=== PATIENT | male | born 1995 | race Caucasian/White ===

== ENCOUNTER 2022-04-08 00:41 | Emergency (ER) | payer SELFPAY ==
--- OUTSIDE RECORDS SUMMARY | 2022-04-08 00:46 | XMS REPORT | Continuity of Care Document ---
:1995 Author Organization [facility] t Address [address] [place] [address] Care Team Providers Name Role Phone Pcp, Patient Does Not Have A Primary Care Physician [id number] MALI CROWE Attending Clinician Unavailable JACKIE GALVAN Attending Clinician Unavailable JOCELYN EATON Attending Clinician Unavailable SARAH WU Attending Clinician Unavailable AJ URBINA Attending Clinician Unavailable Pricilla Slade NP Attending Clinician PRICILLA SLADE Attending Clinician Unavailable Nawaf Her Attending Clinician Unavailable PRABHU MI Attending Clinician Unavailable BERNADETTE TOMLINSON Attending Clinician Unavailable Antonio Lara Attending Clinician Unavailable Physician, No Primary or Family Admitting Clinician Unavaila ble Payers Payer Name Policy Type Policy Number Effective Date Expiration Date S maria elena Problems Condition Condition Condition Status Onset Resolution Last Treating Co mments Source Name Details Category Date Date Treatment Clinician Date No known No known Disease Unive rs active active ity of problems problems [facility] Allergies, Adverse Reactions, Alerts Allergy Allergy Status Severity Reaction(s) Onset Inactive Treating Comm ents Source Name Type Date Date Clinician [place]ulfa [place] Active [place] [facility] (Sulfona 905 Clear mide 00:00: [place] [facility] Sulfa DA Active [place] HIVES, [facility] (Sulfona ANGIOEDEMA 12-24 Divya r mide 00:00: [place] [facility] Sulfa DA Active [place] [facility] (Sulfona 2-28 Clear mide 00:00: [place] [facility]) [facility] Sulfa DA Active [place] HIVES [facility] (Sulfona 2-28 Clear mide 00:00: [place] Antibiot 00 Regiona ics) [facility] Sulfa DA Active MO 2019-0 [facility] (Sulfona 5-18 Clear mide 00:00: [place] Antibiot 00 Regiona ics) [facility] Sulfa DA Active [place] HIVES 2019-0 [facility] (Sulfona 5-18 Clear mide 00:00: [place] Antibiot 00 Regiona ics) [facility] Sulfa DA Active MO 2020-0 [facility] (Sulfona 2-04 Clear mide 00:00: [place] Antibiot 00 Regiona ics) [facility] Sulfa DA Active [place] HIVES 2019-0 [facility] (Sulfona 2-04 Clear mide 00:00: [place] Antibiot 00 Regiona ics) [facility] No Known DA Active U 2013- [facility] Allergie 12-04 [place] s 00:00: d [facility] No Known DA Active U [facility] Allergie 12-04 [place] s 00:00: d [facility] No Known DA Active U 2005- [facility] Contrast 8- Clear Allergie 00:00: [place] s [facility] No Known DA Active U 2005- [facility] Drug - Clear Allergie 00:00: [place] [facility] No Known DA Active U 2005- [facility] Food 8- Clear Allergie 00:00: [facility] No Known DA Active U [facility] Other 8- Clear Allergie 00:00: [facility] NO KNOWN Drug Active Univers ALLERGIE Class ity of S [facility] Social History Social Habit Start Date Stop Date Quantity Comments Source Exposure to Not sure [facility] SARS-CoV-2 (event) [facility] Sex Assigned At [birth year] [facility] 00:00:00 00:00:00 [facility] Smoking Status Start Date Stop Date Source Unknown if ever smoked [facility] Medications Ordered Filled Start Stop Current Ordering Indication Dosage Frequency Signature Comments Components Source Medication Medication Date Date Medication? Clinician (SIG) Name Name ibuprofen 2020-04- No 800mg 800 mg, Uni vers (IBU) 0-17 10-17 Oral, ity of tablet 800 06:15: 05:23 ONCE, 1 [place] as mg 00 :00 dose, On Medical [facility] 02/04/21 at 0115, [facility] acetaminoph 2020-04 No 650mg 650 mg, U nivers en 0-17 10-17 Oral, ity of (TYLENOL) 06:15: 05:23 ONCE, 1 [place] tablet 650 00 :00 dose, On Medic al mg [facility] 02/04/21 at 0115, [facility] albuterol 2020-04 Yes [id number] 2{puff} Inhale 2 Univers 90 0-17 Puffs ity of mcg/actuati 00:00: every 4 [place] as on inhaler 00 (four) Medical hours as Branch needed for Wheezing or Shortness of Breath. levoFLOXaci 2020-04- No [id number] 750mg Take 1 Univers n 750 mg 0-17 10-25 tablet by ity o f tablet 00:00: 04:59 mouth [place] 00 :00 daily for Medical 7 days. Branch predniSONE 2020-04- No [id number] 20mg Take 1 Univers 20 mg 0-17 10-23 tablet by ity of tablet 00:00: 04:59 mouth 2 [place] 00 :00 (two) Medical times Branch daily for 5 days. TYLENOL FOR 2008-0 Yes None Univer s CHILDREN 1-16 Entered ity of ORAL 13:05: [place] 22 [facility] Immunizations Ordered Filled Immunization Date Status Comments Sourc e Immunization Name Name DTP 1995 Completed University of 00:00:00 [facility] HIB 4 Dose Schedule 1995 Completed [facility] 00[facility] Polio (IPV/OPV) 1995 Completed Universit y of 00:00:00 [facility] Vital Signs Vital Name Observation Time Observation Value Comments Source Systolic blood 2021-02-04 07:45:00 131 mm[Hg] Univer sity of pressure [facility] Diastolic blood 2021-02-04 07:45:00 74 mm[Hg] [facility] Heart rate 2021-02-04 07:45:00 114 /min [facility] Respiratory rate 2021-02-04 07:45:00 20 /min [facility] Oxygen saturation in 2021-02-04 07:45:00 98 /min [facility] Arterial blood by [facility] Pulse oximetry [place] Body temperature 2021-02-04 04:20:00 38.33 Lisa [facility] Body height 2021-02-04 04:20:00 170.2 cm [facility] Body weight 2021-02-04 04:20:00 91.944 kg [facility] BMI 2021-02-04 04:20:00 31.75 kg/m2 [facility] Procedures Procedure Date / Time Performing Clinician Source Performed URINALYSIS 2021-02-04 06:27:00 Pricilla Slade [facility] EBV-MONONUCLEOSIS SCREEN 2021-02-04 06:27:00 Pricilla Slade [facility] RAPID STREP SCREEN FOR 2021-02-04 06:27:00 Pricilla Slade [facility] GROUP A [facility] URINE DRUG (IMMUNOASSAY) 2021-02-04 06:27:00 [facility] n[facility] SCREEN W/O REFLEX ADC,CLC OR LCC ONLY - 2021-02-04 05:24:00 [facility] A & B DIRECT Medical [place] ANTIGEN XR CHEST 1 VW 2021-02-04 05:23:00 Pricilla Slade [facility] COVID-19 (ID NOW RAPID 2021-02-04 04:57:00 Pricilla Slade [facility] TESTING) Medical Branch NOTICE OF PRIVACY 2021-02-04 04:01:40 Doctor Unassigned, No [facility] PRACTICES Name Medical Branch CONSENT/REFUSAL FOR 2021-02-04 03:58:40 [facility], [facility] Name Medical Branch Encounters Start End Encounter Admission Attending Care Care Encounter Source Date/Time Date/Time Type Type Clinicians Facility Department ID 2020-08-15 Inpatient HCACL ROBIN [id number] [facility] 18:15:00 43 [facility] 2020-06-18 Inpatient HCACL ROBIN [id number] [facility] 18:18:00 [id number] [facility] 2019-09-06 Inpatient HCACL ROBIN [id number] [facility] 22:14:00 [id number] [facility] 2019-05-25 Inpatient HCAMN DARIO [id number] [facility] 21:43:00 78 [facility] 2021-11-14 2021-11-14 Emergency E MALI CROWE SE MED [id number] 09:15:00 11:12:[address] [facility] 2021-10-05 2021-10-06 Emergency E MANDY NIGEL MHBL [id number] MHBL 22:09:00 02:40:00 JACKIE 2021-10-04 2021-10-05 Emergency E ANGELITO SE MHSE [id number] 23:17:00 00:01:[address] [facility] 2021-09-25 2021-09-25 Emergency E JAZMIN SE MHSE [id number] 21:46:00 22:39:[address] [facility] 2021-08-18 2021-08-18 Emergency E CIARA SE [id number] 18:36:00 19:57:[address] [facility] 2021-02-03 2021-02-04 Emergency [place] [facility] [id number] Univers 23:27:00 03:04:00 Pricilla Reyes [id number] [facility] [id number] [facility] [id number] [address] 2021-02-03 2021-02-03 Emergency [facility] E[facility] [id number] Univers 23:27:00 23:27:00 PRICILLA guevara [facility] 2020-12-24 2020-12-25 Emergency EM Taina, HCACL ROBIN [id number] [facility]CA 21:50:00 02:16:00 Nawaf 22 [facility] 2020-12-19 2020-12-20 Emergency E HIWOTPRABHU BL MHBL [id number] BL 21:51:00 04:15:00 2020-08-16 2020-08-17 Emergency E BERNADETTE TOMLINSON BL BL [id number] BL 22:18:00 02:24:00 2020-06-18 2020-06-18 Emergency EM MarcoDAMION [id number] [facility] 18:18:00 21:35:00 Antonio 67 [facility] 2019-04-10 2019-04-10 Emergency E MHBL BL 7502 BL 21:45:00 21:45:00 Results Test Description Test Time Test Comments Results Result Comments Source EBV-MONONUCLEOSIS SCREEN 2021-02-04 07:04:49 Test Item Value Reference Range Interpretation Comme nts EBV Mononucleosis Screen (test code = 8736403080) Negative Nega tive Lab Interpretation (test code = 40338-8) Normal [place] [facility]ROAT[facility]2020-12-25 00:56:00 Test Item Value Reference Range Interpretation Comments AG STREP GROUP A Negative Negative Negative fo r Strep A (THROAT) (test code = nuclei c acid STREPA) INFLUENZA A [id number] 00:56:00 Test Item Value Reference Range Interpretation Comments INFLUENZA A (test code = FLUAPCR) Negative Negative INFLUENZA B (test code = FLUBPCR) Negative Negative Coronavirus 2019 nCoV [id number] 00:41:00 Test Item Value Reference Range Interpretation Comments Coronavirus 2019 NEGATIVE Negative Negative re sults should be nCoV Bedside (test treated a s presumptive and, code = ifinconsistent with [id number]) clinical signs and symptoms or necessaryfor patient management, meenu uld be tested with an alternativemole cular assay. Negative result s do not preclude [id number] tion and should not be u sed as the sole basis forp atient management deci sions. Negative result s should beconsidered in the context of a patient's recent exposures,histo ry, presence of clinical sig ns and symptoms consis tentwith COVID-19. AG STREP GROUP A (THROAT)2020-12-25 00:33:00 Test Item Value Reference Range Interpretation Comments AG STREP GROUP A Negative Negative Negative fo r Strep A (THROAT) (test code = nuclei c acid STREPA) INFLUENZA A [id number] 00:33:00 Test Item Value Reference Range Interpretation Comments INFLUENZA A (test code = FLUAPCR) Negative INFLUENZA B (test code = FLUBPCR) Negative - CT HEAD/BRAIN W/O [id number] 19:29:00 [facility] 1995 Sex: M Name: ANATOLY MCNEAL [facility] : 1995 Age/S: 25 / M [address] [place] [address] BlvdUnit #: [id number] Loc: [place] [address] Phys: Shmuel Rodriguez Acct: [id number] Dis Date: Status: REG ER PHONE #: [phone] Exam Date: 08/15/20201901 FAX #: [phone] Reason: fall, occipital head strike, LOC, vomiting EXAMS: CPT CODE: [id number] CT HEAD/BRAIN W/O CONT 65001 Clinical Indication: Fall, occipital head strike, loss of point isthmus, vomiting; Comparison: None TECHNIQUE: CT images were obtained from the foramen magnum to the vertex and cervical spine without the use of intravenous contrast on a multidetector CT. Coronal and sagittal reconstructions were obtained. CT imaging performed at this location utilizes radiation dose optimization techniques which include one or more of the following: -Automated exposure control - Adjustment of the mA and/or kV according to patient size -Use of iterative reconstruction technique CT Radiation Dose DLP 569.9 mGy-cm-CT head CT Radiation Dose DLP 1964 mGy-cm-CT cervical spine FINDINGS: BRAIN PARENCHYMA: There are normal urbina-white interfaces, sulci and gyri. There are no focal mass lesions on this noncontrast head CT. There is no mass effect, midline shift or edema. There are no intra-axial or extra-axial fluid collections, intraventricular or intraparenchymal hemorrhage. The pineal, sellar, brainstem, cerebellum and skull base regions appear unremarkable. VENTRICLES: The lateral ventricles, third and fourth ventricles appear unremarkable. The basilar cisterns are normal. ORBITS, MASTOIDS AND PARANASAL SINUSES: The visualized orbits and paranasal sinuses are unremarkable. The mastoid air cells are clear. SKULL: Midline parieto-occipital scalp swelling. No underlying calvarial fracture. If there is further concern for intracranialpathology or acute stroke, MRI of the brain may be performed for complete assessment. CT cervical spine: FINDINGS: ALIGNMENT AND GENERAL ASSESSMENT: Mild reversal of the cervical lordosis, likely positional due to muscle spasm. There is normal alignment of the cervical spine. There are no fractures or subluxations. The craniocervical junction is normal. The atlanto- dental alignment appears unremarkable. The posterior elements PAGE 1 Signed Report (CONTINUED) Name: ANATOLY MCNEAL [facility] Andrzej : 1995 Age/S: 25 / M [address] [place] [address] Unit #: [id number] Loc: [place] [address] Phys: Shmuel Rodriguez Acct: [id number] Dis Date: Status: REG ER PHONE #: [phone] Exam Date:08/15/20201901 FAX #: [phone] Reason: fall, occipital head strike, LOC, vomiting EXAMS: CPT CODE: [id number] CT HEAD/BRAIN W/O CONT 97668 <Continued> and spinous processes are unremarkable. The facet joint, spinolaminar and spinous process alignment are normal. DISK SPACES AND SOFT TISSUES:The prevertebral soft tissues are normal. C2-C3 to C7-T1 disc space levels show no definite disc protrusions on CT. There is no central or foraminal stenosis. MRI is the gold standard to assess for disk disease. VISUALIZED LUNG APICES: Unremarkable. CT myelogram or MRI of the cervical spine may be performed, if there is further concern. IMPRESSION: CT head: 1. No acute intracranial abnormality. 2. Midline parieto-occipital scalp swelling. No calvarial fracture. CT cervical spine: No fractures or subluxations of the cervical spine. SL: AKHIL at 1929 Reported and signed by: Wanda Rodriguez M.D. CC: Antonio Lara MD; Shmuel HOLLY Technologist:RT Noemi(R)(CT) CTDI: DLP: Trnscb Date/Time: 08/15/2020 (1928) [email or web address] Orig Print D/T: S: 08/15/2020 (1931) PAGE 2 Signed Report- CT C-SPINE W/O [id number] 19:29:00 [facility] 1995 Sex: M Name: ANATOLY MCNEAL [facility] : 1995 Age/S: 25 / M [address] [place] [address] BlvdUnit #: [id number] Loc: [place] [address] Phys: Truj[place] AltoDavidShmuel PA Acct: [id number] Dis Date: Status: REG ER PHONE #: [phone] Exam Date: 08/15/2020 190 FAX #: [phone] Reason: fall, occipital head strike, LOC, vomiting EXAMS: CPT CODE: [id number] CT C-SPINE W/O CONT 78727 Clinical Indication: Fall, occipital head strike, loss of point isthmus, vomiting; Comparison: None TECHNIQUE: CT images were obtained from the foramen magnum to the vertex and cervical spine without the use of intravenous contrast on a multidetector CT. Coronal and sagittal reconstructions were obtained. CT imaging performed at this location utilizes radiation dose optimization techniques which include one or more of the following: -Automated exposure control - Adjustment of the mA and/or kV according to patient size -Use of iterative reconstruction technique CT Radiation Dose DLP 569.9 mGy-cm-CT head CT Radiation Dose DLP 1964 mGy-cm-CT cervical spine FINDINGS: BRAIN PARENCHYMA: There are normal urbina-white interfaces, sulci and gyri. There are no focal mass lesions on this noncontrast head CT. There is no mass effect, midline shift or edema. There are no intra-axial or extra-axial fluid collections, intraventricular or intraparenchymal hemorrhage. The pineal, sellar, brainstem, cerebellum and skull base regions appear unremarkable. VENTRICLES: The lateral ventricles, third and fourth ventricles appear unremarkable. The basilar cisterns are normal. ORBITS, MASTOIDS AND PARANASAL SINUSES: The visualized orbitsand paranasal sinuses are unremarkable. The mastoid air cells are clear. SKULL: Midline parieto-occipital scalp swelling. No underlying calvarial fracture. If there is further concern for intracranial pathology or acute stroke, MRI of the brain may be performed for complete assessment. CT cervical spine: FINDINGS: ALIGNMENT AND GENERAL ASSESSMENT: Mild reversal of the cervical lordosis, likely positional due to muscle spasm. There is normal alignment of the cervical spine. There are no fractures or subluxations. The craniocervical junction is normal. The atlanto- dental alignment appears unremarkable. The posterior elements PAGE 1 Signed Report (CONTINUED) Name[facility] 1995 Age/S: 25 / M [address] [place] [address] Blvd Unit #: [id number] Loc: [place] [address] Phys: Shmuel Rodriguez Acct: [id number] Dis Date: Status: REG ER PHONE #: [phone] Exam Date: 08/15/2020 190 FAX #: [phone] Reason: fall, occipital head strike, LOC, vomiting EXAMS: CPT CODE: [id number] CT C-SPINE W/O CONT 27569 <Continued> and spinous processes are unremarkable. The facet joint, spinolaminar and spinous process alignment are normal. DISK SPACES AND SOFT TISSUES: Theprevertebral soft tissues are normal. C2-C3 to C7-T1 disc space levels show no definite disc protrusions on CT. There is no central or foraminal stenosis. MRI is the gold standard to assess for disk disease. VISUALIZED LUNG APICES: Unremarkable. CT myelogram or MRI of the cervical spine may be performed, if there is further concern. IMPRESSION: CT head: 1. No acute intracranial abnormality. 2. Midline parieto-occipital scalp swelling. No calvarial fracture. CT cervical spine: No fractures or subluxations of the cervical spine. SL: MADHUH at 192 Reported and signed by: Wanda Rodriguez M.D. CC: Antonio Lara MD; Shmuel HOLLY Technologist:RT Noemi(R)(CT) CTDI: DLP: Trnscb Date/Time: 08/15/2020 (1928) [id number] Print D/T: S: 08/15/2020 (1931) PAGE 2 Signed Report- XR CHEST 1 [id number] 19:10:00 [facility] [place] : 1995 Sex: M FAX: Antonio Lara MD [phone] Leroy: St: [facility] FAX: Shmuel Rodriguez [phone] ------ Name: ANATOLY MCNEAL [facility] : 1995 Age/S: 25/M [address] [place] [address] Unit #: [id number] Loc: [place] [address] Phys: Shmuel Rodriguez Acct: [id number] Dis Date: Status: REG ER PHONE #: [phone] Exam Date: 08/15/2020 1904 FAX #: [phone] Reason: trauma EXAMS: CPT CODE: [id number] XR CHEST 1 V 37089 Portable single view AP chest INDICATION: Fall. Injury. Comparison: 06/10/2020 chest x-ray FINDINGS: The cardiomediastinal silhouette is normal in size. Lungs are clear. Costophrenic anglesare sharp. No suspicious osseous abnormality is seen. IMPRESSION: No evidence for acute cardiopulmonary disease. SL: SG-H at 1910 Reported and signed by: Jose C Joshi M.D. CC: Antonio Lara MD; Shmuel HOLLY Technologist: Suma Lynch, RT(R); Judith Savage RT(R) Trninrd Date/Time/By: 08/15/2020 (1909) : By: [email or web address] Orig Print D/T: S: 08/15/2020 (1912) PAGE 1 Signed ReportBASIC METABOLIC [id number] 20:21:00 Test Item Value Reference Range Interpretation Comments SODIUM (test code = NA) 140 mEq/L 134-147 N POTASSIUM (test code = 4.0 mEq/L 3.4-5.0 N K) CHLORIDE (test code = 108 mEq/L 100-108 N CL) CARBON DIOXIDE (test 24 mEq/l 21-33 N code = CO2) ANION GAP (test code = 12 0-20 N GAP) GLUCOSE (test code = 108 mg/dL 70-110 N GLU) BLOOD UREA NITROGEN 16 mg/dL 7-18 N (test code = BUN) GLOMERULAR FILTRATION 102.8 110-120 L Units of measure = RATE (test code = GFR) ml/mi n/1.73 m2 CREATININE (test code = 0.9 mg/dL 0.6-1.3 N CREAT) CALCIUM (test code = 9.8 mg/dL 8.0-10.5 N CA) [id number] 20:21:00 Test Item Value Reference Range Interpretation Comments TROPONIN-I < 0.006 ng/mL 0.000-0.045 N Negative: <= 0 .045 Positive: (test code = >= 0.046 Correl ation with TROPI) serial results, other cardiac markers andclinical findings is nec essary to determine the clinicalsignifi cance of this result. Results using different metho dologies should not be c omparedto one another as quyen titative results may silvana y by method. BASIC METABOLIC [id number] 20:20:00 Test Item Value Reference Range Interpretation Comments SODIUM (test code = NA) mEq/L 134-147 POTASSIUM (test code = K) mEq/L 3.4-5.0 CHLORIDE (test code = CL) mEq/L 100-108 CARBON DIOXIDE (test code = CO2) mEq/l 21-33 ANION GAP (test code = GAP) 0-20 GLUCOSE (test code = GLU) mg/dL 70-110 BLOOD UREA NITROGEN (test code = BUN) mg/dL 7-18 GLOMERULAR FILTRATION RATE (test code 110-120 = GFR) CREATININE (test code = CREAT) mg/dL 0.6-1.3 CALCIUM (test code = CA) mg/dL 8.0-10.5 [id number] 20:20:00 Test Item Value Reference Range Interpretation Comments TROPONIN-I < 0.006 ng/mL 0.000-0.045 N Negative: <= 0 .045 Positive: (test code = >= 0.046 Correl ation with TROPI) serial results, other cardiac markers andclinical findings is nec essary to determine the clinicalsignifi cance of this result. Results using different metho dologies should not be c omparedto one another as quyen titative results may silvana y by method. [id number] 20:16:00 Test Item Value Reference Range Interpretation Comments D-DIMER (test 364 ng/mlFEU See_Comment N THROMBOSIS AND /OR PULMONARY code = EMBOLISM AND TH E CLINICAL DDIMER) CUT- OFF VALUE FOR EXCLUSION (500 ng/mL FEU) OF THESE CONDITIONSIS VA LIDATED BY THE MANUFACTURE R OF THE METHOD. A NEGAT RENU D-DIMER RESULT WHEN COM BINED WITH A CLINICALASSESSM ENT OF LOW PRETEST PROBABI LITY HAS BEEN SHOWN TO HAVEA HIGH NEGATIVE PREDICTIVE VALU E OF DVT OR PE. D-DIMER KOJO UES >500 ng/mL FEU ARE N OT DIAGNOSTIC FOR DVT, PEor D IC WITHOUT OTHER CONFIRMAT ORY TESTS AND APPROPRIATECLIN ICAL EUALUATIONS. [A utomated message] [employer] stem which generated this result transmitted ref erence range: <=500. The refe rence range was not used to interpret this result as normal/abnormal . CBC W/AUTO [id number] 20:06:00 Test Item Value Reference Range Interpretation Comments WHITE BLOOD CELL (test code = 9.3 x10 3/uL 4.5-11.0 N WBC) RED BLOOD CELL (test code = 5.45 x10 6/uL 4.00-5.60 N RBC) HEMOGLOBIN (test code = HGB) 15.0 g/dL 12.5-16.9 N HEMATOCRIT (test code = HCT) 44.6 % 37.5-50.7 N MEAN CELL VOLUME (test code = 81.8 fL 81.0-99.0 N MCV) MEAN CELL HGB (test code = MCH) 27.5 pg 27.0-33.0 N MEAN CELL HGB CONCETRATION 33.6 g/dL 33.0-37.0 N (test code = MCHC) RED CELL DISTRIBUTION WIDTH CV 13.0 % 11.5-14.5 N (test code = RDW) RED CELL DISTRIBUTION WIDTH SD 38.3 fL 37.0-54.0 N (test code = RDW-SD) PLATELET COUNT (test code = 288 x10 3/uL 150-400 N PLT) MEAN PLATELET VOLUME (test code 10.7 fL 7.0-9.0 H = MPV) NEUTROPHIL % (test code = NT%) 68.1 % 56.0-77.0 N IMMATURE GRANULOCYTE % (test 0.3 % 0.0-2.0 N code = IG%) LYMPHOCYTE % (test code = LY%) 19.6 % 14.0-32.0 N MONOCYTE % (test code = MO%) 8.3 % 4.8-9.0 N EOSINOPHIL % (test code = EO%) 2.8 % 0.3-3.7 N BASOPHIL % (test code = BA%) 0.9 % 0.0-2.0 N NUCLEATED RBC % (test code = 0.0 % 0-0 N NRBC%) NEUTROPHIL # (test code = NT#) 6.32 x10 3/uL 2.0-7.6 N IMMATURE GRANULOCYTE # (test 0.03 x10 3/uL 0.00-0.03 N code = IG#) LYMPHOCYTE # (test code = LY#) 1.82 x10 3/uL 1.0-3.8 N MONOCYTE # (test code = MO#) 0.77 x10 3/uL 0.1-0.8 N EOSINOPHIL # (test code = EO#) 0.26 x10 3/uL 0.0-0.2 H BASOPHIL # (test code = BA#) 0.08 x10 3/uL 0.0-0.2 N NUCLEATED RBC # (test code = 0.00 x10 3/uL 0.0-0.1 N NRBC#) MANUAL DIFF REQUIRED (test code NO = MDIFF) CBC W/AUTO [id number] 20:02:00 Test Item Value Reference Range Interpretation Comments WHITE BLOOD CELL (test code = x10 3/uL 4.5-11.0 WBC) RED BLOOD CELL (test code = RBC) x10 6/uL 4.00-5.60 HEMOGLOBIN (test code = HGB) 15.0 g/dL 12.5-16.9 N HEMATOCRIT (test code = HCT) 44.6 % 37.5-50.7 N MEAN CELL VOLUME (test code = fL 81.0-99.0 MCV) MEAN CELL HGB (test code = MCH) pg 27.0-33.0 MEAN CELL HGB CONCETRATION (test g/dL 33.0-37.0 code = MCHC) RED CELL DISTRIBUTION WIDTH CV % 11.5-14.5 (test code = RDW) PLATELET COUNT (test code = PLT) 288 x10 3/uL 150-400 N NEUTROPHIL % (test code = NT%) % 56.0-77.0 LYMPHOCYTE % (test code = LY%) % 14.0-32.0 NEUTROPHIL # (test code = NT#) x10 3/uL 2.0-7.6 LYMPHOCYTE # (test code = LY#) x10 3/uL 1.0-3.8 MANUAL DIFF REQUIRED (test code = MDIFF) - XR CHEST 1 [id number] 19:27:00 [facility] 1995 Sex: M FAX: Antonio Lara MD [phone] Leroy: REMA St: DEP Name: ANATOLY MCNEAL [facility] : 1995 Age/S: 25/M [address] [place] [address] Unit #: [id number] Loc: [place] [address] Phys: Bia Lara Acct: [id number] Dis Date: Status: DEP ER PHONE #: [phone] Exam Date: 06/18/2020 1856 FAX #: [phone] Reason: chest pain, SOB EXAMS: CPT CODE: [id number] XR CHEST 1 V 57333 SINGLE VIEW RADIOGRAPH CHEST INDICATION: Chest pain and dyspnea. TECHNIQUE: A single view frontal radiograph of the chest was obtained. COMPARISONS: Chest x-ray 09/06/2019 FINDINGS: There is no acute osseous fracture or dislocation. There is no subdiaphragmatic free gas. The cardiomediastinal size and contour are normal. There is no pneumothorax, pleural effusion or organized pneumonia. IMPRESSION: 1. No acute cardiopulmonary process. at 1926 Rep orted and signed by: Sergio Rose D.O. CC: Antonio Lara MD Technologist: Kae Dior, RT(R) Trnscrd Date/Time/By: 06/18/2020 (1926) : By: Ana Maria.[email or web address] Orig Print D/T: S: 06/18/2020 (1929) PAGE 1 Signed Report- XR CHEST 1 V 2020-06-18 19:27:00 [facility] : 1995 Sex: M FAX: Antonio Lara MD [phone] Leroy: St: REG Name: ANATOLY MCNEAL [facility] : 1995 Age/S: 25/M [address] [place] [address] Unit #: [id number] Loc: [place] [address] Phys: Bia Lara Acct: [id number] Dis Date: Status: REG ER PHONE #: [phone] Exam Date: 06/18/2020 185 FAX #: [phone] Reason: chest pain, SOB EXAMS: CPT CODE: [id number] XR CHEST 1 V 29580 SINGLE VIEW RADIOGRAPH CHEST INDICATION: Chest pain and dyspnea. TECHNIQUE: A single view frontal radiograph of the chest was obtained. COMPARISONS: Chest x-ray 09/06/2019 FINDINGS: There is no acute osseous fracture or dislocation. There is no subdiaphragmatic free gas. The cardiomediastinal size and contour are normal. There is no pneumothorax, pleural effusion or organized pneumonia. IMPRESSION: 1. No acute cardiopulmonary process. at 1927 Re ported and signed by: Sergio Rose D.O. CC: Antonio Lara MD Technologist: RT Carlene(R) Trnscrd Date/Time/By: 06/18/2020 (1926) : By: Ana Maria.[email or web address] Orig Print D/T: S: 06/18/2020 (1929) PAGE 1 Signed ReportNovel Coronavirus 20182019-09-07 14:02:00 Test Item Value Reference Range Interpretation Comments Novel Coronavirus Negative Negative Positive r esults are 2019 Inhouse (test indicativ e of the presence code = [id number]) ofSARS-CoV -2 RNA, clinical correlation wit h patient historyand othe r diagnostic info rmation is necessary to determinepatien t infection status. Positiv e results do not rule out bacterial infection or co -infection with other viru ses. Negative result s do not preclude SARS-C oV-2 infection andsh ould not be used as the elda e basis for patient managementdecis ions. Negative result s must be combined with otherclinical observations, p atient history, and epidemiological information . Detection of SARS-CoV-2 RNA may be affe cted bysample collec tion methods, storag e conditions, and /or stageof infection. Kristy l RNA mutations, vacc inations, antiviraltherap eutics, antibiotics, chemotherapeuti c orimmunosuppres brady drugs have not been e valuated for effectson d etection. Results are for the identification of SARS-CoV-2 RNA usingthe SWYF M2000 Sy stem under the FDA Emergen cy UseAuthorizatio n. The testing is perf ormed by personneltraflower d in the procedures for the [employer]000 molecular diagnostic SARS-CoV-2 assa y in vitro. Testing Criteria: Fever Cough OtherOther: GENERALIZED WEAKNESSCOMMENTS: ORDER PUT IN FOR DR JOSE MIGUEL Reddy [id number] 00:31:00 Test Item Value Reference Range Interpretation Comments INFLUENZA A (test code = FLUAPCR) Negative Negative INFLUENZA B (test code = FLUBPCR) Negative Negative COMMENTS: SwabBASIC METABOLIC [id number] 00:19:00 Test Item Value Reference Range Interpretation Comments SODIUM (test code = NA) 139 mEq/L 134-147 N POTASSIUM (test code = 3.6 mEq/L 3.4-5.0 N K) CHLORIDE (test code = 104 mEq/L 100-108 N CL) CARBON DIOXIDE (test 27 mEq/L 21-33 N code = CO2) ANION GAP (test code = 12 0-20 N GAP) GLUCOSE (test code = 88 mg/dL 70-110 N GLU) BLOOD UREA NITROGEN 10 mg/dL 7-18 N (test code = BUN) GLOMERULAR FILTRATION 82.2 110-120 L Units of measure = RATE (test code = GFR) ml/mi n/1.73 m2 CREATININE (test code = 1.1 mg/dL 0.6-1.3 N CREAT) CALCIUM (test code = 9.3 mg/dL 8.0-10.5 N CA) HEPATIC FUNCTION [id number] 00:19:00 Test Item Value Reference Range Interpretation Comments TOTAL PROTEIN (test code = PROT) 8.0 g/dL 6.4-8.2 N ALBUMIN (test code = ALB) 4.30 g/dL 3.4-5.0 N BILIRUBIN TOTAL (test code = BILT) 0.5 MG/DL <1.5 N BILIRUBIN DIRECT (test code = 0.20 MG/DL 0.0-0.30 N BILD) BILIRUBIN INDIRECT (test code = 0.30 MG/DL BILIND) SGOT/AST (test code = AST) 13 IUnit/L 15-37 L SGPT/ALT (test code = ALT) 22 IUnit/L 15-65 N ALKALINE PHOSPHATASE TOTAL (test 74 IUnit/L 20-125 N code = ALKP) BASIC METABOLIC [id number] 00:13:00 Test Item Value Reference Range Interpretation Comments SODIUM (test code = NA) 139 mEq/L 134-147 N POTASSIUM (test code = K) 3.6 mEq/L 3.4-5.0 N CHLORIDE (test code = CL) 104 mEq/L 100-108 N CARBON DIOXIDE (test code = CO2) 27 mEq/L 21-33 N ANION GAP (test code = GAP) 12 0-20 N GLUCOSE (test code = GLU) 88 mg/dL 70-110 N BLOOD UREA NITROGEN (test code = 10 mg/dL 7-18 N BUN) GLOMERULAR FILTRATION RATE (test 110-120 code = GFR) CREATININE (test code = CREAT) mg/dL 0.6-1.3 CALCIUM (test code = CA) 9.3 mg/dL 8.0-10.5 N HEPATIC FUNCTION [id number] 00:13:00 Test Item Value Reference Range Interpretation Comments TOTAL PROTEIN (test code = PROT) g/dL 6.4-8.2 ALBUMIN (test code = ALB) g/dL 3.4-5.0 BILIRUBIN TOTAL (test code = BILT) MG/DL <1.5 BILIRUBIN DIRECT (test code = BILD) MG/DL 0.0-0.30 SGOT/AST (test code = AST) IUnit/L 15-37 SGPT/ALT (test code = ALT) IUnit/L 15-65 ALKALINE PHOSPHATASE TOTAL (test IUnit/L 20-125 code = ALKP) CBC W/AUTO [id number] 00:05:00 Test Item Value Reference Range Interpretation Comments WHITE BLOOD CELL (test code = 8.84 x10 3/uL 4.5-11.0 N WBC) RED BLOOD CELL (test code = 5.91 x10 6/uL 4.00-5.60 H RBC) HEMOGLOBIN (test code = HGB) 16.0 g/dL 12.5-16.9 N HEMATOCRIT (test code = HCT) 48.5 % 37.5-50.7 N MEAN CELL VOLUME (test code = 82.1 fL 81.0-99.0 N MCV) MEAN CELL HGB (test code = MCH) 27.1 pg 27.0-33.0 N MEAN CELL HGB CONCETRATION 33.0 g/dL 33.0-37.0 N (test code = MCHC) RED CELL DISTRIBUTION WIDTH CV 12.9 % 11.5-14.5 N (test code = RDW) RED CELL DISTRIBUTION WIDTH SD 38.5 fL 37.0-54.0 N (test code = RDW-SD) PLATELET COUNT (test code = 272 x10 3/uL 150-400 N PLT) MEAN PLATELET VOLUME (test code 10.6 fL 7.0-9.0 H = MPV) NEUTROPHIL % (test code = NT%) 70.9 % 56.0-77.0 N IMMATURE GRANULOCYTE % (test 0.1 % 0.0-2.0 N code = IG%) LYMPHOCYTE % (test code = LY%) 20.6 % 14.0-32.0 N MONOCYTE % (test code = MO%) 6.3 % 4.8-9.0 N EOSINOPHIL % (test code = EO%) 1.2 % 0.3-3.7 N BASOPHIL % (test code = BA%) 0.9 % 0.0-2.0 N NUCLEATED RBC % (test code = 0.0 % 0-0 N NRBC%) NEUTROPHIL # (test code = NT#) 6.26 x10 3/uL 2.0-7.6 N IMMATURE GRANULOCYTE # (test 0.01 x10 3/uL 0.00-0.03 N code = IG#) LYMPHOCYTE # (test code = LY#) 1.82 x10 3/uL 1.0-3.8 N MONOCYTE # (test code = MO#) 0.56 x10 3/uL 0.1-0.8 N EOSINOPHIL # (test code = EO#) 0.11 x10 3/uL 0.0-0.2 N BASOPHIL # (test code = BA#) 0.08 x10 3/uL 0.0-0.2 N NUCLEATED RBC # (test code = 0.00 x10 3/uL 0.0-0.1 N NRBC#) MANUAL DIFF REQUIRED (test code NO = IFF) - XR CHEST 2 [id number] 23:38:00 [facility] : 1995 Sex: M FAX: Ernesto Swanson MD [phone] Leroy: REMA St: DEP Name: ANATOLY MCNEAL [facility] : 1995 Age/S: 24/M [address] [place] [address] Unit #: [id number] Loc: [place] [address] Phys: Ernesto Colunga MD Acct: [id number] Dis Date: Status: DEP ER PHONE #: [phone] Exam Date: 09/06/2019 [facility] FAX #: [phone] Reason: Chest Pain EXAMS: CPT CODE: [id number] XR CHEST 2 V 16536 Chest, 2 views dated 09/06/2019. HISTORY: Chest pain. Comparison is made to a prior study dated 05/20/2018. The heart is normal in size. The cardiac mediastinal shadow appears within normal limits. The lungs appear clear. The palmar vasculature is normal in caliber. No acute pleural space abnormalities are detected. IMPRESSION: 1. No radiographic evidence of acute cardiopulmonary disease. SL: 131 at 9963 Reported and signed by: Kanu Pinto M.D. CC: Ernesto Colunga MD Technologist: RT Jeremie(Timothy) Trncatalina Date/Time/By: 09/06/2019 (6638) : By: NavaDMM Orig Print D/T: S: 09/06/2019 (1570) PAGE 1 Signed Report- XR CHEST 2 [id number] 23:38:00 FAX: Ernseto Swanson MD [phone] Leroy: St: REG Name: ANATOLY MCNEAL [facility] : 1995 Age/S: 24/M [address] [place] [address] Blvd Unit #: [id number] Loc: [place] [address] Phys: Ernesto Colunga MD Acct: [id number] Dis Date: Status: REG ER PHONE #: [phone] Exam Date: 09/06/20192330 FAX #: [phone] Reason: Chest Pain EXAMS: CPT CODE: [id number] XR CHEST 2 V 30972 Chest, 2 views dated 09/06/2019. HISTORY: Chest pain. Comparison is made to a prior study dated 05/20/2018. The heart is normal in size. The cardiac mediastinal shadow appears within normal limits. The lungs appear clear. The palmar vasculature is normal in caliber. No acute pleural space abnormalities are detected. IMPRESSION: 1. No radiographic evidence of acute cardiopulmonary disease. SL: 131 at 2338 Reported and signed by: Kanu Pinto M.D. CC: Ernesto Colunga MD Technologist: KACIE Chao) Trnscrd Date/Time/By: 09/06/2019 (4602) : By: NavaDMM Orig Print D/T: S: 09/06/2019 (7770) PAGE 1 Signed Report- CT ABD PELVIS [id number] 00:20:00 FAX: Dariusz Junior DO [phone] Leroy: St: REG Name: ANATOLY MCNEAL [facility] : 1995 Age/S: 24/M [address] [facility] Unit: [id number] Loc: [address] Phys: [place] [id number] Acct: [id number] Dis Date: Status: REG ER PHONE #: [phone] Exam Date: 05/25/2019 0005 FAX #: [phone] Reason: abdominal pain EXAMS: CPT CODE: [id number] CT ABD PELVIS W/CONT 28958 EXAM: CT ABDOMEN AND PELVIS WITH IV CONTRAST DICTATION LOCATION: H48 HISTORY: Male, 24 years of age with periumbilical abdominal pain for one week TECHNIQUE: Contrast: Nonionic IV contrast was given. No GI contrast was given. Portal venous phase: Abdomen and pelvis Delayed phase: None Reconstructions: Coronal and sagittal One or more of the following dose reduction techniques were used: Automated exposure control; adjustment of the mA and/or kV according to the patient size; and/or use of iterative reconstruction technique. COMPARISON: Previous CT abdomen and pelvis with contrast performed 10/28/2014 FINDINGS: Statements: Exam quality is acceptable. Lower thorax: Unremarkable. Hepatobiliary: The liver is normal without focal lesion. The gallbladder is normal. No biliary dilation. Pancreas: Normal. Spleen: Normal. Adrenals: Normal. Genitourinary: No solid renal mass, significant cortical thinning, obvious renal stone or hydronephrosis. Ureters are unremarkable. Urinary bladder is unremarkable. The visualized reproductive organs are unremarkable. Gastrointestinal: No bowel wall thickening, bowel obstruction or perienteric inflammation. The appendix is normal. Vascular: No aortic aneurysm or dissection. IVC is unremarkable. Portal vein is patent. PAGE 1 Signed Report (CONTINUED) FAX: Dariusz Junior DO [phone] Leroy: St: REG -------- Name: ANATOLY MCNEAL [facility] : 1995 Age/S: 24/M [address] [facility] Unit: [id number] Loc: E.ERS2 [place], [place]: [place] [address] Acct: [id number] Date: Status: REG ER PHONE #: [phone] Exam Date: 05/25/2019 0005 FAX #: [phone] Reason: abdominal pain EXAMS: CPT CODE: [id number] CT ABD PELVIS W/CONT 46402 <Continued> Lymphatics:No enlarged lymph nodes by CT size criteria. Bones/Soft Tissues: No acute osseous findings. No ventral hernias. Peritoneum/Other: No free intraperitoneal air. No free intraperitoneal fluid. IMPRESSION:Unremarkable CT of the abdomen and pelvis. Electronically Signed by James Escamilla on05/26/2019 at 0020 Reported and signed by: Ale Escamilla M.D. CC: Dariusz Junior DO Technologist:CORA Montgomeryrd Dt/Tm: 05/26/2019 (0020) [place] Orig Print D/T: S: 05/26/2019 (0820 PAGE 2 Signed Report- CT ABD PELVIS [id number] 00:20:00 [facility] : 1995 Sex: M FAX: Dariusz Junior DO [phone] Leroy: St: DEP Name: ANATOLY MCNEAL CYDNEY [facility] : 1995 Age/S: 24/M [address] [facility] Unit: [id number] Loc: [place], [place] Phys: D[place] [id number]: [id number] Dis Date: Status: DEP ER PHONE #: [phone] Exam Date: 05/25/2019 0005 FAX #: [phone] Reason: abdominal pain EXAMS: CPT CODE: [id number] CT ABD PELVIS W/CONT 41593 EXAM: CT ABDOMEN AND PELVIS WITH IV CONTRAST DICTATION LOCATION: H48 HISTORY: Male, 24 years of age with periumbilical abdominal pain for one week TECHNIQUE: Contrast: Nonionic IV contrast was given. No GI contrast was given. Portal venous phase: Abdomen and pelvis Delayed phase: None Reconstructions: Coronal an d sagittal One or more of the following dose reduction techniques were used: Automated exposure control; adjustment of the mA and/or kV according to the patient size; and/or use of iterative reconstruction technique. COMPARISON: Previous CT abdomen and pelvis with contrast performed 10/28/2014 FINDINGS: Statements: Exam quality is acceptable. Lower thorax: Unremarkable. Hepatobiliary: The liver is normal without focal lesion. The gallbladder is normal. No biliary dilation. Pancreas: Normal. Spleen: Normal. Adrenals: Normal. Genitourinary: No solid renal mass, significant cortical thinning, obvious renal stone or hydronephrosis. Ureters are unremarkable. Urinary bladder is unremarkable. The visualized reproductive organs are unremarkable. Gastrointestinal: No bowel wall thickening, bowel obstruction or perienteric inflammation. The appendix is normal. Vascular: No aortic aneurysm or dissection. IVC is unremarkable. Portal vein is patent. PAGE 1 Signed Report (CONTINUED) FAX: Dariusz Junior DO [phone] Leroy: St: [facility] --- Name: ANATOLY MCNEAL [facility] : 1995 Age/S: 24/M [address] [facility] Unit: [id number] Loc: [place], [place]: [place] [id number] Acct: [id number] Dis Date: Status: [facility] ER PHONE #: [phone] Exam Date: 05/25/2019 0005 FAX #: [phone] Reason: abdominal pain EXAMS: CPT CODE: [id number] CT ABD PELVIS W/CONT 48327 <Continued> Lymphatics: No enlarged lymph nodes by CT size criteria. Bones/Soft Tissues: No acute osseous findings. No ventral hernias. Peritoneum/Other: No free intraperitoneal air. No free intraperitoneal fluid. IMPRESSION: Unremarkable CT of the abdomen and pelvis. at 0020 Reported and signed by: Ale Escamilla M.D. CC: Dariusz Junior DO Technologist: CORA WELLINGTON Trnscrd Dt/Tm: 05/26/2019 (0020) [place] Orig Print D/T: S: 05/26/2019 (0820 PAGE 2 Signed ReportBASIC METABOLIC PANEL 2019-05-25 23:28:00 Test Item Value Reference Range Interpretation Comments SODIUM (test code = NA) 138 mmol/l 134.0-147.0 N POTASSIUM (test code = K) 4.7 mmol/L 3.6-5.2 N CHLORIDE (test code = CL) 101 mmol/l 98.0-107.0 N CARBON DIOXIDE (test code = CO2) 31.6 mmol/l 21.0-33.0 N ANION GAP (test code = GAP) 10.1 0-20 N GLUCOSE (test code = GLU) 83 mg/dl 70.0-110.0 N BLOOD UREA NITROGEN (test code = 18 mg/dl 7.0-18.0 N BUN) CREATININE (test code = CREAT) 1.15 mg/dL 0.60-1.30 N GFR NON BLACK (test code = 83 mL/min 110-120 L GFRNONBLACK) GFR BLACK (test code = GFRBLACK) 100 mL/min 133-145 L CALCIUM (test code = CA) 9.3 mg/dl 8.0-10.5 N HEPATIC FUNCTION PANEL [id number] 23:28:00 Test Item Value Reference Range Interpretation Comments TOTAL PROTEIN (test 7.5 GM/DL 6.0-8.1 N code = PROT) ALBUMIN (test code = 3.9 gm/dL 3.2-4.7 N ALB) BILIRUBIN TOTAL (test 0.4 mg/dl 0.0-1.0 N code = BILT) BILIRUBIN DIRECT (test <0.1 mg/dl 0.0-0.3 N code = BILD) SGOT/AST (test code = 43 Units/L 15.0-37.0 H SAMPLE 1-2+ AST) HEMOLYSED, REDR AW IF DEEMED NECESSAR Y. SGPT/ALT (test code = 33 Units/L 12.0-78.0 N ALT) ALKALINE PHOSPHATASE 73 Units/L 50.0-136.0 N TOTAL (test code = ALKP) [id number] 23:28:00 Test Item Value Reference Range Interpretation Comments LIPASE (test code = LIP) 96 Units/L 65.0-230.0 N URINALYSIS [id number] 23:21:00 Test Item Value Reference Range Interpretation Comments UA COLOR (test code = COLU) YELLOW UA APPEARANCE (test code = CLEAR APPU) UA GLUCOSE DIPSTICK (test NORMAL mg/dl NORMAL code = DGLUU) UA BILIRUBIN DIPSTICK (test NEGATIVE mg/dL NEGATIVE code = BILU) UA KETONE DIPSTICK (test NEGATIVE mg/dl NEGATIVE code = KETU) UA SPECIFIC GRAVITY (test 1.010 1.000-1.030 code = SGU) UA BLOOD DIPSTICK (test NEGATIVE Hector/micL NEGATIVE code = ANAY) UA PH DIPSTICK (test code = 7.0 5.0-9.0 DAVID) UA PROTEIN DIPSTICK (test NEGATIVE mg/dl NEGATIVE code = PROU) UA UROBILINIOGEN DIPSTICK NORMAL mg/dl NORMAL (test code = URO) UA NITRITE DIPSTICK (test NEGATIVE NEGATIVE code = FLAVIA) UA LEUKOCYTE ESTERASE NEGATIVE Don/micL NEGATIVE DIPSTICK (test code = LEUU) UA WBC (test code = WBCU) 0-3 WBC/HPF NONE UA RBC (test code = RBCU) 0-2 RBC/HPF 0-3 UA EPITHELIAL CELLS (test 0-3 EPI/HPF 0-3 code = EPIU) UA BACTERIA (test code = FEW NONE BACU) UA MUCUS (test code = MUCU) 1+ Specimen comments: Clean CatchBASIC METABOLIC [id number] 23:20:00 Test Item Value Reference Range Interpretation Comments SODIUM (test code = NA) 138 mmol/l 134.0-147.0 N POTASSIUM (test code = K) 4.7 mmol/L 3.6-5.2 N CHLORIDE (test code = CL) 101 mmol/l 98.0-107.0 N CARBON DIOXIDE (test code = CO2) 31.6 mmol/l 21.0-33.0 N ANION GAP (test code = GAP) 10.1 0-20 N GLUCOSE (test code = GLU) mg/dl 70.0-110.0 BLOOD UREA NITROGEN (test code = mg/dl 7.0-18.0 BUN) CREATININE (test code = CREAT) mg/dL 0.60-1.30 GFR NON BLACK (test code = mL/min 110-120 GFRNONBLACK) GFR BLACK (test code = GFRBLACK) mL/min 133-145 CALCIUM (test code = CA) mg/dl 8.0-10.5 HEPATIC FUNCTION PANEL [id number] 23:20:00 Test Item Value Reference Range Interpretation Comments TOTAL PROTEIN (test code = PROT) gm/dL 6.4-8.2 ALBUMIN (test code = ALB) gm/dl 3.2-4.7 BILIRUBIN TOTAL (test code = BILT) mg/dl 0.0-1.0 BILIRUBIN DIRECT (test code = BILD) mg/dl 0.0-0.3 SGOT/AST (test code = AST) Units/L 15.0-37.0 SGPT/ALT (test code = ALT) Units/L 12.0-78.0 ALKALINE PHOSPHATASE TOTAL (test Units/L 50.0-136.0 code = ALKP) [id number] 23:20:00 Test Item Value Reference Range Interpretation Comments LIPASE (test code = LIP) Units/L 65.0-230.0 CBC W/AUTO [id number] 23:15:00 Test Item Value Reference Range Interpretation Comments WHITE BLOOD CELL (test code = 9.3 K/mm3 4.5-11.0 N WBC) RED BLOOD CELL (test code = 5.49 M/mm3 4.40-5.90 N RBC) HEMOGLOBIN (test code = HGB) 14.8 gm/dL 13.0-17.0 N HEMATOCRIT (test code = HCT) 43.7 % 36.0-48.0 N MEAN CELL VOLUME (test code = 79.6 UM3 80.0-94.0 L MCV) MEAN CELL HGB (test code = MCH) 27.0 UUG 25.5-32.5 N MEAN CELL HGB CONCETRATION 33.9 gm/dL 29.0-35.5 N (test code = MCHC) RED CELL DISTRIBUTION WIDTH 12.4 % 11.5-15.0 N (test code = RDW) RED CELL DISTRIBUTION WIDTH SD 35.3 fL 34.8-50.2 N (test code = RDW-SD) PLATELET COUNT (test code = 271 K/mm3 150-400 N PLT) MEAN PLATELET VOLUME (test code 11.4 fl 7.4-10.4 H = MPV) NEUTROPHIL % (test code = NT%) 59.6 % 49.0-76.0 N IMMATURE GRANULOCYTE % (test 0.1 % 0.0-0.4 N code = IG%) LYMPHOCYTE % (test code = LY%) 28.2 % 23.0-38.0 N MONOCYTE % (test code = MO%) 9.2 % 1.0-10.0 N EOSINOPHIL % (test code = EO%) 2.0 % 1.0-5.0 N BASOPHIL % (test code = BA%) 0.9 % 0.0-1.0 N NEUTROPHIL # (test code = NT#) 5.5 K/mm3 2.4-6.3 N IMMATURE GRANULOCYTE # (test 0.01 x10 3/uL 0.00-0.07 N code = IG#) LYMPHOCYTE # (test code = LY#) 2.6 K/mm3 1.2-4.0 N MONOCYTE # (test code = MO#) 0.9 K/mm3 0.0-0.6 H EOSINOPHIL # (test code = EO#) 0.2 K/MM3 0.0-0.7 N BASOPHIL # (test code = BA#) 0.1 K/mm3 0.0-0.2 N URINALYSIS [id number] 23:13:00 Test Item Value Reference Range Interpretation Comments UA COLOR (test code = COLU) YELLOW UA APPEARANCE (test code = CLEAR APPU) UA GLUCOSE DIPSTICK (test NORMAL mg/dl NORMAL code = DGLUU) UA BILIRUBIN DIPSTICK (test NEGATIVE mg/dL NEGATIVE code = BILU) UA KETONE DIPSTICK (test NEGATIVE mg/dl NEGATIVE code = KETU) UA SPECIFIC GRAVITY (test 1.010 1.000-1.030 code = SGU) UA BLOOD DIPSTICK (test NEGATIVE Hector/micL NEGATIVE code = ANAY) UA PH DIPSTICK (test code = 7.0 5.0-9.0 DAVID) UA PROTEIN DIPSTICK (test NEGATIVE mg/dl NEGATIVE code = PROU) UA UROBILINIOGEN DIPSTICK NORMAL mg/dl NORMAL (test code = URO) UA NITRITE DIPSTICK (test NEGATIVE NEGATIVE code = FLAVIA) UA LEUKOCYTE ESTERASE NEGATIVE Don/micL NEGATIVE DIPSTICK (test code = LEUU) UA WBC (test code = WBCU) WBC/HPF NONE UA RBC (test code = RBCU) RBC/HPF 0-3 UA EPITHELIAL CELLS (test EPI/HPF 0-3 code = EPIU) UA BACTERIA (test code = NONE BACU) Specimen comments: Clean CatchCOMPREHENSIVE METABOLIC [id number] 14:20:00 Test Item Value Reference Range Interpretation Comments SODIUM (test code = NA) 136 mEq/L 134-147 N POTASSIUM (test code = 3.9 mEq/L 3.4-5.0 N K) CHLORIDE (test code = 103 mEq/L 100-108 N CL) CARBON DIOXIDE (test 29 mEq/L 21-33 N code = CO2) ANION GAP (test code = 8 0-20 N GAP) GLUCOSE (test code = 108 mg/dL 70-110 N GLU) BLOOD UREA NITROGEN 16 mg/dL 7-18 N (test code = BUN) GLOMERULAR FILTRATION 92.6 110-120 L Units of measure = RATE (test code = GFR) ml/mi n/1.73 m2 CREATININE (test code = 1.0 mg/dL 0.6-1.3 N CREAT) TOTAL PROTEIN (test 8.2 g/dL 6.4-8.2 N code = PROT) ALBUMIN (test code = 4.30 g/dL 3.4-5.0 N ALB) CALCIUM (test code = 9.0 mg/dL 8.0-10.5 N CA) BILIRUBIN TOTAL (test 0.80 mg/dL 0.0-1.0 N code = BILT) SGOT/AST (test code = 82 IUnit/L 15-37 H AST) SGPT/ALT (test code = 42 IUnit/L 15-65 N ALT) ALKALINE PHOSPHATASE 89 IUnit/L 20-125 N TOTAL (test code = ALKP) [id number] 14:20:00 Test Item Value Reference Range Interpretation Comments LIPASE (test code = LIP) 89 IUnit/L 73-393 N COMPREHENSIVE METABOLIC [id number] 14:18:00 Test Item Value Reference Range Interpretation Comments SODIUM (test code = NA) 136 mEq/L 134-147 N POTASSIUM (test code = 3.9 mEq/L 3.4-5.0 N K) CHLORIDE (test code = 103 mEq/L 100-108 N CL) CARBON DIOXIDE (test 29 mEq/L 21-33 N code = CO2) ANION GAP (test code = 8 0-20 N GAP) GLUCOSE (test code = 108 mg/dL 70-110 N GLU) BLOOD UREA NITROGEN 16 mg/dL 7-18 N (test code = BUN) GLOMERULAR FILTRATION 92.6 110-120 L Units of measure = RATE (test code = GFR) ml/mi n/1.73 m2 CREATININE (test code = 1.0 mg/dL 0.6-1.3 N CREAT) TOTAL PROTEIN (test g/dL 6.4-8.2 code = PROT) ALBUMIN (test code = 4.30 g/dL 3.4-5.0 N ALB) CALCIUM (test code = 9.0 mg/dL 8.0-10.5 N CA) BILIRUBIN TOTAL (test mg/dL 0.0-1.0 code = BILT) SGOT/AST (test code = 82 IUnit/L 15-37 H AST) SGPT/ALT (test code = 42 IUnit/L 15-65 N ALT) ALKALINE PHOSPHATASE IUnit/L 20-125 TOTAL (test code = ALKP) [id number] 14:18:00 Test Item Value Reference Range Interpretation Comments LIPASE (test code = LIP) 89 IUnit/L 73-393 N CBC W/AUTO [id number] 14:06:00 Test Item Value Reference Range Interpretation Comments WHITE BLOOD CELL (test code = 12.09 x10 3/uL 4.5-11.0 H WBC) RED BLOOD CELL (test code = 6.29 x10 6/uL 4.00-5.60 H RBC) HEMOGLOBIN (test code = HGB) 16.9 g/dL 12.5-16.9 N HEMATOCRIT (test code = HCT) 52.2 % 37.5-50.7 H MEAN CELL VOLUME (test code = 83.0 fL 81.0-99.0 N MCV) MEAN CELL HGB (test code = 26.9 pg 27.0-33.0 L MCH) MEAN CELL HGB CONCETRATION 32.4 g/dL 33.0-37.0 L (test code = MCHC) RED CELL DISTRIBUTION WIDTH CV 12.8 % 11.5-14.5 N (test code = RDW) RED CELL DISTRIBUTION WIDTH SD 39.4 fL 37.0-54.0 N (test code = RDW-SD) PLATELET COUNT (test code = 257 x10 3/uL 150-400 N PLT) MEAN PLATELET VOLUME (test 10.7 fL 7.0-9.0 H code = MPV) NEUTROPHIL % (test code = NT%) 89.3 % 56.0-77.0 H IMMATURE GRANULOCYTE % (test 0.3 % 0.0-2.0 N code = IG%) LYMPHOCYTE % (test code = LY%) 4.2 % 14.0-32.0 L MONOCYTE % (test code = MO%) 5.3 % 4.8-9.0 N EOSINOPHIL % (test code = EO%) 0.7 % 0.3-3.7 N BASOPHIL % (test code = BA%) 0.2 % 0.0-2.0 N NUCLEATED RBC % (test code = 0.0 % 0-0 N NRBC%) NEUTROPHIL # (test code = NT#) 10.79 x10 3/uL 2.0-7.6 H IMMATURE GRANULOCYTE # (test 0.04 x10 3/uL 0.00-0.03 H code = IG#) LYMPHOCYTE # (test code = LY#) 0.51 x10 3/uL 1.0-3.8 L MONOCYTE # (test code = MO#) 0.64 x10 3/uL 0.1-0.8 N EOSINOPHIL # (test code = EO#) 0.09 x10 3/uL 0.0-0.2 N BASOPHIL # (test code = BA#) 0.02 x10 3/uL 0.0-0.2 N NUCLEATED RBC # (test code = 0.00 x10 3/uL 0.0-0.1 N NRBC#) MANUAL DIFF REQUIRED (test NO code = MDIFF) - XR ABD ACUTE W/[id number] 12:00:00 [facility] : 1995 Sex: M FAX: Shmuel Rodriguez [phone] [place]: St: UNK Name: FREDISANATOLY LAMAS [facility] : 1995 Age/S: 23/M [address] [place] [address] Unit #: [id number] Loc: [place] [address] Phys: Shmuel Rodriguez Acct: [id number] Dis Date: Status: UNK PHONE #: [phone] Exam Date: 05/20/2018 1152 FAX #: [phone] Reason: vomiting, cough chest discomfort EXAMS: CPT CODE: [id number] XR ABD ACUTE [id number] PROCEDURE: ABDOMINAL SERIES WITH SINGLE VIEW CHEST INDICATION: vomiting, cough chest discomfort COMPARISON: CXR April 2014, CT abdomen October 2014 FINDINGS: ABDOMEN: Air-fluid levels within normal caliber small and large bowel. No free intraperitoneal air. No soft tissue masses or pathologic ca lcifications. Radiographic evidence for splenomegaly. Skeleton is intact. Lower pelvis not included in the wgzma-qy-uzyu. CHEST: The lungs are clear. The pleura, cardiomediastinal silhouette and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
[2022-04-08] MEDS ORDERED: DIAZEPAM 2 MG TABLET ONE (01:07)
[2022-04-08] MEDS ORDERED: PROPRANOLOL HCL 10 MG TAB ONE (01:10)
--- NOTE | 2022-04-08 01:51 | ER ---
Nurse's Notes [facility] Name: Romulo Gusman Age: 27 yrs Sex: Male : 1995 Arrival Date: 04/08/2022 Time: 00:45 Bed 5 Private MD: Diagnosis: Anxiety disorder, unspecified;Tachycardia, unspecified Presentation: 04/08 01:01 Chief complaint: Patient states: "I am having some shortness of breath, dizziness, and vc1 chest pain. It gets worse when I move. I am supposed to take Propranolol but I haven't in about 6 months.". Coronavirus screen: Vaccine status: Patient reports being unvaccinated. Ebola Screen: No symptoms or risks identified at this time. Initial Sepsis Screen: Does the patient meet any 2 criteria? HR > 90 bpm. No. Patient's initial sepsis screen is negative. Does the patient have a suspected source of infection? No. Patient's initial sepsis screen is negative. Risk Assessment: Do you want to hurt yourself or someone else? Patient reports no desire to harm self or others. Onset of symptoms was April 07, 2022. 01:01 Method Of Arrival: Ambulatory vc1 01:01 Acuity: LAURI 3 vc1 Triage Assessment: 01:07 General: Appears in no apparent distress. uncomfortable, Behavior is anxious. Pain: vc1 Complains of pain in chest Pain does not radiate. Pain currently is 6 out of 10 on a pain scale. Quality of pain is described as sharp. EENT: No deficits noted. No signs and/or symptoms were reported regarding the EENT system. Neuro: Level of Consciousness is awake, alert, obeys commands, Oriented to person, place, time, situation, Appropriate for age. Cardiovascular: Reports chest pain, diaphoresis, shortness of breath, Patient's skin is warm and dry. Respiratory: Airway is patent Respiratory effort is even, unlabored, Respiratory pattern is regular, symmetrical. GI: No deficits noted. : No deficits noted. No signs and/or symptoms were reported regarding the genitourinary system. Derm: No deficits noted. No signs and/or symptoms reported regarding the dermatologic system. Musculoskeletal: No deficits noted. No signs and/or symptoms reported regarding the musculoskeletal system. Historical: - Allergies: 01:04 Sulfa (Sulfonamide Antibiotics); vc1 - Home Meds: 01:04 propranolol 10 mg Oral tab [Active]; vc1 - PMHx: 01:04 ADD/ADHD; Bipolar disorder; vc1 - PSHx: 01:04 None; vc1 - Immunization history:: Client reports having NOT received the Covid vaccine. - Social history:: Smoking status: Reported history of juuling and/or vaping. - Family history:: not pertinent. - Hospitalizations: : No recent hospitalization is reported. Screenin:06 [facility] ED Fall Risk Assessment (Adult) History of falling in the last 3 months, vc1 including since admission No falls in past 3 months (0 pts) Confusion or Disorientation No (0 pts) Intoxicated or Sedated No (0 pts) Impaired Gait No (0 pts) Mobility Assist Device Used No (0 pt) Altered Elimination No (0 pt) Score/Fall Risk Level 0 - 2 = Low Risk Maintained a safe environment. Abuse screen: Denies threats or abuse. Nutritional screening: No deficits noted. Tuberculosis screening: No symptoms or risk factors identified. Fall Risk No fall in past 12 months (0 pts). 02:05 Humpty Dumpty Scale Fall Assessment Tool (age< 18yrs) Age 13 years and above (1 pt). ll3 Assessment: 01:08 Pain: Pain began gradually, 1 day ago. vc1 Vital Signs: 01:01 BP 128 / 97; Pulse 106; Resp 20; Temp 98.1(O); Pulse Ox 100% ; Weight 83.91 kg; Height vc1 5 ft. 6 in. (167.64 cm); Pain 6/10; 02:06 BP 123 / 59; Pulse 94; Resp 20; Pulse Ox 99% on R/A; ll3 01:01 Body Mass Index 29.86 (83.91 kg, 167.64 cm) vc1 ED Course: 00:45 Patient arrived in ED. ja2 00:46 Josep Junior MD is Attending Physician. rn 00:50 Kasey Gillespie RN is Primary Nurse. aa9 01:04 Triage completed. vc1 01:07 Arm band placed on right wrist. vc1 01:08 Patient has correct armband on for positive identification. Placed in gown. Bed in low vc1 position. Call light in reach. Client placed on continuous cardiac and pulse oximetry monitoring. NIBP monitoring applied. 01:08 Patient maintains SpO2 saturation greater than 95% on room air. vc1 02:05 No provider procedures requiring assistance completed. Patient did not have IV access ll3 during this emergency room visit. Administered Medications: 01:08 Drug: Valium (diazepam) 2 mg Route: PO; aa9 02:06 Follow up: Response: No adverse reaction; Marked relief of symptoms ll3 01:40 Drug: Propranolol 10 mg Route: PO; aa9 02:06 Follow up: Response: No adverse reaction ll3 Medication: 01:09 VIS not applicable for this client. vc1 Outcome: 01:51 Discharge ordered by . rn 02:05 Discharged to home ambulatory, with significant other. ll3 02:05 Condition: stable 02:05 Discharge instructions given to patient, significant other, Instructed on discharge instructions, follow up and referral plans. medication usage, Demonstrated understanding of instructions, follow-up care, medications, Prescriptions given X 1. 02:06 Patient left the ED. ll3 Signatures: Josep Junior MD MD rn Alexander, Jessica ja2 Loubet, Lynsea, RN RN ll3 Radha Gao RN RN vc1 Kasey Gillespie, JONATHAN RN aa9
--- NOTE | 2022-04-08 01:51 | EDPHYS ---
Physician Documentation [facility] Name: Romulo Gusman Age: 27 yrs Sex: Male : 1995 Arrival Date: 04/08/2022 Time: 00:45 Bed 5 Private MD: ED Physician Josep Junior HPI: 04/08 01:13 This 27 yrs old Male presents to ER via Ambulatory with complaints of Chest Pressure, rn Dizziness, Shortness Of Breath, High Blood Pressure. 01:13 The patient presents with a history of heart racing. Context: The symptoms occur at rn rest, with anxiety. Onset: The symptoms/episode began/occurred at an unknown time. Duration: The patient or guardian reports multiple episodes. Modifying factors: The symptoms are aggravated by not taking propranolol. Associated signs and symptoms: Pertinent positives: anxiety, Pertinent negatives: fever, syncope. Severity of symptoms: At their worst the symptoms were moderate in the emergency department the symptoms have improved. The patient has experienced similar episodes in the past. The patient has not recently seen a physician. Pt reports known anxiety and fast heart rate, prescribed propranolol in past, has been off of it for 6 months because he moved, has been having increased episodes of palpitations since then, made worse with anxiety and also making his anxiety worse. No drug use. No syncope. . Historical: - Allergies: 01:04 Sulfa (Sulfonamide Antibiotics); vc1 - Home Meds: 01:04 propranolol 10 mg Oral tab [Active]; vc1 - PMHx: 01:04 ADD/ADHD; Bipolar disorder; vc1 - PSHx: 01:04 None; vc1 - Immunization history:: Client reports having NOT received the Covid vaccine. - Social history:: Smoking status: Reported history of juuling and/or vaping. - Family history:: not pertinent. - Hospitalizations: : No recent hospitalization is reported. ROS: 01:13 Constitutional: Negative for fever, chills, and weight loss, Eyes: Negative for injury, rn pain, redness, and discharge, Neck: Negative for injury, pain, and swelling, Cardiovascular: + palpitations Respiratory: Negative for cough, wheezing, and pleuritic chest pain, Abdomen/GI: Negative for abdominal pain, nausea, vomiting, diarrhea, and constipation, MS/Extremity: Negative for injury and deformity, Skin: Negative for injury, rash, and discoloration, Neuro: Negative for headache, weakness, numbness, tingling, and seizure. Exam: 01:13 Constitutional: This is a well developed, well nourished patient who is awake, alert, rn and in no acute distress. Ambulatory to room without difficulty or assistance. Head/Face: Normocephalic, atraumatic. Cardiovascular: Tachycardic, regular. No pulse deficits. Respiratory: Clear bilateral breath sounds. Speaking full sentences. Skin: Warm, dry MS/ Extremity: Pulses equal, no cyanosis. Neuro: Awake and alert, GCS 15 02:38 ECG was reviewed by the Attending Physician. rn Vital Signs: 01:01 BP 128 / 97; Pulse 106; Resp 20; Temp 98.1(O); Pulse Ox 100% ; Weight 83.91 kg; Height vc1 5 ft. 6 in. (167.64 cm); Pain 6/10; 02:06 BP 123 / 59; Pulse 94; Resp 20; Pulse Ox 99% on R/A; ll3 01:01 Body Mass Index 29.86 (83.91 kg, 167.64 cm) vc1 MDM: 00:46 Patient medically screened. rn 01:50 Differential diagnosis: arrythmia, dehydration, stress disorder. Data reviewed: vital rn signs, nurses notes, old medical records, EKG, and as a result, I will discharge patient. Counseling: I had a detailed discussion with the patient and/or guardian regarding: the historical points, exam findings, and any diagnostic results supporting the discharge/admit diagnosis, the need for outpatient follow up, to return to the emergency department if symptoms worsen or persist or if there are any questions or concerns that arise at home. Response to treatment: the patient's symptoms have markedly improved after treatment, and as a result, I will discharge patient. Special discussion: I discussed with the patient/guardian in detail that at this point there is no indication for admission to the hospital. It is understood, however, that if the symptoms persist or worsen the patient needs to return immediately for re-evaluation. Based on the history and exam findings, there is no indication for further emergent testing or inpatient evaluation. I discussed with the patient/guardian the need to see the psychiatrist for further evaluation of the symptoms. 04/08 00:59 Order name: EKG; Complete Time: 01:00 rn 04/08 00:59 Order name: EKG - Nurse/Tech; Complete Time: 01: rn 04/08 00:59 Order name: Cardiac monitoring; Complete Time: : rn 04/08 00:59 Order name: O2 Sat Monitoring; Complete Time: : rn EC:38 Rate is 84 beats/min. Rhythm is regular. QRS [place] is Normal. SC interval is normal. QRS rn interval is normal. QT interval is normal. No Q waves. T waves are Normal. No ST changes noted. Clinical impression: Normal ECG. Interpreted by me. Reviewed by me. Administered Medications: 01:08 Drug: Valium (diazepam) 2 mg Route: PO; aa9 02:06 Follow up: Response: No adverse reaction; Marked relief of symptoms ll3 01:40 Drug: Propranolol 10 mg Route: PO; aa9 02:06 Follow up: Response: No adverse reaction ll3 Disposition Summary: 04/08/22 01:51 Discharge Ordered Location: Home rn Problem: an ongoing problem rn Symptoms: have improved rn Condition: Stable rn Diagnosis - Anxiety disorder, unspecified rn - Tachycardia, unspecified rn Followup: rn - With: Private Physician - When: As needed - Reason: Recheck today's complaints, Re-evaluation by your physician Discharge Instructions: - Discharge Summary Sheet rn - Generalized Anxiety Disorder, Adult rn - Sinus Tachycardia rn Forms: - Medication Reconciliation Form rn - Thank You Letter rn - Antibiotic apple turner - Prescription Opioid Use rn Prescriptions: - Propranolol 10 mg Oral Tablet - take 1 tablet by ORAL route once daily; 60 tablet; Refills: 0, Product rn Selection Permitted Signatures: Josep Junior MD MD rn Calcote, Vanessa RN RN vc1 Kasey Gillespie RN RN aa9 Tamra Wheat RN ll3
[2022-04-08 02:10] VITALS: BP 128/97; TEMP 98.1; O2SAT 100
--- NOTE | 2022-04-09 15:17 | EKG ---
Test Date: 2022-04-08 Test Time: 01:00:35 Cloth Winder: ISAIAH MEASUREMENT RESULTS: Intervals: Rate: 84 GA: 132 QRSD: 90 QT: 354 QTc: 418 [place]: P: 61 GA: 132 QRS: 103 T: 21 INTERPRETIVE STATEMENTS: Normal sinus rhythm Rightward axis Borderline ECG Compared to ECG 11/18/2016 04:45:55 Right-axis deviation now present Electronically Signed On 04-09-22 15:15:59 COSMETOLOGIST APPRENTICE by Emir Clark
== END 2022-04-08 02:06 | disposition home or self-care (01) ==
LOC: ER 00:41
DX: F41.9 Anxiety disorder, unspecified (principal); R00.0 Tachycardia, unspecified; F90.9 Attention-deficit hyperactivity disorder, unspecified type; Z88.2 Allergy status to sulfonamides
CPT/HCPCS: 93005; 99284

== ENCOUNTER 2022-06-09 21:13 | Emergency (ER) | payer SELFPAY ==
--- OUTSIDE RECORDS SUMMARY | 2022-06-09 21:17 | XMS REPORT | Continuity of Care Document ---
:1995 Author Organization [facility] t Address [address] [place] [address] Care Team Providers Name Role Phone Pcp, [...] rs active active ity of problems problems [facility] Allergies, Adverse Reactions, Alerts Allergy Allergy Status Severity Reaction(s) Onset Inactive Treating Comm ents Source Name Type Date Date Clinician Sulfa DA Active [place] [facility] (Sulfona 05 Clear mide 00:00: [facility] Sulfa DA Active [place] HIVES, [facility] (Sulfona ANGIOEDEMA 12-24 Divya r mide 00:00: [facility] Sulfa DA Active [place] [facility] (Sulfona 2-28 Clear mide 00:00: [facility] Sulfa DA Active MO HIVES [facility] (Sulfona 2-28 Clear mide 00:00: [facility] Sulfa DA Active MO 2019-0 [facility] (Sulfona 5-18 Clear mide 00:00: [place] Antibiot 00 Regiona ics) [facility] Sulfa DA Active MO HIVES 2019-0 [facility] (Sulfona 5-18 Clear mide 00:00: [place] Antibiot 00 Regiona ics) [facility] Sulfa DA Active MO 2020-0 [facility] (Sulfona 2-04 Clear mide 00:00: [place] Antibiot 00 Regiona ics) [facility] Sulfa DA Active MO HIVES 2019-0 [facility] (Sulfona 2-04 Clear mide 00:00: [place] [facility]iot 00 Regiona ics) [facility] No Known DA Active U 2013- [facility] Allergie 12-04 [place] s 00:00: d [facility] No Known DA Active U [facility] Allergie 12-04 [place] s 00:00: d [facility] No Known DA Active U 2005- [facility] Contrast - Clear Allergie 00:00: [facility] No Known DA Active U 2005- [facility] Drug - Clear Allergie 00:00: [facility] No Known DA Active U 2005- [facility] Food 8-17 Clear Allergie 00:00: [facility] No Known DA Active U [facility] Other 8-17 Clear Allergie 00:00: [facility] NO KNOWN Drug Active Univers ALLERGIE Class ity of S [facility] Social History Social Habit Start Date Stop Date Quantity Comments Source Exposure to Not sure [facility] SARS-CoV-2 (event) [facility] Sex Assigned At [birth year] [facility] 00:00:00 00:00:00 [facility] Smoking Status Start Date Stop Date Source Unknown if ever smoked [facility] Medications Ordered Filled Start Stop Current Ordering Indication Dosage Frequency Signature Comments Components Source Medication Medication Date Date Medication? Clinician (SIG) Name Name ibuprofen 2020-04 No 800mg 800 mg, Uni vers (IBU) 0-17 10-17 Oral, ity of tablet 800 06:15: 05:23 ONCE, 1 [place] as mg 00 :00 dose, On Medical [facility] 02/04/21 at 0115, [facility] acetaminoph 2020-04 No 650mg 650 mg, U nivers en 0-17 10-17 Oral, ity of (TYLENOL) 06:15: 05:23 ONCE, 1 [place] tablet 650 00 :00 dose, On Medic al mg [facility] 02/04/21 at 0115, [facility] albuterol 2020-04 Yes [id number] 2{puff} Inhale 2 Univers 90 0-17 Puffs ity of mcg/actuati 00:00: every 4 [place] as on inhaler 00 (four) Medical hours as Branch needed for Wheezing or Shortness of Breath. levoFLOXaci 2020-04- No [id number] 750mg Take 1 Univers n 750 mg 0-17 10-25 tablet by ity o f tablet 00:00: 04:59 mouth [place] 00 :00 daily for Medical 7 days. Branch predniSONE 2020-04- No [id number] 20mg Take 1 Univers 20 mg 0-17 10-23 tablet by ity of tablet 00:00: 04:59 mouth 2 [place] 00 :00 (two) Medical times Branch daily for 5 days. TYLENOL FOR Yes None Univer s CHILDREN 1-16 Entered ity of ORAL 13:05: [place] 22 [facility] Immunizations Ordered Filled Immunization Date Status Comments Sour e Immunization Name Name DTP 1995 Completed University of 00:00:00 [facility] HIB 4 Dose Schedule 1995 Completed [facility] of 00:00:00 [facility] Polio (IPV/OPV) 1995 Completed Universit y of 00:00:00 [facility] Vital Signs Vital Name Observation Time Observation Value Comments Source Systolic blood 2021-02-04 07:45:00 131 mm[Hg] [facility] sity of pressure [facility] Diastolic blood 2021-02-04 07:45:00 74 mm[Hg] [facility] Heart rate 2021-02-04 07:45:00 114 /min [facility] Respiratory rate 2021-02-04 07:45:00 20 /min [facility] Oxygen saturation in 2021-02-04 07:45:00 98 /min [facility] Arterial blood by [facility] Pulse oximetry [facility] Body temperature 2021-02-04 04:20:00 38.33 Lisa [facility] Body height 2021-02-04 04:20:00 170.2 cm [facility] Body weight 2021-02-04 04:20:00 91.944 kg [facility] BMI 2021-02-04 04:20:00 31.75 kg/m2 [facility] Procedures Procedure Date / Time Performing Clinician Source Performed URINALYSIS 2021-02-04 06:27:00 Pricilla Slade [facility] EBV-MONONUCLEOSIS SCREEN 2021-02-04 06:27:00 [facility] RAPID STREP SCREEN FOR 2021-02-04 06:27:00 Pricilla Slade [facility] GROUP A [facility] URINE DRUG (IMMUNOASSAY) 2021-02-04 06:27:00 [facility] Medical [facility] SCREEN W/O REFLEX ADC,CLC OR LCC ONLY - 2021-02-04 05:24:00 Pricilla Slade [facility] INFLUENZA A & B DIRECT Medical [facility] ANTIGEN XR CHEST 1 VW 2021-02-04 05:23:00 Pricilla Slade [facility] Branch COVID-19 (ID NOW RAPID 2021-02-04 04:57:00 Pricilla Slade [facility] TESTING) Medical Branch NOTICE OF PRIVACY 2021-02-04 04:01:40 Doctor Unassigned, No [facility] PRACTICES Name Medical Branch CONSENT/REFUSAL FOR 2021-02-04 03:58:40 [facility], [facility] Name Medical Branch Encounters Start End Encounter Admission Attending Care Care Encounter Source Date/Time Date/Time Type Type Clinicians Facility Department ID 2020-08-15 Inpatient HCACL ROBIN [id number] [facility] 18:15:00 43 [facility] 2020-06-18 Inpatient HCACL ROBIN [id number] [facility] 18:18:00 [id number] [facility] 2019-09-06 Inpatient HCACL ROBIN [id number] [facility] 22:14:00 [id number] [facility] 2019-05-25 Inpatient HCAMN DARIO [id number] [facility] 21:43:00 78 [facility] 2021-11-14 2021-11-14 Emergency E MALI CROWE SE MED [id number] 09:15:00 11:12:[address] [facility] 2021-10-05 2021-10-06 Emergency E MATTHEW GALVAN MHBL [id number] MHBL 22:09:00 02:40:00 JACKIE 2021-10-04 2021-10-05 Emergency E ANGELITO SE MHSE 7507 23:17:00 00:01:[address] [facility] 2021-09-25 2021-09-25 Emergency E JAZMIN SE MHSE [id number] 21:46:00 22:39:[address] [facility] 2021-08-18 2021-08-18 Emergency E CIARA SE 7505 18:36:00 19:57:[address] [facility] 2021-02-03 2021-02-04 Emergency [place] [facility] [id number] Univers 23:27:00 03:04:00 [id number] [id number] [facility] [id number] [address] 2021-02-03 2021-02-03 Emergency X [place], [facility] ERT [id number] Univers 23:27:00 23:27:00 PRICILLA guevara [facility] 2020-12-24 2020-12-25 Emergency EM Taina, DAMION KELLY [id number] [facility] 21:50:00 02:16:00 Nawaf 22 [facility] 2020-12-19 2020-12-20 Emergency E PRABHU MI MHBL MHBL [id number] MHBL 21:51:00 04:15:00 2020-08-16 2020-08-17 Emergency E TOMLINSONBERNADETTE BL MHBL [id number] MHBL 22:18:00 02:24:00 2020-06-18 2020-06-18 Emergency EM DAMION Lara [id number] [facility] 18:18:00 21:35:00 Antonio 67 [facility] 2019-04-10 2019-04-10 Emergency E MHBL MHBL 7502 MHBL 21:45:00 21:45:00 Results Test Description Test Time Test Comments Results Result Comments Source EBV-MONONUCLEOSIS SCREEN 2021-02-04 07:04:49 Test Item Value Reference Range Interpretation Comme nts EBV Mononucleosis Screen (test code = 2013507065) Negative Nega tive Lab Interpretation (test code = 41692-4) Normal [facility] (THROAT)2020-12-25 00:56:00 Test Item Value Reference Range Interpretation Comments AG STREP GROUP A Negative Negative Negative fo r Strep A (THROAT) (test code = nuclei c acid STREPA) INFLUENZA A [id number] 00:56:00 Test Item Value Reference Range Interpretation Comments INFLUENZA A (test code = FLUAPCR) Negative Negative INFLUENZA B (test code = FLUBPCR) Negative Negative Coronavirus 2019 nCoV [id number] 00:41:00 Test Item Value Reference Range Interpretation Comments Coronavirus 2019 NEGATIVE Negative Negative re sults should be nCoV Bedside (test treated a s presumptive and, code = ifinconsistent with [id number]) clinical signs and symptoms or necessaryfor patient management, meenu uld be tested with an alternativemole cular assay. Negative result s do not preclude [id number] tion and should not be u sed [...] = nuclei c acid STREPA) INFLUENZA A [id number] 00:33:00 Test Item Value Reference Range Interpretation Comments INFLUENZA A (test code = FLUAPCR) Negative INFLUENZA B (test code = FLUBPCR) Negative - CT HEAD/BRAIN W/O [id number] 19:29:00 [facility] 1995 Sex: M Name: ANATOLY MCNEAL [facility] : 1995 Age/S: 25 / M [address] [place] [address] BlvdUnit #: [id number] Loc: [place] [address] Phys: Shmuel Rodriguez Acct: [id number] Dis Date: Status: REG ER PHONE #: [phone] Exam Date: 08/15/2020 190 FAX #: [phone] Reason: fall, occipital head strike, LOC, vomiting EXAMS: CPT CODE: [id number] CT HEAD/BRAIN W/O CONT 96525 Clinical Indica tion: Fall, occipital head strike, loss of point isthmus, vomiting; Comparison: None TECHNIQUE: CT images were obtained from the foramen magnum to the vertex and cervical spine without the use of intravenous contrast on a multidetector CT. Coronal and sagittal reconstructions were obtained. CT imagingperformed at this location utilizes radiation dose optimization techniques which include one or moreof the following: -Automated exposure control -Adjustment of the mA and/or kV according to patient size -Use of iterative reconstruction technique CT Radiation Dose DLP 569.9 mGy-cm-CT head CT Radiation Dose DLP 1964 mGy-cm-CT cervical spine FINDINGS: BRAIN PARENCHYMA: There are normal urbina-white int erfaces, sulci and gyri. There are no focal mass lesions on this noncontrast head CT. There is no mass effect, midline shift or edema. There are no intra- axial or extra-axial fluid collections, intraventricular or intraparenchymal [...] 1 Signed Report (CONTINUED) Name: ANATOLY MCNEAL [facility] : 1995 Age/S: 25 / M [address] [place] [address] Unit #: [id number] Loc: [place] [address] Phys: Shmuel Rodriguez Acct: [id number] Dis Date: Status: REG ER PHONE #: [phone] Exam Date: 08/15/20201901 FAX #: [phone] Reason: fall, occipital head strike, LOC, vomiting EXAMS: CPTCODE: [id number] CT HEAD/BRAIN W/O CONT 09806 <Continued> and spinous processes are unremarkable. The facet joint, spinolaminar and spinous process alignment are normal. DISK SPACES AND SOFT TISSUES: The prevertebral soft tissues are normal. C2-C3 to C7-T1 disc space levels show no definite disc protrusions on CT. There is no central or foraminal stenosis. MRI is the gold standard to assess for disk disease. VISUALIZED LUNG APICES: Unremarkable. CT myelogram or MRI of the cervical spine may be performed, if there is further concern. IMPRESSION: CT head: 1. No acute intracranial abnormality. 2.Midline parieto-occipital scalp swelling. No calvarial fracture. CT cervical spine: No fractures or subluxations of the cervical spine. SL: AKHIL at 192 Reported and signed by: Wanda Rodriguez M.D. CC: Antonio Lara MD; Shmuel HOLLY Technologist:RT Noemi(R)(CT) CTDI: DLP: Trnscb Date/Time: 08/15/2020 (1928) [email or web address] Orig Print D/T: S: 08/15/2020 (1931) PAGE 2 Signed Report- CT C-SPINE W/O [id number] 19:29:00 [facility] : 1995 Sex: M Name: ANATOLY MCNEAL [facility] : 1995 Age/S: 25 / M [address] [place] [address] BlvdUnit #: [id number] Loc: [place] [address] Phys: Shmuel Rodriguez ELAYNE Acct: [id number] Dis Date: Status: REG ER PHONE #: [phone] Exam Date: 08/15/2020 190 FAX #: [phone] Reason: fall, occipital head strike, LOC, vomiting EXAMS: CPT CODE: [id number] CT C-SPINE W/O CONT 95625 Clinical Indication: Fall, occipital head strike, loss [...] are no intra-axial or extra-axial fluid collections, intraventricu lar or intraparenchymal hemorrhage. The pineal, sellar, brainstem, cerebellum and skull base regionsappear unremarkable. VENTRICLES: The lateral ventricles, third and [...] subluxations. The craniocervical junction is normal. The atlanto-dental alignment appears unremarkable. The posterior elements PAGE 1 Signed Report (CONTINUED) Name: ANATOLY MCNEAL [facility] [place] : 1995 Age/S: 25 / M [address] [place] [address] Blvd Unit #: [id number] Loc: [place] [address] Phys: Shmuel Rodriguez Acct: [id number] Dis Date: Status: REG ER PHONE #: [phone] Exam Date: 08/15/20201901 FAX #: [phone] Reason: fall, occipital head strike, LOC, vomiting EXAMS: CPT CODE: [id number] CT C-SPINE W/O CONT 80606 <Continued> and spinous processes are unremarkable. Thefacet joint, spinolaminar and spinous process alignment are normal. DISK SPACES AND SOFT TISSUES: The prevertebral soft tissues are normal. C2-C3 to [...] Wanda Rodriguez M.D. CC: Antonio Lara MD; Adebayo HOLLY Technologist:RT Noemi(R)(CT) CTDI: DLP: Trnscb Date/Time: 08/15/2020 (1928) [email or web address] Orig Print D/T: S: 08/15/2020 (1931) PAGE 2 Signed Report- XR CHEST 1 [id number] 19:10:00 [facility] : 1995 Sex: M FAX: Antonio Lara MD [phone] [place]: St: [facility] FAX: Shmuel Rodriguez [phone] ------ Name: ANATOLY MCNEAL [facility] : 1995 Age/S: 25/M [address] [place] [address] Unit #: [id number] Loc: [place] [address] Phys: Shmuel Rodriguez Acct: [id number] Dis Date: Status: REG ER PHONE #: [phone] Exam Date: 08/15/2020 1904 FAX #: [phone] Reason: trauma EXAMS: CPT CODE: [id number] XR CHEST 1 V 10908 Portable single view AP chest INDICATION: Fall. Injury. Comparison: 06/10/2020 chest x-ray FINDINGS: The cardiomediastinal silhouette is normal in size. Lungs are clear. Costophrenic angles are sharp. No suspicious osseous abnormality is seen. IMPRESSION: No evidence for acute cardiopulmonary disease. SL: SG-H at 1910 Reported and signed by: Jose C Joshi M.D. CC: Antonio Lara MD; Shmuel HOLLY Technologist: Suma Lynch, RT(R); Judith Savage RT(R) Trnazrd Date/Time/By: 08/15/2020 (1909) : By: [email or web address] Orig Print D/T: S: 08/15/2020 (1912) PAGE 1 Signed ReportBASIC METABOLIC PANEL 2020-06-18 20:21:00 Test Item Value Reference Range Interpretation [...] code = 9.8 mg/dL 8.0-10.5 N CA) [id number] 20:21:00 Test Item Value Reference Range Interpretation [...] may silvana y by method. BASIC METABOLIC [id number] 20:20:00 Test Item Value Reference Range Interpretation [...] CALCIUM (test code = CA) mg/dL 8.0-10.5 [id number] 20:20:00 Test Item Value Reference Range Interpretation [...] titative results may silvana y by method. [id number] 20:16:00 Test Item Value Reference Range Interpretation [...] APPROPRIATECLIN ICAL EUALUATIONS. [A utomated message] The Ezeec[employer] stem which generated this result transmitted ref erence range: <=500. The refe rence range was not used to interpret this result as normal/abnormal . CBC W/AUTO [id number] 20:06:00 Test Item Value Reference Range Interpretation [...] (test code NO = MDIFF) CBC W/AUTO [id number] 20:02:00 Test Item Value Reference Range Interpretation [...] code = MDIFF) - XR CHEST 1 [id number] 19:27:00 [facility] : 1995 Sex: M FAX: Antonio Lara MD [phone] [place]: REMA St: DEP Name: ANATOLY MCNEAL [facility] Jani Pruitt : 1995 Age/S: 25/M [address] [place] [address] Unit #: [id number] Loc: [place] [address] Phys: Antonio Lara MD Acct: [id number] Dis Date: Status: [facility] ER PHONE #: [phone] Exam Date: 06/18/2020 1856 FAX #: [phone] Reason: chest pain, SOB EXAMS: CPT CODE: [id number] XR CHEST 1 V 82033 SINGLE VIEW RADIOGRAPH CHEST INDICATION: Chest pain and dyspnea. TECHNIQUE: A single view frontal radiograph of the chest was obtained. COMPARISONS: Chest x-ray 09/06/2019 FINDINGS: There is no acute osseous fracture or dislocation. There is no subdiaphragmatic free gas. The cardiomediastinal size and contour are normal. There is no pneumothorax, pleural effusion or organized pneumonia. IMPRESSION: 1. No acute cardiopulmonary process. at 1927 Repo rted and signed by: Sergio Rose D.O. CC: Antonio Lara MD Technologist: Kae Dior RT(R) Trnscrd Date/Time/By: 06/18/2020 (1926) : By: [email or web address] Orig Print D/T: S: 06/18/2020 (1929) PAGE 1 Signed Report- XR CHEST 1 V 2020-06-18 19:27:00 [facility] [place] : 1995 Sex: M FAX: Antonio Lara MD [phone] [place]: St: REG Name: ANATOLY MCNEAL [facility] : 1995 Age/S: 25/M [address] [place] [address] Blvd Unit #: [id number] Loc: [place] [address] Phys: Antonio Lara MD Acct: [id number] Dis Date: Status: REG ER PHONE #: [phone] Exam Date: 06/18/2020 185 FAX #: [phone] Reason: chest pain, SOB EXAMS: CPT CODE: [id number] XR CHEST 1 V 88436 SINGLE VIEW RADIOGRAPH CHEST INDICATION: Chest pain and dyspnea. TECHNIQUE: A single view frontal radiograph of the chest was obtained. COMPARISONS: Chest x-ray 09/06/2019 FINDINGS: There is no acute osseous fracture or dislocation. There is no subdiaphragmatic free gas. The cardiomediastinal size and contour are normal. There is no pneumothorax, pleural effusion or organized pneumonia. IMPRESSION: 1. No acute cardiopulmonary process. at 1927 R eported and signed by: Sergio Rose D.O. CC: Antonio Lara MD Technologist: RT Carlene(R) Trnscrd Date/Time/By: 06/18/2020 (1926) : By: [email or web address] Orig Print D/T: S: 06/18/2020 (1929) PAGE1 Signed ReportNovel Coronavirus 2019 2019-09-07 14:02:00 Test Item Value Reference Range Interpretation Comments Novel Coronavirus Negative Negative Positive r esults are 2019 Inhouse (test indicativ e of the presence code = [id number]) ofSARS-CoV -2 RNA, clinical correlation wit h [...] for the identification of SARS-CoV-2 RNA usingthe [employer] M2000 Sy stem under the FDA Emergen cy UseAuthorizatio n. The testing is perf ormed by melania d in the procedures for the Sviral000 molecular diagnostic SARS-CoV-2 assa y in vitro. Testing Criteria: Fever Cough OtherOther: GENERALIZED WEAKNESSCOMMENTS: ORDER PUT IN FOR DR JOSE MIGUEL Reddy [id number] 00:31:00 Test Item Value Reference Range Interpretation Comments INFLUENZA A (test code = FLUAPCR) Negative Negative INFLUENZA B (test code = FLUBPCR) Negative Negative COMMENTS: SwabBASIC METABOLIC [id number] 00:19:00 Test Item Value Reference Range Interpretation [...] 9.3 mg/dL 8.0-10.5 N CA) HEPATIC FUNCTION [id number] 00:19:00 Test Item Value Reference Range Interpretation [...] 20-125 N code = ALKP) BASIC METABOLIC [id number] 00:13:00 Test Item Value Reference Range Interpretation [...] CA) 9.3 mg/dL 8.0-10.5 N HEPATIC FUNCTION [id number] 00:13:00 Test Item Value Reference Range Interpretation [...] IUnit/L 20-125 code = ALKP) CBC W/AUTO [id number] 00:05:00 Test Item Value Reference Range Interpretation [...] DIFF REQUIRED (test code NO = MDIFF) - XR CHEST 2 [id number] 23:38:00 [facility] : 1995 Sex: M FAX: Ernesto Swanson MD [phone] [place]: REMA St: DEP Name: ANATOLY MCNEAL [facility] : 1995Age/S: 24/M [address] [place] [address] Unit #: [id number] Loc: [place] [address] Phys: Ernesto Colunga MD Acct: [id number] Dis Date: Status: DEP ER PHONE #: [phone] Exam Date: 09/06/[address] [facility] FAX #: [phone] Reason: Chest Pain EXAMS: CPT CODE: [id number] XR CHEST 2 V 35500 Chest, 2 views dated 09/06/2019. HISTORY: Chest pain. Comparison is made to a prior study dated 05/20/2018. The heart is normal in size. The cardiac mediastinal shadow appears within normal limits. The lungs appear clear. The palmar vasculature is normal in caliber. No acute pleural space abnormalities are detected. IMPRESSION: 1. No radiographic evidence of acute cardiopulmonary disease. SL: 131 at 5447 Reported and signed by: Kanu Pinto M.D. CC: Ernesto Colunga MD Technologist: RT Jeremie(Timothy) Trnscrd Date/Time/By: 09/06/2019 (3439) : By: SharonM Orig Print D/T: S: 09/06/2019 (1939) PAGE 1 Signed Report- XR CHEST 2 [id number] 23:38:00 FAX: Ernesto Swanson MD [phone] [place]: St: REG Name: ANATOLY MCNEAL [facility] : 1995 Age/S: 24/M [address] [place] [address] Blvd Unit #: [id number] Loc: [place] [address] Phys: Ernesto Colunga MD Acct: [id number] Dis Date: Status: REG ER PHONE #: [phone] Exam Date: 09/06/20192330 FAX #: [phone] Reason: Chest Pain EXAMS: CPT CODE: [id number] XR CHEST 2 V 94696 Chest, 2 views dated 09/06/2019. HISTORY: Chest [...] MD Technologist: KACIE Chao) Trnscrd Date/Time/By: 09/06/2019 (9702) : By: SharonM Orig Print D/T: S: 09/06/2019 (7279) PAGE 1 Signed Report- CT ABD PELVIS [id number] 00:20:00 FAX: Dariusz Junior DO [phone] [place]: St: REG Name: ANATOLY MCNEAL [facility] : 1995 Age/S: 24/M [address] [facility] Unit: [id number] Loc: [address] Phys: [place] [id number] Acct: [id number] Dis Date: Status: REG ER PHONE #: [phone] Exam Date: 05/25/2019 0005 FAX#: [phone] Reason: abdominal pain EXAMS: CPT CODE: [id number] CT ABD PELVIS W/CONT 46335 EXAM: CT ABDOMEN AND PELVIS WITH IV [...] is normal. Vascular: No aortic aneurysm or dissection.IVC is unremarkable. Portal vein is patent. PAGE 1 Signed Report (CONTINUED) FAX: Dariusz Junior DO [phone] [place]: St: REG ------ Name: ANATOLY MCNEAL [facility] : 1995 Age/S: 24/M [address] [facility] Unit: [id number] Loc: [address] Phys: [place] [address] Acct: [id number] Dis Date: Status: REG ER PHONE #: [phone] Exam Date: 05/25/2019 0005 FAX #: [phone] Reason: abdominal pain EXAMS: CPT CODE: [id number] CT ABD PELVIS W/CONT 45612 <Continued> Lymphatics: No enlarged lymph nodes by CT size criteria. Bones/Soft Tissues: No acute osseous findings. No ventral hernias. Peritoneum/Other: No free intraperitoneal air. No free intraperitoneal fluid. IMPRESSION: Unremarkable CT of the abdomen and pelvis. at 0020 Reported and signed by: Ale Escamilla M.D. CC: Dariusz Junior DO Technologist: CORA Downey Dt/Tm: 05/26/2019 (0020) Hunter Orig Print D/T: S: 05/26/2019 (0820 PAGE 2 SignedReport- CT ABD PELVIS W/CONT 2019-05-26 00:20:00 [facility] ANATOLY LAMAS : 1995 Sex: M FAX: Dariusz Junior DO [phone] [place]: St: DEP Name: ANATOLY MCNEAL [facility] : 1995 Age/S: 24/M [address] [facility] Unit: [id number] Loc: [place], [place]: [place] [address] Acct: [id number] Dis Date: Status: DEP ER PHONE #: [phone] Exam Date: 05/25/2019 0005 FAX #: [phone] Reason: abdominal pain EXAMS: CPT CODE: [id number] CT ABD PELVIS W/CONT 15361 EXAM: CTABDOMEN AND PELVIS WITH IV CONTRAST DICTATION LOCATION: [...] is normal. No biliary dilation. Pancreas: Normal. Spleen:Normal. Adrenals: Normal. Genitourinary: No solid renal mass, significant cortical thinning, obviousrenal stone or hydronephrosis. Ureters are unremarkable. Urinary bladder is unremarkable. The visualized reproductive organs are unremarkable. Gastrointestinal: No bowel wall thickening, bowel obstruction or perienteric inflammation. The appendix is normal. Vascular: No aortic aneurysm or dissection. IVC is unremarkable. Portal vein is patent. PAGE 1 Signed Report (CONTINUED) FAX: Dariusz Junior DO [phone] [place]: St: [facility] ----- Name: ANATOLY MCNEAL [facility] : 1995 Age/S: 24/M [address] [facility] Unit: [id number] Loc: [place], [place]: [place] [address] Acct: [id number] Dis Date: Status: [facility] ER PHONE #: [phone] Exam Date: 05/25/2019 0005 FAX #: [phone] Reason: abdominal pain EXAMS: CPT CODE: [id number] CT ABD PELVIS W/CONT 58317 <Continued> Lymphatics: No enlarged lymph nodes by CT size criteria. Bones/Soft Tissues: No acute osseous findings. No ventral hernias. Peritoneum/Other: No free intraperitoneal air. No free intraperitoneal fluid. IMPRESSION: Unremarkable CT of the abdomen and pelvis. at 0020 Reported and signed by: Ale Escamilla M.D. CC: Dariusz Junior DO Technologist: CORA WELLINGTON Trnscrd Dt/Tm: 05/26/2019 (0020) NavaCLW Orig Print D/T: S: 05/26/2019 (0820 PAGE [...] 9.3 mg/dl 8.0-10.5 N HEPATIC FUNCTION PANEL [id number] 23:28:00 Test Item Value Reference Range Interpretation [...] 50.0-136.0 N TOTAL (test code = ALKP) [id number] 23:28:00 Test Item Value Reference Range Interpretation Comments LIPASE (test code = LIP) 96 Units/L 65.0-230.0 N URINALYSIS [id number] 23:21:00 Test Item Value Reference Range Interpretation [...] MUCU) 1+ Specimen comments: Clean CatchBASIC METABOLIC [id number] 23:20:00 Test Item Value Reference Range Interpretation [...] = CA) mg/dl 8.0-10.5 HEPATIC FUNCTION PANEL [id number] 23:20:00 Test Item Value Reference Range Interpretation Comments TOTAL PROTEIN (test code = PROT) gm/dL 6.4-8.2 ALBUMIN (test code = ALB) gm/dl 3.2-4.7 BILIRUBIN TOTAL (test code = BILT) mg/dl 0.0-1.0 BILIRUBIN DIRECT (test code = BILD) mg/dl 0.0-0.3 SGOT/AST (test code = AST) Units/L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
[2022-06-09 22:50] LABS: SARS-COV-2 RT PCR POSITIVE (NEGATIVE)
--- NOTE | 2022-06-09 22:57 | EDPHYS ---
Physician Documentation [facility] Name: Romulo Gusman Age: 27 yrs Sex: Male : 1995 Arrival Date: 06/09/2022 Time: 21:15 Bed 12 Private MD: ED Physician Ryder Kauffman HPI: 06/09 22:56 This 27 yrs old Male presents to ER via Ambulatory with complaints of Cough, Sore kb Throat, Congestion, Chills and body aches. 22:56 The patient or guardian reports cough, that is intermittent, described as moderate, flu kb symptoms, low-grade fever, myalgias. Onset: The symptoms/episode began/occurred last night. Severity of symptoms: At their worst the symptoms were moderate, in the emergency department the symptoms are unchanged. Modifying factors: The symptoms are alleviated by nothing, the symptoms are aggravated by nothing. Associated signs and symptoms: Pertinent positives: fever, rhinorrhea, sore throat. The patient has not experienced similar symptoms in the past. The patient has not recently seen a physician. Historical: - Allergies: 21:23 Sulfa (Sulfonamide Antibiotics); ll3 - PMHx: 21:23 ADD/ADHD; Bipolar disorder; ll3 - PSHx: 21:23 None; ll3 - Immunization history:: Client reports having NOT received the Covid vaccine. - Social history:: Smoking status: Reported history of juuling and/or vaping. ROS: 22:53 Abdomen/GI: Negative for abdominal pain, nausea, vomiting, diarrhea, and constipation. kb 22:53 Constitutional: Positive for body aches, chills, fever. 22:53 ENT: Positive for sore throat. 22:53 Respiratory: Positive for cough. 22:53 All other systems are negative. Exam: 22:55 Constitutional: This is a well developed, well nourished patient who is awake, alert, kb and in no acute distress. Head/Face: Normocephalic, atraumatic. ENT: Moist Mucous membranes Cardiovascular: Regular rate and rhythm with a normal S1 and S2. No gallops, murmurs, or rubs. No pulse deficits. Respiratory: Respirations even and unlabored. No increased work of breathing. Talking in full sentences Abdomen/GI: Soft, non-tender. No distention Skin: Warm, dry with normal turgor. Normal color. MS/ Extremity: Pulses equal, no cyanosis. Neurovascular intact. Full, normal range of motion. Neuro: Awake and alert, GCS 15, oriented to person, place, time, and situation. Moves all extremities. Normal gait. Vital Signs: 21:20 BP 139 / 88; Pulse 117; Resp 17; Temp 100.3(O); Pulse Ox 96% on R/A; Weight 86.18 kg ll3 (R); Height 5 ft. 6 in. (167.64 cm) (R); Pain 7/10; 23:07 BP 134 / 86; Pulse 98; Resp 20 S; Temp 99.7(O); Pulse Ox 96% on R/A; bb 21:20 Body Mass Index 30.67 (86.18 kg, 167.64 cm) ll3 MDM: 21:17 Patient medically screened. kb 22:55 Differential Diagnosis: Bronchitis Influenza Upper Respiratory Infection Other strep, kb covid. Data reviewed: vital signs, nurses notes. Counseling: I had a detailed discussion with the patient and/or guardian regarding: the historical points, exam findings, and any diagnostic results supporting the discharge/admit diagnosis, lab results, the need for outpatient follow up, a family practitioner, to return to the emergency department if symptoms worsen or persist or if there are any questions or concerns that arise at home. ED course: Patient is a 27-year-old male who presents for sore throat, cough, congestion, fever, chills, body aches that started last night. Respirations even and unlabored, lungs clear throughout. Flu and strep test negative. Patient positive for COVID. Patient educated on diagnostic results and educated on symptomatic treatment. Verbal understanding received. . 06/09 21:18 Order name: COVID-19/FLU A+B kb 06/09 21:18 Order name: Strep kb 06/09 22:15 Order name: Group A Streptococcus Rapid Sc; Complete Time: 22:15 EDMS 06/09 22:50 Order name: COVID-19/FLU A+B; Complete Time: 22:53 EDMS Administered Medications: No medications were administered Disposition: 06/10 05:20 Co-signature as Attending Physician, Ryder Kauffman MD I reviewed the patient's care rt provided by the Advanced Practice Provider and agree with the diagnosis and treatment plan. Disposition Summary: 06/09/22 22:57 Discharge Ordered Location: Home kb Condition: Stable kb Diagnosis - SARS-associated coronavirus as the cause of diseases classified elsewhere kb Followup: kb - With: Emergency Department - When: As needed - Reason: Worsening of condition Followup: kb - With: Private Physician - When: 2 - 3 days - Reason: Recheck today's complaints, Continuance of care, Re-evaluation by your physician Discharge Instructions: - Discharge Summary Sheet kb - COVID-19 kb - Viral Illness, Adult kb Forms: - Medication Reconciliation Form kb - Thank You Letter kb - Work release form kb - Antibiotic Education kb - Prescription Opioid Use kb Signatures: Dispatcher [employer] EDMiri Borges, DEENA-C SHOW HOST/HOSTESS-Tamra Raphael RN RN ll3 Ryder Kauffman MD MD rt
--- NOTE | 2022-06-09 22:57 | ER ---
Nurse's Notes [facility] Name: Romulo Gusman Age: 27 yrs Sex: Male : 1995 Arrival Date: 06/09/2022 Time: 21:15 Bed 12 Private MD: Diagnosis: SARS-associated coronavirus as the cause of diseases classified elsewhere Presentation: 06/09 21:20 Chief complaint: Patient states: C/o sore throat, cough, chills, congestion, and body ll3 aches since last night. Coronavirus screen: Vaccine status: Patient reports being unvaccinated. chills, congestion, cough unrelated to allergies, nausea, sore throat. Ebola Screen: No symptoms or risks identified at this time. Initial Sepsis Screen: Does the patient meet any 2 criteria? No. Patient's initial sepsis screen is negative. Does the patient have a suspected source of infection? No. Patient's initial sepsis screen is negative. Risk Assessment: Do you want to hurt yourself or someone else? Patient reports no desire to harm self or others. Onset of symptoms was June 08, 2022. 21:20 Method Of Arrival: Ambulatory ll3 21:20 Acuity: LAURI 3 ll3 Triage Assessment: 21:23 General: Appears uncomfortable, Behavior is calm, cooperative. Pain: Complains of pain ll3 in H/A, body aches Pain currently is 7 out of 10 on a pain scale. EENT: Throat is reddened has enlarged tonsils. Neuro: Level of Consciousness is awake, alert, obeys commands, Oriented to person, place, time, situation. Respiratory: Reports cough that is Respiratory effort is even, unlabored, Respiratory pattern is regular, symmetrical. Derm: Reports C/o body aches. Historical: - Allergies: 21:23 Sulfa (Sulfonamide Antibiotics); ll3 - PMHx: 21:23 ADD/ADHD; Bipolar disorder; ll3 - PSHx: 21:23 None; ll3 - Immunization history:: Client reports having NOT received the Covid vaccine. - Social history:: Smoking status: Reported history of juuling and/or vaping. Assessment: 23:07 Reassessment: Patient is alert, oriented x 3, equal unlabored respirations, skin bb warm/dry/pink. pt seen by this RN at discharge pt verbalized understanding of and agrees to plan of care discharge instructions given pt ambulated with steady gait to exit accompanied by family. Vital Signs: 21:20 BP 139 / 88; Pulse 117; Resp 17; Temp 100.3(O); Pulse Ox 96% on R/A; Weight 86.18 kg ll3 (R); Height 5 ft. 6 in. (167.64 cm) (R); Pain 7/10; 23:07 BP 134 / 86; Pulse 98; Resp 20 S; Temp 99.7(O); Pulse Ox 96% on R/A; bb 21:20 Body Mass Index 30.67 (86.18 kg, 167.64 cm) ll3 ED Course: 21:15 Patient arrived in ED. [id number] 21:16 Miri Lagos FNP-C is [facility]. kb 21:16 Ryder Kauffman MD is Attending Physician. kb 21:23 Triage completed. ll3 21:23 Arm band placed on Patient placed in an exam room, on a stretcher, on pulse oximetry. ll3 23:09 No provider procedures requiring assistance completed. Patient did not have IV access bb during this emergency room visit. Administered Medications: No medications were administered Medication: 23:07 VIS not applicable for this client. bb Outcome: 22:57 Discharge ordered by MD. kb 23:09 Discharged to home ambulatory, with family. bb 23:09 Condition: stable 23:09 Discharge instructions given to patient, Instructed on discharge instructions, follow up and referral plans. Demonstrated understanding of instructions, follow-up care. 23:10 Patient left the ED. bb Signatures: Miri Lagos FNP-C FNP-Ckb Ballard, Brenda, RN RN bb Sandra Alexis [id number] Tamra Wheat RN RN ll3
[2022-06-09 23:16] VITALS: O2SAT 96
[2022-06-09 23:18] VITALS: BP 134/86; TEMP 99.7
== END 2022-06-09 23:10 | disposition home or self-care (01) ==
LOC: ER 21:13
DX: U07.1 COVID-19 (principal)
CPT/HCPCS: 0240U; 87070; 87081; 99283

== ENCOUNTER 2022-10-23 10:02 | Emergency (ER) | payer SELFPAY ==
--- OUTSIDE RECORDS SUMMARY | 2022-10-23 10:08 | XMS REPORT | Continuity of Care Document ---
:1995 Author Organization [facility] t Address [address] [facility] [address] [place] [address] Care Team Providers Name Role Phone Asked, No Pcp Primary Care Physician Unavailable MALI CROWE Attending Clinician Unavailable JACKIE GALVAN [...] rs active active ity of problems problems [facility] Allergies, Adverse Reactions, Alerts Allergy Allergy Status Severity Reaction(s) Onset Inactive Treating Comm ents Source Name Type Date Date Clinician Sulfa DA Active MO [facility] (Sulfona 05 Clear mide 00:00: [place] [facility]) [facility] Sulfa DA Active MO HIVES, [facility] (Sulfona ANGIOEDEMA 12-24 Divya r mide 00:00: [place] [facility]) [facility] Sulfa DA Active MO [facility] (Sulfona 2-28 Clear mide 00:00: [place] Antibiot 00 Regiona ics) [facility] Sulfa DA Active MO HIVES [facility] (Sulfona 2-28 Clear mide 00:00: [place] Antibiot 00 Regiona ics) [facility] Sulfa DA Active MO 2019-0 [facility] (Sulfona 5-18 Clear mide 00:00: [place] Antibiot 00 Regiona ics) [facility] Sulfa DA Active MO HIVES 2019-0 [facility] (Sulfona 5-18 Clear mide 00:00: [place] Antibiot 00 Regiona ics) [facility] Sulfa DA Active MO 2020-0 [facility] (Sulfona 2-04 Clear mide 00:00: [place] Antibiot 00 Regiona ics) [facility] Sulfa DA Active MO HIVES 2019-0 [facility] (Sulfona 2-04 Clear mide 00:00: [place] Antibiot 00 Regiona ics) [facility] Sulfa Propensi Active 2018- Methodi (Sulfona ty to 08-27 st mide adverse 00:00: Hospita Antibiot reaction 00 l ics) s to drug No Known DA Active U [facility] Allergie 12-04 [facility] s 00:00: d 00 [facility] No Known DA Active U [facility] Allergie 12-04 [facility] s 00:00: d 00 [facility] No Known DA Active U 2006-0 [facility] Contrast 8-17 Clear Allergie 00:00: [place] [facility] No Known DA Active U 2006-0 [facility] Drug 8-17 Clear Allergie 00:00: [place] [facility] No Known DA Active U 2006-0 [facility] Food 8-17 Clear Allergie 00:00: [place] [facility] No Known DA Active U 2006-0 [facility] Other 8-17 Clear Allergie 00:00: [place] [facility] NO KNOWN Drug Active Univers ALLERGIE Class ity of S [facility] Social History Social Habit Start Date Stop Date Quantity Comments Source Gender [facility] History of tobacco Smokes tobacco Me thodist use daily Hospital Exposure to Not sure University SARS-CoV-2 (event) [facility] History of Social 2018-12-10 2018-12-[address] function 00:00:00 00:00:00 Hospital Alcohol intake 2018-08-27 2018-08-27 Current drinker [facility] dist 00:00:00 00:00:00 of alcohol Hospital (finding) Tobacco use and 2018-08-27 2018-08-27 Never used [facility] exposure 00:00:00 00:00:00 Hospital Sex Assigned At [birth year] [facility] 00:00:00 00:00:00 Hospital Smoking Status Start Date Stop Date Source Unknown if ever smoked [facility] y [facility] Current every day smoker 2018-08-27 00:00:00 Met [facility] Medications Ordered Filled Start Stop Current Ordering Indication Dosage Frequency Signature Comments Components Source Medication Medication Date Date Medication? Clinician (SIG) Name Name ibuprofen 2020-04 No 800mg 800 mg, Uni vers (IBU) -17 Oral, ity of tablet 800 06:15: 05:23 ONCE, 1 [place] as mg 00 :00 dose, On Medical [facility] 02/04/21 at 0115, JAMES acetaminoph 2020-04 No 650mg 650 mg, U nivers en -04 02-17 Oral, ity of (TYLENOL) 06:15: 05:23 ONCE, 1 [place] tablet 650 00 :00 dose, On Medic al mg [facility] 02/04/21 at 0115, JAMES albuterol 2020-04 Yes [id number] 2{puff} Inhale 2 Univers 90 0-17 Puffs ity of mcg/actuati 00:00: every 4 [place] as on inhaler 00 (four) Medical hours as Branch needed for Wheezing or Shortness of Breath. levoFLOXaci 2020-04- No [id number] 750mg Take 1 Univers n 750 mg 0-17 10-25 tablet by ity o f tablet 00:00: 04:59 mouth [place] 00 :00 daily for Medical 7 days. Branch predniSONE 2020-04- No [id number] 20mg Take 1 Univers 20 mg 0-17 10-23 tablet by ity of tablet 00:00: 04:59 mouth 2 [place] 00 :00 (two) Medical times Branch daily for 5 days. TYLENOL FOR Yes None Univer s CHILDREN 1-16 Entered ity of ORAL 13:05: [place] 22 [facility] No known No Methodi medications [facility] Hospita l Immunizations Ordered Filled Immunization Date Status Comments [facility] Immunization Name Name [facility] 2018-08-27 Completed [facility] 00:00:00 [facility] 2018-08-27 Completed [facility] 00:00:00 [facility] DT 1995 Completed University of 00:00:00 [facility] HIB 4 Dose Schedule 1995 Completed Unive rsity of 00:00:00 [facility] Polio (IPV/OPV) 1995 Completed Universit y of 00:00:00 [facility] Vital Signs Vital Name Observation Time Observation Value Comments Source Systolic blood 2021-02-04 07:45:00 131 mm[Hg] Univer sity of pressure [facility] Diastolic blood 2021-02-04 07:45:00 74 mm[Hg] Unive rsity of pressure [facility] Heart rate 2021-02-04 07:45:00 114 /min General acute hospital Respiratory rate 2021-02-04 07:45:00 20 /min [facility] Oxygen saturation in 2021-02-04 07:45:00 98 /min [facility] Arterial blood by [facility] Pulse oximetry Branch Body temperature 2021-02-04 04:20:00 38.33 Lisa [facility] Body height 2021-02-04 04:20:00 170.2 cm General acute hospital Body weight 2021-02-04 04:20:00 91.944 kg General acute hospital BMI 2021-02-04 04:20:00 31.75 kg/m2 General acute hospital Procedures Procedure Date / Time Performing Clinician Source Performed URINALYSIS 2021-02-04 06:27:00 Pricilla Slade [facility] EBV-MONONUCLEOSIS SCREEN 2021-02-04 06:27:00 [facility] S[facility]EN FOR 2021-02-04 06:27:00 Pricilla Slade [facility] GROUP A [facility] URINE DRUG (IMMUNOASSAY) 2021-02-04 06:27:00 [facility] Medical Bra nch SCREEN W/O REFLEX ADC,CLC OR LCC ONLY - 2021-02-04 05:24:00 Pricilla Slade [facility] INFLUENZA A & B DIRECT Medical B ranch ANTIGEN XR CHEST 1 VW 2021-02-04 05:23:00 Pricilla Slade [facility] COVID-19 (ID NOW RAPID 2021-02-04 04:57:00 Pricilla Slade [facility] TESTING) [facility] NOTICE OF PRIVACY 2021-02-04 04:01:40 Doctor Unassigned, No [facility] PRACTICES Name [facility] CONSENT/REFUSAL FOR 2021-02-04 03:58:40 [facility]ass[facility], [facility]REATMENT Name [facility] Plan of Care Planned Activity Planned Date Details Comments Source Future Scheduled 2022-10-05 COVID-[address] [facility] Test 23:00:49 (#1) [code = COVID-19 VACCINE (#1)] Future Scheduled 2022-10-05 INFLUENZA VACCINE [facility] Test 23:00:49 [code = INFLUENZA VACCINE] Future Scheduled [facility]ZA [facility]ACCINE [facility] Test [code = INFLUENZA VACCINE] Future Scheduled COVID-19 VACCINE [facility] Test (1) [code = COVID-19 VACCINE (1)] Future Scheduled [facility] Test screening (procedure) [code = 440574806] Encounters Start End Encounter Admission Attending Care Care Encounter Source Date/Time Date/Time Type Type Clinicians Facility Department ID 2020-08-15 Inpatient HCACL ROBIN [id number] [facility] 18:15:00 43 [facility] 2020-06-18 Inpatient HCACL ROBIN [id number] [facility] 18:18:00 [id number] [facility] 2019-09-06 Inpatient HCACL ROBIN [id number] [facility] 22:14:00 [id number] [facility] 2019-05-25 Inpatient HCAMN DARIO [id number] [facility] 21:43:00 78 [facility] 2021-11-14 2021-11-14 Emergency E MALI CROWE MHSE MED [id number] MH 09:15:00 [facility] 2021-10-05 2021-10-06 Emergency E MANDY MHBL MHBL [id number] MHBL 22:09:00 02:40:00 JACKIE 2021-10-04 2021-10-05 Emergency E ANGELITO MHSE MHSE [id number] MH 23:17:00 00:01:00 JOCELYN [facility] 2021-09-25 2021-09-25 Emergency E JAZMIN, MHSE MHSE [id number] MH 21:46:00 22:39:00 SARAH [facility] 2021-08-18 2021-08-18 Emergency E CIARA MHSE MHSE [id number] MH 18:36:00 19:57:00 AJ Roberto Carlos chou [facility] 2021-02-03 2021-02-04 Emergency [facility] [id number] Univers 23:27:00 03:04:00 Pricilla Reyes [id number] paola [facility] [id number] [facility] [id number] [place] [address] Branch 2021-02-03 2021-02-03 [facility] [id number] Univers 23:27:00 23:27:00 PRICILLA guevara [facility] 2020-12-24 2020-12-25 Emergency EM Taina, HCACL ROBIN [id number] [facility] 21:50:00 02:16:00 Nawaf 22 [facility] 2020-12-19 2020-12-20 Emergency E PRABHU MI MHBL MHBL [id number] BL 21:51:00 04:15:00 2020-08-16 2020-08-17 Emergency E BERNADETTE TOMLINSON MHBL MHBL [id number] MHBL 22:18:00 02:24:00 2020-06-18 2020-06-18 Emergency EM DAMION Lara ROBIN [id number] [facility] 18:18:00 21:35:00 Antonio 67 [facility] 2019-04-10 2019-04-10 Emergency E MHBL MHBL [id number] BL 21:45:00 21:45:00 Results Test Description Test Time Test Comments Results Result Comments Source EBV-MONONUCLEOSIS SCREEN 2021-02-04 07:04:49 Test Item Value Reference Range Interpretation Comme nts EBV Mononucleosis Screen (test code = 7905927023) Negative Nega tive Lab Interpretation (test code = 69902-4) Normal [facility]2020-12-25 00:56:00 Test Item Value Reference Range Interpretation Comments AG STREP GROUP A Negative Negative Negative fo r Strep A (THROAT) (test code = nuclei c acid STREPA) INFLUENZA A [id number] 00:56:00 Test Item Value Reference Range Interpretation Comments INFLUENZA A (test code = FLUAPCR) Negative Negative INFLUENZA B (test code = FLUBPCR) Negative Negative Coronavirus 2018 nCoV [id number] 00:41:00 Test Item Value Reference Range Interpretation Comments Coronavirus 2019 NEGATIVE Negative Negative re sults should be nCoV Bedside (test treated a s presumptive and, code = ifinconsistent with [id number]) clinical signs and symptoms or necessaryfor patient management, meenu uld be tested with an alternativemole cular assay. Negative result s do not preclude [id number] tion and should not be u sed [...] = nuclei c acid STREPA) INFLUENZA A [id number] 00:33:00 Test Item Value Reference Range Interpretation Comments INFLUENZA A (test code = FLUAPCR) Negative INFLUENZA B (test code = FLUBPCR) Negative - CT HEAD/BRAIN W/O [id number] 19:29:00 [facility] 1995 Sex: M Name: ANATOLY MCNEAL [facility] : 1995 Age/S: 25 / M [address] [place] [address] BlvdUnit #: [id number] Loc: [place] [address] Phys: Shmuel Rodriguez Acct: [id number] Dis Date: Status: REG ER PHONE #: [phone] Exam Date: 08/15/20201901 FAX #: [phone] Reason: fall, occipital head strike, LOC, vomiting EXAMS: CPT CODE: [id number] CT HEAD/BRAIN W/O CONT 29938 Clinical Indication: Fall, occipital head strike, loss [...] more of the following: -Automated exposure control -Adjustment of [...] 1 Signed Report (CONTINUED) Name: ANATOLY MCNEAL [facility] : 1995 Age/S: 25 / M [address] [place] [address] Blvd Unit #: [id number] Loc: [place] [address] Phys: Shmuel Rodriguez Acct: [id number] Dis Date: Status: REG ER PHONE #: [phone] Exam Date: 08/15/20201901 FAX #: [phone] Reason: fall, occipital head strike, LOC, vomiting EXAMS: CPT CODE: [id number] CT HEAD/BRAIN W/O CONT 24250 <Continued> and spinous processes are unremarkable. The [...] or subluxations of the cervical spine. SL: APATIL-H at 1929 Reported and signed by: Wanda Rodriguez M.D. CC: Antonio Lara MD; Shmuel HOLLY Technologist:RT Noemi(R)(CT) CTDI: DLP: Trnscb Date/Time: 08/15/2020 (1928) t.SDR.VB9 Orig Print D/T: S: 08/15/2020 (1931) PAGE 2 Signed Report- CT C-SPINE W/O [id number] 19:29:00 [facility] : 1995 Sex: M Name: ANATOLY MCNEAL [facility] : 1995 Age/S: 25 / M [address] [place] [address] BlvdUnit #: [id number] Loc: [place] [address] Phys: Shmuel Rodriguez Acct: [id number] Dis Date: Status: REG ER PHONE #: [phone] Exam Date: 08/15/20201901 FAX #: [phone] Reason: fall, occipital head strike, LOC, vomiting EXAMS: CPT CODE: [id number] CT C-SPINE W/O CONT 20017 Clinical Indication: Fall, occipital head strike, loss of point isthmus, vomiting; Comparison: None TECHNIQUE: CT imageswere obtained from the foramen magnum to the vertex and cervical spine without the use of intravenous contrast on a multidetector CT. Coronal and sagittal reconstructions were obtained. CT imaging performed at this location utilizes radiation dose optimization techniques which include one or more of the following: -Automated exposure control -Adjustment of [...] sellar, brainstem, cerebellum and skull base regions ap pear unremarkable. VENTRICLES: The lateral ventricles, third and [...] be performed for complete assessment. CT cervical spine:FINDINGS: ALIGNMENT AND GENERAL ASSESSMENT: Mild reversal of the cervical lordosis, likely positional due to muscle spasm. There is normal alignment of the cervical spine. There are no fractures or subluxations. The craniocervical junction is normal. The atlanto- dental alignment appears unremarkable. The posterior elements PAGE 1 Signed Report (CONTINUED) Name: ANATOLY MCNEAL [facility] : 1995 Age/S: 25 / M [address] [place], [place] [address]vd Unit #: [id number] Loc: [place] [address] Phys:Shmuel Rodriguez Acct: [id number] Dis Date: Status: REG ER PHONE #: [phone] Exam Date: 08/15/20201901 FAX #: [phone] Reason: fall, occipital head strike, LOC, vomiting EXAMS: CPT CODE: [id number] CT C-SPINE W/O CONT 46434 <Continued> and spinous processes are unremarkable. The facet joint, spinolaminar and spinous process alignment are normal. DISK SPACES AND SOFT TISSUES: The prevertebral soft tissues are normal. C2-C3 to C7-T1 disc space levels show no definite disc protrusionson CT. There is no central or foraminal [...] M.D. CC: Antonio Lara MD; Shmuel HOLLY Technologist:Yasmin Matias RT(R)(CT) CTDI: DLP: Trnscb Date/Time: 08/15/2020 (1928) t.SDR.VB9 Orig Print D/T: S: 08/15/2020 (1931) PAGE 2 Signed Report- XR CHEST 1 [id number] 19:10:00 [facility] : 1995 Sex: M FAX: Antonio Lara MD [phone] [place]: St: REG FAX: Shmuel Rodriguez [phone] ------- Name: ANATOLY MCNEAL : 1995 Age/S: 25/M [address] [place] [address] Unit #: [id number] Loc: [place] [address] Phys: Shmuel Rodriguez Acct: [id number] Dis Date: Status: REG ER PHONE #: [phone] Exam Date: 08/15/2020 190 FAX #: [phone] Reason: trauma EXAMS: CPT CODE: [id number] XR CHEST 1 V 85326 Portable single view AP chest INDICATION: Fall. [...] Technologist: Suma Lynch, RT(R); Judith Savage RT(R) Trnscrd Date/Time/By: 08/15/2020 (1909) : By: Ana [email or web address] [...] code = 9.8 mg/dL 8.0-10.5 N CA) [id number] 20:21:00 Test Item Value Reference Range Interpretation [...] may silvana y by method. BASIC METABOLIC [id number] 20:20:00 Test Item Value Reference Range Interpretation [...] CALCIUM (test code = CA) mg/dL 8.0-10.5 [id number] 20:20:00 Test Item Value Reference Range Interpretation [...] titative results may silvana y by method. [id number] 20:16:00 Test Item Value Reference Range Interpretation [...] APPROPRIATECLIN ICAL EUALUATIONS. [A utomated message] The UCAN stem which generated this result transmitted ref erence range: <=500. The refe rence range was not used to interpret this result as normal/abnormal . CBC W/AUTO [id number] 20:06:00 Test Item Value Reference Range Interpretation [...] (test code NO = MDIFF) CBC W/AUTO [id number] 20:02:00 Test Item Value Reference Range Interpretation [...] code = MDIFF) - XR CHEST 1 [id number] 19:27:00 [facility] : 1995 Sex: M FAX: Antonio Lara MD [phone] [place]: St: DEP Name: ANATOLY MCNEAL [facility] : 1995 Age/S: 25/M [address] [place], [place] [address]vd Unit #: [id number] Loc: [place] [address] Phys: Antonio Lara MD Acct: [id number] Dis Date: Status: DEP ER PHONE #: [phone] Exam Date: 06/18/20201855 FAX #: [phone] Reason: chest pain, SOB EXAMS: CPT CODE: [id number] XR CHEST 1 V 73686 SINGLE VIEW RADIOGRAPH CHEST INDICATION: Chest pain and dyspnea. TECHNIQUE: A single view frontal radiograph of thechest was obtained. COMPARISONS: Chest x-ray 09/06/2019 FINDINGS: [...] RT(R) Trnscrd Date/Time/By: 06/18/2020 (1926) : By: [email or web address] [facility] Print D/T: S: 06/18/2020 (1929) PAGE 1 Signed Report- XR CHEST 1 V 2020-06-18 19:27:00 [facility] FREDIS, ANATOLY LAMAS : 1995 Sex: M FAX: Antonio Lara MD [phone] [place]: St: REG Name: ANATOLY MCNEAL [facility] : 1995 Age/S: 25/M [address] [place] [address] Unit #: [id number] Loc: [place] [address] Phys: Bia Lara Acct: [id number] Dis Date: Status: REG ER PHONE #: [phone] Exam Date: 06/18/2020 1856 FAX#: [phone] Reason: chest pain, SOB EXAMS: CPT CODE: [id number] XR CHEST 1 V 63751 SINGLE VIEW RADIOGRAPH CHEST INDICATION: Chest pain and dyspnea. TECHNIQUE: A single view frontal radiograph of the chest was obtained. COMPARISONS: Chest x-ray 09/06/2019 FINDINGS: There is no acute osseous fracture or dislocation. There is no subdiaphragmatic free gas. The cardiomediastinal size and contour are normal. There is no pneumothorax, pleural effusion or organized pneumonia. IMPRESSION: 1. No acute cardiopulmonary process. at 1926 Re ported and signed by: Sergio Rose D.O. CC: Antonio Lara MD Technologist: Kae Dior RT(R) Trnscrd Date/Time/By: 06/18/2020 (1926) : By: Ana [email or web address] Orig Print D/T: S: 06/18/2020 (1929) PAGE 1 Signed ReportNovel Coronavirus [id number] 14:02:00 Test Item Value Reference Range Interpretation Comments Novel Coronavirus Negative Negative Positive r esults are 2019 Inhouse (test indicativ e of the presence code = SCULU39LT) ofSARS-CoV -2 RNA, clinical correlation wit h [...] for the identification of SARS-CoV-2 RNA usingthe Chunk Moto M2000 Sy stem under the FDA Emergen cy UseAuthorizatio n. The testing is perf ormed by melania mcfarland in the procedures for the Motley M2000 molecular diagnostic SARS-CoV-2 assa y in vitro. Testing Criteria: Fever Cough OtherOther: GENERALIZED WEAKNESSCOMMENTS: ORDER PUT IN FOR DR JOSE MIGUEL Chou [id number] 00:31:00 Test Item Value Reference Range Interpretation Comments INFLUENZA A (test code = FLUAPCR) Negative Negative INFLUENZA B (test code = FLUBPCR) Negative Negative COMMENTS: SwabBASIC METABOLIC [id number] 00:19:00 Test Item Value Reference Range Interpretation [...] 9.3 mg/dL 8.0-10.5 N CA) HEPATIC FUNCTION [id number] 00:19:00 Test Item Value Reference Range Interpretation [...] 20-125 N code = ALKP) BASIC METABOLIC [id number] 00:13:00 Test Item Value Reference Range Interpretation [...] CA) 9.3 mg/dL 8.0-10.5 N HEPATIC FUNCTION [id number] 00:13:00 Test Item Value Reference Range Interpretation [...] IUnit/L 20-125 code = ALKP) CBC W/AUTO [id number] 00:05:00 Test Item Value Reference Range Interpretation [...] NO = MDIFF) - XR CHEST 2 [id number] 23:38:00 [facility] : 1995 Sex: M FAX: Ernesto Swanson MD [phone] [place]: St: DEP Name: ANATOLY MCNEAL [facility] : 1995 Age/S: 24/M [address] [place] [address] Unit #: [id number] Loc: [place] [address] Phys: Ernesto Colunga MD Acct: [id number] Dis Date: Status: DEP ER PHONE #: [phone] Exam Date: 09/06/2019 2331 FAX #: [phone] Reason: Chest Pain EXAMS: CPT CODE: [id number] XR CHEST 2 V 27745 Chest, 2 views dated 09/06/2019. HISTORY: Chest pain. Comparison is made to a prior study dated 05/20/2018. The heart is normal in size. The cardiac mediastinal shadow appears within normal limits. The lungs appear clear. The palmar vasculature is normal in caliber. No acute pleural space abnormalities are detected. IMPRESSION: 1. No radiographic evidence of acute cardiopulmonary disease. SL: 131 at 6428 Reported and signed by: Knau Pinto M.D. CC: Ernesto Colunga MD Technologist: RT Jeremie(R) Nasreen Date/Time/By: 09/06/2019 (3222) : By: Flor Orig Print D/T: S: 09/06/2019 (7802) PAGE 1 Signed Report- XR CHEST 2 [id number] 23:38:00 FAX: Ernesto Swanson MD [phone] [place]: St: REG Name: ANATOLY MCNEAL [facility] : 1995 Age/S: 24/M [address] [place] [address] Blvd Unit #: [id number] Loc: [place] [address] Phys: Ernesto Colunga MD Acct: [id number] Dis Date: Status: REG ER PHONE #: [phone] Exam Date: 09/06/20192330 FAX #: [phone] Reason: Chest Pain EXAMS: CPT CODE: [id number] XR CHEST 2 V 36251 Chest, 2 views dated 09/06/2019. HISTORY: Chest pain. Comparison is made to a prior study dated 05/20/2018. The heart is normal in size. The cardiac mediastinal shadow appears within normal limits. The lungs appear clear. The palmar vasculature is normal in caliber. No acute pleural space abnormalities are detected. IMPRESSION: 1. No radiographic evidence of acute cardiopulmonary disease. SL: 131 at 8196 Reported and signed by: Kanu Pinto M.D. CC: Ernesto Colunga MD Technologist: RT Jeremie(R) Nasreen Date/Time/By: 09/06/2019 (6973) : By: SharonM Orig Print D/T: S: 09/06/2019 (0162) PAGE 1 Signed Report- CT ABD PELVIS [id number] 00:20:00 [facility] 1995 Sex: M FAX: Dariusz Junior DO [phone] [place]: St: DEP Name: ANATOLY MCNEAL [facility] : 1995 Age/S: 24/M [address] [facility] Unit: [id number] Loc: [place], [place] Phys: Darius[place] [id number]: [id number] Dis Date: Status: DEP ER PHONE #: [phone] Exam Date: 05/25/2019 0005 FAX #: [phone] Reason: abdominal pain EXAMS: CPT CODE: [id number] CT ABD PELVIS W/CONT 59517 EXAM: CT ABDOMEN AND PELVIS WITH IV [...] Signed Report (CONTINUED) FAX: Dariusz Junior DO [phone] [place]: St: DEP ----- Name: ANATOLY MCNEAL [facility] : 1995 Age/S: 24/M [address] [facility] Unit: [id number] Loc: [place], [place]: [place] [id number] Acct: [id number] Dis Date: Status: [facility] ER PHONE #: [phone] Exam Date: 05/25/2019 0005 FAX #: [phone] Reason: abdominal pain EXAMS: CPT CODE: [id number] CT ABD PELVIS W/CONT 74687 <Continued> Lymphatics: No enlarged lymph nodes by CT size criteria. Bones/Soft Tissues: No acute osseous findings. No ventral hernias. Peritoneum/Other: No free intraperitoneal air. No free intraperitoneal fluid. IMPRESSION: Unremarkable CT of the abdomen and pelvis. at 0020 Reported and signed by: Ale Escamilla M.D. CC: Dariusz Junior DO Technologist: CORA Downey Dt/Tm: 05/26/2019 (0020) LuisaW Orig Print D/T: S: 05/26/2019 (4420 PAGE 2 SignedReport- CT ABD PELVIS [id number] 00:20:00 FAX: Dariusz Junior DO [phone] [place]: St: REG Name: ANATOLY MCNEAL [facility] : 1995 Age/S: 24/M [address] [facility] Unit: [id number] Loc: [address] Phys: [place] [address] Acct: [id number] Dis Date: Status: REG ER PHONE #: [phone] Exam Date: 05/25/2019 0005 FAX#: [phone] Reason: abdominal pain EXAMS: CPT CODE: [id number] CT ABD PELVIS W/CONT 73637 EXAM: CT ABDOMEN AND PELVIS WITH IV CONTRAST DICTATION LOCATION: [facility] HISTORY: Male, 24 years of age with [...] acceptable. Lower thorax: Unremarkable. Hepatobiliary: The liver isnormal without focal lesion. The gallbladder is normal. [...] Signed Report (CONTINUED) FAX: Dariusz Junior DO [phone] [place]: St: REG Name: ANATOLY MCNEAL [facility] : 1995 Age/S: 24/M [address] [facility] Unit: [id number] Loc: [address] Phys: [place] [address] Acct: [id number] Dis Date: Status: REG ER PHONE #: [phone] Exam Date: 05/25/2019 0005 FAX #: [phone] Reason: abdominal pain EXAMS: CPT CODE: [id number] CT ABD PELVIS W/CONT 10215 <Continued> Lymphatics: No enlarged lymph nodes by CT size criteria. Bones/Soft Tissues: No acute osseous findings. No ventral hernias. Peritoneum/Other: No free intraperitoneal air. No free intraperitoneal fluid. IMPRESSION: Unremarkable CT of the abdomen and pelvis. at 0020 Reported and signed by: Ale Escamilla M.D. CC: Darisuz Junior DO Technologist: CORA Downey Dt/Tm: 05/26/2019 (0020) Hunter Orig Print D/T: S: 05/26/2019 (0820 PAGE 2Signed ReportBASIC METABOLIC [id number] 23:28:00 Test Item Value Reference Range Interpretation [...] 9.3 mg/dl 8.0-10.5 N HEPATIC FUNCTION PANEL [id number] 23:28:00 Test Item Value Reference Range Interpretation [...] 50.0-136.0 N TOTAL (test code = ALKP) [id number] 23:28:00 Test Item Value Reference Range Interpretation Comments LIPASE (test code = LIP) 96 Units/L 65.0-230.0 N URINALYSIS [id number] 23:21:00 Test Item Value Reference Range Interpretation [...] MUCU) 1+ Specimen comments: Clean CatchBASIC METABOLIC [id number] 23:20:00 Test Item Value Reference Range Interpretation [...] = CA) mg/dl 8.0-10.5 HEPATIC FUNCTION PANEL [id number] 23:20:00 Test Item Value Reference Range Interpretation Comments TOTAL PROTEIN (test code = PROT) gm/dL 6.4-8.2 ALBUMIN (test code = ALB) gm/dl 3.2-4.7 BILIRUBIN TOTAL (test code = BILT) mg/dl 0.0-1.0 BILIRUBIN DIRECT (test code = BILD) mg/dl 0.0-0.3 SGOT/AST (test code = AST) Units/L 15.0-37.0 SGPT/ALT (test code =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 physician as indicated in the discharge instruct ions. ED Course Medication(s) Ordered Medication(s) Ordered: Central Nervous System Agents Sig/Temitope Start time Last Medication Dose Route Stop Time Status Admin Acetaminophen 650 MG X1ED STA 12/24 2239 DC PO 12/24 2240 2326 Gastrointestinal Drugs Sig/Temitope Start time Last Medication Dose Route Stop Time Status Admin Ondansetron HCl 4 MG X1ED STA 12/24 2240 DC PO 12/24 2241 2325 Patient Discharge Departure Vital Signs/Condition Vital Signs First Documented: Result Date Time Pulse Ox 97 12/24 2343 B/P 122/72 12/24 2343 B/P Mean 88 12/24 2343 O2 Delivery Room air 12/24 2343 Temp 37.2 12/24 2343 Pulse 93 12/24 2343 Resp 18 12/24 2343 Last Documented: Result Date Time Pulse Ox 97 12/24 2343 B/P 122/72 12/24 2343 B/P Mean 88 12/24 2343 O2 Delivery Room air 12/24 234 Temp 37.2 12/24 2343 Pulse 93 12/24 2343 Resp 18 12/24 2343 All vital signs available at the time of this en try have been reviewed. Condition Stable, Improved Clinical Impression Clinical Impression Primary Impression: URI (upper respiratory infec tion) Secondary Impressions: Pharyngitis Disposition Decision Discharge )( Discharged to Home Yes )( Time 0134 )( Date 12/25/20 Discharge/Care Plan Counseled Regarding Diagnosis, Lab resul ts, Need for follow-up, When to return to ED (Auto) Prescriptions Current Visit Scripts LIDOCAINE (LIDOCAINE 2% VISCOUS) 15 ML SWISH SWA L Q3H PRN PRN throat pain LIDOCAINE (LIDOCAINE 2% VISCOUS) 15 ML SWISH SW AL Q3H PRN PRN throat pain # 150 ML Prescriptions Reviewed Risks, Benefits, Alternat renu treatment Patient Instructions ED URI, Viral, No Abx (Adul t) Additional Instructions Please follow-up with your primary care physicia n in the next 1-2 days for repeat evaluation of any persistent symptoms Please continue alternate us ing acetaminophen/Tylenol and then ibuprofen/Motrin every 3 hours as needed for any ongoing fever. Return to the nearest ER or call 911 sooner for any: Changes in your behavior/increased weakness Shaking or seizure-like activity Nausea or vomiting keeping you rom eating or dri nking New shortness of breath or difficulty breathing of any kind Dark or bloody vomiting or stools Any other concerns that you have Referrals PRIMARY CARE: 1-2 Days Electronically Signed by Nawaf Her MD on at 1705 RPT #:[id number] END OF REPORT 2020-08-15 18:46:00-00:00 [facility] ([facility]) EMERGENCY PROVIDER REPORT REPORT#:[id number] REPORT STATUS: Signed DATE:08/15/20 TIME: 1845 PATIENT: ANATOLY MCNEAL UNIT #: [id number] ROOM/BED: AGE: 25 SEX: M PCP PHYS: No Primary or Family P hysician SERVICE AUTHOR: Shmuel Rodriguez * ALL edits or amendments must be made on the el [employer]/computer document * HPI-Head Prob/Injury Free Text HPI Notes Free Text HPI Notes 25 M with history of anxiety presents to the ED with head pain and nausea. 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 EMS rep orts neurointact, alert with normal vitals in route. THe patient denies any other complaints or medic al history, etoh or drug use. General Confirmed Patient Yes Initial Greet Date/Time 08/15/201838 Presentation Chief Complaint Blunt head trauma Hx Obtained From Patient )( Onset Occurred Sudden Risk-Head Prob/Injury Risk Stratification Central African Head CT Rule 2 or more episodes vomit )( Johanny Coma Score: Copyright Sir Rodo Sellers Copyright Sir America lucy Sellers Eye opening: (4) Spontaneous Verbal response: (5) Oriented Best motor response: (6) Obeys commands GCS Score: 15 )( Intracranial Bleed Risk factors reviewed Review of Systems ROS Statements All systems rev neg except as marked. Past Medical History - Adult Stated Complaint FALL FROM STANDING, +LOC Allergies Coded Allergies: Sulfa (Sulfonamide Antibiotics) (Intermediate, H JUAN JOSE 07/31/20) Uncoded Allergies: No Known Contrast Allergies (10/12/08) No Known Drug Allergies (10/12/08) No Known Food Allergies (10/12/08) No Known Other Allergies (10/12/08) Calculated Suicide Risk (nurs) No risk Additional Medical History anxiety Alcohol Use Alcohol use Drug Use Denies recreational drugs Smoking status: Smoking status for patients 13 years old or old er: Current every day smoker Additional Social History Right-handed Physical Exam Vital Signs Vital Signs First Documented: Result Date Time Pulse Ox 97 08/15 1826 B/P 114/68 08/15 1826 B/P Mean 83 08/15 1826 O2 Delivery Room air 08/15 1826 Temp 36.9 08/15 1826 Pulse 99 08/15 1826 Resp 18 08/15 1826 Last Documented: Result Date Time Pulse Ox 98 08/16 2023 B/P 119/70 08/16 2023 B/P Mean 86 08/16 2023 Pulse 87 08/16 2023 Resp 17 08/16 2023 O2 Delivery Room air 08/15 1826 Temp 36.9 08/15 1826 Review of Vital Signs Reviewed Free Text PE Notes Free Text PE Notes General: Awake, Alert and Oriented, Cooperative, non-toxic, no distress Head: Tenderness and mild sw elling to the posterior head, no step-offs, no signs of basilar skull fracture Eyes: Atraumatic,, No perior bital swelling or redness, EOMI and painless, PERRLA ENT: Atraumatic, MMM, uvula midline, airway jordan nt, pharynx normal Neck: Atraumatic, supple, non tender, tr achea midline, no swelling, no midline tenderness Resp: Atraumatic, Nml breath sounds B, no wheezi ng, rales or rhonchi, no respiratory distress, No Crepitus, no tenderness CV: Nml HR, Nml Rhythm, No murmurs, rubs or clic ks, Radial and pedal pulses present and 2+, Abd: Atraumatic, Soft, Non-tender, No guarding, No rebound, No distention Back: Atraumatic, No midline tenderness, no step offs MSK LE: Atraumatic, Nontender, No swelling, ROM testing is nml and painless MSK UE: Atraumatic, Nontender, No swelling, ROM testing is nml and painless Skin: Nml color, warm, Dry, No swelling, No iggy a Neuro: Oriented X3, Speech n ml, moves all extremeties equally, normal gait, nml sensory function to distal Extremeties Psych: Affect Nml, Mood Nml Interpretation Diagnostics Lab Results Interpretation Considerations Independ review imaging Results Recent Impressions: CAT SCAN - CT C-SPINE W/O CONT 08/15 1901 Report Impression - Status: SIGNED Entered: 08/15/20201931 IMPRESSION: CT head: 1. No acute intracranial abnormality. 2. Midline parieto-occipital scalp swelling. No calvarial fracture. CT cervical spine: No fractures or subluxations of the cervical spi ne. SL: APATIL-H Impression By: Mariam Greene CAT SCAN - CT HEAD/BRAIN W/O CONT 08/15 1901 Report Impression - Status: SIGNED Entered: 08/15/20201931 IMPRESSION: CT head: 1. No acute intracranial abnormality. 2. Midline parieto-occipital scalp swelling. No calvarial fracture. CT cervical spine: No fractures or subluxations of the cervical spi ne. SL: APATIL-H Impression By: Mariam Greene RADIOLOGY - XR CHEST 1 V 08/16 1903 Report Impression - Status: SIGNED Entered: 08/15/20201912 IMPRESSION: No evidence for acute cardiopulmonar y disease. SL: YONY Impression By: [email or web address] - Jose C Joshi M.D. Imaging Statement Radiographic studies reviewed and considered in the medical decision-making. Re-Evaluation MDM Re-Evaluation/Progress #1 Text/Dict Note pain improved. no acute distress. NV intact with out nausea or vomiting Time of Re-Eval 1936 Re-Eval Status Improved Re-Eval Neurologic Exam Aler t, Pt is back to baseline, Oriented X3, Gait normal ED Course Medication(s) Ordered Medication(s) Ordered: Central Nervous System Agents Sig/Temitope Start time Last Medication Dose Route Stop Time Status Admin Hydrocodone Bitart/ 1 TAB X1ED STA 08/15 1845 DC 08/15 Acetaminophen PO 08/15 Gastrointestinal Drugs Sig/Temitope Start time Last Medication Dose Route Stop Time Status Admin Ondansetron HCl 4 MG X1ED STA 08/15 1845 DC SL 08/15 Patient Discharge Departure Vital Signs/Condition Vital Signs First Documented: Result Date Time Pulse Ox 97 08/15 1826 B/P 114/68 08/15 1826 B/P Mean 83 08/15 1826 O2 Delivery Room air 08/15 1826 Temp 36.9 08/15 1826 Pulse 99 08/15 1826 Resp 18 08/15 1826 Last Documented: Result Date Time Pulse Ox 98 08/16 2023 B/P 119/70 08/16 2023 B/P Mean 86 08/16 2023 Pulse 87 08/16 2023 Resp 17 08/16 2023 O2 Delivery Room air 08/15 1826 Temp 36.9 08/15 1826 All vital signs available at the time of this en try have been reviewed. Condition Improved Clinical Impression Clinical Impression Primary Impression: Head contusion Secondary Impressions: Fall, Loss of consciousne ss, Vomiting Disposition Decision Discharge )( Discharged to Home Yes )( Time 1938 )( Date 08/15/20 Discharge/Care Plan Counseled Regarding Diagnosis, Lab results, Imag ing studies, Prescriptions (Auto) Prescriptions Current Visit Scripts NAPROXEN (NAPROSYN) 500 MG PO BID PRN PRN PAIN NAPROXEN (NAPROSYN) 500 MG PO BID PRN PRN PAIN #15 TABS ONDANSETRON (ZOFRAN) 4 MG PO Q6H PRN PRN NAUSEA/ VOMITING ONDANSETRON (ZOFRAN) 4 MG PO Q6H PRN PRN NAUSEA /VOMITING #15 TABS Patient Instructions ED Concussion, ED H ead Injury (Adult), ED Mechanical Fall Referrals FAM. CLINIC: 2-3 Days Electronically Signed by Shmuel Rodriguez on at 2134 RPT #:[id number] END OF REPORT 2020-08-15 18:46:00-00:00 [facility] ([facility]) EMERGENCY PROVIDER REPORT REPORT#:[id number] REPORT STATUS: Signed DATE:08/15/20 TIME: 1845 PATIENT: ANATOLY MCNEAL UNIT #: [id number] ROOM/BED: AGE: 25 SEX: M PCP PHYS: No Primary or Family Ph ysician SERVICE AUTHOR: Shmuel Rodriguez * ALL edits or amendments must be made on the [employer]/computer document * Shmuel Rodriguez 08/15/20 1846: HPI-Head Prob/Injury Free Text HPI Notes Free Text HPI Notes 25 M with history of anxiety presents to the ED with head pain and nausea. 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 EMS rep orts neurointact, alert with normal vitals in route. THe patient denies any other complaints or medic al history, etoh or drug use. General Confirmed Patient Yes Initial Greet Date/Time 08/15/20 1839 Presentation Chief Complaint Blunt head trauma Hx Obtained From Patient )( Onset Occurred Sudden Risk-Head Prob/Injury Risk Stratification Central African Head CT Rule 2 or more episodes vomit )( Johanny Coma Score: Copyright Sir Rodo Sellers Copyright Sir America Sellers Eye opening: (4) Spontaneous Verbal response: (5) Oriented Best motor response: (6) Obeys commands GCS Score: 15 )( Intracranial Bleed Risk factors reviewed Review of Systems ROS Statements All systems rev neg except as marked. Past Medical History - Adult Stated Complaint FALL FROM STANDING, +LOC Allergies Coded Allergies: Sulfa (Sulfonamide Antibiotics) (Intermediate, H JUAN JOSE 07/31/20) Uncoded Allergies: No Known Contrast Allergies (10/12/08) No Known Drug Allergies (10/12/08) No Known Food Allergies (10/12/08) No Known Other Allergies (10/12/08) Calculated Suicide Risk (nurs) No risk Additional Medical History anxiety Alcohol Use Alcohol use Drug Use Denies recreational drugs Smoking status: Smoking status for patients 13 years old or old er: Current every day smoker Additional Social History Right-handed Physical Exam Vital Signs Vital Signs First Documented: Result Date Time Pulse Ox 97 08/15 1826 B/P 114/68 08/15 1826 B/P Mean 83 08/15 1826 O2 Delivery Room air 08/15 1826 Temp 36.9 08/15 1826 Pulse 99 08/15 1826 Resp 18 08/15 1826 Last Documented: Result Date Time Pulse Ox 98 08/16 2023 B/P 119/70 08/16 2023 B/P Mean 86 08/16 2023 Pulse 87 08/16 2023 Resp 17 08/16 2023 O2 Delivery Room air 08/15 1826 Temp 36.9 08/15 1826 Review of Vital Signs Reviewed Free Text PE Notes Free Text PE Notes General: Awake, Alert and Oriented, Cooperative, non-toxic, no distress Head: Tenderness and mild sw elling to the posterior head, no step-offs, no signs of basilar skull fracture Eyes: Atraumatic,, No perior bital swelling or redness, EOMI and painless, PERRLA ENT: Atraumatic, MMM, uvula midline, airway jordan nt, pharynx normal Neck: Atraumatic, supple, non tender, tr achea midline, no swelling, no midline tenderness Resp: Atraumatic, Nml breath sounds B, no wheezi ng, rales or rhonchi, no respiratory distress, No Crepitus, no tenderness CV: Nml HR, Nml Rhythm, No murmurs, rubs or clic ks, Radial and pedal pulses present and 2+, Abd: Atraumatic, Soft, Non-tender, No guarding, No rebound, No distention Back: Atraumatic, No midline tenderness, no step offs MSK LE: Atraumatic, Nontender, No swelling, ROM testing is nml and painless MSK UE: Atraumatic, Nontender, No swelling, ROM testing is nml and painless Skin: Nml color, warm, Dry, No swelling, No iggy a Neuro: Oriented X3, Speech n ml, moves all extremeties equally, normal gait, nml sensory function to distal Extremeties Psych: Affect Nml, Mood Nml Interpretation Diagnostics Lab Results Interpretation Considerations Independ review imaging Results Recent Impressions: CAT SCAN - CT C-SPINE W/O CONT 08/15 1901 Report Impression - Status: SIGNED Entered: 08/15/20201931 IMPRESSION: CT head: 1. No acute intracranial abnormality. 2. Midline parieto-occipital scalp swelling. No calvarial fracture. CT cervical spine: No fractures or subluxations of the cervical spi ne. SL: APATIL-H Impression By: Mariam Greene CAT SCAN - CT HEAD/BRAIN W/O CONT 08/15 1901 Report Impression - Status: SIGNED Entered: 08/15/20201931 IMPRESSION: CT head: 1. No acute intracranial abnormality. 2. Midline parieto-occipital scalp swelling. No calvarial fracture. CT cervical spine: No fractures or subluxations of the cervical spi ne. SL: APATIL-H Impression By: Mariam Greene RADIOLOGY - XR CHEST 1 V 08/16 1903 Report Impression - Status: SIGNED Entered: 08/15/20201912 IMPRESSION: No evidence for acute cardiopulmonar y disease. SL: SG-H Impression By: NavaSGJosee Joshi M.D. Imaging Statement Radiographic studies reviewed and considered in the medical decision-making. Re-Evaluation MDM Re-Evaluation/Progress #1 Text/Dict Note pain improved. no acute distress. NV intact with out nausea or vomiting Time of Re-Eval 1936 Re-Eval Status Improved Re-Eval Neurologic Exam Aler t, Pt is back to baseline, Oriented X3, Gait normal ED Course Medication(s) Ordered Medication(s) Ordered: Central Nervous System Agents Sig/Temitope Start time Last Medication Dose Route Stop Time Status Admin Hydrocodone Bitart/ 1 TAB X1ED STA 08/15 1845 D C 08/15 Acetaminophen PO 08/15 Gastrointestinal Drugs Sig/Temitope Start time Last Medication Dose Route Stop Time Status Admin Ondansetron HCl 4 MG X1ED STA 08/15 1845 DC SL 08/15 1846 191 Patient Discharge Departure Vital Signs/Condition Vital Signs First Documented: Result Date Time Pulse Ox 97 08/15 1826 B/P 114/68 08/15 1826 B/P Mean 83 08/15 1826 O2 Delivery Room air 08/15 1826 Temp 36.9 08/15 1826 Pulse 99 08/15 1826 Resp 18 08/15 1826 Last Documented: Result Date Time Pulse Ox 98 08/16 2023 B/P 119/70 08/16 2023 B/P Mean 86 08/16 2023 Pulse 87 08/16 2023 Resp 17 08/16 2023 O2 Delivery Room air 08/15 1826 Temp 36.9 08/15 1826 All vital signs available at the time of this en try have been reviewed. Condition Improved Clinical Impression Clinical Impression Primary Impression: Head contusion Secondary Impressions: Fall, Loss of consciousne ss, Vomiting Disposition Decision Discharge )( Discharged to Home Yes )( Time 1938 )( Date 08/15/20 Discharge/Care Plan Counseled Regarding Diagnosis, Lab results, Imag ing studies, Prescriptions (Auto) Prescriptions Current Visit Scripts NAPROXEN (NAPROSYN) 500 MG PO BID PRN PRN PAIN NAPROXEN (NAPROSYN) 500 MG PO BID PRN PRN PAIN #15 TABS ONDANSETRON (ZOFRAN) 4 MG PO Q6H PRN PRN NAUSEA/ VOMITING ONDANSETRON (ZOFRAN) 4 MG PO Q6H PRN PRN NAUSEA /VOMITING #15 TABS Patient Instructions ED Concussion, ED H ead Injury (Adult), ED Mechanical Fall Referrals FAM. CLINIC: 2-3 Days Antonio Lara 08/19/20 0045: Patient Discharge Departure Supervising Physician Note MidLv Saw Pt Alone I have reviewed the PA/CAR LUBRICATOR's note and plan of car e. I was available for consultation as needed at al l times during the patient's visit in the emergency department. I agree with the clinical impression , plan and disposition. Electronically Signed by Shmuel Rodriguez on at 2134 Electronically Signed by Antonio Lara MD on at 0046 RPT #:[id number] END OF REPORT 2020-06-18 18:51:00-00:00 [facility] ([facility]) EMERGENCY PROVIDER REPORT REPORT#:[id number] REPORT STATUS: Signed DATE:06/18/20 TIME: 1850 PATIENT: ANATOLY MCNEAL UNIT #: [id number] ROOM/BED: AGE: 25 SEX: M PCP PHYS: No Primary or Family Ph ysician SERVICE AUTHOR: Antonio Lara MD * ALL edits or amendments must be made on the [employer]/computer document * HPI-Chest Pain Under 40 Free Text HPI Notes Free Text HPI Notes 25-year-old male with past medical history as be low presenting for evaluation due to chest pain and shortness of breath. Patie nt states he has had constant chest pain for 3 days. He describes as sharp pr essure, mild to moderate severity, located in the left chest, and associa yamileth with left arm pain and occasional shortness of breath. Patient denies any fevers, chills, body aches, headache, sore throat, coughing, abdominal pain, nausea, or vomiting. General Confirmed Patient Yes Initial Greet Date/Time 06/18/201824 Presentation Chief Complaint Chest pain, Shortness of breath Risk-Chest Pain Under 40 Risk Stratification )( Coronary Artery Disease Risk factors reviewed , Smoking )( HEART for MACE )( HEART for MACE Response Value History Low index of suspicion 0 ECG Interpretation Normal ECG 0 Age Age under 45 0 Risk Factors for CAD 1-2 CAD risk factors 1 Troponin < or = to NL troponin 0 Total 1 HEART Score for MACE 0-3 (low risk 0.9%-1.7%) Review of Systems Free Text ROS Notes Free Text ROS Notes Review of systems: -Constitutional: No fever, chills, fatigue -EENT: No runny nose, sore throat -Cardiovascular: Positive chest pain, no palpita tions, no syncope -Respiratory: Positive shortness of breath, no c ough, no wheezing -GI: No abdominal pain, nausea, vomiting, diarrh ea -: No pain or burning with urination, no blood in the urine -Musculoskeletal: No joint pain, muscle pain, ba ck pain -Skin: No rash, abrasion -Neurologic: No change in LOC, confusion, numbne ss or tingling -Psychiatric: No suicidal or homicidal ideations Past Medical History - Adult Stated Complaint CHEST PAIN SHORTNESS OF BREATH Allergies Coded Allergies: Sulfa (Sulfonamide Antibiotics) (Intermediate, H JUAN JOSE 06/18/20) Home Medications Reported Medications No Known Home Medications Calculated Suicide Risk (nurs) No risk Pt reports no significant: Past surgical history , Family history Additional Medical History anxiety Alcohol Use Alcohol use Drug Use Denies recreational drugs Smoking status: Smoking status for patients 13 years old or old er: Current every day smoker Additional Social History Right-handed Physical Exam Vital Signs Vital Signs First Documented: Result Date Time Pulse Ox 97 06/18 1829 B/P 137/66 06/18 1829 B/P Mean 89 06/18 1829 O2 Delivery Room air 06/18 1829 Temp 36.6 06/18 1829 Pulse 107 06/18 1829 Resp 06/18 Last Documented: Result Date Time Pulse Ox 98 06/18 2041 B/P 127/77 06/18 2041 B/P Mean 93 06/18 2041 O2 Delivery Room air 06/18 2041 Pulse 80 06/18 2041 Resp 06/18 Temp 36.6 06/18 1829 Review of Vital Signs Reviewed, Vital signs abno rmal Free Text PE Notes Free Text PE Notes Gen: Well appearing, well hydrated, cooperative Head: Normocephalic, atraumatic Eyes: EOMI, normal conjunctiva ENT: MMM, airway patent Neck: supple, no LAD Lungs: CTAB no R/R/W Heart: Slight tachycardia, regular rhythm, ru l pulses Abd: S/NT/ND, normal BS, no rebound or guarding Ext: FROM BUE/LE, no deformity Neuro: A O x 3, CN II-XII gr ossly intact. Strength and sensation grossly intact Psych: Normal mood and affect. Interpretation Diagnostics Lab Results Interpretation Results Laboratory Tests 06/18/201948: [Embedded Image Not Available] Laboratory Tests: 06/18 1948 Chemistry Sodium (134 - 147 mEq/L) 140 Potassium (3.4 - 5.0 mEq/L) 4.0 Chloride (100 - 108 mEq/L) 108 Carbon Dioxide (21 - 33 mEq/l) 24 Anion Gap (0 - 20) 12 BUN (7 - 18 mg/dL) 16 Creatinine (0.6 - 1.3 mg/dL) 0.9 Glomerular Filtr Rate (110 - 120) 102.8 L Glucose (70 - 110 mg/dL) 108 Calcium (8.0 - 10.5 mg/dL) 9.8 Troponin I (0.000 - 0.045 ng/mL) < 0.006 Coagulation D-Dimer (<=500 ng/mlFEU) 364 Hematology WBC (4.5 - 11.0 x10 3/uL) 9.3 RBC (4.00 - 5.60 x10 6/uL) 5.45 Hgb (12.5 - 16.9 g/dL) 15.0 Hct (37.5 - 50.7 %) 44.6 MCV (81.0 - 99.0 fL) 81.8 MCH (27.0 - 33.0 pg) 27.5 MCHC (33.0 - 37.0 g/dL) 33.6 RDW (11.5 - 14.5 %) 13.0 Plt Count (150 - 400 x10 3/uL) 288 MPV (7.0 - 9.0 fL) 10.7 H Neut % (Auto) (56.0 - 77.0 %) 68.1 Lymph % (Auto) (14.0 - 32.0 %) 19.6 Callaway % (Auto) (4.8 - 9.0 %) 8.3 Eos % (Auto) (0.3 - 3.7 %) 2.8 Baso % (Auto) (0.0 - 2.0 %) 0.9 Neut # (Auto) (2.0 - 7.6 x10 3/uL) 6.32 Lymph # (Auto) (1.0 - 3.8 x10 3/uL) 1.82 Callaway # (Auto) (0.1 - 0.8 x10 3/uL) 0.77 Eos # (Auto) (0.0 - 0.2 x10 3/uL) 0.26 H Baso # (Auto) (0.0 - 0.2 x10 3/uL) 0.08 Abs Immat Gran (auto) (0.00 - 0.03 x10 3/uL) 0. 03 Add Manual Diff NO Immature Gran % (0.0 - 2.0 %) 0.3 Nucleated RBC % (0 - 0 %) 0.0 Nucleated RBCs # (Man) (0.0 - 0.1 x10 3/uL) 0.0 0 Recent Impressions: RADIOLOGY - XR CHEST 1 V 06/18 1855 Report Impression - Status: SIGNED Entered: 06/18/20201929 IMPRESSION: 1. No acute cardiopulmonary process. Impression By: [email or web address] Bon Rose D.O. Lab Imaging Statement Laboratory radiographic studies reviewed and con sidered in the medical decision-making. ECG #1 Interpretation Text/Dict Note EKG done at 1830 on May 2020 Interpreted by me, ED physician Normal sinus rhythm 100 bpm, no acute ischemic c hanges, no STEMI, normal intervals, normal axis Re-Evaluation MDM Free Text MDM Notes Free Text MDM Notes NAD, slight tachycardia, afebrile., Imaging, and EKG are nonactionable. Results, history, physical are not consistent wi th cardiac cause of pain. Patient will be discharged h ome with instruction to take OTC meds and follow-up with PCP. ED Course Medication(s) Ordered Medication(s) Ordered: Electrolytic, Caloric, And Sherice Sig/Temitope Start time Last Medication Dose Route Stop Time Status Admin Sodium Chloride 0 ASDIR PRN 06/18 184 AC IV 06/19 1744 Patient Discharge Departure Vital Signs/Condition Vital Signs First Documented: Result Date Time Pulse Ox 97 06/18 1830 B/P 137/66 06/18 183 B/P Mean 89 06/18 1830 O2 Delivery Room air 06/18 183 Temp 36.6 06/18 183 Pulse 107 06/18 1830 Resp 16 06/18 1830 Last Documented: Result Date Time Pulse Ox 98 06/18 2041 B/P 127/77 06/18 2041 B/P Mean 93 06/18 204 O2 Delivery Room air 06/18 204 Pulse 80 06/18 204 Resp 16 06/18 204 Temp 36.6 06/18 1830 All vital signs available at the time of this en try have been reviewed. Condition Stable Clinical Impression Clinical Impression Primary Impression: Non-cardiac chest pain Disposition Decision Discharge )( Discharged to Home Yes )( Time 2045 )( Date 06/18/20 Discharge/Care Plan Counseled Regarding Diagnosi s, Lab results, Imaging studies, Need for follow-up, When to return to ED (Auto) Prescriptions Current Visit Scripts No Known Home Medications Patient Instructions ED Chest Pain, Noncardiac Referrals PRIMARY CARE: 1 Week Electronically Signed by Antonio Lara MD on at 2047 RPT #:[id number] END OF REPORT 2019-09-06 23:19:00-00:00 [facility] ([facility]) EMERGENCY PROVIDER REPORT REPORT#:[id number] REPORT STATUS: Signed DATE:09/06/19 TIME: 2318 PATIENT: ANATOLY MCNEAL UNIT #: [id number] ROOM/BED: AGE: 24 SEX: M PCP PHYS: No Primary or Family Ph ysician SERVICE AUTHOR: Ernesto Colunga MD * ALL edits or amendments must be made on the Had[employer]form document * HPI-General Illness Free Text HPI Notes Free Text HPI Notes 24-year-old male smoker, history of bipolar diso rder Presents with 4 days of sore throat, dys pnea, generalized malaise and fatigue. 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 He denies any cough. Denies any travel in the last 2 months. Denies any known [place] VID 19 contact. General Confirmed Patient Yes Patient Type Existing patient Initial Greet Date/Time 09/06/19 9212 COVID-19 Risk [facility] COVID Risk Denies Age 65 or older, Denies Signif co -morbidity, Denies Exp to person + for COVID, Denies Exp to PUI, Denies Travel from affected area, Reports Lower resp symptoms, Denies Fever Presentation Chief Complaint Breathing problem, Sore throat Hx Obtained From Patient Review of Systems ROS Statements All systems rev neg except as marked. Free Text ROS Notes Free Text ROS Notes Constitutional: - No fever, no chills - No weakness - malaise , fatigue Eyes: - No redness, no discharge - No vision changes ENT: - Positive sore throat, - no earache - No nasal congestion, no nasal drainage Respiratory: - No cough, - positive feeling of dyspnea - No wheezing, - no pain on respirations Cardiology: - No chest pain, no palpitations - no syncope GI: - No abdominal pain - No nausea, no vomiting, - No diarrhea Urologic: - No dysuria - No hematuria - No flank pain Musculoskeletal: - No back pain, no neck pain Skin: - No rashes, no lesions - No ulcers, no redness, no itching Endocrine: - No hyperglycemia - No persistent thirst - No persistent hunger - No frequent urination - No excess heat or cold Neurologic: - No localized weakness - No numbness, no tingling - No dizziness, no vertigo Psychiatric - No anxiety or depression - No suicidal or homicidal ideation Past Medical History - Adult Stated Complaint FATIGUE, SHAKES, DECREASED APPE TITE Allergies Coded Allergies: Sulfa (Sulfonamide Antibiotics) (Intermediate, H JUAN JOSE 09/06/19) Home Medications Reported Medications No Known Home Medications Alcohol Use Alcohol use Drug Use Denies recreational drugs Smoking status for patients 13 years old or olde r: Current every day smoker Additional Social History Right-handed Physical Exam Vital Signs Vital Signs First Documented: Result Date Time Pulse Ox 97 09/05 2240 B/P 139/89 09/05 2240 B/P Mean 105 09/050 O2 Delivery Room air 09/06 2239 Temp 36.9 09/05 2240 Pulse 104 09/05 2240 Resp 18 09/05 2240 Last Documented: Result Date Time Pulse Ox 98 09/06 0118 B/P 128/76 09/06 0118 B/P Mean 93 09/06 0118 O2 Delivery Room air 09/06 0118 Pulse 98 09/06 0118 Resp 16 09/06 0118 Temp 36.9 09/05 2240 Review of Vital Signs Reviewed, Vital signs norm al Free Text PE Notes Free Text PE Notes GENERAL - Awake, alert - Well developed - Cooperative HEAD - Atraumatic, normocephalic NECK - Supple, FROM - No masses - Normal carotid pulses - Normal thyroid - No lymphadenopathy - No midlne spinal tenderness EYES - EOMI, conjunctiva normal - PERRL ENT: - Airway patent - Moist mucous membranes - bilateral pharyngeal and tonsillar erythema - Normal bilateral TM - normal ear canals - no hoarseness RESP - Breath sounds normal - Breath sounds equal bilaterally - No respiratory distress - No wheezing, no rales, no rhonchi CARDS - Regular rate - Regular rhythm - Normal heart sounds - No murmurs, gallops or rubs ABDOMEN - Soft, non-tender, no guarding, - No rebound, no distention LOWER EXTREMITIES - Non-tender - No swelling - No edema - Normal and equal peripheral pulses SKIN - Warm, dry, intact NEUROLOGIC - Oriented x3 - Normal speech - Normal gait - No localized neurologic deficits PSYCHIATRIC - Normal mood, normal affect - No suicidal ideation - No homicidal ideation Interpretation Diagnostics Lab Results Interpretation Considerations Independ review imaging, Reviewed prior records Results Laboratory Tests 09/06/192352: [Embedded Image Not Available] Laboratory Tests: 09/05 2316 Chemistry Sodium (134 - 147 mEq/L) 139 Potassium (3.4 - 5.0 mEq/L) 3.6 Chloride (100 - 108 mEq/L) 104 Carbon Dioxide (21 - 33 mEq/L) 27 Anion Gap (0 - 20) 12 BUN (7 - 18 mg/dL) 10 Creatinine (0.6 - 1.3 mg/dL) 1.1 Glomerular Filtr Rate (110 - 120) 82.2 L Glucose (70 - 110 mg/dL) 88 Calcium (8.0 - 10.5 mg/dL) 9.3 Total Bilirubin (<1.5 MG/DL) 0.5 Direct Bilirubin (0.0 - 0.30 MG/DL) 0.20 Indirect Bilirubin (MG/DL) 0.30 AST (15 - 37 IUnit/L) 13 L ALT (15 - 65 IUnit/L) 22 Total Alk Phosphatase (20 - 125 IUnit/L) 74 Total Protein (6.4 - 8.2 g/dL) 8.0 Albumin (3.4 - 5.0 g/dL) 4.30 Hematology WBC (4.5 - 11.0 x10 3/uL) 8.84 RBC (4.00 - 5.60 x10 6/uL) 5.91 H Hgb (12.5 - 16.9 g/dL) 16.0 Hct (37.5 - 50.7 %) 48.5 MCV (81.0 - 99.0 fL) 82.1 MCH (27.0 - 33.0 pg) 27.1 MCHC (33.0 - 37.0 g/dL) 33.0 RDW (11.5 - 14.5 %) 12.9 Plt Count (150 - 400 x10 3/uL) 272 MPV (7.0 - 9.0 fL) 10.6 H Neut % (Auto) (56.0 - 77.0 %) 70.9 Lymph % (Auto) (14.0 - 32.0 %) 20.6 Callaway % (Auto) (4.8 - 9.0 %) 6.3 Eos % (Auto) (0.3 - 3.7 %) 1.2 Baso % (Auto) (0.0 - 2.0 %) 0.9 Neut # (Auto) (2.0 - 7.6 x10 3/uL) 6.26 Lymph # (Auto) (1.0 - 3.8 x10 3/uL) 1.82 [place]away # (Auto) (0.1 - 0.8 x10 3/uL) 0.56 Eos # (Auto) (0.0 - 0.2 x10 3/uL) 0.11 Baso # (Auto) (0.0 - 0.2 x10 3/uL) 0.08 Abs Immat Gran (auto) (0.00 - 0.03 x10 3/uL) 0. 01 Add Manual Diff NO Immature Gran % (0.0 - 2.0 %) 0.1 Nucleated RBC % (0 - 0 %) 0.0 Nucleated RBCs # (Man) (0.0 - 0.1 x10 3/uL) 0.0 0 Serology COVID-19 PCR (Negative) Negative Influenza Type A (PCR) (Negative) Negative Influenza Type B (PCR) (Negative) Negative Microbiology: Date/Time Procedure - Status Source Growth 09/05 2352 Group A Streptococcus Screen (DIANE) - COMP THROAT 09/05 2352 Streptococcus Culture - COMP THROAT Recent Impressions: RADIOLOGY - XR CHEST 2 V 09/051 Report Impression - Status: SIGNED Entered: 09/06/2019 2341 IMPRESSION: 1. No radiographic evidence of acute cardiopulmo nary disease. SL: 131 Impression By: Flor - Kanu Pinto M.D. Lab Imaging Statement Laboratory radiographic studies reviewed and con sidered in the medical decision-making. Re-Evaluation MDM Re-Evaluation/Progress #1 Re-Eval Status Improved ED Course Medication(s) Ordered Medication(s) Ordered: Central Nervous System Agents Sig/Temitope Start time Last Medication Dose Route Stop Time Status Admin Acetaminophen/ 2 TAB X1ED STA 09/055 DC Codeine Phosphate PO 09/06 2315 0016 Ibuprofen 600 MG X1ED STA 09/05 2312 DC 09/06 PO 09/05 2313 0017 Electrolytic, Caloric, And Sherice Sig/Temitope Start time Last Medication Dose Route Stop Time Status Admin Sodium Chloride 0 ASDIR PRN 09/05 2314 AC IV 09/06 2209 Patient Discharge Departure Vital Signs/Condition Vital Signs First Documented: Result Date Time Pulse Ox 97 09/06 2239 B/P 139/89 09/06 2239 B/P Mean 105 09/050 O2 Delivery Room air 09/06 2239 Temp 36.9 09/05 224 Pulse 104 09/05 224 Resp 18 09/06 2239 Last Documented: Result Date Time Pulse Ox 98 09/06 0118 B/P 128/76 09/06 0118 B/P Mean 93 09/06 0118 O2 Delivery Room air 09/06 011 Pulse 98 09/06 0118 Resp 16 09/06 011 Temp 36.9 09/05 224 All vital signs available at the time of this en try have been reviewed. Condition Improved, Stable Clinical Impression Clinical Impression Primary Impression: Viral respiratory illness Secondary Impressions: Acute viral pharyngitis Time of Impression 0046 Disposition Decision Discharge )( Discharged to Home Yes )( Time 0046 )( Date 09/07/19 COVID-19 Discharge Plan CDC Criteria Met for Testing Yes Test Performed Yes, result pending CDC Recom for Isol Retest https://www.cdc.gov/coronavirus/2019-ncov/infec tion-control/control- recommendations.html Criteria Not Met for Testing The patient did not meet criteria for acute COVI D19 testing today in the emergency department. The patient has received COVID19 precau tions and home quarantine information. Advised to follow CDC recommendations. Discharge/Care Plan Counseled Regarding Diagnosi s, Lab results, Imaging studies, Prescriptions, Need for follow-up, When to return to ED Rx Drug Database Reviewed Yes Prescriptions Tylenol No. 4 every 6 hours p.o. as needed body aches or fever Ibuprofen 800 mg every 8 hours p.o. as needed fe sarita Zofran 4 mg sublingual as needed every 4 hours a s needed for nausea (Auto) Prescriptions Current Visit Scripts No Known Home Medications Prescriptions Reviewed Risks, Benefits, Alternat renu treatment Referrals No Primary or Family Physician (PCP/Family) Discharge Note I have spoken with the patie nt and/or caregivers. I have explained the patient's condition, diagnoses and renetta atment plan based on the information available to me at this time. I have answered the patient's and/ or caregiver's questions and addressed any concerns. The patient and/or careg dionne have as good an understanding of the patient 's diagnosis, condition and treatment plan as can be expected at this point. The vital signs have bee n stable. The patient's condition is stable and appr opriate for discharge from the emergency department. The patient will pursue further outpatient evalu ation with the primary care physician or other designated or consulting phys ician as outlined in the discharge instructions. The patient and/or caregivers are agreeable to this plan of care and follow-up instructions have been exp lained in detail. The patient and/or caregivers have received these instructio ns in written format and have expressed an understanding of the discharge inst ructions. The patient and/or caregivers are aware that any significant change in condition or worsening of symptoms should prompt an immediate return to [facility] or the closest emergency department or a call to 911. Free Text Depart Notes Free Text Depart Notes on follow up of results patient tested negative for COVID 19 via PCR at 0844 RPT #:[id number] END OF REPORT 2019-05-25 22:20:00-00:00 [facility] ([facility]) EMERGENCY PROVIDER REPORT REPORT#:[id number] REPORT STATUS: Signed DATE:05/25/19 TIME: 2219 PATIENT: ANATOLY MCNEAL UNIT #: [id number] ROOM/BED: AGE: 24 SEX: M PCP PHYS: No Primary or Family Ph ysician SERVICE AUTHOR: Dariusz Junior DO * ALL edits or amendments must be made on the el [employer]/computer document * HPI-Abd Pain M Under 40 General Confirmed Patient Yes Initial Greet Date/Time 05/25/19 0201 PCP NO PCP Presentation Chief Complaint Abdominal pain Hx Obtained From Patient Sudden in Onset? No Onset Occurred Chronic (6 months) Symptom Duration Since onset Progression since Onset Gradually worsening (ove r the past 4 days) Context of Onset EtOH use Location Diffuse Severity: Onset Moderate Severity: Current Severe Associated with Reports: Fever, Nausea, Vomiting. Associated Other Pt denies other symptoms Exacerbated by Nothing Relieved by Nothing Context Related History Reports: Alcohol abuse (2 years ago). Free Text HPI Notes Free Text HPI Notes 24 y/o male with no PMHx presents to the ED c/o severe LUQ sided abd pain x 4 days. Denies aggravating or relieving factors. A ssociated sx of dizziness, lightheadedness, generalized weakness, N/V and intermittent subjective fever. He notes he has approx. 4-5 episodes of emesis a da y for the past 4 days. Last normal BM last night. He states he has had abd denisse n for 6 months, but reports it gradually worsened at time of onset s/p EtOH use. No previous evaluati on for chronic abd pain in 6 months. He also reports a Hx of alcohol abuse for 2 years, but quit daily EtOH approx. 6-7 months ago. Repo rts occasional EtoH now. Denies URI sx, hematochezia , or melena. Denies illicit drug use. Portions of this section were scribed by Olivia Matias on 05/26/19 at 0408 Risk-Abd Pain M Under 40 )( Torsion Risk factors reviewed Portions of this section were scribed by Olivia Matias on 05/25/19 at 2221 Review of Systems ROS Statements All systems rev neg except as marked. Focused Review of Systems Constitutional Reports: Fever (subjective). Denies: Chills, Let hargy. Respiratory Denies: Cough, non-productive, Cough, productive , Shortness of breath. Cardiovascular Denies: Chest pain, Syncope. GI Reports: Abdominal pain, Nausea, Vomiting. Denie s: Constipation, Diarrhea, Hematochezia, Melena. Male Denies: Flank pain, Testicular pain. Musculoskeletal Denies: Back pain, Extremity pain. Additional Review of Systems Ears/Nose/Throat Denies: Nasal congestion, Sore throat. Hematologic Denies: Bleeding, Bruising. Skin Denies: Rash, Swelling. Neurologic Reports: Dizziness, Generalized weakness , Lightheaded. Denies: Focal weakness. Portions of this section were scribed by Olivia Matias on 05/25/19 at 2311 Past Medical History - Adult Stated Complaint UMBILICAL ABD PAIN N/V X 1 WEEK Allergies Coded Allergies: Sulfa (Sulfonamide Antibiotics) (Intermediate, H JUAN JOSE 05/25/19) Home Medications Reported Medications No Known Home Medications Review of Nursing Notes Rev avail, and agree Pt reports no significant: Past medical history, Past surgical history Alcohol Use Alcohol use Drug Use Denies recreational drugs Smoking status for patients 13 years old or olde r: Current every day smoker Additional Social History Right-handed Portions of this section were scribed by Olivia Matias on 05/25/19 at 2311 Physical Exam Vital Signs Vital Signs First Documented: Result Date Time Pulse Ox 97 05/25 2143 B/P 118/75 05/25 2143 B/P Mean 89 05/25 2143 O2 Delivery Room air 05/25 2143 Temp 36.8 05/25 2143 Pulse 104 05/25 2143 Resp 18 05/25 2143 Last Documented: Result Date Time Pulse Ox 97 05/25 2143 B/P 118/75 05/25 2143 B/P Mean 89 05/25 2143 O2 Delivery Room air 05/25 2143 Temp 36.8 05/25 2143 Pulse 104 05/25 2143 Resp 18 05/25 2143 Review of Vital Signs Reviewed Focused PE General/Const General/Const Awake, Alert, Cooperative MS Head Head Atraumatic, Normocephalic Eyes Eyes EOMI, Conjunctiva NL Ears/Nose/Throat Ears/Nose/Throat Airway patent, Mucous membrane s moist Resp/Chest Respiratory/Chest Breath sounds NL, Breath soun ds = bilat, No respiratory distress, No rales, No rhonchi, No wheezing Cardiovascular Cardiovascular Heart rate NL, Regular rhythm, H eart sounds NL Abdomen/GI Abdomen/GI Soft, No distention Tenderness/Guarding/Rebound Tender LUQ, Tender LLQ. MS Back Back Full range of motion, Painless range of mo tion, Non-tender, No CVA tenderness Skin Skin Color NL, No rash, Warm, Dry Neurologic Neurologic Oriented X3, Speech NL Portions of this section were scribed by Olivia Matias on 05/26/19 at 0348 Interpretation Diagnostics Lab Results Interpretation Results Laboratory Tests 05/25/192247: [Embedded Image Not Available] Laboratory Tests: 05/25 2247 Chemistry Sodium (134.0 - 147.0 mmol/l) 138 Potassium (3.6 - 5.2 mmol/L) 4.7 Chloride (98.0 - 107.0 mmol/l) 101 Carbon Dioxide (21.0 - 33.0 mmol/l) 31.6 Anion Gap (0 - 20) 10.1 BUN (7.0 - 18.0 mg/dl) 18 Creatinine (0.60 - 1.30 mg/dL) 1.15 Est GFR ( Amer) (133 - 145 mL/min) 100 L Est GFR (Non-Af Amer) (110 - 120 mL/min) 83 L Glucose (70.0 - 110.0 mg/dl) 83 Calcium (8.0 - 10.5 mg/dl) 9.3 Total Bilirubin (0.0 - 1.0 mg/dl) 0.4 Direct Bilirubin (0.0 - 0.3 mg/dl) <0.1 AST (15.0 - 37.0 Units/L) 43 H ALT (12.0 - 78.0 Units/L) 33 Total Alk Phosphatase (50.0 - 136.0 Units/L) 73 Total Protein (6.0 - 8.1 GM/DL) 7.5 Albumin (3.2 - 4.7 gm/dL) 3.9 Lipase (65.0 - 230.0 Units/L) 96 Hematology WBC (4.5 - 11.0 K/mm3) 9.3 RBC (4.40 - 5.90 M/mm3) 5.49 Hgb (13.0 - 17.0 gm/dL) 14.8 Hct (36.0 - 48.0 %) 43.7 MCV (80.0 - 94.0 UM3) 79.6 L MCH (25.5 - 32.5 UUG) 27.0 MCHC (29.0 - 35.5 gm/dL) 33.9 RDW (11.5 - 15.0 %) 12.4 Plt Count (150 - 400 K/mm3) 271 MPV (7.4 - 10.4 fl) 11.4 H Neut % (Auto) (49.0 - 76.0 %) 59.6 Lymph % (Auto) (23.0 - 38.0 %) 28.2 Callaway % (Auto) (1.0 - 10.0 %) 9.2 Eos % (Auto) (1.0 - 5.0 %) 2.0 Baso % (Auto) (0.0 - 1.0 %) 0.9 Neut # (Auto) (2.4 - 6.3 K/mm3) 5.5 Lymph # (Auto) (1.2 - 4.0 K/mm3) 2.6 [place]away # (Auto) (0.0 - 0.6 K/mm3) 0.9 H Eos # (Auto) (0.0 - 0.7 K/MM3) 0.2 Baso # (Auto) (0.0 - 0.2 K/mm3) 0.1 Immature Gran % (0.0 - 0.4 %) 0.1 Immature Gran # (0.00 - 0.07 x10 3/uL) 0.01 Urines Urine Color YELLOW Urine Appearance CLEAR Urine pH (5.0 - 9.0) 7.0 Ur Specific [place] (1.000 - 1.030) 1.010 Urine Protein (NEGATIVE mg/dl) NEGATIVE Urine Glucose (UA) (NORMAL mg/dl) NORMAL Urine Ketones (NEGATIVE mg/dl) NEGATIVE Urine Blood (NEGATIVE Hector/micL) NEGATIVE Urine Nitrite (NEGATIVE) NEGATIVE Urine Bilirubin (NEGATIVE mg/dL) NEGATIVE Urine Urobilinogen (NORMAL mg/dl) NORMAL Ur Leukocyte Esterase (NEGATIVE Don/micL) NEGAT RENU Urine RBC (0 - 3 RBC/HPF) 0-2 Urine WBC (NONE WBC/HPF) 0-3 Ur Epithelial Cells (0 - 3 EPI/HPF) 0-3 Urine Bacteria (NONE) FEW Urine Mucus 1+ Lab Imaging Statement Laboratory radiographic studies reviewed and con sidered in the medical decision-making. Point of Care Testing Urinalysis Interpretation UA reviewed Pulse Oximetry Pulse Ox % 97 On: Room air Interpretation Interpreted by me Pulse oximetr y normal Time 2144 Lab Studies CBC Interpretation CBC NL BMP/CMP Interpretation BMP/CMP NL Radiography CT Abdomen/Pelvis Study type IV contrast Text/Dict Note normal CT scan. Report given by maintenance parts technician at 0348. Interpretation/Wet Read by Interpret - Radiolog ist Reviewed by ED physician Portions of this section were scribed by Olivia Matias on 05/26/19 at 0408 Re-Evaluation MDM )( Re-Evaluation/Progress #1 Text/Dict Note Patient was reassessed and is feeling be tter. Discussed lab and CT results and diagnosis with pt and family . There is no indication for admission. Plan to D/C home and f/u w/ PCP and or GI. Advised pt to ret urn to the ED for new, persistent or worsening sxs. Pt agrees w ith plan. All questions were answered. Pt discharge to the care of his girlfriend. Time of Re-Eval 399 )( Re-Eval Status Improved Eval Following Treatment Pt. feels better Pain Re-Evaluation Pain improved ED Course Medication(s) Ordered Medication(s) Ordered: Cardiovascular Drugs Sig/Temitope Start time Last Medication Dose Route Stop Time Status Admin Lidocaine HCl 10 ML X1ED STA 05/25 2153 DC 4 PO 05/25 2154 224 Diagnostic Agents Sig/Temitope Start time Last Medication Dose Route Stop Time Status Admin Iopamidol 0 .STK-MED ONE 05/25 233 DC 05/26 .ROUTE 0000 Electrolytic, Caloric, And Sherice Sig/Temitope Start time Last Medication Dose Route Stop Time Status Admin Sodium Chloride 1,000 ML X1ED 05/25 2199 AC / IV 06/23 215 2250 Gastrointestinal Drugs Sig/Temitope Start time Last Medication Dose Route Stop Time Status Admin Famotidine 20 MG X1ED ONE 05/25 2199 DC 05/25 IV 05/25 2200 2249 Al Hydrox/Mg Hydrox/ 30 ML X1ED STA 05/25 2153 DC 05/25 Simethicone PO 05/25 215 224 Differential Diagnosis Differential Diagnosis Acute abdominal pain, Kenan endicitis, Bowel obstruction, Constipation, Esophagitis, Gastritis, Inflam bow el disease, Pancreatitis Portions of this section were scribed by Olivia Matias on 05/26/19 at 0403 Patient Discharge Departure Vital Signs/Condition Vital Signs First Documented: Result Date Time Pulse Ox 97 05/25 2143 B/P 118/75 05/25 2143 B/P Mean 89 05/25 2143 O2 Delivery Room air 05/25 2143 Temp 36.8 05/25 2143 Pulse 104 05/25 2143 Resp 18 05/25 2143 Last Documented: Result Date Time Pulse Ox 97 05/25 2143 B/P 118/75 05/25 2143 B/P Mean 89 05/25 2143 O2 Delivery Room air 05/25 2143 Temp 36.8 05/25 2143 Pulse 104 05/25 2143 Resp 18 05/25 2143 All vital signs available at the time of this en try have been reviewed. Condition Stable Clinical Impression Clinical Impression Primary Impression: Abdominal pain Disposition Decision Discharge )( Discharged to Home Yes )( Time 040 )( Date 05/26/19 Discharge/Care Plan Counseled Regarding Diagnosi s, Lab results, Imaging studies, Prescriptions, Need for follow-up, When to return to ED Prescriptions Pepcid, Bentyl and Zofran Prescriptions Reviewed Risks, Benefits Discharge Note I have spoken with the patie nt and/or caregivers. I have explained the patient's condition, diagnoses and renetta atment plan based on the information available to me at this time. I have answered the patient's and/ or caregiver's questions and addressed any concerns. The patient and/or careg dionne have as good an understanding of the patient 's diagnosis, condition and treatment plan as can be expected at this point. The vital signs have bee n stable. The patient's condition is stable and appr opriate for discharge from the emergency department. The patient will pursue further outpatient evalu ation with the primary care physician or other designated or consulting phys ician as outlined in the discharge instructions. The patient and/or caregivers are agreeable to this plan of care and follow-up instructions have been exp lained in detail. The patient and/or caregivers have received these instructio ns in written format and have expressed an understanding of the discharge inst ructions. The patient and/or caregivers are aware that any significant change in condition or worsening of symptoms should prompt an immediate return to [facility] or the closest emergency department or a call to 911. Supervising Physician Note Scribe Statement Olivia Matias, [birth year]22[birth year], scribing for and in the presence of Dr. Junior. Signed By: Olivia Matias, [birth year]2220 Provider Scribed Statement I personally performed the s ervices described in this documentation and reviewed the documentation that was dictated to the scrib e(s) in my presence, and it accurately records my words and actions. Breanna Junior, 05/26[birth year]19 Portions of this section were scribed by Olivia Matias on 05/26/19 at 0408 Electronically Signed by Dariusz Junior DO on 09/07 at 0416 RPT #:[id number] END OF REPORT 2018-05-20 11:28:00-00:00 [facility] ([facility]) OR A [facility] OF [facility] EMERGENCY PROVIDER REPORT REPORT#:[id number] REPORT STATUS: Signed DATE:05/20/18 TIME: 1127 PATIENT: ANATOLY MCNEAL UNIT #: [id number] ROOM/BED: AGE: 23 SEX: M PCP PHYS: No Primary or Family Ph ysician SERVICE AUTHOR: Shmuel Rodriguez * ALL edits or amendments must be made on the Hadapt/computer document * HPI-Nausea/Vomit/Diarrhea General Confirmed Patient Yes Date/Time Seen by Provider 05/20/18 1055 Presentation Chief Complaint Vomiting, Diarrhea Hx Obtained From Patient Onset Occurred Yesterday Symptom Duration Since onset Progression since Onset Constant Free Text HPI Notes Free Text HPI Notes 23 y/o M presents to the ED w/ c/o vomit ing and diarrhea that began yesterday. Pt reports watery diarrhea a nd he is unable to eat any solid food. He admits to malaise, cough, chest pain, abd pain, and nausea . He denies fever and sore throat. No flu vacc. Portions of this section were scribed by Sue Puckett on 05/20/18 at 1424 Review of Systems ROS Statements All systems rev neg except as marked. Focused Review of Systems Constitutional Reports: Malaise. Denies: Fever. Ears/Nose/Throat Denies: Sore throat. GI Reports: Abdominal pain, Diarrhea, Nausea, Vomit ing. Additional Review of Systems Respiratory Reports: Cough, non-productive. Cardiovascular Reports: Chest pain. Portions of this section were scribed by Sue Puckett on 05/20/18 at 1128 Past Medical History - Adult Stated Complaint N/V/D Allergies Coded Allergies: No Known Allergies (12/04/13) Home Medications Reported Medications No Known Home Medications Discontinued Reported Medications ACETAMINOPHEN/CODEINE (TYLENOL WITH CODE INE #3 300/30 MG) 1 TAB PO Q6H PRN PRN SEVERE PAIN ESOMEPRAZOLE MAG DR (NexIUM) 20 MG PO DAILY Pt reports no significant: Past medical history, Past surgical history Smoking status for patients 13 years old or olde r: Current every day smoker Additional Social History Right-handed Portions of this section were scribed by Sue Puckett on 05/20/18 at 1424 Physical Exam Vital Signs Vital Signs First Documented: Result Date Time Pulse Ox 97 05/20 1108 B/P 132/82 05/20 1108 B/P Mean 98 05/20 1108 O2 Delivery Room air 05/20 1108 Temp 36.9 05/20 1108 Pulse 111 05/20 1108 Resp 16 05/20 110 Last Documented: Result Date Time Pulse Ox 97 05/20 1108 B/P 132/82 05/20 1108 B/P Mean 98 05/20 1108 O2 Delivery Room air 05/20 1108 Temp 36.9 05/20 1108 Pulse 111 05/20 1108 Resp 16 05/20 110 Review of Vital Signs Reviewed Focused PE General/Const General/Const Awake, Alert, Cooperative Eyes Eyes EOMI, Conjunctiva NL Ears/Nose/Throat Ears/Nose/Throat Airway patent Text/Dict Notes Dry mucous membranes, tonsils swollen and erythe matous Resp/Chest Respiratory/Chest Breath sounds NL, No respirat ory distress, No rhonchi, No wheezing, No retractions Cardiovascular Cardiovascular Heart rate NL, Regular rhythm, H eart sounds NL Abdomen/GI Abdomen/GI Soft, No guarding, No rebound, No di stention Text/Dict Notes Mild diffuse abd tenderness MS Back Back Inspection NL, No CVA tenderness Skin Skin Warm, Dry, Intact Neurologic Neurologic Oriented X3, Speech NL Additional PE MS Head Head Atraumatic, Normocephalic MS Neck Neck Supple, No meningismus, Full range of chapis on, Non-tender MS Lower Extrem Lower Ext/Pelvis/MS No swelling, Non-tender Psychiatric Psychiatric Affect NL, Mood NL Portions of this section were scribed by Sue Puckett on 05/20/18 at 1424 Interpretation Diagnostics Lab Results Interpretation Results Laboratory Tests 05/20/18 1326: [Embedded Image Not Available] Laboratory Tests: 05/206 Chemistry Sodium (134 - 147 mEq/L) 136 Potassium (3.4 - 5.0 mEq/L) 3.9 Chloride (100 - 108 mEq/L) 103 Carbon Dioxide (21 - 33 mEq/L) 29 Anion Gap (0 - 20) 8 BUN (7 - 18 mg/dL) 16 Creatinine (0.6 - 1.3 mg/dL) 1.0 Glomerular Filtr Rate (110 - 120) 92.6 L Glucose (70 - 110 mg/dL) 108 Calcium (8.0 - 10.5 mg/dL) 9.0 Total Bilirubin (0.0 - 1.0 mg/dL) 0.80 AST (15 - 37 IUnit/L) 82 H ALT (15 - 65 IUnit/L) 42 Total Alk Phosphatase (20 - 125 IUnit/L) 89 Total Protein (6.4 - 8.2 g/dL) 8.2 Albumin (3.4 - 5.0 g/dL) 4.30 Lipase (73 - 393 IUnit/L) 89 Hematology WBC (4.5 - 11.0 x10 3/uL) 12.09 H RBC (4.00 - 5.60 x10 6/uL) 6.29 H Hgb (12.5 - 16.9 g/dL) 16.9 Hct (37.5 - 50.7 %) 52.2 H MCV (81.0 - 99.0 fL) 83.0 MCH (27.0 - 33.0 pg) 26.9 L MCHC (33.0 - 37.0 g/dL) 32.4 L RDW (11.5 - 14.5 %) 12.8 Plt Count (150 - 400 x10 3/uL) 257 MPV (7.0 - 9.0 fL) 10.7 H Neut % (Auto) (56.0 - 77.0 %) 89.3 H Lymph % (Auto) (14.0 - 32.0 %) 4.2 L Callaway % (Auto) (4.8 - 9.0 %) 5.3 Eos % (Auto) (0.3 - 3.7 %) 0.7 Baso % (Auto) (0.0 - 2.0 %) 0.2 Neut # (Auto) (2.0 - 7.6 x10 3/uL) 10.79 H Lymph # (Auto) (1.0 - 3.8 x10 3/uL) 0.51 L Callaway # (Auto) (0.1 - 0.8 x10 3/uL) 0.64 Eos # (Auto) (0.0 - 0.2 x10 3/uL) 0.09 Baso # (Auto) (0.0 - 0.2 x10 3/uL) 0.02 Abs Immat Gran (auto) (0.00 - 0.03 x10 3/uL) 0. 04 H Add Manual Diff NO Immature Gran % (0.0 - 2.0 %) 0.3 Nucleated RBC % (0 - 0 %) 0.0 Nucleated RBCs # (Man) (0.0 - 0.1 x10 3/uL) 0.0 0 Microbiology: Date/Time Procedure - Status Source Growth 05/20 1326 Influenza Virus Type B Antigen - COM P NASOPHARG 05/20 1326 Influenza Virus Type A Antigen - COM P NASOPHARG 05/20 1059 Group A Streptococcus Screen (DIANE) - RES THROAT 05/20 1059 Streptococcus Culture - RES THROAT Recent Impressions: RADIOLOGY - XR ABD ACUTE W/CHEST 05/20 1152 Report Impression - Status: SIGNED Entered: 05/20/2018 1203 IMPRESSION: 1. Air-fluid levels within normal caliber small and large bowel suggesting an enteritis. No definite obstruction . 2. Possible splenomegaly. 3. Negative chest. SL: [id number] Impression By: Nkechi Venegas M.D. Lab Imaging Statement Laboratory radiographic studies reviewed and con sidered in the medical decision-making. Point of Care Testing Pulse Oximetry Pulse Ox % 97 On: Room air Interpretation Interpreted by me Time 1108 Free Text I D Notes Free Text I D Notes RADIOLOGY - XR ABD ACUTE W/CHEST 05/20 1152 Report Impression - Status: SIGNED Entered: 05/20/2018 1203 IMPRESSION: 1. Air-fluid levels within normal caliber small and large bowel suggesting an enteritis. No definite obstruction . 2. Possible splenomegaly. 3. Negative chest. Interpreted by Radiology Reviewed by ED PA Portions of this section were scribed by Sue Puckett on 05/20/18 at 1424 Re-Evaluation MDM Re-Evaluation/Progress #1 Text/Dict Note Discussed the results/diagnosis with pt and plan for d/c home. Discussed the need for f/u w/ PCP and the proper precautions f or returning to the ED. Pt agrees with plan. viral enteritis patti his HR has improved pt has tolerated po went outside er with steady gait Time of Re-Eval 1423 Portions of this section were scribed by Sue Puckett on 05/20/18 at 1424 Patient Discharge Departure Vital Signs/Condition Vital Signs First Documented: Result Date Time Pulse Ox 97 05/20 1108 B/P 132/82 / 1108 B/P Mean 98 05/20 1108 O2 Delivery Room air 05/20 1108 Temp 36.9 05/20 1108 Pulse 111 05/20 1108 Resp 16 05/20 1108 Last Documented: Result Date Time Pulse Ox 97 05/20 1108 B/P 132/82 05/20 1108 B/P Mean 98 05/20 1108 O2 Delivery Room air 05/20 1108 Temp 36.9 05/20 1108 Pulse 111 05/20 1108 Resp 16 05/20 1108 All vital signs available at the time of this en try have been reviewed. Condition Stable Clinical Impression Clinical Impression Primary Impression: Viral syndrome Disposition Decision Discharge )( Discharged to Home Yes )( Time 1424 )( Date 05/20/18 Discharge/Care Plan Counseled Regarding Diagnosi s, Lab results, Imaging studies, Prescriptions, Need for follow-up, When to return to ED Prescriptions Herman Supervising Physician Note Scribe Statement Sue Puckett, 05/20/18 1128, scribing for a nd in the presence of [ELAYNE Rosales]. Signed By: Sue Puckett, 05/20/18 1128 Provider Scribed Statement I personally performed the s ervices described in this documentation and reviewed the documentation that was dictated to the scrib e(s) in my presence, and it accurately records my words and actions. Shmuel Rodriguez, 05/20/18 Portions of this section were scribed by Sue Puckett on 05/20/18 at 1424 Electronically Signed by Shmuel Rodriguez on at 1851 RPT #:[id number] END OF REPORT 2018-05-20 11:28:00-00:00 [facility] ([facility]) EMERGENCY PROVIDER REPORT REPORT#:[id number] REPORT STATUS: Signed DATE:05/20/18 TIME: 112 PATIENT: ANATOLY MCNEAL UNIT #: [id number] ROOM/BED: AGE: 23 SEX: M PCP PHYS: No Primary or Family Ph ysician SERVICE AUTHOR: Shmuel Rodriguez * ALL edits or amendments must be made on the Had[employer]/computer document * Shmuel Rodriguez 05/20/18 1128: HPI-Nausea/Vomit/Diarrhea General Confirmed Patient Yes Presentation Chief Complaint Vomiting, Diarrhea Hx Obtained From Patient Onset Occurred Yesterday Symptom Duration Since onset Progression since Onset Constant Free Text HPI Notes Free Text HPI Notes 23 y/o M presents to the ED w/ c/o vomit ing and diarrhea that began yesterday. Pt reports watery diarrhea a nd he is unable to eat any solid food. He admits to malaise, cough, chest pain, abd pain, and nausea . He denies fever and sore throat. No flu vacc. Portions of this section were scribed by Sue Puckett on 05/20/18 at 1424 Review of Systems ROS Statements All systems rev neg except as marked. Focused Review of Systems Constitutional Reports: Malaise. Denies: Fever. Ears/Nose/Throat Denies: Sore throat. GI Reports: Abdominal pain, Diarrhea, Nausea, Vomit ing. Additional Review of Systems Respiratory Reports: Cough, non-productive. Cardiovascular Reports: Chest pain. Portions of this section were scribed by Sue Puckett on 05/20/18 at 1128 Past Medical History - Adult Stated Complaint N/V/D Allergies Coded Allergies: No Known Allergies (12/04/13) Home Medications Reported Medications No Known Home Medications Discontinued Reported Medications ACETAMINOPHEN/CODEINE (TYLENOL WITH CODE INE #3 300/30 MG) 1 TAB PO Q6H PRN PRN SEVERE PAIN ESOMEPRAZOLE MAG DR (NexIUM) 20 MG PO DAILY Pt reports no significant: Past medical history, Past surgical history Smoking status for patients 13 years old or olde r: Current every day smoker Additional Social History Right-handed Portions of this section were scribed by Sue Puckett on 05/20/18 at 1424 Physical Exam Vital Signs Vital Signs First Documented: Result Date Time Pulse Ox 97 05/20 1108 B/P 132/82 05/20 1108 B/P Mean 98 05/20 1108 O2 Delivery Room air 05/20 1107 Temp 36.9 05/20 1108 Pulse 111 05/20 1108 Resp 16 05/20 1107 Last Documented: Result Date Time Pulse Ox 97 05/20 1108 B/P 132/82 05/20 1108 B/P Mean 98 05/20 1108 O2 Delivery Room air 05/20 1107 Temp 36.9 05/208 Pulse 111 05/20 110 Resp 16 05/20 110 Review of Vital Signs Reviewed Focused PE General/Const General/Const Awake, Alert, Cooperative Eyes Eyes EOMI, Conjunctiva NL Ears/Nose/Throat Ears/Nose/Throat Airway patent Text/Dict Notes Dry mucous membranes, tonsils swollen and erythe matous Resp/Chest Respiratory/Chest Breath sounds NL, No respirat ory distress, No rhonchi, No wheezing, No retractions Cardiovascular Cardiovascular Heart rate NL, Regular rhythm, H eart sounds NL Abdomen/GI Abdomen/GI Soft, No guarding, No rebound, No di stention Text/Dict Notes Mild diffuse abd tenderness MS Back Back Inspection NL, No CVA tenderness Skin Skin Warm, Dry, Intact Neurologic Neurologic Oriented X3, Speech NL Additional PE MS Head Head Atraumatic, Normocephalic MS Neck Neck Supple, No meningismus, Full range of chapis on, Non-tender MS Lower Extrem Lower Ext/Pelvis/MS No swelling, Non-tender Psychiatric Psychiatric Affect NL, Mood NL Portions of this section were scribed by Sue Puckett on 05/20/18 at 1424 Interpretation Diagnostics Lab Results Interpretation Results Laboratory Tests 05/20/18 1326: [Embedded Image Not Available] Laboratory Tests: 05/20 1326 Chemistry Sodium (134 - 147 mEq/L) 136 Potassium (3.4 - 5.0 mEq/L) 3.9 Chloride (100 - 108 mEq/L) 103 Carbon Dioxide (21 - 33 mEq/L) 29 Anion Gap (0 - 20) 8 BUN (7 - 18 mg/dL) 16 Creatinine (0.6 - 1.3 mg/dL) 1.0 Glomerular Filtr Rate (110 - 120) 92.6 L Glucose (70 - 110 mg/dL) 108 Calcium (8.0 - 10.5 mg/dL) 9.0 Total Bilirubin (0.0 - 1.0 mg/dL) 0.80 AST (15 - 37 IUnit/L) 82 H ALT (15 - 65 IUnit/L) 42 Total Alk Phosphatase (20 - 125 IUnit/L) 89 Total Protein (6.4 - 8.2 g/dL) 8.2 Albumin (3.4 - 5.0 g/dL) 4.30 Lipase (73 - 393 IUnit/L) 89 Hematology WBC (4.5 - 11.0 x10 3/uL) 12.09 H RBC (4.00 - 5.60 x10 6/uL) 6.29 H Hgb (12.5 - 16.9 g/dL) 16.9 Hct (37.5 - 50.7 %) 52.2 H MCV (81.0 - 99.0 fL) 83.0 MCH (27.0 - 33.0 pg) 26.9 L MCHC (33.0 - 37.0 g/dL) 32.4 L RDW (11.5 - 14.5 %) 12.8 Plt Count (150 - 400 x10 3/uL) 257 MPV (7.0 - 9.0 fL) 10.7 H Neut % (Auto) (56.0 - 77.0 %) 89.3 H Lymph % (Auto) (14.0 - 32.0 %) 4.2 L Callaway % (Auto) (4.8 - 9.0 %) 5.3 Eos % (Auto) (0.3 - 3.7 %) 0.7 Baso % (Auto) (0.0 - 2.0 %) 0.2 Neut # (Auto) (2.0 - 7.6 x10 3/uL) 10.79 H Lymph # (Auto) (1.0 - 3.8 x10 3/uL) 0.51 L Callaway # (Auto) (0.1 - 0.8 x10 3/uL) 0.64 Eos # (Auto) (0.0 - 0.2 x10 3/uL) 0.09 Baso # (Auto) (0.0 - 0.2 x10 3/uL) 0.02 Abs Immat Gran (auto) (0.00 - 0.03 x10 3/uL) 0. 04 H Add Manual Diff NO Immature Gran % (0.0 - 2.0 %) 0.3 Nucleated RBC % (0 - 0 %) 0.0 Nucleated RBCs # (Man) (0.0 - 0.1 x10 3/uL) 0.0 0 Microbiology: Date/Time Procedure - Status Source Growth 05/20 1326 Influenza Virus Type B Antigen - COM P NASOPHARG 05/20 1326 Influenza Virus Type A Antigen - COM P NASOPHARG 05/20 1059 Group A Streptococcus Screen (DIANE) - RES THROAT 05/20 1059 Streptococcus Culture - RES THROAT Recent Impressions: RADIOLOGY - XR ABD ACUTE W/CHEST 05/20 1152 Report Impression - Status: SIGNED Entered: 05/20/2018 1203 IMPRESSION: 1. Air-fluid levels within normal caliber small and large bowel suggesting an enteritis. No definite obstruction . 2. Possible splenomegaly. 3. Negative chest. SL: [id number] Impression By: Nkechi Venegas M.D. Lab Imaging Statement Laboratory radiographic studies reviewed and con sidered in the medical decision-making. Point of Care Testing Pulse Oximetry Pulse Ox % 97 On: Room air Interpretation Interpreted by ny Time 1108 Free Text I D Notes Free Text I D Notes RADIOLOGY - XR ABD ACUTE W/CHEST 05/20 1152 Report Impression - Status: SIGNED Entered: 05/20/2018 1203 IMPRESSION: 1. Air-fluid levels within normal caliber small and large bowel suggesting an enteritis. No definite obstruction . 2. Possible splenomegaly. 3. Negative chest. Interpreted by Radiology Reviewed by ED PA Portions of this section were scribed by Sue Puckett on 05/20/18 at 1424 Re-Evaluation MDM Re-Evaluation/Progress #1 Text/Dict Note Discussed the results/diagnosis with pt and plan for d/c home. Discussed the need for f/u w/ PCP and the proper precautions f or returning to the ED. Pt agrees with plan. viral enteritis patti his HR has improved pt has tolerated po went outside er with steady gait Time of Re-Eval 1423 Portions of this section were scribed by Sue Puckett on 05/20/18 at 1424 Patient Discharge Departure Vital Signs/Condition Vital Signs First Documented: Result Date Time Pulse Ox 97 05/20 1108 B/P 132/82 05/20 1108 B/P Mean 98 05/20 1108 O2 Delivery Room air 05/20 1108 Temp 36.9 05/20 1108 Pulse 111 05/20 1108 Resp 16 05/20 1108 Last Documented: Result Date Time Pulse Ox 97 05/20 1108 B/P 132/82 05/20 1108 B/P Mean 98 05/20 1108 O2 Delivery Room air 05/20 1108 Temp 36.9 05/20 1108 Pulse 111 05/20 1108 Resp 16 05/20 1108 All vital signs available at the time of this en try have been reviewed. Condition Stable Clinical Impression Clinical Impression Primary Impression: Viral syndrome Disposition Decision Discharge )( Discharged to Home Yes )( Time 1424 )( Date 05/20/18 Discharge/Care Plan Counseled Regarding Diagnosi s, Lab results, Imaging studies, Prescriptions, Need for follow-up, When to return to ED Prescriptions Herman Supervising Physician Note Scribe Statement Sue Puckett, 05/20/18 1128, scribing for a nd in the presence of [ELAYNE Rosales]. Signed By: Sue Puckett, 05/20/18 1128 Provider Scribed Statement I personally performed the s ervices described in this documentation and reviewed the documentation that was dictated to the scrib e(s) in my presence, and it accurately records my words and actions. Shmuel Rodriguez, 05/20/18 Portions of this section were scribed by Sue Puckett on 05/20/18 at 1424 Chai Cates 05/21/18 2247: HPI-Nausea/Vomit/Diarrhea General Date/Time Seen by Provider 05/20/18 1055 Physical Exam Vital Signs Vital Signs Interpretation Diagnostics Lab Results Interpretation Results Patient Discharge Departure Vital Signs/Condition Vital Signs Supervising Physician Note MidLv Saw Pt Alone I have reviewed the PA/CAR LUBRICATOR's note and plan of car e. I was available for consultation as needed at al l times during the patient's visit in the emergency department. I agree with the clinical impression , plan and disposition. Electronically Signed by Shmuel Rodriguez on at 1851 Electronically Signed by Chai Cates MD on at 2247 RPT #:[id number] END OF REPORT
[2022-10-23] MEDS ORDERED: KETOROLAC 30 MG/ML INJ ONE (10:38)
[2022-10-23] MEDS ORDERED: NA CHLORIDE 0.9% 1,000 ML ONE (10:38)
[2022-10-23] MEDS ORDERED: FAMOTIDINE 20 MG/2 ML VIAL IV ONE (10:38)
[2022-10-23] MEDS ORDERED: ONDANSETRON 4 MG/2 ML VIAL ONE (10:38)
[2022-10-23 10:50] LABS: Absolute Lymphocytes (CBC) 1.2 K/uL (0.7-4.9); Hematocrit 45.2 % (39.6-49.0); Lymphocytes % 15.7 % (15.3-44.8); MCV 80.7 fL (80-100); MPV 8.4 fL (7.6-11.3); RBC Red Blood Cell Count 5.61 M/uL (4.33-5.43)
[2022-10-23 10:54] LABS: Specific Gravity 1.024 (1.005-1.030); Urine Bacteria None Seen /HPF (<20); Urine Bilirubin NEGATIVE (Negative); Urine Blood Negative (Negative); Urine Clarity Clear (Clear); Urine Color Yellow (Yellow); Urine Glucose NEGATIVE (Negative); Urine Mucus Slight /HPF (None Seen); Urine Protein TRACE (Negative); Urine RBC <5 /HPF (None Seen); Urine Urobilinogen Normal (Normal); Urine pH 6.5 (5.0-7.0)
[2022-10-23 11:09] LABS: Albumin 4.2 g/dL (3.4-5.0); Bilirubin Total 0.7 mg/dL (0.2-1.0); Potassium 3.4 mEq/L (3.5-5.1); Protein, Total 7.6 g/dL (6.4-8.2)
--- NOTE | 2022-10-23 12:06 | EDPHYS ---
Physician Documentation [facility] Name: Romulo Gusman Age: 27 yrs Sex: Male : 1995 Arrival Date: 10/23/2022 Time: 10:02 Bed 15 Private MD: ED Physician Kris Thomas HPI: 10/23 14:09 This 27 yrs old Male presents to ER via EMS with complaints of Heat Exposure. kb 14:09 The patient presents with abdominal pain in the upper abdomen. Onset: The kb symptoms/episode began/occurred just prior to arrival. The symptoms do not radiate. Associated signs and symptoms: Pertinent positives: tingling in extremities, nausea, dizziness. The symptoms are described as crampy. Modifying factors: The symptoms are alleviated by nothing, the symptoms are aggravated by nothing. Severity of pain: At its worst the pain was mild moderate in the emergency department the pain is unchanged. The patient has not experienced similar symptoms in the past. The patient has not recently seen a physician. Historical: - Allergies: 10:08 Sulfa (Sulfonamide Antibiotics); db - Home Meds: 10:08 Propranolol Oral [Active]; db - PMHx: 10:08 ADD/ADHD; Bipolar disorder; Hypertensive disorder; db - Immunization history:: Adult Immunizations unknown, Client reports having NOT received the Covid vaccine. - Social history:: Smoking status: Reported history of juuling and/or vaping. ROS: 14:00 Constitutional: Negative for fever, chills, and weight loss. kb 14:00 Abdomen/GI: Positive for abdominal pain, nausea, Negative for vomiting, diarrhea. 14:00 Neuro: Positive for dizziness, tingling. 14:00 All other systems are negative. Exam: 14:07 Constitutional: This is a well developed, well nourished patient who is awake, alert, kb and in no acute distress. Head/Face: Normocephalic, atraumatic. ENT: Moist Mucous membranes Cardiovascular: Regular rate and rhythm with a normal S1 and S2. No gallops, murmurs, or rubs. No pulse deficits. Respiratory: Respirations even and unlabored. No increased work of breathing. Talking in full sentences Abdomen/GI: Soft, non-tender. No distention Skin: Warm, dry with normal turgor. Normal color. MS/ Extremity: Pulses equal, no cyanosis. Neurovascular intact. Full, normal range of motion. Neuro: Awake and alert, GCS 15, oriented to person, place, time, and situation. Moves all extremities. Normal gait. Vital Signs: 10:00 BP 124 / 87; Pulse 75; Resp 18; Temp 98.4(O); Pulse Ox 97% ; Weight 81.65 kg; Height 5 db ft. 7 in. ; Pain 4/10; 10:57 BP 139 / 97; Pulse 70; Resp 18; Pulse Ox 99% on R/A; ko1 12:02 BP 119 / 84; Pulse 67; Resp 18; Pulse Ox 99% ; ko1 10:00 Body Mass Index 28.19 (81.65 kg, 170.18 cm) db 10:00 Pain Scale: Adult db MDM: 10:07 Patient medically screened. kb 14:07 Differential diagnosis: cholelithiasis, cholecystitis, GERD, heat exhaustion, kb electrolyte imbalance, dehydration. Data reviewed: vital signs, nurses notes. Historians other than the Patient: EMS: [facility]. Counseling: I had a detailed discussion with the patient and/or guardian regarding: the historical points, exam findings, and any diagnostic results supporting the discharge/admit diagnosis, lab results, the need for outpatient follow up, a family practitioner, to return to the emergency department if symptoms worsen or persist or if there are any questions or concerns that arise at home. 10/23 10:08 Order name: CBC with Diff; Complete Time: 11:24 kb 10/23 10:08 Order name: CMP; Complete Time: 11:24 kb 10/23 10:08 Order name: Lipase; Complete Time: 11:24 kb 10/23 10:08 Order name: Urinalysis w/ reflexes; Complete Time: 11:24 kb 10/23 10:08 Order name: IV Saline Lock; Complete Time: 10:44 kb 10/23 10:08 Order name: Labs collected and sent; Complete Time: 10:45 kb Administered Medications: 10:44 Drug: NS 0.9% IV 1000 ml Route: IV; Rate: 1 bolus; Site: right antecubital; ko1 12:06 Follow up: IV Status: Completed infusion; IV Intake: 1000ml ko1 10:45 Drug: Famotidine IVP 20 mg Route: IVP; Site: right antecubital; ko1 12:05 Follow up: Response: No adverse reaction ko1 10:45 Drug: TORadol - Ketorolac IVP 15 mg Route: IVP; Site: right antecubital; ko1 12:06 Follow up: Response: No adverse reaction ko1 10:45 Drug: Ondansetron IVP 4 mg Route: IVP; Site: right antecubital; ko1 12:06 Follow up: Response: No adverse reaction ko1 Disposition: 14:15 Co-signature as Attending Physician, Kris Thomas DO I was immediately available on-site ms3 in the Emergency Department for consultation in the care of the patient. Disposition Summary: 10/23/22 12:05 Discharge Ordered Location: Home kb Condition: Stable kb Diagnosis - Upper abdominal pain, unspecified kb Followup: kb - With: Emergency Department - When: As needed - Reason: Worsening of condition Followup: kb - With: Private Physician - When: 2 - 3 days - Reason: Recheck today's complaints, Continuance of care, Re-evaluation by your physician Discharge Instructions: - Discharge Summary Sheet kb - Abdominal Pain, Adult, [id number] kb Forms: - Medication Reconciliation Form kb - Thank You Letter kb - Antibiotic Education kb - Prescription Opioid Use kb - [email or web address] kb Signatures: Dispatcher [employer] Miri Costa FNP-C FNP-Kris Lazo DO DO ms3 Carmen Cavanaugh RN RN ko1 Jyoti Aceves RN RN db Corrections: (The following items were deleted from the chart) 14:07 14:00 Neuro: Positive for dizziness, kb kb
--- NOTE | 2022-10-23 12:06 | ER ---
Nurse's Notes [facility] Name: Romulo Gusman Age: 27 yrs Sex: Male : 1995 Arrival Date: 10/23/2022 Time: 10:02 Bed 15 Private MD: Diagnosis: Upper abdominal pain, unspecified Presentation: 10/23 10:00 Chief complaint: EMS states: picked patient up from work. patient reported working db outside today, normally works inside. Wearing long sleeve shirt. Started feeling dizzy, headache, tingling in hands and legs. Glucose 98. Coronavirus screen: Vaccine status: Patient reports being unvaccinated. Client denies travel out of the [place] in the last 14 days. At this time, the client does not indicate any symptoms associated with coronavirus-19. Ebola Screen: Patient negative for fever greater than or equal to 101.5 degrees Fahrenheit, and additional compatible Ebola Virus Disease symptoms Patient denies exposure to infectious person. Patient denies travel to an Ebola-affected area in the 21 days before illness onset. No symptoms or risks identified at this time. Initial Sepsis Screen: Does the patient meet any 2 criteria? No. Patient's initial sepsis screen is negative. Does the patient have a suspected source of infection? No. Patient's initial sepsis screen is negative. Risk Assessment: Do you want to hurt yourself or someone else? Patient reports no desire to harm self or others. Onset of symptoms was October 23, 2022. 10:00 Method Of Arrival: EMS: [facility] db 10:00 Acuity: LAURI 2 db Triage Assessment: 10:08 General: Appears in no apparent distress. comfortable, Behavior is calm, cooperative. db Pain: Complains of pain in right hand, left hand, right foot and left foot. Pain: Complains of pain in abdomen. Neuro: Level of Consciousness is awake, alert, obeys commands, Oriented to person, place, time, situation. Respiratory: Airway is patent Respiratory effort is even, unlabored, Respiratory pattern is regular, symmetrical. GI: Abdomen is flat, non-distended. Derm: No deficits noted. No signs and/or symptoms reported regarding the dermatologic system. Historical: - Allergies: 10:08 Sulfa (Sulfonamide Antibiotics); db - Home Meds: 10:08 Propranolol Oral [Active]; db - PMHx: 10:08 ADD/ADHD; Bipolar disorder; Hypertensive disorder; db - Immunization history:: Adult Immunizations unknown, Client reports having NOT received the Covid vaccine. - Social history:: Smoking status: Reported history of juuling and/or vaping. Screenin:10 [facility] ED Fall Risk Assessment (Adult) History of falling in the last 3 months, db including since admission No falls in past 3 months (0 pts) Confusion or Disorientation No (0 pts) Intoxicated or Sedated No (0 pts) Impaired Gait No (0 pts) Mobility Assist Device Used No (0 pt) Altered Elimination No (0 pt) Score/Fall Risk Level 0 - 2 = Low Risk Oriented to surroundings, Maintained a safe environment. Abuse screen: Denies threats or abuse. Denies injuries from another. Nutritional screening: No deficits noted. Tuberculosis screening: No symptoms or risk factors identified. Assessment: 10:10 Reassessment: Patient appears in no apparent distress at this time. See triage for db initial assessment. Vital Signs: 10:00 BP 124 / 87; Pulse 75; Resp 18; Temp 98.4(O); Pulse Ox 97% ; Weight 81.65 kg; Height 5 db ft. 7 in. ; Pain 4/10; 10:57 BP 139 / 97; Pulse 70; Resp 18; Pulse Ox 99% on R/A; ko1 12:02 BP 119 / 84; Pulse 67; Resp 18; Pulse Ox 99% ; ko1 10:00 Body Mass Index 28.19 (81.65 kg, 170.18 cm) db 10:00 Pain Scale: Adult ED Course: 10:05 Patient arrived in ED. db 10:07 Miri Lagos FNP-C is PHCP. kb 10:07 Kris Thomas DO is Attending Physician. kb 10:07 Triage completed. db 10:09 Arm band placed on Patient placed in an exam room. db 10:12 Carmen Cavanaugh, JONATHAN is Primary Nurse. ko1 10:43 Inserted saline lock: 20 gauge in right antecubital area, using aseptic technique. ko1 Blood collected. 10:45 CBC with Diff Sent. ko1 10:45 CMP Sent. ko1 10:45 Lipase Sent. ko1 10:45 Urinalysis w/ reflexes Sent. ko1 10:57 Patient has correct armband on for positive identification. Placed in gown. Bed in low ko1 position. Call light in reach. Side rails up X 1. Pulse ox on. NIBP on. Door closed. Noise minimized. Lights dimmed. Warm blanket given. 12:02 No provider procedures requiring assistance completed. ko1 12:16 IV discontinued, intact, bleeding controlled, No redness/swelling at site. Pressure ko1 dressing applied. Administered Medications: 10:44 Drug: NS 0.9% IV 1000 ml Route: IV; Rate: 1 bolus; Site: right antecubital; ko1 12:06 Follow up: IV Status: Completed infusion; IV Intake: 1000ml ko1 10:45 Drug: Famotidine IVP 20 mg Route: IVP; Site: right antecubital; ko1 12:05 Follow up: Response: No adverse reaction ko1 10:45 Drug: TORadol - Ketorolac IVP 15 mg Route: IVP; Site: right antecubital; ko1 12:06 Follow up: Response: No adverse reaction ko1 10:45 Drug: Ondansetron IVP 4 mg Route: IVP; Site: right antecubital; ko1 12:06 Follow up: Response: No adverse reaction ko1 Medication: 12:02 VIS not applicable for this client. ko1 Intake: 12:06 IV: 1000ml; Total: 1000ml. ko1 Outcome: 12:05 Discharge ordered by MD. diaz 12:16 Discharged to home ambulatory, with family. ko1 12:16 Condition: improved 12:16 Discharge instructions given to patient, family, Instructed on discharge instructions, follow up and referral plans. Demonstrated understanding of instructions, follow-up care. 12:17 Patient left the ED. ko1 Signatures: Miri Lagos, TRAN SHAFFER-Carmen Mallory, RN RN ko1 Jyoti Aceves, RN RN db
[2022-10-23 12:34] VITALS: BP 139/97; O2SAT 99
== END 2022-10-23 12:17 | disposition home or self-care (01) ==
LOC: ER 10:02
DX: R10.10 Upper abdominal pain, unspecified (principal)
CPT/HCPCS: 36415; 80053; 81001; 83690; 85025; 96361; 96374; 96375; 99284; J2405; J7030

== ENCOUNTER 2022-11-25 17:23 | Emergency (ER) | payer SELFPAY ==
--- OUTSIDE RECORDS SUMMARY | 2022-11-25 17:27 | XMS REPORT | Continuity of Care Document ---
:1995 Author Organization [facility] t Address [address] [facility] [place] [address] Care Team Providers Name Role Phone Pcp, [...] rs active active ity of problems problems [facility] [place] Allergies, Adverse Reactions, Alerts Allergy Allergy Status Severity Reaction(s) Onset Inactive Treating Comm ents Source Name Type Date Date Clinician Sulfa DA Active MO [facility] (Sulfona 9-05 Clear mide 00:00: [facility] Sulfa DA Active [place] HIVES, [facility] (Sulfona ANGIOEDEMA 12-24 Divya r mide 00:00: [facility] Sulfa DA Active MO [facility] (Sulfona 2-28 Clear mide 00:00: [facility] Sulfa DA Active MO HIVES [facility] (Sulfona 2-28 Clear mide 00:00: [facility] 00 Regiona ics) [facility] Sulfa DA Active MO 2019-0 [facility] (Sulfona 5-18 Clear mide 00:00: [facility] 00 Regiona [facility]) [facility] Sulfa DA Active MO HIVES 2019-0 [facility] (Sulfona 5-18 Clear mide 00:00: [facility] 00 Regiona ics) [facility] Sulfa DA Active MO 2020-0 [facility] (Sulfona 2-04 Clear mide 00:00: [facility] 00 Region[facility]) [facility] Sulfa DA Active MO HIVES 2020-0 [facility] (Sulfona 2-04 Clear mide 00:00: [facility] 00 Regiona ics) [facility] No Known DA Active U 2013- [facility] Allergie 12-04 [facility] No Known DA Active U [facility] Allergie 12-04 [facility] 00:[facility]: [facility] No Known DA Active U 2005- [facility] Contrast - Clear Allergie 00:00: [facility] No Known DA Active U 2005- [facility] Drug 12-05 Clear Allergie 00:00: [facility] [facility] No Known DA Active U 2005- [facility] Food 8-17 Clear Allergie 00:00: [facility] No Known DA Active U [facility] Other - Clear Allergie 00:00: [facility] NO KNOWN Drug Active Univers ALLERGIE Class ity of S [facility] [place] Social History Social Habit Start Date Stop Date Quantity Comments Source Exposure to Not sure [facility] SARS-CoV-2 (event) [facility] Sex Assigned At [birth year] [facility] 00:00:00 00:00:00 [facility] Smoking Status Start Date Stop Date Source Unknown if ever smoked [facility] Medications Ordered Filled Start Stop Current Ordering Indication Dosage Frequency Signature Comments Components Source Medication Medication Date Date Medication? Clinician (SIG) Name Name ibuprofen 2020-04- No 800mg 800 mg, Uni vers (IBU) 0-17 10-17 Oral, ity of tablet 800 06:15: 05:23 ONCE, 1 [place] as mg 00 :00 dose, On Medical [facility] 02/04/21 at 0115, [facility] acetaminoph 2020-04 No 650mg 650 mg, U nivers en 0-17 10-17 Oral, ity of (TYLENOL) 06:15: 05:23 ONCE, 1 [place] tablet 650 00 :00 dose, On Medic al mg [facility] 02/04/21 at 0115, [facility] albuterol 2020-04 Yes [id number] 2{puff} Inhale 2 Univers 90 0-17 Puffs ity of mcg/actuati 00:00: every 4 [place] as on inhaler 00 (four) Medical hours as Branch needed for Wheezing or Shortness of Breath. levoFLOXaci 2020-04- No [id number] 750mg Take 1 Univers n 750 mg 0-17 10-25 tablet by ity o f tablet 00:00: 04:59 mouth [place] 00 :00 daily for Medical 7 days. Branch predniSONE 2020-04- No [id number] 20mg Take 1 Univers 20 mg 0-17 10-23 tablet by ity of tablet 00:00: 04:59 mouth 2 [place] 00 :00 (two) Medical times Branch daily for 5 days. TYLENOL FOR 2008-0 Yes None Univ s CHILDREN 1-16 Entered ity of ORAL 13:05: [place] 22 [facility] Immunizations Ordered Filled Immunization Date Status Comments Sourc e Immunization Name Name DTP 1995 Completed University of 00:00:00 [facility] [place] HIB 4 Dose Schedule 1995 Completed [facility] [place] [facility] 00:[facility]:00 [facility] [place] Polio (IPV/OPV) 1995 Completed Universit y of 00:00:00 [facility] [place] Vital Signs Vital Name Observation Time Observation Value Comments Source Systolic blood 2021-02-04 07:45:00 131 mm[facility]Hg[facility] [place] Diastolic blood 2021-02-04 07:45:00 74 mm[Hg] [facility] Heart rate 2021-02-04 07:45:00 114 /min [facility] Respiratory rate 2021-02-04 07:45:00 20 /min [facility] Oxygen saturation in 2021-02-04 07:45:00 98 /min [facility] Arterial blood by [facility] Pulse oximetry [place] Body temperature 2021-02-04 04:20:00 38.33 Lisa [facility] Body height 2021-02-04 04:20:00 170.2 cm [facility] Body weight 2021-02-04 04:20:00 91.944 kg [facility] BMI 2021-02-04 04:20:00 31.75 kg/m2 [facility] Procedures Procedure Date / Time Performing Clinician Source Performed URINALYSIS 2021-02-04 06:27:00 Pricilla Slade [facility] EBV-MONONUCLEOSIS SCREEN 2021-02-04 06:27:00 [facility] FOR 2021-02-04 06:27:00 Pricilla Slade [facility] URINE DRUG (IMMUNOASSAY) 2021-02-04 06:27:00 [facility] SCREEN W/O REFLEX ADC,CLC OR LCC ONLY - 2021-02-04 05:24:00 [facility] & B DIRECT Medical B ranch ANTIGEN XR CHEST 1 VW 2021-02-04 05:23:00 Pricilla Slade [facility] COVID-19 (ID NOW RAPID 2021-02-04 04:57:00 Pricilla Slade [facility] TESTING) Medical Branch NOTICE OF PRIVACY 2021-02-04 04:01:40 Doctor Unassigned, No [facility] PRACTICES Name Medical Branch CONSENT/REFUSAL FOR 2021-02-04 03:58:40 Doctor Unassigned, No [facility] Name Medical Branch Encounters Start End Encounter Admission Attending Care Care Encounter Source Date/Time Date/Time Type Type Clinicians Facility Department ID 2020-08-15 Inpatient HCACL ROBIN [id number] [facility] 18:15:00 43 [facility] 2020-06-18 Inpatient HCACL ROBIN [id number] [facility] 18:18:00 [id number] [facility] 2019-09-06 Inpatient HCACL ROBIN [id number] [facility] 22:14:00 [id number] [facility] 2019-05-25 Inpatient HCAMN DARIO [id number] [facility] 21:43:00 78 [facility] 2021-11-14 2021-11-14 Emergency E MALI CROWE SE MED [id number] 09:15:00 [facility] 2021-10-05 2021-10-06 Emergency E MATTHEW GALVAN MHBL [id number] MHBL 22:09:00 02:40:00 JACKIE 2021-10-04 2021-10-05 Emergency E ANGELITO SE MHSE 7507 23:17:00 00:01:[address] [facility] 2021-09-25 2021-09-25 Emergency E JAZMIN MHSE [id number] 21:46:00 22:39:[address] [facility] 2021-08-18 2021-08-18 Emergency E ALISA URBINA SE 7505 18:36:00 19:57:[address] [facility] 2021-02-03 2021-02-04 Emergency [facility] [id number] Univers 23:27:00 03:04:00 Pricilla Reyes [id number] jacinto [facility] [id number] [facility] [id number] [address] 2021-02-03 2021-02-03 Emergency [facility] [id number] Univers 23:27:00 23:27:00 PRICILLA guevara [facility] 2020-12-24 2020-12-25 Emergency EM Taina, JOSUÉCL ROBIN [id number] [facility] 21:50:00 02:16:00 [place] 22 [facility] 2020-12-19 2020-12-20 Emergency E PRABHU MI BL MHBL [id number] MHBL 21:51:00 04:15:00 2020-08-16 2020-08-17 Emergency E BERNADETTE TOMLINSON BL BL [id number] BL 22:18:00 02:24:00 2020-06-18 2020-06-18 Emergency EM MarcoDAMION [id number] [facility] 18:18:00 21:35:00 Antonio 67 [facility] 2019-04-10 2019-04-10 Emergency E MHBL BL 7502 BL 21:45:00 21:45:00 Results Test Description Test Time Test Comments Results Result Comments Source EBV-MONONUCLEOSIS SCREEN 2021-02-04 07:04:49 Test Item Value Reference Range Interpretation Comme nts EBV Mononucleosis Screen (test code = 4298476015) Negative Nega tive Lab Interpretation (test code = 84340-9) [facility]2020-12-25 00:56:00 Test Item Value Reference Range Interpretation Comments AG STREP GROUP A Negative Negative Negative fo r Strep A (THROAT) (test code = nuclei c acid STREPA) INFLUENZA A [id number] 00:56:00 Test Item Value Reference Range Interpretation Comments INFLUENZA A (test code = FLUAPCR) Negative Negative INFLUENZA B (test code = FLUBPCR) Negative Negative Coronavirus 2019 nCoV [id number] 00:41:00 Test Item Value Reference Range Interpretation Comments Coronavirus 2019 NEGATIVE Negative Negative re sults should be nCoV Bedside (test treated a s presumptive and, code = ifinconsistent with [id number]) clinical signs and symptoms or necessaryfor patient management, meenu uld be tested with an alternativemole cular assay. Negative result s do not preclude DWLD-AvH-0oohfp tion and should not be u sed [...] = nuclei c acid STREPA) INFLUENZA A [id number] 00:33:00 Test Item Value Reference Range Interpretation Comments INFLUENZA A (test code = FLUAPCR) Negative INFLUENZA B (test code = FLUBPCR) Negative - CT HEAD/BRAIN W/O [id number] 19:29:00 [facility] 1995 Sex: M Name: ANATOLY MCNEAL [facility] : 1995 Age/S: 25 / M [address] [place] [address] Unit #: [id number] Loc: [place] [address] Phys: Shmuel Rodriguez Acct: [id number] Dis Date: Status: REG ER PHONE #: [phone] Exam Date: 08/15/20201901 FAX #: [phone] Reason: fall, occipital head strike, LOC, vomiting EXAMS: CPT CODE: [id number] CT HEAD/BRAIN W/O CONT 56121 Clinical Indica tion: Fall, occipital head strike, [...] FINDINGS: BRAIN PARENCHYMA: There are normal urbina-white inte rfaces, sulci and gyri. There are no focal [...] 1 Signed Report (CONTINUED) Name: ANATOLY MCNEAL [facility] : 1995 Age/S: 25 / M [address] [place] [address] Unit #: [id number] Loc: [place] [address] Phys: Shmuel Rodriguez Acct: [id number] Dis Date: Status: REG ER PHONE #: [phone] Exam Date: 08/15/2020 190 FAX #: [phone] Reason: fall, occipital head strike, LOC, vomiting EXAMS: CPT CODE: [id number] CT HEAD/BRAIN W/O CONT 65389 <Continued> and spinous processes are unremarkable. The [...] calvarial fracture. CT cervical spine: No fractures orsubluxations of the cervical spine. SL: AKHIL at 1929 Reported and signed by: Wanda Rodriguez M.D. CC: Antonio Lara MD; Shmuel HOLLY Technologist:RT Noemi(R)(CT) CTDI: DLP: Trnscb Date/Time: 08/15/2020 (1928) [email or web address] Orig Print D/T: S: 08/15/2020 (1931) PAGE 2 Signed Report- CT C-SPINE W/O [id number] 19:29:00 [facility] : 1995 Sex: M Name: [facility] 1995 Age/S: 25 / M [address] [place] [address] BlvdUnit #: [id number] Loc: [place] [address] Phys: Shmuel Rodriguez ELAYNE Acct: [id number] Dis Date: Status: REG ER PHONE #: [phone] Exam Date: 08/15/20201901 FAX #: [phone] Reason: fall, occipital head strike, LOC, vomiting EXAMS: CPT CODE: [id number] CT C-SPINE W/O CONT 47296 Clinical Indication: Fall, occipital head strike, loss of point isthmus, vomiting; Comparison: None TECHNIQUE: CT images were obtained from the foramen magnum to the vertex and cervical spine without the use of intravenous contrast on a multidetector CT. Coronal and sagittal reconstructions were obtained. CT imaging performed at this location utilizes radiation dose optimization techniques which include one or more ofthe following: -Automated exposure control - Adjustment of the mA and/or kV according to patient size-Use of iterative reconstruction technique CT Radiation Dose [...] 1 Signed Report (CONTINUED) Name: ANATOLY MCNEAL [facility] : 1995 Age/S: 25 / M [address] [place] [address] Blvd Unit #: [id number] Loc: [place] [address] Phys: Shmuel Rodriguez Acct: [id number] Dis Date: Status: REG ER PHONE #: [phone] Exam Date: 08/15/20201901 FAX #: [phone] Reason: fall, occipital head strike, LOC, vomiting EXAMS: CPT CODE:[id number] CT C-SPINE W/O CONT 15891 <Continued> and spinous processes are unremarkable. The [...] subluxations of the cervical spine. SL: AKHIL Electronically Signed by James Rodriguez on08/15/2020 at 192 Reported and signed by: Wanda Rodriguez M.D. CC: Antonio Lara MD; Shmuel HOLLY Technologist:RT Noemi(R)(CT) CTDI: DLP: Trnscb Date/Time: 08/15/2020 (1928) [email or web address] Orig Print D/T: S: 08/15/2020 (1931) PAGE 2 Signed Report- XR CHEST 1 [id number] 19:10:00 [facility] : 1995 Sex: M FAX: Antonio Lara MD [phone] [place]: St: [facility] FAX: Shmuel Rodriguez [phone] ------- Name: ANATOLY MCNEAL [facility] : 1995 Age/S: 25/M [address] [place] [address] Unit #: [id number] Loc: [place] [address] Phys: Shmuel Rodriguez Acct: [id number] Dis Date: Status: REG ER PHONE #: [phone] Exam Date: 08/15/2020 1904 FAX #: [phone] Reason: trauma EXAMS: CPT CODE: [id number] XR CHEST 1 V 03284 Portable single view AP chest INDICATION: Fall. Injury. Comparison: 06/10/2020 chest x-ray FINDINGS: The cardiomediastinal silhouette is normal in size. Lungs are clear. Costophrenic anglesare sharp. No suspicious osseous abnormality is seen. IMPRESSION: No evidence for acute cardiopulmonary disease. SL: SG-H at 1910 Reported and signed by: Jose C Joshi M.D. CC: Antonio Lara MD; Shmuel HOLLY Technologist: Suma [place], RT(R); Judith Savage, RT(R) Trncord Date/Time/By: 08/15/2020 (1909) : By: Ana Maria.[email or web address] [...] code = 9.8 mg/dL 8.0-10.5 N CA) [id number] 20:21:00 Test Item Value Reference Range Interpretation [...] may silvana y by method. BASIC METABOLIC [id number] 20:20:00 Test Item Value Reference Range Interpretation [...] CALCIUM (test code = CA) mg/dL 8.0-10.5 [id number] 20:20:00 Test Item Value Reference Range Interpretation [...] titative results may silvana y by method. [id number] 20:16:00 Test Item Value Reference Range Interpretation [...] APPROPRIATECLIN ICAL EUALUATIONS. [A utomated message] The [employer] stem which generated this result transmitted ref erence range: <=500. The refe rence range was not used to interpret this result as normal/abnormal . CBC W/AUTO [id number] 20:06:00 Test Item Value Reference Range Interpretation [...] (test code NO = MDIFF) CBC W/AUTO [id number] 20:02:00 Test Item Value Reference Range Interpretation [...] code = MDIFF) - XR CHEST 1 [id number] 19:27:00 [facility] : 1995 Sex: M FAX: Antonio Lara MD [phone] [place]: REMA St: DEP Name: ANATOLY MCNEAL [facility] : 1995 Age/S: 25/M [address] [place] [address] Unit #: [id number] Loc: [place] [address] Phys: Bia Lara Acct: [id number] Dis Date: Status: DEP ER PHONE #: [phone] Exam Date: 06/18/2020 1856 FAX #: [phone] Reason: chest pain, SOB EXAMS: CPT CODE: [id number] XR CHEST 1 V 58662 SINGLE VIEW RADIOGRAPH CHEST INDICATION: Chest pain [...] [facility] : 1995 Sex: M FAX: Antonio Lara MD [phone] [place]: St: REG Name: ANATOLY MCNEAL [facility] : 1995 Age/S: 25/M [address] [place], [place] [address]vd Unit #: [id number] Loc: [place] [address] Phys: Bia Lara Acct: [id number] Dis Date: Status: REG ER PHONE #: [phone] Exam Date: 06/18/2020 1856 FAX #: [phone] Reason: chest pain, SOB EXAMS: CPT CODE: [id number] XR CHEST 1 V 06374 SINGLE VIEW RADIOGRAPH CHEST INDICATION: Chest pain and dyspnea. TECHNIQUE: A single view frontal radiograph of the chest was obtained. COMPARISONS: Chest x-ray 09/06/2019 FINDINGS: There is no acute osseous fracture or dislocation. There is no subdiaphragmatic free gas. The cardiomediastinal size and contour are normal. There is no pneumothorax, pleural effusion or organized pneumonia. IMPRESSION: 1. No acute cardiopulmonary process. at 1927 Reported and signed by: Sergio Rose D.O. CC: Antonio Lara MD Technologist: RT Carlene(R) Trnscrd Date/Time/By: 06/18/2020 (1926) : By: Ana [email or web address] Orig Print D/T: S: 06/18/2020 (1929) PAGE1 Signed ReportNovel Coronavirus 20182019-09-07 14:02:00 Test Item Value Reference Range Interpretation Comments Novel Coronavirus Negative Negative Positive r esults are 2019 Inhouse (test indicativ e of the presence code = [id number]) ofSARS-CoV -2 RNA, clinical correlation wit h [...] for the identification of SARS-CoV-2 RNA usingthe [employer] M2000 Sy stem under the FDA Emergen cy UseAuthorizatio n. The testing is perf ormed by melania d in the procedures for the Promoboxx000 molecular diagnostic SARS-CoV-2 assa y in vitro. Testing Criteria: Fever Cough OtherOther: GENERALIZED WEAKNESSCOMMENTS: ORDER PUT IN FOR DR JOSE MIGUEL Reddy [id number] 00:31:00 Test Item Value Reference Range Interpretation Comments INFLUENZA A (test code = FLUAPCR) Negative Negative INFLUENZA B (test code = FLUBPCR) Negative Negative COMMENTS: SwabBASIC METABOLIC [id number] 00:19:00 Test Item Value Reference Range Interpretation [...] 9.3 mg/dL 8.0-10.5 N CA) HEPATIC FUNCTION [id number] 00:19:00 Test Item Value Reference Range Interpretation [...] 20-125 N code = ALKP) BASIC METABOLIC [id number] 00:13:00 Test Item Value Reference Range Interpretation [...] CA) 9.3 mg/dL 8.0-10.5 N HEPATIC FUNCTION [id number] 00:13:00 Test Item Value Reference Range Interpretation [...] IUnit/L 20-125 code = ALKP) CBC W/AUTO [id number] 00:05:00 Test Item Value Reference Range Interpretation [...] NO = IFF) - XR CHEST 2 [id number] 23:38:00 [facility] FREDIS ANATOLY LAMAS : 1995 Sex: M FAX: Ernesto Swanson MD [phone] [place]: St: DEP Name: ANATOLY MCNEAL [facility] : 1995 Age/S: 24/M [address] [place] [address] Unit #: [id number] Loc: [place] [address] Phys: Ernesto Colunga MD Acct: [id number] Dis Date: Status: DEP ER PHONE #: [phone] Exam Date: 09/06/2019 [facility] FAX #: [phone] Reason: Chest Pain EXAMS: CPT CODE: [id number] XR CHEST 2 V 44778 Chest, 2 views dated 09/06/2019. HISTORY: Chest pain. Comparison is made to a prior study dated 05/20/2018. The heart is normal in size. The cardiac mediastinal shadow appears within normal limits. The lungs appear clear. The palmar vasculature is normal in caliber. No acute pleural space abnormalities are detected. IMPRESSION: 1. No radiographic evidence of acute cardiopulmonary disease. SL: 131 at 3215 Reported and signed by: Kanu Pinto M.D. CC: Ernesto Colunga MD Technologist: RT Jeremie(Timothy) Trncatalina Date/Time/By: 09/06/2019 (3428) : By: NavaDMM Orig Print D/T: S: 09/06/2019 (5429) PAGE 1 Signed Report- XR CHEST 2 [id number] 23:38:00 FAX: Ernesto Swanson MD [phone] [place]: St: REG Name: ANATOLY MCNEAL [facility] : 1995 Age/S: 24/M [address] [place] [address] Blvd Unit #: [id number] Loc: [place] [address] Phys: Ernesto Colunga MD Acct: [id number] Dis Date: Status: REG ER PHONE #: [phone] Exam Date: 09/06/20192330 FAX #: [phone] Reason: Chest Pain EXAMS: CPT CODE: [id number] XR CHEST 2 V 79177 Chest, 2 views dated 09/06/2019. HISTORY: Chest [...] MD Technologist: KACIE Chao) Trnscrd Date/Time/By: 09/06/2019 (9911) : By: [email or web address] Orig Print D/T: S: 09/06/2019 (5728) PAGE 1 Signed Report- CT ABD PELVIS [id number] 00:20:00 FAX: Dariusz Junior DO [phone] [place]: St: REG Name: ANATOLY MCNEAL [facility] : 1995 Age/S: 24/M [address] [facility] Unit: [id number] Loc: [address] [place]: [place] [address] Acct: [id number] Dis Date: Status: REG ER PHONE #: [phone] Exam Date: 05/25/2019 0005 FAX#: [phone] Reason: abdominal pain EXAMS: CPT CODE: [id number] CT ABD PELVIS W/CONT 84468 EXAM: CT ABDOMEN AND PELVIS WITH IV [...] Signed Report (CONTINUED) FAX: Dariusz Junior DO [phone] [place]: St: REG -------- Name: ANATOLY MCNEAL [facility] : 1995 Age/S: 24/M [address] [facility] Unit: [id number] Loc: [facility] [place], [place]: [place] [address] Acct: [id number] Date: Status: REG ER PHONE #: [phone] Exam Date: 05/25/2019 0005 FAX #: [phone] Reason: abdominal pain EXAMS: CPT CODE: [id number] CT ABD PELVIS W/CONT 76729 <Continued> Lymphatics: No enlarged lymph nodes by CT size criteria. Bones/Soft Tissues: No acute osseous findings. No ventral hernias. Peritoneum/Other: No free intraperitoneal air. No free intraperitoneal fluid. IMPRESSION: Unremarkable CT of the abdomen and pelvis. at 0020 Reported and signed by: Ale Escamilla M.D. CC: Dariusz Junior DO Technologist: CORA Hollinsscrd Dt/Tm: 05/26/2019 (0020) [email or web address] Orig Print D/T: S: 05/26/2019 (0820 PAGE 2 Signed Report- CT ABD PELVIS W/CONT 2019-05-26 00:20:00 [facility] : 1995 Sex: M FAX: Dariusz Junior DO [phone] [place]: St: DEP Name: ANATOLY MCNEAL CYDNEY [facility] : 1995 Age/S: 24/M [address] [facility] Unit: [id number] Loc: [place], [place]: [place] [address] Acct: [id number] Dis Date: Status: DEP ER PHONE #: [phone] Exam Date: 05/25/2019 0005 FAX #: [phone] Reason: abdominal pain EXAMS: CPT CODE: [id number] CT ABD PELVIS W/CONT 08416 EXAM: CT ABDOMEN AND PELVIS WITH IV [...] Signed Report (CONTINUED) FAX: Dariusz Junior DO [phone] [place]: St: [facility] ----- Name: ANATOLY MCNEAL [facility] : 1995 Age/S: 24/M [address] [facility] Unit: [id number] Loc: [place], [place]: [place] [address] Acct: [id number] Dis Date: Status: [facility] ER PHONE #: [phone] Exam Date: 05/25/2019 0005 FAX #: [phone] Reason: abdominal pain EXAMS: CPT CODE: [id number] CT ABD PELVIS W/CONT 76006 <Continued> Lymphatics: No enlarged lymph nodes by CT size criteria. Bones/Soft Tissues: No acute osseous findings. No ventral hernias. Peritoneum/Other: No free intraperitoneal air. No free intraperitoneal fluid. IMPRESSION: Unremarkable CT of the abdomen and pelvis. at 0020 Reported and signed by: Ale Escamilla M.D. CC: Dariusz Junior DO Technologist: SENTHIL Downey Dt/Tm: 05/26/2019 (0020) LuisaW Orig Print D/T: S: 05/26/2019 (0820 PAGE [...] 9.3 mg/dl 8.0-10.5 N HEPATIC FUNCTION PANEL [id number] 23:28:00 Test Item Value Reference Range Interpretation [...] 50.0-136.0 N TOTAL (test code = ALKP) [id number] 23:28:00 Test Item Value Reference Range Interpretation Comments LIPASE (test code = LIP) 96 Units/L 65.0-230.0 N URINALYSIS [id number] 23:21:00 Test Item Value Reference Range Interpretation [...] MUCU) 1+ Specimen comments: Clean CatchBASIC METABOLIC [id number] 23:20:00 Test Item Value Reference Range Interpretation [...] = CA) mg/dl 8.0-10.5 HEPATIC FUNCTION PANEL [id number] 23:20:00 Test Item Value Reference Range Interpretation Comments TOTAL PROTEIN (test code = PROT) gm/dL 6.4-8.2 ALBUMIN (test code = ALB) gm/dl 3.2-4.7 BILIRUBIN TOTAL (test code = BILT) mg/dl 0.0-1.0 BILIRUBIN DIRECT (test code = BILD) mg/dl 0.0-0.3 SGOT/AST (test code = AST) Units/L 15.0-37.0 SGPT/ALT (test code = ALT) Units/L 12.0-78.0 ALKALINE PHOSPHATASE TOTAL (test Units/L 50.0-136.0 code = ALKP) [id number] 23:20:00 Test Item Value Reference Range Interpretation Comments LIPASE (test code = LIP) Units/L 65.0-230.0 CBC W/AUTO [id number] 23:15:00 Test Item Value Reference Range Interpretation [...] = BA#) 0.1 K/mm3 0.0-0.2 N URINALYSIS [id number] 23:13:00 Test Item Value Reference Range Interpretation [...] NONE BACU) Specimen comments: Clean CatchCOMPREHENSIVE METABOLIC [id number] 14:20:00 Test Item Value Reference Range Interpretation [...] 20-125 N TOTAL (test code = ALKP) [id number] 14:20:00 Test Item Value Reference Range Interpretation Comments LIPASE (test code = LIP) 89 IUnit/L 73-393 N COMPREHENSIVE METABOLIC [id number] 14:18:00 Test Item Value Reference Range Interpretation [...] IUnit/L 20-125 TOTAL (test code = ALKP) [id number] 14:18:00 Test Item Value Reference Range Interpretation Comments LIPASE (test code = LIP) 89 IUnit/L 73-393 N CBC W/AUTO [id number] 14:06:00 Test Item Value Reference Range Interpretation [...] code = MDIFF) - XR ABD ACUTE [id number] 12:00:00 [facility] JANI HERMLEIGHName: ANATOLY MCNEAL : 1995 Sex: M FAX: Shmeul Rodriguez [phone] [place]: St: UNK Name: FREDISANATOLY LAMAS [facility] Burton : 1995 Age/S: 23/M [address] [place] [address] Unit #: [id number] Loc: [place] [address] Phys: Shmuel Rodriguez Acct: [id number] Dis Date: Status: UNK PHONE #: [phone] Exam Date: 05/20/2018 1152 FAX #: [phone] Reason: vomiting, cough chest discomfort EXAMS: CPT CODE: [id number] XR ABD ACUTE W/CHEST 10914 PROCEDURE: ABDOMINAL SERIES WITH SINGLE VIEW CHEST INDICATION: vomiting, cough chest discomfortCOMPARISON: CXR April 2014, CT abdomen October 2014 FINDINGS: ABDOMEN: Air-fluid levels within normalcaliber small and large bowel. No free intraperitoneal air. No soft tissue masses or pathologic calci fications. Radiographic evidence for splenomegaly. Skeleton is intact. Lower pelvis not included in the ijbho-hx-qbua. CHEST: The lungs are clear. The pleura, cardiomediastinal silhouette and bony thorax are normal. IMPRESSION: 1. Air-fluid levels within normal caliber small and large bowel suggestingan enteritis. No definite obstruction. 2. Possible splenomegaly. 3. Negative chest. SL: [id number] at 1200 Reported and signed by: Senthil Venegas M.D. CC: Shmuel HOLLY Technologist: KACIE Hernandez) Trnscrd Date/Time/By: 05/20/2018 (1200) : By: NavaKWL Orig Print D/T: S: 05/20/2018 (8092) PAGE 1 Signed Report- XR ABD ACUTE [id number] 12:00:00 FAX: Shmuel Rodriguez [phone] [place]: St: REG Name: ANATOLY MCNEAL [facility] : 1995Age/S: /[address] Unit #: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 Impression: Viral respiratory illness Secondary Impressions: Acute viral pharyngitis Time of Impression 004 Disposition Decision Discharge )( Discharged to Home Yes )( Time 004 )( Date 09/07/19 COVID-19 Discharge Plan CDC [...] physician or other designated or consulting phys [facility] as outlined in the discharge instructions. The [...] symptoms should prompt an immediate return to [facility] or the closest emergency department or a call to 911. Free Text Depart Notes Free Text Depart Notes on follow up of results patient tested negative for COVID 19 via PCR at 0844 RPT #:[id number] END OF REPORT 2019-05-25 22:20:00-00:00 [facility] ([facility]) EMERGENCY PROVIDER REPORT REPORT#:[id number] REPORT STATUS: Signed DATE:05/25/19 TIME: 2219 PATIENT: ANATOLY MCNEAL UNIT #: [id number] ROOM/BED: AGE: 24 SEX: M PCP PHYS: No Primary or Family Ph ysician SERVICE AUTHOR: Dariusz Junior DO * ALL edits or amendments must be made on the [employer]/computer document * HPI-Abd Pain M Under 40 General Confirmed Patient Yes Initial Greet Date/Time 05/25/19 2180 PCP NO PCP Presentation Chief Complaint Abdominal [...] Total Alk Phosphatase (50.0 - 136.0 Units/L) 7 3 Total Protein (6.0 - 8.1 GM/DL) 7.5 [...] % (Auto) (23.0 - 38.0 %) 28.2 [place] % (Auto) (1.0 - 10.0 %) 9.2 Eos % (Auto) (1.0 - 5.0 %) 2.0 Baso % (Auto) (0.0 - 1.0 %) 0.9 Neut # (Auto) (2.4 - 6.3 K/mm3) 5.5 Lymph # (Auto) (1.2 - 4.0 K/mm3) 2.6 [place] # (Auto) (0.0 - 0.6 K/mm3) 0.9 H Eos # (Auto) (0.0 - 0.7 K/MM3) 0.2 Baso # (Auto) (0.0 - 0.2 K/mm3) 0.1 Immature Gran % (0.0 - 0.4 %) 0.1 Immature Gran # (0.00 - 0.07 x10 3/uL) 0.01 Urines Urine Color YELLOW Urine Appearance CLEAR Urine pH (5.0 - 9.0) 7.0 Ur Specific [place] (1.000 - 1.030) 1.010 Urine Protein (NEGATIVE [...] by me, Pulse oximetr y normal Time 2144 Lab Studies CBC Interpretation CBC NL BMP/CMP Interpretation BMP/CMP NL Radiography CT Abdomen/Pelvis Study type IV contrast Text/Dict Note normal CT scan. Report given by safe technician at 0348. Interpretation/Wet Read by Interpret [...] care of his girlfriend. Time of Re-Eval 0400 )( Re-Eval Status Improved Eval Following Treatment Pt. feels better Pain Re-Evaluation Pain improved ED Course Medication(s) Ordered Medication(s) Ordered: Cardiovascular Drugs Sig/Temitope Start time Last Medication Dose Route Stop Time Status Admin Lidocaine HCl 10 ML X1ED STA 05/25 2153 DC PO 05/25 Diagnostic Agents Sig/Temitope Start time Last Medication Dose Route Stop Time Status Admin Iopamidol 0 .STK-MED ONE 05/25 2331 DC 05/26 .ROUTE 0000 Electrolytic, Caloric, And Sherice Sig/Temitope Start time Last Medication Dose Route Stop Time Status Admin Sodium Chloride 1,000 ML X1ED 05/25 2199 AC / IV 06/23 2158 225 Gastrointestinal Drugs Sig/Temitope Start time Last Medication Dose Route Stop Time Status Admin Famotidine 20 MG X1ED ONE 05/25 2199 DC / IV 05/25 2200 224 Al Hydrox/Mg Hydrox/ 30 ML X1ED STA 05/25 2153 DC 05/25 Simethicone PO 05/25 Differential Diagnosis Differential Diagnosis Acute abdominal pain, [...] symptoms should prompt an immediate return to [facility] or the closest emergency department or a [...] Junior DO on 09/07 at 0416 RPT #:[id number] END OF REPORT 2018-05-20 11:28:00-00:00 [facility] ([facility]) OR [facility] EMERGENCY PROVIDER REPORT REPORT#:[id number] REPORT STATUS: Signed DATE:05/20/18 TIME: 1128 PATIENT: ANATOLY MCNEAL UNIT #: [id number] ROOM/BED: AGE: 23 SEX: M PCP PHYS: No Primary or Family Ph ysician SERVICE AUTHOR: Shmuel Rodriguez * ALL edits or amendments must be made on the [employer]/computer document * HPI-Nausea/Vomit/Diarrhea General Confirmed Patient Yes [...] 111 05/20 1108 Resp 16 05/20 1108 Review of Vital Signs Reviewed Focused PE [...] (Auto) (14.0 - 32.0 %) 4.2 L [place] % (Auto) (4.8 - 9.0 %) 5.3 Eos % (Auto) (0.3 - 3.7 %) 0.7 Baso % (Auto) (0.0 - 2.0 %) 0.2 Neut # (Auto) (2.0 - 7.6 x10 3/uL) 10.79 H Lymph # (Auto) (1.0 - 3.8 x10 3/uL) 0.51 L [place] # (Auto) (0.1 - 0.8 x10 3/uL) [...] 2. Possible splenomegaly. 3. Negative chest. SL: [id number] Impression By: Nkechi Venegas M.D. Lab Imaging Statement Laboratory radiographic studies reviewed and con sidered in the medical decision-making. Point of Care Testing Pulse Oximetry Pulse Ox % 97 On: Room air Interpretation Interpreted by mt Time 1108 Free Text I D Notes [...] by Shmuel Rodriguez on at 1851 RPT #:[id number] END OF REPORT 2018-05-20 11:28:00-00:00 [facility] ([facility]) EMERGENCY PROVIDER REPORT REPORT#:[id number] REPORT STATUS: Signed DATE:05/20/18 TIME: 1127 PATIENT: ANATOLY MCNEAL UNIT #: [id number] ROOM/BED: AGE: 23 SEX: M PCP PHYS: No Primary or Family P hysician SERVICE AUTHOR: Shmuel Rodriguez * ALL edits or amendments must be made on the [employer]/computer document * Shmuel Rodriguez 05/20/18 1128: HPI-Nausea/Vomit/Diarrhea [...] 111 05/20 1108 Resp 16 05/20 1108 Review of Vital Signs Reviewed Focused PE [...] (Auto) (14.0 - 32.0 %) 4.2 L [place] % (Auto) (4.8 - 9.0 %) 5.3 Eos % (Auto) (0.3 - 3.7 %) 0.7 Baso % (Auto) (0.0 - 2.0 %) 0.2 Neut # (Auto) (2.0 - 7.6 x10 3/uL) 10.79 H Lymph # (Auto) (1.0 - 3.8 x10 3/uL) 0.51 L [place] # (Auto) (0.1 - 0.8 x10 3/uL) [...] . 2. Possible splenomegaly. 3. Negative chest. : [id number] Impression By: Nkechi Venegas M.D. Lab Imaging Statement Laboratory radiographic studies reviewed and con sidered in the medical decision-making. Point of Care Testing Pulse Oximetry Pulse Ox % 97 On: Room air Interpretation Interpreted by mt Time 1108 Free Text I D Notes Free Text I D Notes RADIOLOGY - XR ABD ACUTE W/CHEST 05/20 1152 Report Impression - Status: SIGNED Entered: 05/20/2018 1203 IMPRESSION: 1. Air-fluid levels within normal caliber small and large bowel suggesting an enteritis. No definite obstruction . 2. Possible splenomegaly. 3. Negative chest. Interpreted by Radiology Reviewed by ED ELAYNE Sanchez of this section were scribed by Sue Puckett on 05/20/18 at 1424 Re-Evaluation MDM Re-Evaluation/Progress #1 Text/Dict Note Discussed the results/diagnosis with pt and plan for d/c home. Discussed the need for f/u w/ PCP and the proper precautions f or returning to the ED. Pt agrees with plan. viral enteritis ernestoley his HR has improved pt has tolerated [...] of [ELAYNE Rosales]. Signed By: Sue Puckett, 05/20/181127 Provider Scribed Statement I personally performed the [...] Saw Pt Alone I have reviewed the PA/COLLAR CLOSER LOCKSTITCH's note and plan of car e. I was available for consultation as needed at al l times during the patient's visit in the emergency department. I agree with the clinical impression , plan and disposition. Electronically Signed by Shmuel Rodriguez on at 1851 Electronically Signed by Chai Cates MD on at 8986 RPT #:[id number] END OF REPORT
[2022-11-25 19:26] LABS: Blood Gas Oxyhemoglobin 95.3 % (94-97); Blood O2 Saturation 96.3 % (92-98.5)
[2022-11-25 19:28] LABS: Absolute Lymphocytes (CBC) 1.9 K/uL (0.7-4.9); Lymphocytes % 20.2 % (15.3-44.8); MCV 80.4 fL (80-100); MPV 8.8 fL (7.6-11.3); Platelets 300 thou/uL (152-406); RBC Red Blood Cell Count 5.35 M/uL (4.33-5.43)
[2022-11-25 19:31] LABS: Protime INR 1.13
[2022-11-25 19:37] LABS: Barbiturates NEGATIVE (NEGATIVE); Benzodiazepines NEGATIVE (NEGATIVE); Cocaine NEGATIVE (NEGATIVE); METHAMPHETAM NEGATIVE (NEGATIVE); Methadone NEGATIVE (NEGATIVE); Opiates NEGATIVE (NEGATIVE); Phencyclidine NEGATIVE (NEGATIVE); THC Cannibis NEGATIVE (NEGATIVE)
[2022-11-25 19:38] LABS: Specific Gravity 1.015 (1.005-1.030); Urine Bilirubin NEGATIVE (Negative); Urine Blood Negative (Negative); Urine Clarity Clear (Clear); Urine Color Light-Yellow (Yellow); Urine Glucose NEGATIVE (Negative); Urine Protein NEGATIVE (Negative); Urine Urobilinogen Normal (Normal)
[2022-11-25 19:39] LABS: Bilirubin Direct 0.1 mg/dL (0-0.2); Bilirubin Indirect, Calculated 0.2 mg/dL (0.2-0.8); Bilirubin Total 0.3 mg/dL (0.2-1.0); Potassium 3.2 mEq/L (3.5-5.1); Protein, Total 7.6 g/dL (6.4-8.2)
[2022-11-25] MEDS ORDERED: NA CHLORIDE 0.9% 1,000 ML ONE (19:53)
[2022-11-25] MEDS ORDERED: POTASSIUM 25 MEQ EFFERV TAB ONE (20:38)
[2022-11-25] MEDS ORDERED: TETRACAINE HCL 0.5% 4ML OPTH ONE (21:43)
[2022-11-25] MEDS ORDERED: FLUORESCEIN SODIUM 1 MG/WRAP ONE (21:43)
[2022-11-25] MEDS ORDERED: KETOROLAC 30 MG/ML INJ ONE (21:55)
--- NOTE | 2022-11-25 22:28 | EDPHYS ---
Physician Documentation [facility] Name: Romulo Gusman Age: 27 yrs Sex: Male : 1995 Arrival Date: 11/25/2022 Time: 17:23 Bed 12 Private MD: ED Physician Kris Thomas HPI: 11/25 18:05 This 27 yrs old Male presents to ER via Ambulatory with complaints of Anti freeze cp exposure. 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 Patient reports nausea and vomiting several times after the incident. He finished working his shift up until about 5:00 and then he proceeded to the emergency room for evaluation. Patient reports immediately flushing his eye and left side of his face to include his ear after the incident. He does complain of left eye irritation but denies pain and or change in vision. Historical: - Allergies: 17:42 Sulfa (Sulfonamide Antibiotics); cm10 - PMHx: 17:42 ADD/ADHD; Bipolar disorder; Hypertensive disorder; cm10 - Immunization history:: Adult Immunizations unknown. - Social history:: Smoking status: Reported history of juuling and/or vaping. ROS: 18:10 Constitutional: Negative for body aches, chills, fever, poor PO intake. cp 18:10 Cardiovascular: Negative for chest pain, edema, palpitations. cp 18:10 Respiratory: Negative for cough, shortness of breath, wheezing. 18:10 Abdomen/GI: Negative for abdominal pain, nausea, vomiting, and diarrhea. 18:10 Eyes: Positive for redness, Negative for discharge, photophobia, vision loss. cp 18:10 ENT: Negative for drainage from ear(s), ear pain, sore throat, difficulty swallowing, difficulty handling secretions. 18:10 Skin: Negative for rash. 18:10 Neuro: Negative for altered mental status, dizziness, headache, numbness, weakness. 18:10 All other systems are negative. Exam: 18:15 Constitutional: The patient appears in no acute distress, alert, awake, cp non-diaphoretic, non-toxic, well developed, well nourished. 18:15 Head/Face: Normocephalic, atraumatic. cp 18:15 Eyes: Periorbital structures: appear normal, Pupils: equal, round, and reactive to light and accomodation, Extraocular movements: intact throughout, Conjunctiva: mild erythema left eye. Corneas: abrasion, is not appreciated, foreign body, is not appreciated, a fluorescein strip employed to appreciate the findings, Lids and lashes: appear normal, bilaterally. 18:15 ENT: External ear(s): are unremarkable, Ear canal(s): are normal, clear, TM's: dullness, bilaterally, Nose: is normal, Mouth: Lips: moist, Oral mucosa: pink and intact, moist, Posterior pharynx: is normal, airway is patent, no erythema, no exudate. 18:15 Neck: ROM/movement: is normal, is supple, without pain, no range of motions limitations, no nuchal rigidity. 18:15 Chest/axilla: Inspection: normal, Palpation: is normal, no crepitus, no tenderness. 18:15 Cardiovascular: Rate: normal, Rhythm: regular. 18:15 Respiratory: the patient does not display signs of respiratory distress, Respirations: normal, no use of accessory muscles, no retractions, labored breathing, is not present, Breath sounds: are clear throughout, no decreased breath sounds, no stridor, no wheezing. 18:15 Abdomen/GI: Inspection: abdomen appears normal, Palpation: abdomen is soft and non-tender, in all quadrants. 18:15 Back: pain, is absent, ROM is normal. 18:15 Musculoskeletal/extremity: Exam is negative for decreased range of motion, deformity. 18:15 Skin: cellulitis, is not appreciated, no rash present. 18:15 Neuro: Orientation: to person, place \T\ time. Mentation: is normal, Motor: moves all fours, strength is normal, Sensation: no obvious gross deficits. 19:52 ECG was reviewed by the Attending Physician. cp Vital Signs: 17:40 BP 126 / 79; Pulse 94; Resp 18; Temp 98.9; Pulse Ox 99% ; Weight 86.18 kg; Height 5 ft. cm10 7 in. ; Pain 3/10; 19:14 BP 120 / 87; Pulse 87; Resp 14; Pulse Ox 96% ; tf2 19:30 BP 126 / 76; Pulse 83; Resp 16; Pulse Ox 99% on R/A; eh3 20:00 BP 118 / 83; Pulse 81; Resp 18; Pulse Ox 100% on R/A; eh3 20:30 BP 124 / 86; Pulse 82; Resp 17; Pulse Ox 100% on R/A; eh3 21:00 BP 128 / 67; Pulse 84; Resp 17; Pulse Ox 99% on R/A; eh3 21:30 BP 124 / 83; Pulse 85; Resp 17; Pulse Ox 99% on R/A; eh3 22:49 BP 115 / 66; Pulse 78; Resp 18; Pulse Ox 97% ; Pain 4/10; cm10 17:40 Body Mass Index 29.76 (86.18 kg, 170.18 cm) cm10 17:40 Pain Scale: Adult cm10 22:49 Pain Scale: Adult cm10 Johanny Coma Score: 19:14 Eye Response: spontaneous(4). Motor Response: obeys commands(6). Verbal Response: tf2 oriented(5). Total: 15. MDM: 17:44 Patient medically screened. cp 19:20 Differential diagnosis: toxic ingestion, metabolic disorder, electrolyte abnormality, cp cardiac arrythmia. 21:57 Data reviewed: vital signs, nurses notes, lab test result(s), EKG. ED course: Patient cp reporting pain to radial side of left wrist with paresthesias after having arterial blood gas drawn. 22:24 ED course: Patient reports pain of left wrist improved with Toradol and sensation to cp left hand and fingers returned to normal. 22:27 I considered the following discharge prescriptions or medication management in the cp emergency department Medications were administered in the Emergency Department. See MAR. 22:27 Care significantly affected by the following chronic conditions: Hypertension. cp Counseling: I had a detailed discussion with the patient and/or guardian regarding: the historical points, exam findings, and any diagnostic results supporting the discharge/admit diagnosis, lab results, the need for outpatient follow up, a family practitioner, to return to the emergency department if symptoms worsen or persist or if there are any questions or concerns that arise at home. Response to treatment: improved, and as a result, I will discharge patient. 11/25 18:57 Order name: Ethanol; Complete Time: 20:20 cp 08 20:21 Interpretation: Reviewed. cp 08 18:57 Order name: Osmolality, Serum; Complete Time: 20:20 cp 08/ 20:21 Interpretation: Within normal limits. cp 11/25 18:57 Order name: Lactate w/ 2H reflex if indic.; Complete Time: 20:20 cp 11/25 20:21 Interpretation: Within normal limits. cp 11/25 18:57 Order name: Basic Metabolic Panel; Complete Time: 20:20 cp 11/25 20:20 Interpretation: Normal except: K 3.2; GLUC 110. cp 11/25 18:57 Order name: CBC with Diff; Complete Time: 20:20 cp 11/25 20:21 Interpretation: Reviewed. cp 11/25 18:57 Order name: Hepatic Function; Complete Time: 20:20 cp 11/25 20:20 Interpretation: Normal except: GLOB 3.6. cp 11/25 18:57 Order name: PT-INR; Complete Time: 20:20 cp 11/25 18:57 Order name: Ptt, Activated; Complete Time: 20:20 cp 11/25 20:20 Interpretation: Reviewed. cp 08 18:57 Order name: Urinalysis w/ reflexes; Complete Time: 20:20 cp 11/25 18:57 Order name: Urine Drug Screen; Complete Time: 20:20 cp 11/25 18:57 Order name: ABG; Complete Time: 20:20 cp 11/25 20:21 Interpretation: Normal except: ABGPO2 104.0. cp 11/25 18:57 Order name: EKG; Complete Time: 18:58 cp 11/25 18:01 Order name: Misc. Order: poison control consult for approximate 1 cup ingestion cp antifreeze with skin exposure; Complete Time: 19:27 11/25 18:57 Order name: EKG - Nurse/Tech; Complete Time: 19:51 cp 11/25 18:57 Order name: IV Saline Lock; Complete Time: 19:27 cp 11/25 18:57 Order name: Labs collected and sent; Complete Time: 19:27 cp 11/25 18:57 Order name: Suicide Screening ([place]); Complete Time: 19:27 cp 11/25 21:32 Order name: Eye Tray; Complete Time: 21:41 cp 11/25 21:32 Order name: Fluoresene Opth strip; Complete Time: 21:41 cp 11/25 21:32 Order name: Visual Acuity; Complete Time: 21:41 cp 11/25 22:25 Order name: Wrist Splint; Complete Time: 22:48 cp EC:52 Rate is 80 beats/min. Rhythm is regular. [place] interval is normal. QRS interval is normal. cp QT interval is normal. Interpreted by me. Reviewed by me. Administered Medications: 19:51 Drug: NS 0.9% IV 1000 ml Route: IV; Rate: 1 bolus; Site: right antecubital; eh3 20:45 Follow up: IV Status: Completed infusion; IV Intake: 1000ml eh3 20:35 Drug: Potassium PO Effervescent Tablet 50 mEq Route: PO; eh3 21:27 Follow up: Response: No adverse reaction eh3 21:49 Drug: Ketorolac IVP 15 mg Route: IVP; Site: right antecubital; eh3 22:48 Follow up: Response: No adverse reaction cm10 22:25 CANCELLED (Physician Discretion): fentaNYL (PF) IVP 25 mcg IVP once cp 22:48 Drug: Tetracaine Ophthalmic Drops 0.5 % 1 drops Route: Ophthalmic; Site: left eye; cm10 Disposition Summary: 11/25/22 22:28 Discharge Ordered Location: Home cp Problem: new cp Symptoms: have improved cp Condition: Stable cp Diagnosis - Toxic effect of ethanol, accidental (unintentional), initial encounter cp - Nausea cp - Unspecified acute conjunctivitis, left eye cp - Pain in left wrist cp Followup: cp - With: Private Physician - When: 1 - 2 days - Reason: Recheck today's complaints Discharge Instructions: - Discharge Summary Sheet cp - Chemical Conjunctivitis, Adult cp - How to Use Eye Drops and Eye Ointments cp - Nausea, Adult cp - Wrist Pain, Adult cp - Ethanol Test cp Forms: - Medication Reconciliation Form cp - Thank You Letter cp - Antibiotic Education cp - Prescription Opioid Use cp - Patient Portal Instructions cp - Work release form rv1 Prescriptions: - Artificial Tears (cmc) 1 % Ophthalmic drops - instill 2 drop by OPHTHALMIC route every 2 to 3 hours As needed as needed for cp dry eye(s); 1 unit; Refills: 0, Product Selection Permitted - Ibuprofen 800 mg Oral Tablet - take 1 tablet by ORAL route every 8 hours As needed take with food; 30 tablet; cp Refills: 0, Product Selection Permitted - Zofran 4 mg Oral Tablet - take 1 tablet by ORAL route every 12 hours As needed; 20 tablet; Refills: 0, cp Product Selection Permitted Signatures: Dispatcher [employer] EDMS Radhames Schwarz PA PA cp Deysi Bernstein RN RN eh3 Isabel Lynch RN RN cm10 Corrections: (The following items were deleted from the chart) 22:09 18:05 Patient is a 27-year-old male with past medical history significant for cp hypertension, bipolar disorder, ADD who presents to the emergency department after reported toxic exposure to antifreeze at work 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 Patient reports vomiting several times after work. He finished working his shift up until about 5:00 and then the came to the emergency room for evaluation. cp 22:25 22:10 fentaNYL (PF) IVP 25 mcg IVP once ordered. cp cp
--- NOTE | 2022-11-25 22:28 | ER ---
Nurse's Notes [facility] Name: Romulo Gusman Age: 27 yrs Sex: Male : 1995 Arrival Date: 11/25/2022 Time: 17:23 Bed 12 Private MD: Diagnosis: Toxic effect of ethanol, accidental (unintentional), initial encounter;Nausea;Unspecified acute conjunctivitis, left eye;Pain in left wrist Presentation: 11/25 17:40 Chief complaint: Patient states: "I was at work and a pipe busted and I got antifreeze cm10 in my left ear and my left eye. I also swallowed some." Pt states that this happened at 1600. No blurred vision, no hear changes. Pt states vomiting after this happened. Coronavirus screen: Vaccine status: Patient reports being unvaccinated. Ebola Screen: Patient denies travel to an Ebola-affected area in the 21 days before illness onset. No symptoms or risks identified at this time. Initial Sepsis Screen: Does the patient meet any 2 criteria? No. Patient's initial sepsis screen is negative. Does the patient have a suspected source of infection? No. Patient's initial sepsis screen is negative. Risk Assessment: Do you want to hurt yourself or someone else? Patient reports no desire to harm self or others. Onset of symptoms was November 25, 2022. 17:40 Method Of Arrival: Ambulatory cm10 17:40 Acuity: LAURI 2 ss Triage Assessment: 17:43 General: Appears in no apparent distress. comfortable, Behavior is calm, cooperative. cm10 Historical: - Allergies: 17:42 Sulfa (Sulfonamide Antibiotics); cm10 - PMHx: 17:42 ADD/ADHD; Bipolar disorder; Hypertensive disorder; cm10 - Immunization history:: Adult Immunizations unknown. - Social history:: Smoking status: Reported history of juuling and/or vaping. Screenin:[address] [facility] ED Fall Risk Assessment (Adult) History of falling in the last 3 months, cm10 including since admission No falls in past 3 months (0 pts) Confusion or Disorientation No (0 pts) Intoxicated or Sedated No (0 pts) Impaired Gait No (0 pts) Mobility Assist Device Used No (0 pt) Altered Elimination No (0 pt) Score/Fall Risk Level 0 - 2 = Low Risk Oriented to surroundings, Maintained a safe environment, Hourly rounding (assess needs \\T\\ fall precautionary measures) done. Abuse screen: Denies threats or abuse. Denies injuries from another. Nutritional screening: No deficits noted. Tuberculosis screening: No symptoms or risk factors identified. Assessment: 17:44 General: Appears in no apparent distress. comfortable, Behavior is calm, cooperative, cm10 appropriate for age. Neuro: No deficits noted. Level of Consciousness is awake, alert, Oriented to person, place, time, situation. Respiratory: No deficits noted. Airway is patent Respiratory effort is even, unlabored, Respiratory pattern is regular, symmetrical. 19:00 Reassessment: Patient appears in no apparent distress at this time. Patient and/or eh3 family updated on plan of care and expected duration. Pain level reassessed. Patient is alert, oriented x 3, equal unlabored respirations, skin warm/dry/pink. 19:00 Pain: Denies pain. eh3 20:00 Reassessment: Patient appears in no apparent distress at this time. Patient and/or eh3 family updated on plan of care and expected duration. Pain level reassessed. Patient is alert, oriented x 3, equal unlabored respirations, skin warm/dry/pink. 21:00 Reassessment: Patient appears in no apparent distress at this time. Patient and/or eh3 family updated on plan of care and expected duration. Pain level reassessed. Patient is alert, oriented x 3, equal unlabored respirations, skin warm/dry/pink. Pt complains of pain at ABG blood collection site on left wrist. Removed pressure dressing, no bleeding noted, slight swelling and pink skin surrounding insertion site. Ice pack applied and wrist elevated on pillow. 21:26 Reassessment: Poison Control advised that pt can be discharged when he is deemed to be eh3 at baseline. Vital Signs: 17:40 BP 126 / 79; Pulse 94; Resp 18; Temp 98.9; Pulse Ox 99% ; Weight 86.18 kg; Height 5 ft. cm10 7 in. ; Pain 3/10; 19:14 BP 120 / 87; Pulse 87; Resp 14; Pulse Ox 96% ; tf2 19:30 BP 126 / 76; Pulse 83; Resp 16; Pulse Ox 99% on R/A; eh3 20:00 BP 118 / 83; Pulse 81; Resp 18; Pulse Ox 100% on R/A; eh3 20:30 BP 124 / 86; Pulse 82; Resp 17; Pulse Ox 100% on R/A; eh3 21:00 BP 128 / 67; Pulse 84; Resp 17; Pulse Ox 99% on R/A; eh3 21:30 BP 124 / 83; Pulse 85; Resp 17; Pulse Ox 99% on R/A; eh3 22:49 BP 115 / 66; Pulse 78; Resp 18; Pulse Ox 97% ; Pain 4/10; cm10 17:40 Body Mass Index 29.76 (86.18 kg, 170.18 cm) cm10 17:40 Pain Scale: Adult cm10 22:49 Pain Scale: Adult cm10 [place] Coma Score: 19:14 Eye Response: spontaneous(4). Motor Response: obeys commands(6). Verbal Response: tf2 oriented(5). Total: 15. ED Course: 17:26 Patient arrived in ED. mr 17:39 Radhames Schwarz PA is PHCP. cp 17:39 Kris Thomas DO is Attending Physician. cp 17:42 Triage completed. cm10 17:43 Isabel Lynch, RN is Primary Nurse. cm10 17:43 Arm band placed on Patient placed in waiting room. cm10 17:45 Patient has correct armband on for positive identification. Bed in low position. Call cm10 light in reach. 18:39 Corrie Chris, JONATHAN is Primary Nurse. tf2 19:14 Awaiting lab results. tf2 19:14 Provided Education on: LABWORK PLAN. tf2 19:14 Inserted saline lock: 18 gauge in right antecubital area, using aseptic technique. tf2 19:14 No provider procedures requiring assistance completed. tf2 19:26 Lab(s) recollected, by me, sent to lab. mb4 19:28 Notified Nurse Practitioner and/or Physician Warehouse Supervisor [address] Shift of RELAYED INFO FROM POISON tf2 CONTROL; ; PER CHASE, JONATHAN, PT NEEDS TO HAVE LABS INCLUDING ABG DRAWN; RECOMMEND ANTIDOTE OF FOMEPIZOLE IF OS GAP GREATER THAN 10, IF PH LESS THAN 7.3 AND IF BICARB IS LESS THAN 20. WE ARE TO CALL POISON CONTROL BACK WHEN GET LAB RESULTS. 22:49 IV discontinued, intact, bleeding controlled, No redness/swelling at site. Pressure cm10 dressing applied. 22:49 Velcro wrist splint applied to left wrist. cm10 Administered Medications: 19:51 Drug: NS 0.9% IV 1000 ml Route: IV; Rate: 1 bolus; Site: right antecubital; eh3 20:45 Follow up: IV Status: Completed infusion; IV Intake: 1000ml eh3 20:35 Drug: Potassium PO Effervescent Tablet 50 mEq Route: PO; eh3 21:27 Follow up: Response: No adverse reaction eh3 21:49 Drug: Ketorolac IVP 15 mg Route: IVP; Site: right antecubital; eh3 22:48 Follow up: Response: No adverse reaction cm10 22:25 CANCELLED (Physician Discretion): fentaNYL (PF) IVP 25 mcg IVP once cp 22:48 Drug: Tetracaine Ophthalmic Drops 0.5 % 1 drops Route: Ophthalmic; Site: left eye; cm10 Medication: 17:45 VIS not applicable for this client. cm10 Intake: 20:45 IV: 1000ml; Total: 1000ml. eh3 Outcome: 22:28 Discharge ordered by MD. cp 22:49 Discharged to home ambulatory, with family. cm10 22:49 Condition: good 22:49 Discharge instructions given to patient, Instructed on discharge instructions, follow up and referral plans. medication usage, Demonstrated understanding of instructions, follow-up care, medications, Prescriptions given X 3. 22:50 Patient left the ED. cm10 Signatures: Rosa Saleh mr EliseWendy RN RN ss Radhames Schwarz PA PA cp Shruti Degroot mb4 Deysi Bernstein RN RN 3 Isabel Lynch RN RN 10 Corrie Chris RN RN tf2 Corrections: (The following items were deleted from the chart) 19:06 17:40 Acuity: LAURI 4 cm10 ss 21:27 19:00 Reassessment: Patient appears in no apparent distress at this time. Patient eh3 and/or family updated on plan of care and expected duration. Pain level reassessed. Patient is alert, oriented x 3, equal unlabored respirations, skin warm/dry/pink. eh3 21:43 21:00 Reassessment: Patient appears in no apparent distress at this time. Patient eh3 and/or family updated on plan of care and expected duration. Pain level reassessed. Patient is alert, oriented x 3, equal unlabored respirations, skin warm/dry/pink. eh3
[2022-11-25 23:36] VITALS: TEMP 98.9
[2022-11-25 23:49] VITALS: BP 115/66; O2SAT 97
--- NOTE | 2022-11-27 18:14 | EKG ---
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
== END 2022-11-25 22:50 | disposition home or self-care (01) ==
LOC: ER 17:23
DX: T51.0X1A Toxic effect of ethanol, accidental (unintentional), initial encounter (principal); R11.0 Nausea; H10.32 Unspecified acute conjunctivitis, left eye; M25.532 Pain in left wrist
CPT/HCPCS: 36415; 80048; 80076; 80307; 81003; 82077; 82805; 83605; 83930; 85025; 85610; 85730; 93005; 96361; 96374; 99284; J7030

== ENCOUNTER 2023-01-21 23:49 | Emergency (ER) | payer SELFPAY ==
--- OUTSIDE RECORDS SUMMARY | 2023-01-21 23:53 | XMS REPORT | Continuity of Care Document ---
:1995 Author Organization [facility] t Address [address] [place] [address] Care Team Providers Name Role Phone Pcp, [...] rs active active ity of problems problems [facility] Allergies, Adverse Reactions, Alerts Allergy Allergy Status Severity Reaction(s) Onset Inactive Treating Comm ents Source Name Type Date Date Clinician Sulfa DA Active MO [facility] (Sulfona 12-24 Clear mide 00:00: [facility] Sulfa DA Active MO HIVES, [facility] (Sulfona ANGIOEDEMA 12-24 Divya r mide 00:00: [facility] Sulfa DA Active MO [facility] (Sulfona 2-28 Clear mide 00:00: [facility] Sulfa DA Active MO HIVES [facility] (Sulfona 2-28 Clear mide 00:00: [place]iot 00 Regiona ics) [facility] Sulfa DA Active MO 2019-0 [facility] (Sulfona 5-18 Clear mide 00:00: [facility] 00 Regiona [facility]) [facility] Sulfa DA Active MO HIVES 2019-0 [facility] (Sulfona 5-18 Clear mide 00:00: [facility] 00 Regiona ics) [facility] Sulfa DA Active MO 2020-0 [facility] (Sulfona 2-04 Clear mide 00:00: [facility] 00 Regiona ics) [facility] Sulfa DA Active MO HIVES 2019-0 [facility] (Sulfona 2-04 Clear mide 00:00: [facility] 00 Regiona ics) [facility] No Known DA Active U [facility] Allergie 12-04 Mainlan s 00:00: d [facility] No Known DA Active U [facility] Allergie 12-04 [place] s 00:00: d 00 [facility] No Known DA Active U [facility] Contrast 8- Clear Allergie 00:00: [place] s 00 [facility] No Known DA Active U [facility] Drug 12-05 Clear Allergie 00:00: [place] s 00 [facility] No Known DA Active U 2005- [facility] Food 12-05 Clear Allergie 00:00: [facility] No Known DA Active U [facility] Other 8 Clear Allergie 00:00: [facility] NO KNOWN Drug Active Univers ALLERGIE Class ity of S [facility] Social History Social Habit Start Date Stop Date Quantity Comments Source Exposure to Not sure [facility] SARS-CoV-2 (event) [facility] Sex Assigned At [birth year] [facility] 00:00:00 00:00:00 [facility] Smoking Status Start Date Stop Date Source Unknown if ever smoked [facility] Medications Ordered Filled Start Stop Current Ordering Indication Dosage Frequency Signature Comments Components Source Medication Medication Date Date Medication? Clinician (SIG) Name Name ibuprofen 2020-04- No 800mg 800 mg, Uni vers (IBU) 0-17 10-17 Oral, ity of tablet 800 06:15: 05:23 ONCE, 1 [place] as mg 00 :00 dose, On Medical [facility] 02/04/21 at 0115, JAMES acetaminoph 2020-04- No 650mg 650 mg, U nivers en 0-17 10-17 Oral, ity of (TYLENOL) 06:15: 05:23 ONCE, 1 [place] tablet 650 00 :00 dose, On Medic al mg [facility] 02/04/21 at 0115, [facility] albuterol 2020-04 Yes [id number] 2{puff} Inhale 2 Univers 90 0-17 Puffs ity of mcg/actuati 00:00: every 4 [place] as on inhaler 00 (four) Medical hours as Branch needed for Wheezing or Shortness of Breath. levoFLOXaci 2020-04- No [id number] 750mg Take 1 Univers n 750 mg 0-17 10-25 tablet by ity o f tablet 00:00: 04:59 mouth [place] 00 :00 daily for Medical 7 days. Branch predniSONE 2020-04- No [id number] 20mg Take 1 Univers 20 mg 0-17 10-23 tablet by ity of tablet 00:00: 04:59 mouth 2 [place] 00 :00 (two) Medical times Branch daily for 5 days. TYLENOL FOR Yes None [facility] [place] [facility] s CHILDREN 1-16 Entered ity of ORAL 13:05: [address] Vital Signs Vital Name Observation Time Observation Value Comments Source Systolic blood 2021-02-04 07:45:00 131 mm[Hg] Pepito sity of pressure [facility] Diastolic blood 2021-02-04 07:45:00 74 mm[Hg] [facility] Heart rate 2021-02-04 07:45:00 114 /min [facility] Respiratory rate 2021-02-04 07:45:00 20 /min [facility] Oxygen saturation in 2021-02-04 07:45:00 98 /min [facility] blood by [facility] Pulse oximetry Clifford Body temperature 2021-02-04 04:20:00 38.33 Lisa [facility] Body height 2021-02-04 04:20:00 170.2 cm [facility] Body weight 2021-02-04 04:20:00 91.944 kg [facility] BMI 2021-02-04 04:20:00 31.75 kg/m2 [facility] Procedures Procedure Date / Time Performing Clinician Source Performed URINALYSIS 2021-02-04 06:27:00 Pricilla Slade [facility] [place] EBV-MONONUCLEOSIS SCREEN 2021-02-04 06:27:00 [facility] FOR 2021-02-04 06:27:00 Pricilla Slade [facility] GROUP A [facility] URINE DRUG (IMMUNOASSAY) 2021-02-04 06:27:00 [facility] S[facility]EN W/O REFLEX ADC,CLC OR LCC ONLY - 2021-02-04 05:24:00 [facility] INFLUENZA A & B DIRECT Medical B ranch ANTIGEN XR CHEST 1 VW 2021-02-04 05:23:00 Pricilla Slade [facility] [place] COVID-19 (ID NOW RAPID 2021-02-04 04:57:00 Pricilla Slade [facility] TESTING) Medical Branch NOTICE OF PRIVACY 2021-02-04 04:01:40 Doctor Unassigned, No [facility] Name Medical Branch CONSENT/REFUSAL FOR 2021-02-04 03:58:40 Doctor Unassigned, No Un [facility] DIAGNOSIS AND TREATMENT Name Medical Branch Encounters Start End Encounter Admission Attending Care Care Encounter Source Date/Time Date/Time Type Type Clinicians Facility Department ID 2020-08-15 Inpatient HCACL ROBIN [id number] [facility] 18:15:00 43 [facility] 2020-06-18 Inpatient HCACL ROBIN [id number] [facility] 18:18:00 [id number] [facility] 2019-09-06 Inpatient HCACL ROBIN [id number] [facility] 22:14:00 [id number] [facility] 2019-05-25 Inpatient HCAMN DARIO [id number] [facility] 21:43:00 78 [facility] 2021-11-14 2021-11-14 Emergency E MALI CROWE MHSE MED [id number] MH 09:15[facility] 2021-10-05 2021-10-06 Emergency E MANDY MHBL MHBL [id number] MHBL 22:09:00 02:40:00 JACKIE 2021-10-04 2021-10-05 Emergency E ANGELITO, MHSE MHSE 7507 MH 23:17:00 00:01:[address] [facility] 2021-09-25 2021-09-25 Emergency E JAZMIN MHSE MHSE [id number] MH 21:46:00 22:39:[address] [facility] 2021-08-18 2021-08-18 Emergency E CIARA MHSE MHSE [id number] MH 18:36:00 19:57:[address] [facility] 2021-02-03 2021-02-04 Emergency Dresarita, [facility] [id number] Univers 23:27:00 03:04:00 Pricilla Reyes [id number] [facility] [place] [id number] [facility] [id number] [facility] 084 Branch 2021-02-03 2021-02-03 Emergency X DREVER, [facility] ERT [id number] Univers 23:27:00 23:27:00 PRICILLA jacinto [facility] 2020-12-24 2020-12-25 Emergency EM DAMION Her ROBIN [id number] [facility] 21:50:00 02:16:00 Theodore 22 [facility] 2020-12-19 2020-12-20 Emergency E PRABHU MI BL MHBL [id number] BL 21:51:00 04:15:00 2020-08-16 2020-08-17 Emergency E BERNADETTE TOMLINSON MHBL MHBL [id number] MHBL 22:18:00 02:24:00 2020-06-18 2020-06-18 Emergency EM DAMION Lara ROBIN [id number] [facility] 18:18:00 21:35:00 Antonio 67 [facility] 2019-04-10 2019-04-10 Emergency E MHBL MHBL [id number] BL 21:45:00 21:45:00 Results Test Description Test Time Test Comments Results Result Comments Source EBV-MONONUCLEOSIS SCREEN 2021-02-04 07:04:49 Test Item Value Reference Range Interpretation Comme nts EBV Mononucleosis Screen (test code = 5655474972) Negative Nega tive Lab Interpretation (test code = 81905-0) Normal [facility] ([facility]ROAT)2020-12-25 00:56:00 Test Item Value Reference Range Interpretation Comments AG STREP GROUP A Negative Negative Negative fo r Strep A (THROAT) (test code = nuclei c acid STREPA) INFLUENZA A [id number] 00:56:00 Test Item Value Reference Range Interpretation Comments INFLUENZA A (test code = FLUAPCR) Negative Negative INFLUENZA B (test code = FLUBPCR) Negative Negative Coronavirus 2019 nCoV [id number] 00:41:00 Test Item Value Reference Range Interpretation Comments Coronavirus 2019 NEGATIVE Negative Negative re sults should be nCoV Bedside (test treated a s presumptive and, code = ifinconsistent with [id number]) clinical signs and symptoms or necessaryfor patient management, meenu uld be tested with an alternativemole cular assay. Negative result s do not preclude [id number] tion and should not be u sed [...] = nuclei c acid STREPA) INFLUENZA A [id number] 00:33:00 Test Item Value Reference Range Interpretation Comments INFLUENZA A (test code = FLUAPCR) Negative INFLUENZA B (test code = FLUBPCR) Negative - CT HEAD/BRAIN W/O [id number] 19:29:00 [facility] 1995 Sex: M Name: ANATOLY MCNEAL [facility] : 1995 Age/S: 25 / M [address] [place] [address] Unit #: [id number] Loc: [place] [address] Phys: Shmuel Rodriguez Acct: [id number] Dis Date: Status: REG ER PHONE #: [phone] Exam Date: 08/15/2020 190 FAX #: [phone] Reason: fall, occipital head strike, LOC, vomiting EXAMS: CPT CODE: [id number] CT HEAD/BRAIN W/O CONT 35876 Clinical Indication: Fall, occipital head strike, loss [...] this noncontrast head CT. There is no masseffect, midline shift or edema. There are no [...] 1 Signed Report (CONTINUED) Name: ANATOLY MCNEAL [facility] : 1995 Age/S: 25 / M [address] [place] [address] Unit #: [id number] Loc: [facility] [place] [address] Phys: Shmuel Rodriguez Acct: [id number] Dis Date: Status: REG ER PHONE #: [phone] Exam Date: 08/15/2020 190 FAX #: [phone] Reason: fall, occipital head strike, LOC, vomiting EXAMS: CPT CODE: [id number] CT HEAD/BRAIN W/O CONT 72548 <Continued> and spinous processes are unremarkable. The facet joint, spinolaminar and spinous process alignment are normal. DISK SPACES AND SOFT TISSUES: The prevertebral soft tissues are normal. C2-C3 to C7-T1 disc space levels show no definite disc protrusions on CT. There is no central or foraminal stenosis. MRI is the gold standard to assess for diskdisease. VISUALIZED LUNG APICES: Unremarkable. CT myelogram or MRI of the cervical spine may be performed, if there is further concern. IMPRESSION: CT head: 1. No acute intracranial abnormality. 2. Midline parieto-occipital scalp swelling. No calvarial fracture. CT cervical spine: No fractures or subluxations of the cervical spine. SL: LEVY-H Electronically Signed by James Rodriguez on 08/15/2020 at 1929 Reported and signed by: Wanda Rodriguez M.D. CC: Antonio Lara MD; Shmuel HOLLY Technologist:RT Noemi(R)(CT) CTDI: DLP: Trnscb Date/Time: 08/15/2020 (1928) [email or web address] Orig Print D/T: S: 08/15/2020 (1931) PAGE 2 Signed Report- CT C-SPINE W/O [id number] 19:29:00 [facility] : 1995 Sex: M Name: ANATOLY MCNEAL [facility] : 1995 Age/S: 25 / M [address] [place] [address] BlvdUnit #: [id number] Loc: [place] [address] Phys: Shmuel Rodriguez Acct: [id number] Dis Date: Status: REG ER PHONE #: [phone] Exam Date: 08/15/20201901 FAX #: [phone] Reason: fall, occipital head strike, LOC, vomiting EXAMS: CPT CODE: [id number] CT C-SPINE W/O CONT 64370 Clinical Indicati on: Fall, occipital head strike, loss of point [...] FINDINGS: BRAIN PARENCHYMA: There are normal urbina-white interfa nikolas, sulci and gyri. There are no focal [...] 1 Signed Report (CONTINUED) Name: ANATOLY MCNEAL [facility] : 1995 Age/S: 25 / M [address] [place] [address] Unit #: [id number] Loc: [place] [address] Phys: Shmuel Rodriguez Acct: [id number] Dis Date: Status: REG ER PHONE #: [phone] Exam Date: 08/15/2020 1902 FAX #: [phone] Reason: fall, occipital head strike, LOC, vomiting EXAMS: CPT CODE:[id number] CT C-SPINE W/O CONT 32275 <Continued> and spinous processes are unremarkable. The [...] head: 1. No acute intracranial abnormality. 2. Midlineparieto-occipital scalp swelling. No calvarial fracture. CT cervical spine: No fractures or subluxations of the cervical spine. SL: AKHIL at 1929 Reported and signed by: Wanda Rodriguez M.D. CC: Antonio Lara MD; Shmuel HOLLY Technologist:RT Noemi(R)(CT) CTDI: DLP: Trnscb Date/Time: 08/15/2020 (1928) [email or web address] Orig Print D/T: S: 08/15/2020 (1931) PAGE 2 Signed Report- XR CHEST 1 [id number] 19:10:00 [facility] : 1995 Sex: M FAX: Antonio Lara MD [phone] [place]: St: REG FAX: Shmuel Rodriguez [phone] ------- Name: ANATOLY MCNEAL [place] : 1995 Age/S: 25/M [address] [place] [address] Unit #: [id number] Loc: [place] [address] Phys: Shmuel Rodriguez Acct: [id number] Dis Date: Status: REG ER PHONE #: [phone] Exam Date: 08/15/2020 190 FAX #: [phone] Reason: trauma EXAMS: CPT CODE: [id number] XR CHEST 1 V 35872 Portable single view AP chest INDICATION: Fall. [...] 08/15/2020 (1912) PAGE 1 Signed ReportBASIC METABOLIC [id number] 20:21:00 Test Item Value Reference Range Interpretation [...] code = 9.8 mg/dL 8.0-10.5 N CA) [id number] 20:21:00 Test Item Value Reference Range Interpretation [...] may silvana y by method. BASIC METABOLIC [id number] 20:20:00 Test Item Value Reference Range Interpretation [...] CALCIUM (test code = CA) mg/dL 8.0-10.5 [id number] 20:20:00 Test Item Value Reference Range Interpretation [...] titative results may silvana y by method. [id number] 20:16:00 Test Item Value Reference Range Interpretation [...] APPROPRIATECLIN ICAL EUALUATIONS. [A utomated message] The [employer] stem which generated this result transmitted ref erence range: <=500. The refe rence range was not used to interpret this result as normal/abnormal . CBC W/AUTO [id number] 20:06:00 Test Item Value Reference Range Interpretation [...] (test code NO = MDIFF) CBC W/AUTO [id number] 20:02:00 Test Item Value Reference Range Interpretation [...] code = MDIFF) - XR CHEST 1 [id number] 19:27:00 [facility]IS ANATOLY LAMAS : 1995 Sex: M FAX: Antonio Lara MD [phone] [place]: St: DEP Name: ANATOLY MCNEAL [facility] : 1995 Age/S: 25/M [address] [place] [address] Unit #: [id number] Loc: [place] [address] Phys: Antonio Lara MD Acct: [id number] Dis Date: Status: DEP ER PHONE #: [phone] Exam Date: 06/18/2020 1856 FAX #: [phone] Reason: chest pain, SOB EXAMS: CPT CODE: [id number] XR CHEST 1 V 03412 SINGLE VIEW RADIOGRAPH CHEST INDICATION: Chest pain and dyspnea. TECHNIQUE: A single view frontal radiograph of the chest was obtained. COMPARISONS: Chest x-ray 09/06/2019 FINDINGS: There is no acute osseous fracture ordislocation. There is no subdiaphragmatic free gas. The cardiomediastinal size and contour are normal. There is no pneumothorax, pleural effusion or organized pneumonia. IMPRESSION: 1. No acute cardiopulmonary process. at 192 Reported and signed by: Sergio Rose D.O. CC: Antonio Lara MD Technologist: RT Carlene(Timothy) Trnscrd Date/Time/By: 06/18/2020 (1926) : By: [email or web address] Orig Print D/T: S: 06/18/2020 (1929) PAGE 1 Signed Report- XR CHEST 1 [id number] 19:27:00 [facility] : 1995 Sex: M FAX: Antonio Lara MD [phone] [place]: REMA St: REG Name: ANATOLY MCNEAL [facility] : 1995 Age/S: 25/M [address] [place] [address] Unit #: [id number] Loc: [place] [address] Phys: Antonio Lara MD Acct: [id number] Dis Date: Status: REG ER PHONE #: [phone] Exam Date: 06/18/2020 1856 FAX #: [phone] Reason: chest pain, SOB EXAMS: CPT CODE: [id number] XR CHEST 1 V 09947 SINGLE VIEW RADIOGRAPH CHEST INDICATION: Chest pain and dyspnea. TECHNIQUE: A single view frontal radiograph of the chest was obtained. COMPARISONS: Chest x-ray 09/06/2019 FINDINGS: There is no acute osseous fracture or dislocation. There is no subdiaphragmatic free gas. The cardiomediastinal size and contour are normal. There is no pneumothorax, pleural effusion or organized pneumonia. IMPRESSION: 1. No acute cardiopulmonary process. at 1927 Rep orted and signed by: Sergio Rose D.O. CC: Antonio Lara MD Technologist: RT Carlene(R) Trnscrd Date/Time/By: 06/18/2020 (1926) : By: [email or web address] Orig Print D/T: S: 06/18/2020 (1929) PAGE 1 Signed ReportNovel Coronavirus [id number] 14:02:00 Test Item Value Reference Range Interpretation Comments Novel Coronavirus Negative Negative Positive r esults are 2019 Inhouse (test indicativ e of the presence code = VGYVA50PL) ofSARS-CoV -2 RNA, clinical correlation wit h [...] for the identification of SARS-CoV-2 RNA usingthe [employer] M2000 Sy stem under the FDA Emergen cy UseAuthorizatio n. The testing is perf ormed by personneltraine d in the procedures for the [employer] M2000 molecular diagnostic SARS-CoV-2 assa y in vitro. Testing Criteria: Fever Cough OtherOther: GENERALIZED WEAKNESSCOMMENTS: ORDER PUT IN FOR DR JOSE MIGUEL Reddy [id number] 00:31:00 Test Item Value Reference Range Interpretation Comments INFLUENZA A (test code = FLUAPCR) Negative Negative INFLUENZA B (test code = FLUBPCR) Negative Negative COMMENTS: SwabBASIC METABOLIC [id number] 00:19:00 Test Item Value Reference Range Interpretation [...] 9.3 mg/dL 8.0-10.5 N CA) HEPATIC FUNCTION [id number] 00:19:00 Test Item Value Reference Range Interpretation [...] 20-125 N code = ALKP) BASIC METABOLIC [id number] 00:13:00 Test Item Value Reference Range Interpretation [...] CA) 9.3 mg/dL 8.0-10.5 N HEPATIC FUNCTION [id number] 00:13:00 Test Item Value Reference Range Interpretation [...] IUnit/L 20-125 code = ALKP) CBC W/AUTO [id number] 00:05:00 Test Item Value Reference Range Interpretation [...] MANUAL DIFF REQUIRED (test code NO = DAVID) - XR CHEST 2 [id number] 23:38:00 [facility] : 1995 Sex: M FAX: Ernesto Swanson MD [phone] [place]: St: DEP Name: FREDISANATOLY LAMAS [facility] : 1995 Age/S: 24/M [address] [place] [address] Unit #: [id number] Loc: [place] [address] Phys: Ernesto Colunga MD Acct: [id number] Dis Date: Status: DEP ER PHONE #: [phone] Exam Date: 09/06/2019 2331FAX #: [phone] Reason: Chest Pain EXAMS: CPT CODE: [id number] XR CHEST 2 V 07193 Chest, 2 views dated 09/06/2019. HISTORY: Chest pain. Comparison is made to a prior study dated 05/20/2018. The heart is normal in size. The cardiac mediastinal shadow appears within normal limits. The lungs appear clear. The palmar vasculature is normal in caliber. No acute pleural space abnormalities are detected. IMPRESSION: 1. No radiographic evidence of acute cardiopulmonary disease. SL: 131 at 1213 Reported and signed by: Kanu Pinto M.D. CC: Ernesto Colunga MD Technologist: RT Jeremie(R) Trninvanessa Date/Time/By: 09/06/2019 (0322) : By: [email or web address] Orig Print D/T: S: 09/06/2019 (0484) PAGE 1 Signed Report- XR CHEST 2 [id number] 23:38:00 FAX: Ernesto Swanson MD [phone] [place]: St: REG Name: ANATOLY MCNEAL [facility] : 1995 Age/S: 24/M [address] [place] [address] Bl Unit #: [id number] Loc: [place] [address] Phys: Ernesto Colunga MD Acct: [id number] Dis Date: Status: REG ER PHONE #: [phone] Exam Date: 09/06/2019 2331FAX #: [phone] Reason: Chest Pain EXAMS: CPT CODE: [id number] XR CHEST 2 V 67842 Chest, 2 views dated 09/06/2019. HISTORY: Chest [...] M.D. CC: Ernesto Colunga MD Technologist: RT Chao (R) Trnscrd Date/Time/By: 09/06/2019 (3652) : By: Flor Orig Print D/T: S: 09/06/2019 (2407) PAGE 1 Signed Report- CT ABD PELVIS [id number] 00:20:00 FAX: Dariusz Junior DO [phone] [place]: St: REG Name: FREDISANATOLY [facility] : 1995 Age/S: 24/M [address] [facility] Unit: [id number] Loc: [address] Phys: Junior,Dariusz [address] Acct: [id number] Dis Date: Status: REG ER PHONE #: [phone] Exam Date: 05/25/2019 0005 FAX#: [phone] Reason: abdominal pain EXAMS: CPT CODE: [id number] CT ABD PELVIS W/CONT 55037 EXAM: CT ABDOMEN AND PELVIS WITH IV CONTRAST DICTATION LOCATION: [facility] HISTORY: Male, 24 years of age [...] the patient size; and/or use of iterative recon struction technique. COMPARISON: Previous CT abdomen and pelvis [...] unremarkable. Gastrointestinal: No bowel wall thickening, bowel obst ruction or perienteric inflammation. The appendix is normal. Vascular: No aortic aneurysm or dissection. IVC is unremarkable. Portal vein is patent. PAGE 1 Signed Report (CONTINUED) FAX: Dariusz Junior DO [phone] [place]: St: REG Name: ANATOLY MCNEAL [facility] : 1995 Age/S: 24/M [address] [facility] Unit: [id number] Loc: [address] [place] [address] [place]: [place] [id number] Acct: [id number] Dis Date: Status: REG ER PHONE #: [phone] Exam Date: 05/25/2019 0005 FAX #: [phone] Reason: abdominal pain EXAMS: CPT CODE: [id number] CT ABD PELVIS W/CONT 54086 <Continued> Lymphatics: No enlarged lymph nodes by CT size criteria. Bones/Soft Tissues: No acute osseous findings. No ventral hernias. Peritoneum/Other: No free intraperitoneal air. No free intraperitoneal fluid. IMPRESSION: Unremarkable CT of the abdomen and pelvis. at 0020 Reported and signed by: Ale Escamilla M.D. CC: Dariusz Junior DO Technologist: CORA Downey Dt/Tm: 05/26/2019 (0020) [email or web address] Orig Print D/T: S: 05/26/2019 (9754 PAGE 2 Signed Report- CT ABD PELVIS W/[id number] 00:20:00 [facility] : 1995 Sex: M FAX: Dariusz Junior DO [phone] [place]: St: DEP Name: ANATOLY MCNEAL [facility] : 1995 Age/S: 24/M [address] [facility] Unit: [id number] Loc: [place], [place] Phys: Dariusz [place] [id number]: [id number] Dis Date: Status: DEP ER PHONE #: [phone] Exam Date: 05/25/2019 0005 FAX #: [phone] Reason: abdominal pain EXAMS: CPT CODE: [id number] CT ABD PELVIS W/CONT 00399 EXAM: CT ABDOMEN AND PELVIS WITH IV CONTRAST DICTATION LOCATION: H48 HISTORY: Male, 24 years of age with periumbilical abdominal pain for one week TECHNIQUE: Contrast: Nonionic IV contrast was given. No GI contrast was given. Portal venous phase: Abdomen and pelvis Delayed phase: None Reconstructions: Coronal a nd sagittal One or more of the following [...] Signed Report (CONTINUED) FAX: Dariusz Junior DO [phone] [place]: St: [facility] -------- Name: ANATOLY MCNEAL [facility] : 1995 Age/S: 24/M [address] [facility] Unit: [id number] Loc: [place], [place]: [place] [id number] Acct: [id number] Dis Date: Status: [facility] ER PHONE #: [phone] Exam Date: 05/25/2019 0005 FAX #: [phone] Reason:abdominal pain EXAMS: CPT CODE: [id number] CT ABD PELVIS W/CONT 57282 <Continued> Lymphatics: No enlarged lymph nodes by CT size criteria. Bones/Soft Tissues: No acute osseous findings. No ventralhernias. Peritoneum/Other: No free intraperitoneal air. No free intraperitoneal fluid. IMPRESSION: Unremarkable CT of the abdomen and pelvis. at 0020 Reported and signed by: Ale Escamilla M.D. CC: Dariusz Junior DO Technologist: CORA Downey Dt/Tm: 05/26/2019 (0020) [email or web address] Orig Print D/T: S: 05/26/2019 (0820 PAGE 2 Signed ReportBASIC METABOLIC [id number] 23:28:00 Test Item Value Reference Range Interpretation [...] 9.3 mg/dl 8.0-10.5 N HEPATIC FUNCTION PANEL [id number] 23:28:00 Test Item Value Reference Range Interpretation [...] 50.0-136.0 N TOTAL (test code = ALKP) [id number] 23:28:00 Test Item Value Reference Range Interpretation Comments LIPASE (test code = LIP) 96 Units/L 65.0-230.0 N URINALYSIS [id number] 23:21:00 Test Item Value Reference Range Interpretation [...] MUCU) 1+ Specimen comments: Clean CatchBASIC METABOLIC [id number] 23:20:00 Test Item Value Reference Range Interpretation [...] = CA) mg/dl 8.0-10.5 HEPATIC FUNCTION PANEL [id number] 23:20:00 Test Item Value Reference Range Interpretation Comments TOTAL PROTEIN (test code = PROT) gm/dL 6.4-8.2 ALBUMIN (test code = ALB) gm/dl 3.2-4.7 BILIRUBIN TOTAL (test code = BILT) mg/dl 0.0-1.0 BILIRUBIN DIRECT (test code = BILD) mg/dl 0.0-0.3 SGOT/AST (test code = AST) Units/L 15.0-37.0 SGPT/ALT (test code = ALT) Units/L 12.0-78.0 ALKALINE PHOSPHATASE TOTAL (test Units/L 50.0-136.0 code = ALKP) [id number] 23:20:00 Test Item Value Reference Range Interpretation Comments LIPASE (test code = LIP) Units/L 65.0-230.0 CBC W/AUTO [id number] 23:15:00 Test Item Value Reference Range Interpretation [...] = BA#) 0.1 K/mm3 0.0-0.2 N URINALYSIS [id number] 23:13:00 Test Item Value Reference Range Interpretation [...] NONE BACU) Specimen comments: Clean CatchCOMPREHENSIVE METABOLIC [id number] 14:20:00 Test Item Value Reference Range Interpretation [...] 20-125 N TOTAL (test code = ALKP) [id number] 14:20:00 Test Item Value Reference Range Interpretation Comments LIPASE (test code = LIP) 89 IUnit/L 73-393 N COMPREHENSIVE METABOLIC [id number] 14:18:00 Test Item Value Reference Range Interpretation [...] IUnit/L 20-125 TOTAL (test code = ALKP) [id number] 14:18:00 Test Item Value Reference Range Interpretation Comments LIPASE (test code = LIP) 89 IUnit/L 73-393 N CBC W/AUTO [id number] 14:06:00 Test Item Value Reference Range Interpretation [...] code = MDIFF) - XR ABD ACUTE [id number] 12:00:00 [facility] : 1995 Sex: M FAX: Shmuel Rodriguez [phone] [place]: St: UNK Name: ANATOLY MCNEAL [facility] : 1995 Age/S: 23/M [address] [place] [address] Unit #: [id number] Loc: [place] [address] Phys: Shmuel Rodriguez PAAcct: [id number] Dis Date: Status: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
--- NOTE | 2023-01-22 00:35 | ER ---
Nurse's Notes [facility] Name: Romulo Gusman Age: 27 yrs Sex: Male : 1995 Arrival Date: 01/21/2023 Time: 23:49 Bed 11 Private MD: Diagnosis: Dental pain, dental abscess, dental decay Presentation: 01/22 00:03 Chief complaint: Patient states: C/O dental pain of 8 to right upper mouth,onset 2 pf1 weeks ago with right side facial swelling,onset yesterday. Patient stated broke his tooth x 2 weeks ago. Patient stated took Tylenol 1300mg at 2000 and Motrin 800mg at 1800 tonight. Coronavirus screen: Vaccine status: Patient reports being unvaccinated. Client denies travel out of the [place] in the last 14 days. At this time, the client does not indicate any symptoms associated with coronavirus-19. Ebola Screen: Patient negative for fever greater than or equal to 101.5 degrees Fahrenheit, and additional compatible Ebola Virus Disease symptoms. Initial Sepsis Screen: Does the patient meet any 2 criteria? HR > 90 bpm. No. Patient's initial sepsis screen is negative. Does the patient have a suspected source of infection? No. Patient's initial sepsis screen is negative. Risk Assessment: Do you want to hurt yourself or someone else? Patient reports no desire to harm self or others. 00:03 Method Of Arrival: Ambulatory pf1 00:03 Acuity: LAURI 4 pf1 Triage Assessment: 00:19 General: Appears in no apparent distress. comfortable, Behavior is calm, cooperative. cm10 Pain: Complains of pain in upper right third molar Pain currently is 8 out of 10 on a pain scale. EENT: Reports pain in upper right third molar. Neuro: No deficits noted. Level of Consciousness is awake, alert, obeys commands, Oriented to person, place, time, situation. Cardiovascular: No deficits noted. Respiratory: No deficits noted. Airway is patent Respiratory effort is even, unlabored, Respiratory pattern is regular, symmetrical. GI: No deficits noted. No signs and/or symptoms were reported involving the gastrointestinal system. : No deficits noted. No signs and/or symptoms were reported regarding the genitourinary system. Derm: No deficits noted. No signs and/or symptoms reported regarding the dermatologic system. Musculoskeletal: No deficits noted. No signs and/or symptoms reported regarding the musculoskeletal system. Historical: - Allergies: 00:07 Sulfa (Sulfonamide Antibiotics); pf1 - PMHx: 00:07 ADD/ADHD; Bipolar disorder; Hypertensive disorder; pf1 - PSHx: 00:07 None; pf1 - Immunization history:: Adult Immunizations up to date, Client reports having NOT received the Covid vaccine. Last tetanus immunization: < 5 years ago Flu vaccine is not up to date. - Social history:: Smoking status: Reported history of juuling and/or vaping. Patient/guardian denies using alcohol, street drugs. Screenin:20 [facility] ED Fall Risk Assessment (Adult) History of falling in the last 3 months, cm10 including since admission No falls in past 3 months (0 pts) Confusion or Disorientation No (0 pts) Intoxicated or Sedated No (0 pts) Impaired Gait No (0 pts) Mobility Assist Device Used No (0 pt) Altered Elimination No (0 pt) Score/Fall Risk Level 0 - 2 = Low Risk Oriented to surroundings, Maintained a safe environment, Hourly rounding (assess needs \T\ fall precautionary measures) done. Abuse screen: Denies threats or abuse. Denies injuries from another. Nutritional screening: No deficits noted. Tuberculosis screening: No symptoms or risk factors identified. Assessment: 00:20 Reassessment: See triage assessment. cm10 Vital Signs: 00:03 BP 136 / 91; Pulse 99; Resp 16; Temp 98.6; Pulse Ox 97% on R/A; Weight 81.65 kg; Height pf1 5 ft. 6 in. ; Pain 8/10; 00:03 Body Mass Index 29.05 (81.65 kg, 167.64 cm) pf1 00:03 Pain Scale: Adult pf1 ED Course: 01/21 23:51 Patient arrived in ED. jj6 23:53 Eddie May MD is Attending Physician. sp3 01/22 00:07 Triage completed. pf1 00:19 Arm band placed on Patient placed in an exam room, on a stretcher. cm10 00:20 Patient has correct armband on for positive identification. Bed in low position. Call cm10 light in reach. Provided Education on: ER process and procedures. . 00:39 No provider procedures requiring assistance completed. Patient did not have IV access pf1 during this emergency room visit. Administered Medications: No medications were administered Medication: 00:20 VIS not applicable for this client. cm10 Outcome: 00:35 Discharge ordered by . sp3 00:40 Discharged to home ambulatory, pf1 00:40 Condition: stable 00:40 Discharge instructions given to patient, Instructed on discharge instructions, follow up and referral plans. Demonstrated understanding of instructions, follow-up care, medications, Prescriptions given X 2, 00:40 Patient left the ED. pf1 Signatures: Eddie May MD MD sp3 Sandra Alexis6 Pricilla Kendall, RN RN pf1 Isabel Lynch, RN RN cm10
--- NOTE | 2023-01-22 00:36 | EDPHYS ---
Physician Documentation [facility] Name: Romulo Gusman Age: 27 yrs Sex: Male : 1995 Arrival Date: 01/21/2023 Time: 23:49 Bed 11 Private MD: ED Physician Eddie May HPI: 01/22 00:32 This 27 yrs old Male presents to ER via Ambulatory with complaints of Toothache, Jaw sp3 Pain. 00:32 27-year-old male with history of bipolar disease, hypertension now presents to the ED sp3 with multiple broken teeth and concerns of pain and now swelling. He states he is "looking for a dentist". He denies any fever, difficulty swallowing, lateralized swelling, or any other signs or symptoms on ROS at this time.. Historical: - Allergies: 00:07 Sulfa (Sulfonamide Antibiotics); pf1 - PMHx: 00:07 ADD/ADHD; Bipolar disorder; Hypertensive disorder; pf1 - PSHx: 00:07 None; pf1 - Immunization history:: Adult Immunizations up to date, Client reports having NOT received the Covid vaccine. Last tetanus immunization: < 5 years ago Flu vaccine is not up to date. - Social history:: Smoking status: Reported history of juuling and/or vaping. Patient/guardian denies using alcohol, street drugs. ROS: 00:32 Constitutional: Negative for fever, chills, and weight loss, Eyes: Negative for injury, sp3 pain, redness, and discharge, Neck: Negative for injury, pain, and swelling, Cardiovascular: Negative for chest pain, palpitations, and edema, Respiratory: Negative for shortness of breath, cough, wheezing, and pleuritic chest pain, Abdomen/GI: Negative for abdominal pain, nausea, vomiting, diarrhea, and constipation, Back: Negative for injury and pain, MS/Extremity: Negative for injury and deformity, Skin: Negative for injury, rash, and discoloration, Neuro: Negative for headache, weakness, numbness, tingling, and seizure, 00:32 All other systems are negative, Exam: 00:32 Constitutional: This is a well developed, well nourished patient who is awake, alert, sp3 and in no acute distress. Head/Face: Normocephalic, atraumatic. Eyes: Pupils equal round and reactive to light, extra-ocular motions intact. Lids and lashes normal. Conjunctiva and sclera are non-icteric and not injected. Cornea within normal limits. Periorbital areas with no swelling, redness, or edema. Neck: Trachea midline, no thyromegaly or masses palpated, and no cervical lymphadenopathy. Supple, full range of motion without nuchal rigidity, or vertebral point tenderness. No Meningismus. Chest/axilla: Normal chest wall appearance and motion. Nontender with no deformity. No lesions are appreciated. Cardiovascular: Regular rate and rhythm with a normal S1 and S2. No gallops, murmurs, or rubs. Normal PMI, no JVD. No pulse deficits. 00:32 ENT: General tooth decay noted with multiple broken teeth.. Vital Signs: 00:03 BP 136 / 91; Pulse 99; Resp 16; Temp 98.6; Pulse Ox 97% on R/A; Weight 81.65 kg; Height pf1 5 ft. 6 in. ; Pain 8/10; 00:03 Body Mass Index 29.05 (81.65 kg, 167.64 cm) pf1 00:03 Pain Scale: Adult pf1 MDM: 00:28 Patient medically screened. sp3 00:34 Data reviewed: vital signs, nurses notes. ED course: Will place on Augmentin and NSAIDs sp3 and follow-up with dentistry. No critical findings noted and no critical illness present.. Administered Medications: No medications were administered Disposition Summary: 01/22/23 00:35 Discharge Ordered Notes: Location: Home sp3 Condition: Stable sp3 Diagnosis - Dental pain, dental abscess, dental decay sp3 Followup: sp3 - With: Private Physician - When: Upon discharge from the Emergency Department - Reason: Continuance of care Discharge Instructions: - Discharge Summary Sheet sp3 - Dental Abscess sp3 - Dental Caries, Adult sp3 Forms: - Medication Reconciliation Form sp3 - Thank You Letter sp3 - Antibiotic Education sp3 - Prescription Opioid Use sp3 - Patient Portal Instructions sp3 - Leadership Thank You Letter sp3 Prescriptions: - Augmentin 875-125 mg Oral Tablet - take 1 tablet ORAL route every 12 hours for 10 days; 20 tablet; Refills: 0, sp3 Product Selection Permitted - Ibuprofen 800 mg Oral Tablet - take 1 tablet ORAL route every 8 hours As needed take with food; 30 tablet; sp3 Refills: 0, Product Selection Permitted Signatures: Eddie May MD MD sp3 Pricilla Kendall, RN RN pf1
[2023-01-22 01:00] VITALS: BP 136/91; TEMP 98.6; O2SAT 97
== END 2023-01-22 00:40 | disposition home or self-care (01) ==
LOC: ER 23:49
DX: K04.7 Periapical abscess without sinus (principal); K02.9 Dental caries, unspecified
CPT/HCPCS: 99283

== ENCOUNTER 2023-09-24 08:39 | Emergency (ER) | payer SELFPAY ==
--- OUTSIDE RECORDS SUMMARY | 2023-09-24 08:43 | XMS REPORT | Continuity of Care Document ---
Author Name Unknown Address [address] [facility] [address] [place] [address] [facility] thconnect Address [address] [facility] [address] [place] [address] Care Team Providers Care Bone Drier Name Role Phone PCP, NO Primary Care Physician Unavailab AJ Briggs Attending Clinician Unavailable MALI CROWE Attending Clinician Unavailab JACKIE Hernandez Attending Clinician Unavailab JOCELYN Fu Attending Clinician Unavail able SARAH WU Attending Clinician UnavailAJ Sprague Attending Clinician David Slade FI[employer] ASSOCIATE, Pricilla Morris Attending Clinician PRICILLA SLADE Attending Clinician Unavailable Nawaf Her Attending Clinician Unavailable PRABHU MI Attending Clinician Unavailable BERNADETTE TOMLINSON Attending Clinician Unavailable Antonio Lara Attending Clinician Unavailable Physician, No Primary or Family Admitting Clinic yanet Unavailable Payers Payer Name Policy Type Policy Number Effective Date Expirati on Date Source Problems Condition Name Condition Details Condition Category Status Onset Date Resolution Date Last Treatment Date Treating Clinician Comments Source No known active problems No known active problems Disease Univers [facility] Allergies, Adverse Reactions, Alerts Allergy Name Allergy Type Status Severity Reaction(s) Onset Date Inactive Date Treating Clinician Comments Source Sulfonam behzad Allergy to substanc e Active Unknown 06-09 00:00: 00 ENRIQUE Hallman [facility] Sulfa (Sulfona mide Antibiot ics) DA Active [place] 12-24 00:00: 00 [facility] Sulfa (Sulfona mide Antibiot ics) DA Active [place] HIVES, ANGIOEDEMA 12-24 00:00: 00 [facility] Sulfa (Sulfona mide Antibiot ics) DA Active [place] 06-18 00:00: 00 [facility] Sulfa (Sulfona mide Antibiot ics) DA Active [place] HIVES 06-18 00:00: 00 [facility] Sulfa (Sulfona mide Antibiot ics) DA Active [place] 09-05 00:00: 00 [facility] Sulfa (Sulfona mide Antibiot ics) DA Active [place] HIVES 09-05 00:00: 00 [facility] Sulfa (Sulfona mide Antibiot ics) DA Active [place] 04 00:00: 00 [facility] Sulfa (Sulfona mide Antibiot ics) DA Active [place] HIVES 2 00:00: 00 [facility] No Known Allergie s DA Active U 8- 00:00: 00 [facility] No Known Allergie s DA Active U 12-04 00:00: 00 [facility] No Known Contrast Allergie s DA Active U 12-05 00:00: 00 [facility] No Known Drug Allergie s DA Active U 8 00:00: 00 [facility] No Known Food Allergie s DA Active U 12-05 00:00: 00 [facility] No Known Other Allergie s DA Active U 12-05 00:00: 00 [facility] NO KNOWN ALLERGIE S Drug Class Active [facility] Social History Social Habit Start Date Stop Date Quantity Comments Source Exposure to SARS-CoV-2 (event) Not sure [facility] Sex Assigned At 1995 00:00:00 1995 00:00:00 Male [facility] Smoking Status Start Date Stop Date Source Unknown if ever smoked [facility] Medications Ordered Medication Name Filled Medication Name Start Date Stop Date Current Medication? Ordering Clinician Indication Dosage Frequency Signature (SIG) Comments Components Source Amoxicillin /Clavulanat e Potassium (Augmentin 875 Mg) 1 Each TABLET 06-09 14:58: 00 No 875mg Twice A Day [facility] Naproxen (Naprosyn) 500 Mg TAB 06-09 14:58: 00 No 500mg Twice A Day as needed for Pain [facility] Ondansetron Hcl (Zofran) 4 Mg TAB 06-09 14:58: 00 No 4mg Every 8 Hours as needed for Nausea [facility] Amoxicillin /Clavulanat e Potassium (Augmentin 875 Mg) 1 Each TABLET 06-09 14:56: 00 06-09 14:58 :00 No 875mg Twice A Day [facility] Naproxen (Naprosyn) 500 Mg TAB 06-09 14:56: 00 06-09 14:58 :00 No 500mg Twice A Day as needed for Pain [facility] Ondansetron Hcl (Zofran) 4 Mg TAB 06-09 14:56: 00 06-09 14:58 :00 No 4mg Every 8 Hours as needed for Nausea / Vomiting [facility] ibuprofen (IBU) tablet 800 mg 2020-04 06:15: 00 02-04 05:23 :00 No 800mg 800 mg, Oral, ONCE, 1 dose, On 02/04/21 at 0115, [facility] acetaminoph en (TYLENOL) tablet 650 mg 2020-04 06:15: 00 02-04 05:23 :00 No 650mg 650 mg, Oral, ONCE, 1 dose, On 02/04/21 at 0115, [facility] albuterol 90 mcg/actuati on inhaler 2020-04 00:00: 00 Yes [id number] 2{puff} Inhale 2 Puffs every 4 (four) hours as needed for Wheezing or Shortness of Breath. [facility] levoFLOXaci n 750 mg tablet 2020-04 00:00: 00 02-12 04:59 :00 No [id number] 750mg Take 1 tablet by mouth daily for 7 days. [facility] predniSONE 20 mg tablet 2020-04 00:00: 00 02-10 04:59 :00 No [id number] 20mg Take 1 tablet by mouth 2 (two) times daily for 5 days. [facility] TYLENOL FOR CHILDREN ORAL 05-06 13:05: 22 Yes None Entered [facility] Vital Signs Vital Name Observation Time Observation Value Comments S ource Body Temperature 2023-06-09 15:31:00 98.3 [degF] [facility] Heart Rate 2023-06-09 15:31:00 67 /min [facility] Respiratory rate 2023-06-09 15:31:00 18 /min [facility] BP Systolic 2023-06-09 15:31:00 113 mm[Hg] [facility] BP Diastolic 2023-06-09 15:31:00 77 mm[Hg] [facility] Height 2023-06-09 13:55:00 167.812007 cm [facility] Weight 2023-06-09 13:55:00 86.724397 kg [facility] BMI (Body Mass Index) 2023-06-09 13:55:00 30.7 kg/m2 [facility] Systolic blood pressure 2021-02-04 07:45:00 131 mm[Hg] [facility] Diastolic blood pressure 2021-02-04 07:45:00 74 mm[Hg] [facility] Heart rate 2021-02-04 07:45:00 114 /min [facility] Respiratory rate 2021-02-04 07:45:00 20 /min [facility] Oxygen saturation in Arterial blood by Pulse oximetry 2021-02-04 07:45:00 98 /min [facility] Body temperature 2021-02-04 04:20:00 38.33 Lisa [facility] Body height 2021-02-04 04:20:00 170.2 cm [facility] Body weight 2021-02-04 04:20:00 91.944 kg [facility] BMI 2021-02-04 04:20:00 31.75 kg/m2 [facility] Procedures Procedure Date / Time Performed Performing Clinician Source URINALYSIS 2021-02-04 06:27:00 Pricilla Slade [facility] EBV-MONONUCLEOSIS SCREEN 2021-02-04 06:27:00 Radha Slade [facility] RAPID STREP SCREEN FOR GROUP A 2021-02-04 06:27:00 Pricilla Slade [facility] URINE DRUG (IMMUNOASSAY) - COMPREHENSIVE DRUG SCREEN W/O REFLEX 2021-02-04 06:27:00 Pricilla Slade [facility] ADC,CLC OR LCC ONLY - INFLUENZA A & B DIRECT ANTIGEN 2021-02-04 05:24:00 Pricilla Slade [facility] XR CHEST 1 VW 2021-02-04 05:23:00 [facility] (ID NOW RAPID TESTING) 2021-02-04 04:57:00 Pricilla Slade [facility] NOTICE OF PRIVACY PRACTICES 2021-02-04 04:01:40 Doctor Unassigned, [place] [facility] CONSENT/REFUSAL FOR DIAGNOSIS AND TREATMENT 2021-02-04 03:58:40 Doctor Unassigned, [facility] Encounters Start Date/Time End Date/Time Encounter Type Admission Type Attending [facility] Facility Care Department Encounter ID Source 2020-08-15 18:15:00 Inpatient HCACL ROBIN [id number] [facility] 2020-06-18 18:18:00 Inpatient HCACL ROBIN [id number] [facility] 2019-09-06 22:14:00 Inpatient HCACL ROBIN [id number] [facility] 2019-05-25 21:43:00 Inpatient HCAMN DARIO [id number] [facility] 2023-06-25 11:58:05 2023-06-25 11:58:05 Outpatient SFA SFA [id number] Tim Patel 2023-06-09 13:54:00 2023-06-09 15:31:00 Emergency ER AJ PARR [facility] [id number] [facility] 2023-06-09 13:54:00 2023-06-09 15:31:00 Departed Emergency Room [facility] [id number] ENRIQUE Long [facility] 2023-06-03 16:13:54 2023-06-03 16:13:[address] [facility] [id number] Tim Patel 2021-11-14 09:15:00 2021-11-14 11:12:00 Emergency E MALI CROWE [facility] MED [id number] [facility] 2021-10-05 22:09:00 2021-10-06 02:40:00 Emergency E JACKIE GALVAN MHBL MHBL [id number] [facility] 2021-10-04 23:17:00 2021-10-05 00:01:00 Emergency E JOCELYN EATON MHSE MHSE [id number] [facility] 2021-09-25 21:46:00 2021-09-25 22:39:00 Emergency E SARAH WU MHSE MHSE [id number] [facility] 2021-08-18 18:36:00 2021-08-18 19:57:00 Emergency E AJ URBINA MHSE MHSE [id number] [facility] 2021-02-03 23:27:00 2021-02-04 03:04:00 Emergency Pricilla Slade [facility] [id number] [facility] 2021-02-03 23:27:00 2021-02-03 23:27:00 Emergency X PRICILLA SLADE [facility] ERT [id number] [facility] 2020-12-24 21:50:00 2020-12-25 02:16:00 Emergency EM Nawaf Her [facility] [id number] [facility] 2020-12-19 21:51:00 2020-12-20 04:15:00 Emergency E PRABHU MI BL BL [id number] [facility] 2020-08-16 22:18:00 2020-08-17 02:24:00 Emergency E BERNADETTE TOMLINSON [id number] 2020-06-18 18:18:00 2020-06-18 21:35:00 Emergency EM Antonio Lara [facility] [id number] [facility] 2019-04-10 21:45:00 2019-04-10 21:45:00 Emergency E [facility] 750[facility] Results Test Description Test Time Test Comments Results Result Co mments Source [facility]2020-12-25 00:56:00* Test Item Value Reference Range Interpretation Comme nts AG STREP GROUP A (THROAT) (test code = STREPA) Negative Negative Negative for Str ep A nucleic acid INFLUENZA A [id number] 00:56:00* Test Item Value Reference Range Interpretation Comme nts INFLUENZA A (test code = FLUAPCR) Negative Negative INFLUENZA B (test code = FLUBPCR) Negative Negative Coronavirus 2019 nCoV [id number] 00:41:00* Test Item Value Reference Range Interpretation Comme nts Coronavirus 2019 nCoV Bedside (test code = [id number]) NEGATIVE Negative Negative results should be treated as presumptive and, ifinconsistent with clinical signs and symptoms or necessaryfor patient management, should be tested with an alternativemolecular assay. Negative results do not preclude [id number]-[id number] and should not be used as the sole basis forpatient management decisions. Negative results should beconsidered in the context of a patient's recent exposures,history, presence of clinical signs and symptoms consistentwith COVID-19. AG STREP GROUP A (THROAT)2020-12-25 00:33:00* Test Item Value Reference Range Interpretation Comme nts AG STREP GROUP A (THROAT) (test code = STREPA) Negative Negative Negative for Str ep A nucleic acid INFLUENZA A [id number] 00:33:00* Test Item Value Reference Range Interpretation Comme nts INFLUENZA A (test code = FLUAPCR) Negative INFLUENZA B (test code = FLUBPCR) Negative - CT HEAD/BRAIN W/O [id number] 19:29:00 [facility] [place] : 1995 Sex: M Name: ANATOLY MCNEAL [facility] [place] : 1995 Age/S: 25 / M [address] Unit #: [id number] Loc: [place] [address] Phys: Shmuel Rodriguez Acct: [id number] Dis Date: Status: REG ER PHONE #: [phone] Exam Date: 08/15/20201901 FAX #: [phone] Reason: fall, occipital head strike, LOC, vomiting EXAMS: CPT CODE: [id number] CT HEAD/BRAIN W/O CONT 10490 Clinical In dication: Fall, occipital head strike, loss of point isthmus, vomiting; Comparison: None TECHNIQUE:CT images were obtained from the foramen magnum to the vertex and cervical spine without the use ofintravenous contrast on a multidetector CT. Coronal and sagittal reconstructions were obtained. CT imaging performed at this location utilizes radiation dose optimization techniques which include oneor more of the following: -Automated exposure control [...] are normal. ORBITS, MASTOIDS AND PARANASAL SINUSES: Thevisualized orbits and paranasal sinuses are unremarkable. The [...] 1 Signed Report (CONTINUED) Name: ANATOLY MCNEAL [facility] : 1995 Age/S: 25 / M [address] [place], [place] [address]vd Unit #: [id number]: [place] [address] Phys: Shmuel Rodriguez Acct: [id number] Dis Date: Status: REG ER PHONE #: [phone] Exam Date: 08/15/20201901 FAX #: [phone] Reason: fall, occipital head strike, LOC, vomiting EXAMS: CPT CODE: [id number] CT HEAD/BRAIN W/O CONT 80593 <Continued> and spinous processes are unremarkable. The [...] CC: Antonio Lara MD; Shmuel HOLLY Technologist:Yasmin Matias, RT(R)(CT) CTDI: DLP: Trnscb Date/Time: 08/15/2020 (1928) [email or web address] Orig Print D/T: S: 08/15/2020 (1931) PAGE 2 Signed Report- CT C-SPINE W/O [id number] 19:29:00 [facility] : 1995 Sex: M Name: ANATOLY MCNEAL [facility] : 1995 Age/S: 25 / M [address] [place] [address] Blvd Unit #: [id number] Loc: [place] [address] Phys: Shmuel Rodriguez Acct: [id number] Dis Date: Status: REG ER PHONE #: [phone] Exam Date: 08/15/20201901 FAX #: [phone] Reason: fall, occipital head strike, LOC, vomiting EXAMS: CPT CODE: [id number] CT C-SPINE W/O CONT 10123 Clinical Ind ication: Fall, occipital head strike, loss of point isthmus, vomiting; Comparison: None TECHNIQUE: CT images were obtained from the foramen magnum to the vertex and cervical spine without the use ofintravenous contrast on a multidetector CT. Coronal and sagittal reconstructions were obtained. CT imaging performed at this location utilizes radiation dose optimization techniques which include oneor more of the following: -Automated exposure control [...] AND GENERAL ASSESSMENT: Mild reversal of the cervicallordosis, likely positional due to muscle spasm. There is normal alignment of the cervical spine. There are no fractures or subluxations. The craniocervical junction is normal. The atlanto- dental alignment appears unremarkable. The posterior elements PAGE 1 Signed Report (CONTINUED) Name: ANATOLY MCNEAL [facility] : 1995 Age/S: 25 / M [address] [place] [address] Blvd Unit #: [id number] Loc: [place] [address] Phys: Shmuel Rodriguez Acct: [id number] Dis Date: Status: REG ER PHONE #: [phone] Exam Date: 08/15/20201901 FAX #: [phone] Reason: fall, occipital head strike, LOC, vomiting EXAMS: CPT CODE: [id number] CT C-SPINE W/O CONT 56260 <Continued> and spinous processes are unremarkable. The [...] concern. IMPRESSION: CT head: 1. No acute i ntracranial abnormality. 2. Midline parieto-occipital scalp swelling. No calvarial fracture. CT cervical spine: No fractures or subluxations of the cervical spine. SL: APATIL-H at 1929 Reported and signed by: Wanda Rodriguez M.D. CC: Antonio Lara MD; Shmuel HOLLY Technologist:Yasmin Matias, RT(R)(CT) CTDI: DLP: Trnscb Date/Time: 08/15/2020 (1928) [email or web address] Orig Print D/T: S: 08/15/2020 (1931) PAGE 2 Signed Report- XR CHEST 1 [id number] 19:10:00 [facility] [place] : 1995 Sex: M FAX: Antonio Lara MD [phone] [place]: St: REG FAX: Shmuel Rodriguez [phone] ---- Name: FREDISANATOLY LAMAS [facility] : 1995 Age/S: 25/M [address] [place] [address] Unit #: [id number] Loc: [place] [address] Phys: Shmuel Rodriguez Acct: [id number] Dis Date: Status: REG ER PHONE #: [phone] Exam Date: 08/15/2020 1904 FAX #: [phone] Reason: trauma EXAMS: CPT CODE: [id number] XR CHEST 1 V 83349 Portable single view AP chest INDICATION: Fall. Injury. Comparison: 06/10/2020 chest x-ray FINDINGS: The cardiomediastinal silhouette is normal in size. Lungs are clear. Costophrenic angles are sharp. No suspicious osseous abnormality is seen. IMPRESSION: No evidence for acute cardiopulmonary disease. SL: SG-H t 1909 Reported and signed by: Jose C Joshi M.D. CC: Antonio Lara MD; Shmuel HOLLY Technologist: Suma Lynch, RT(R); Judith Savage RT(R) Trnscrd Date/Time/By: 08/15/2020 (1909) :By: [email or web address] Orig Print D/T: S: 08/15/2020 (1912) PAGE 1 Signed Report BASIC METABOLIC [id number] 20:21:00* Test Item Value Reference Range Interpretation Comme nts SODIUM (test code = NA) 140 mEq/L 134-147 N POTASSIUM (test code = K) 4.0 mEq/L 3.4-5.0 N CHLORIDE (test code = CL) 108 mEq/L 100-108 N CARBON DIOXIDE (test code = CO2) 24 mEq/l 21-33 N ANION GAP (test code = GAP) 12 0-20 N GLUCOSE (test code = GLU) 108 mg/dL 70-110 N BLOOD UREA NITROGEN (test code = BUN) 16 mg/dL 7-18 N GLOMERULAR FILTRATION RATE (test code = GFR) 102.8 110-120 L Units of measure = ml/min/1.73 m2 CREATININE (test code = CREAT) 0.9 mg/dL 0.6-1.3 N CALCIUM (test code = CA) 9.8 mg/dL 8.0-10.5 N [id number] 20:21:00* Test Item Value Reference Range Interpretation Comme nts TROPONIN-I (test code = TROPI) < 0.006 ng/mL 0.000-0.045 N Negative: <= 0.0 45 Positive: >= 0.046 Correlation with serial results, other cardiac markers andclinical findings is necessary to determine the clinicalsignificance of this result. Results using different methodologies should not be comparedto one another as quantitative results may vary by method. BASIC METABOLIC [id number] 20:20:00* Test Item Value Reference Range Interpretation Comme nts SODIUM (test code = NA) mEq/L 134-147 POTASSIUM (test code = K) mEq/L 3.4-5.0 CHLORIDE (test code = CL) mEq/L 100-108 CARBON DIOXIDE (test code = CO2) mEq/l 21-33 ANION GAP (test code = GAP) 0-20 GLUCOSE (test code = GLU) mg/dL 70-110 BLOOD UREA NITROGEN (test code = BUN) mg/dL 7-18 GLOMERULAR FILTRATION RATE ( test code = GFR) 110-120 CREATININE (test code = CREAT) mg/dL 0.6-1.3 CALCIUM (test code = CA) mg/dL 8.0-10.5 [id number] 20:20:00* Test Item Value Reference Range Interpretation Comme [facility] TROPONIN-I (test code = TROPI) < 0.006 ng/mL 0.000-0.045 N Negative: <= 0.0 45 Positive: >= 0.046 Correlation with serial results, other cardiac markers andclinical findings is necessary to determine the clinicalsignificance of this result. Results using different methodologies should not be comparedto one another as quantitative results may vary by method. [id number] 20:16:00* Test Item Value Reference Range Interpretation Comme [facility] D-DIMER (test code = DDIMER) 364 ng/mlFEU See_Comment N THROMBOSIS AND/O R PULMONARY EMBOLISM AND THE CLINICAL CUT- OFF VALUE FOR EXCLUSION (500 ng/mL FEU) OF THESE CONDITIONSIS VALIDATED BY THE WAREHOUSE RECEIVER OF THE METHOD. A NEGATIVE D-DIMER RESULT WHEN COMBINED WITH A CLINICALASSESSMENT OF LOW PRETEST PROBABILITY HAS BEEN SHOWN TO HAVEA HIGH NEGATIVE PREDICTIVE VALUE OF DVT OR PE. D-DIMER VALUES >500 ng/mL FEU ARE NOT DIAGNOSTIC FOR DVT, PEor DIC WITHOUT OTHER CONFIRMATORY TESTS AND APPROPRIATECLINICAL EUALUATIONS. [Automated message] The system which generated this result transmitted reference range: <=500. The reference range was not used to interpret this result as normal/abnormal. CBC W/AUTO [id number] 20:06:00* Test Item Value Reference Range Interpretation Comme nts WHITE BLOOD CELL (test code = WBC) 9.3 x10 3/uL 4.5-11.0 N RED BLOOD CELL (test code = RBC) 5.45 x10 6/uL 4.00-5.60 N HEMOGLOBIN (test code = HGB) 15.0 g/dL 12.5-16.9 N HEMATOCRIT (test code = HCT) 44.6 % 37.5-50.7 N MEAN CELL VOLUME (test code = MCV) 81.8 fL 81.0-99.0 N MEAN CELL HGB (test code = MCH) 27.5 pg 27.0-33.0 N MEAN CELL HGB CONCETRATION (test code = MCHC) 33.6 g/dL 33.0-37.0 N RED CELL DISTRIBUTION WIDTH CV (test code = RDW) 13.0 % 11.5-14.5 N RED CELL DISTRIBUTION WIDTH SD (test code = RDW-SD) 38.3 fL 37.0-54.0 N PLATELET COUNT (test code = PLT) 288 x10 3/uL 150-400 N MEAN PLATELET VOLUME (test c ode = MPV) 10.7 fL 7.0-9.0 H NEUTROPHIL % (test code = NT%) 68.1 % 56.0-77.0 N IMMATURE GRANULOCYTE % (test code = IG%) 0.3 % 0.0-2.0 N LYMPHOCYTE % (test code = LY%) 19.6 % 14.0-32.0 N MONOCYTE % (test code = MO%) 8.3 % 4.8-9.0 N EOSINOPHIL % (test code = EO%) 2.8 % 0.3-3.7 N BASOPHIL % (test code = BA%) 0.9 % 0.0-2.0 N NUCLEATED RBC % (test code = NRBC%) 0.0 % 0-0 N NEUTROPHIL # (test code = NT#) 6.32 x10 3/uL 2.0-7.6 N IMMATURE GRANULOCYTE # (test code = IG#) 0.03 x10 3/uL 0.00-0.03 N LYMPHOCYTE # (test code = LY#) 1.82 x10 3/uL 1.0-3.8 N MONOCYTE # (test code = MO#) 0.77 x10 3/uL 0.1-0.8 N EOSINOPHIL # (test code = EO#) 0.26 x10 3/uL 0.0-0.2 H BASOPHIL # (test code = BA#) 0.08 x10 3/uL 0.0-0.2 N NUCLEATED RBC # (test code = NRBC#) 0.00 x10 3/uL 0.0-0.1 N MANUAL DIFF REQUIRED (test c ode = MDIFF) NO CBC W/AUTO [id number] 20:02:00* Test Item Value Reference Range Interpretation Comme nts WHITE BLOOD CELL (test code = WBC) x10 3/uL 4.5-11.0 RED BLOOD CELL (test code = RBC) x10 6/uL 4.00-5.60 HEMOGLOBIN (test code = HGB) 15.0 g/dL 12.5-16.9 N HEMATOCRIT (test code = HCT) 44.6 % 37.5-50.7 N MEAN CELL VOLUME (test code = MCV) fL 81.0-99.0 MEAN CELL HGB (test code = MCH) pg 27.0-33.0 MEAN CELL HGB CONCETRATION ( test code = MCHC) g/dL 33.0-37.0 RED CELL DISTRIBUTION WIDTH CV (test code = RDW) % 11.5-14.5 PLATELET COUNT (test code = PLT) 288 x10 3/uL 150-400 N NEUTROPHIL % (test code = NT%) % 56.0-77.0 LYMPHOCYTE % (test code = LY%) % 14.0-32.0 NEUTROPHIL # (test code = NT#) x10 3/uL 2.0-7.6 LYMPHOCYTE # (test code = LY#) x10 3/uL 1.0-3.8 MANUAL DIFF REQUIRED (test c ode = MDIFF) - XR CHEST 1 [id number] 19:27:00 [facility] : 1995 Sex: M FAX: Antonio Lara MD [phone] [place]: St: DEP Name: ANATOLY MCNEAL [facility] [place] : 1995 Age/S: 25/M [address] [place] [address] Unit #: [id number] Loc: [place] [address] Phys: Antonio Lara MD Acct: [id number] Dis Date: Status: DEP ER PHONE #: [phone] Exam Date: 06/18/20201855 FAX #: [phone] Reason: chest pain, SOB EXAMS: CPT CODE: [id number] XR CHEST 1 V 91116 SINGLE VIEW RADIOGRAPH CHEST INDICATION: Chest pain and dyspnea. TECHNIQUE: A single view frontal radiograph of the chest was obtained. COMPARISONS: Chest x-ray 09/06/2019 FINDINGS: There is no acute osseousfracture or dislocation. There is no subdiaphragmatic free gas. The cardiomediastinal size and contour are normal. There is no pneumothorax, pleural effusion or organized pneumonia. IMPRESSION: 1. Noacute cardiopulmonary process. at 1927 Reported and signed by: Sergio Rose D.O. CC: Antonio Lara MD Technologist: Kae Dior RT(R) Trnscrd Date/Time/By: 06/18/2020 (1926) : By: [email or web address] Orig Print D/T: S: 06/18/2020 (1929) PAGE 1 Signed Report- XR CHEST 1 V 2020-06-18 19:27:00 [facility] : 1995 Sex: M FAX: Antonio Lara MD [phone] [place]: St: REG Name: ANATOLY MCNEAL [facility] [place] : 1995 Age/S: 25/M [address] [place] [address] Unit #: [id number] Loc: [place] [address] Phys: Antonio Lara MD Acct: [id number] Dis Date: Status: REG ER PHONE #: [phone] Exam Date: 06/18/2020 1856 FAX #: [phone] Reason: chest pain, SOB EXAMS: CPT CODE: [id number] XR CHEST 1 V 06744 SINGLE VIEW RADIOGRAPH CHEST INDICATION: Chest pain and dyspnea. TECHNIQUE: A single view frontal radiograph of the chest was obtained. COMPARISONS: Chest x-ray 09/06/2019 FINDINGS: There is no acute osseousfracture or dislocation. There is no subdiaphragmatic free gas. The cardiomediastinal size and contour are normal. There is no pneumothorax, pleural effusion or organized pneumonia. IMPRESSION: 1. No acute cardiopulmonary process. t 1926 Reported and signed by: Sergio Rose D.O. CC: Antonio Lara MD Technologist: RT Carlnee(R) Trnscrd Date/Time/By: 06/18/2020 (1926) : By: [email or web address] Orig Print D/T: S: 06/18/2020 (1929) PAGE 1 Signed ReportNovel Coronavirus 2019 2019-09-07 14:02:00* Test Item Value Reference Range Interpretation Comme nts Novel Coronavirus 2019 Inhouse (test code = [id number]) Negative Negative Positive resul ts are indicative of the presence [id number] RNA, clinical correlation with patient historyand other diagnostic information is necessary to determinepatient infection status. Positive results do not rule outbacterial infection or co-infection with other viruses. Negative results do not preclude SARS-CoV-2 infection andshould not be used as the sole basis for patient managementdecisions. Negative results must be combined with otherclinical observations, patient history, and epidemiologicalinformation . Detection of SARS-CoV-2 RNA may be affected bysample collection methods, storage conditions, and/or stageof infection. Viral RNA mutations, vaccinations, antiviraltherapeutics, antibiotics, chemotherapeutic orimmunosuppressant drugs have not been evaluated for effectson detection. Results are for the identification of SARS-CoV-2 RNA usingthe Printed Piece M2000 System under the FDA Emergency UseAuthorization. The testing is performed by personneltrained in the procedures for the [employer] M2000 moleculardiagnostic SARS-CoV-2 assay in vitro. Testing Criteria: Fever Cough OtherOther: GENERALIZED WEAKNESSCOMMENTS: ORDER PUT IN FOR DR JOSE MIGUEL Reddy [id number] 00:31:00* Test Item Value Reference Range Interpretation Comme nts INFLUENZA A (test code = FLUAPCR) Negative Negative INFLUENZA B (test code = FLUBPCR) Negative Negative COMMENTS: SwabBASIC METABOLIC [id number] 00:19:00* Test Item Value Reference Range Interpretation Comme nts SODIUM (test code = NA) 139 mEq/L 134-147 N POTASSIUM (test code = K) 3.6 mEq/L 3.4-5.0 N CHLORIDE (test code = CL) 104 mEq/L 100-108 N CARBON DIOXIDE (test code = CO2) 27 mEq/L 21-33 N ANION GAP (test code = GAP) 12 0-20 N GLUCOSE (test code = GLU) 88 mg/dL 70-110 N BLOOD UREA NITROGEN (test code = BUN) 10 mg/dL 7-18 N GLOMERULAR FILTRATION RATE (test code = GFR) 82.2 110-120 L Units of measure = ml/min/1.73 m2 CREATININE (test code = CREAT) 1.1 mg/dL 0.6-1.3 N CALCIUM (test code = CA) 9.3 mg/dL 8.0-10.5 N HEPATIC FUNCTION [id number] 00:19:00* Test Item Value Reference Range Interpretation Comme nts TOTAL PROTEIN (test code = PROT) 8.0 g/dL 6.4-8.2 N ALBUMIN (test code = ALB) 4.30 g/dL 3.4-5.0 N BILIRUBIN TOTAL (test code = BILT) 0.5 MG/DL <1.5 N BILIRUBIN DIRECT (test code = BILD) 0.20 MG/DL 0.0-0.30 N BILIRUBIN INDIRECT (test cod e = BILIND) 0.30 MG/DL SGOT/AST (test code = AST) 13 IUnit/L 15-37 L SGPT/ALT (test code = ALT) 22 IUnit/L 15-65 N ALKALINE PHOSPHATASE TOTAL ( test code = ALKP) 74 IUnit/L 20-125 N BASIC METABOLIC [id number] 00:13:00* Test Item Value Reference Range Interpretation Comme nts SODIUM (test code = NA) 139 mEq/L 134-147 N POTASSIUM (test code = K) 3.6 mEq/L 3.4-5.0 N CHLORIDE (test code = CL) 104 mEq/L 100-108 N CARBON DIOXIDE (test code = CO2) 27 mEq/L 21-33 N ANION GAP (test code = GAP) 12 0-20 N GLUCOSE (test code = GLU) 88 mg/dL 70-110 N BLOOD UREA NITROGEN (test co de = BUN) 10 mg/dL 7-18 N GLOMERULAR FILTRATION RATE ( test code = GFR) 110-120 CREATININE (test code = CREAT) mg/dL 0.6-1.3 CALCIUM (test code = CA) 9.3 mg/dL 8.0-10.5 N HEPATIC FUNCTION [id number] 00:13:00* Test Item Value Reference Range Interpretation Comme nts TOTAL PROTEIN (test code = PROT) g/dL 6.4-8.2 ALBUMIN (test code = ALB) g/dL 3.4-5.0 BILIRUBIN TOTAL (test code = BILT) MG/DL <1.5 BILIRUBIN DIRECT (test code = BILD) MG/DL 0.0-0.30 SGOT/AST (test code = AST) IUnit/L 15-37 SGPT/ALT (test code = ALT) IUnit/L 15-65 ALKALINE PHOSPHATASE TOTAL ( test code = ALKP) IUnit/L 20-125 CBC W/AUTO [id number] 00:05:00* Test Item Value Reference Range Interpretation Comme nts WHITE BLOOD CELL (test code = WBC) 8.84 x10 3/uL 4.5-11.0 N RED BLOOD CELL (test code = RBC) 5.91 x10 6/uL 4.00-5.60 H HEMOGLOBIN (test code = HGB) 16.0 g/dL 12.5-16.9 N HEMATOCRIT (test code = HCT) 48.5 % 37.5-50.7 N MEAN CELL VOLUME (test code = MCV) 82.1 fL 81.0-99.0 N MEAN CELL HGB (test code = MCH) 27.1 pg 27.0-33.0 N MEAN CELL HGB CONCETRATION (test code = MCHC) 33.0 g/dL 33.0-37.0 N RED CELL DISTRIBUTION WIDTH CV (test code = RDW) 12.9 % 11.5-14.5 N RED CELL DISTRIBUTION WIDTH SD (test code = RDW-SD) 38.5 fL 37.0-54.0 N PLATELET COUNT (test code = PLT) 272 x10 3/uL 150-400 N MEAN PLATELET VOLUME (test c ode = MPV) 10.6 fL 7.0-9.0 H NEUTROPHIL % (test code = NT%) 70.9 % 56.0-77.0 N IMMATURE GRANULOCYTE % (test code = IG%) 0.1 % 0.0-2.0 N LYMPHOCYTE % (test code = LY%) 20.6 % 14.0-32.0 N MONOCYTE % (test code = MO%) 6.3 % 4.8-9.0 N EOSINOPHIL % (test code = EO%) 1.2 % 0.3-3.7 N BASOPHIL % (test code = BA%) 0.9 % 0.0-2.0 N NUCLEATED RBC % (test code = NRBC%) 0.0 % 0-0 N NEUTROPHIL # (test code = NT#) 6.26 x10 3/uL 2.0-7.6 N IMMATURE GRANULOCYTE # (test code = IG#) 0.01 x10 3/uL 0.00-0.03 N LYMPHOCYTE # (test code = LY#) 1.82 x10 3/uL 1.0-3.8 N MONOCYTE # (test code = MO#) 0.56 x10 3/uL 0.1-0.8 N EOSINOPHIL # (test code = EO#) 0.11 x10 3/uL 0.0-0.2 N BASOPHIL # (test code = BA#) 0.08 x10 3/uL 0.0-0.2 N NUCLEATED RBC # (test code = NRBC#) 0.00 x10 3/uL 0.0-0.1 N MANUAL DIFF REQUIRED (test c ode = MDIFF) NO - XR CHEST 2 [id number] 23:38:00 [facility] : 1995 Sex: M FAX: Ernesto Swanson MD [phone] [place]: St: DEP Name: ANATOLY MCNEAL [facility] [place] : 1995 Age/S: 24/M [address] [place] [address] Unit #: [id number] Loc: [place] [address] Phys: Ernesto Colunga MD Acct: [id number] Dis Date: Status: DEP ER PHONE #: [phone] Exam Date: 09/06/20192330 FAX #: [phone] Reason: Chest Pain EXAMS: CPT CODE: [id number] XR CHEST 2 V 42858 Chest, 2 views dated 09/06/2019. HISTORY: Chest [...] MD Technologist: RT Jeremie(Timothy) Trncatalina Date/Time/By: 09/06/2019 (8362) : By: SharonM Orig Print D/T: S: 09/06/2019 (0907) PAGE 1 Signed Report- XR CHEST 2 [id number] 23:38:00FAX: Ernesto Swanson MD [phone] [place]: St: REG Name: ANATOLY MCNEAL [facility] [place] : 1995 Age/S: 24/M [address] [place] [address] Unit #: [id number] Loc: [place] [address] Phys: Ernesto Colunga MD Acct: [id number] Dis Date: Status: REG ER PHONE #: [phone] Exam Date: 09/06/20192330 FAX #: [phone] Reason: Chest Pain EXAMS: CPT CODE: [id number] XR CHEST 2 V 14086 Chest, 2 views dated 09/06/2019. HISTORY: Chest pain. Comparison is made to a prior study dated 05/20/2018. Theheart is normal in size. The cardiac mediastinal shadow appears within normal limits. The lungs appear clear. The palmar vasculature is normal in caliber. No acute pleural space abnormalities are dete cted. IMPRESSION: 1. No radiographic evidence of acute cardiopulmonary disease. SL: 131 at 2338 Reported and signed by: Kanu Pinto M.D. CC: Ernesto Colunga MD Technologist: Felicia Comer RT(R) Trnscrd Date/Time/By: 09/06/2019 (9165) : By: Flor Orig Print D/T: S: 09/06/2019 (0374) PAGE 1 Signed Report- CT ABD PELVIS W/[id number] 00:20:00 [facility] [place] : 1995 Sex: M FAX: Dariusz Junior DO [phone] [place]: St: [facility] Name: ANATOLY MCNEAL [facility] : 1995 Age/S:24/M [address] [facility] [address] Unit: [id number] Loc: [place], [place] Phys: Dariusz Junior [id number] Acct: [id number] Dis Date: Status: [facility] ER PHONE #: [phone] Exam Date: 05/25/2019 0005 FAX #: [phone] Reason: abdominal pain EXAMS: CPT CODE: [id number] CT ABD PELVIS W/CONT 67918 EXAM: CT ABDOMEN AND PELVIS WITH IV CONTRAST DICTATION LOCATION: H48 HISTORY: Male, 24 years of age with periumbilical abdominal pain for one week TECHNIQUE: Contrast: Nonionic IV contrast was given. NoGI contrast was given. Portal venous phase: Abdomen and pelvis Delayed phase: None Reconstructions:Coronal and sagittal One or more of the [...] is patent. PAGE 1 Signed Report (CONTINUED) FAX:Dariusz Junior DO [phone] [place]: St: DEP Name: ANATOLY MCNEAL [facility] : 1995 Age/S: 24/M [address] [facility] [facility] Unit: [id number] Loc: [place], [place]: [place] [id number] Acct: [id number] Dis Date: Status: DEP ER PHONE #: [phone] Exam Date: 05/25/2019 0005 FAX #: [phone] Reason: abdominal pain EXAMS: CPT CODE: [id number] CT ABD PELVIS W/CONT 63823 <Continued> Lymphatics: No enlarged lymph nodes by CT size criteria. Bones/Soft Tissues: No acute osseousfindings. No ventral hernias. Peritoneum/Other: No free intraperitoneal air. No free intraperitoneal fluid. IMPRESSION: Unremarkable CT of the abdomen and pelvis. at 0020 Reported and signed by: Ale Escamilla M.D. CC: Dariusz Junior DO Technologist: CORA Downey Dt/Tm: 05/26/2019 (0020) [email or web address] Orig Print D/T: S: 05/26/2019 (2020 PAGE 2 Signed Report- CT ABD PELVIS [id number] 00:20:00FAX: Dariusz Junior DO [phone] [place]: St: REG Name: ANATOLY MCNEAL [facility] : 1995 Age/S: 24/M [address] Unit: [id number] Loc: [place] [place], [place]: [place] [id number] Acct: [id number] Dis Date: Status: REG ER PHONE #: [phone] Exam Date: 05/25/2019 0005 FAX #: [phone] Reason: abdominal pain EXAMS: CPT CODE: [id number] CT ABD PELVIS W/CONT 27891 EXAM: CT ABDOMEN AND PELVIS WITH IV CONTRAST DICTATION LOCATION: H48 HISTORY: Male, 24 years of age with periumbilical abdominal pain for one week TECHNIQUE: Contrast: Nonionic IV contrast was given. NoGI contrast was given. Portal venous phase: Abdomen and pelvis Delayed phase: None Reconstructions:Coronal and sagittal One or more of the [...] Genitourinary: No solid renal mass, significant cortical thi nning, obvious renal stone or hydronephrosis. Ureters are unremarkable. Urinary bladder is unremarkable. The visualized reproductive organs are unremarkable. Gastrointestinal: No bowel wall thickening, bowel obstruction or perienteric inflammation. The appendix is normal. Vascular: No aortic aneurysm or dissection. IVC is unremarkable. Portal vein is patent. PAGE 1 Signed Report (CONTINUED) FAX:Dariusz Junior DO [phone] [place]: St: REG Name: ANATOLY MCNEAL [facility] : 1995 Age/S: 24/M [address] [facility] Unit: [id number] Loc: E.ERS[address] [place], [place] Phys: Dariusz Junior [id number]: [id number] Dis Date: Status: REG ER PHONE #: [phone] Exam Date: 05/25/2019 0005 FAX #: [phone] Reason: abdominal pain EXAMS: CPT CODE: [id number] CT ABD PELVIS W/CONT 88739 <Continued> Lymphatics: No enlarged lymph nodes by CT size criteria. Bones/Soft Tissues: No acute osseous findings. No ventral hernias. Peritoneum/Other: No free intraperitoneal air. No free intraperitoneal fluid. IMPRESSION: Unremarkable CT of the abdomen and pelvis. at 0020 Reported and signed by: Ale Escamilla M.D. CC: Dariusz Junior DO Technologist: CORA Downey Dt/Tm: 05/26/2019 (0020) [email or web address] Orig Print D/T: S: 05/26/2019 (0820 PAGE 2 Signed ReportBASIC METABOLIC [id number] 23:28:00* Test Item Value Reference Range Interpretation Comme nts SODIUM (test code = NA) 138 mmol/l 134.0-147.0 N POTASSIUM (test code = K) 4.7 mmol/L 3.6-5.2 N CHLORIDE (test code = CL) 101 mmol/l 98.0-107.0 N CARBON DIOXIDE (test code = CO2) 31.6 mmol/l 21.0-33.0 N ANION GAP (test code = GAP) 10.1 0-20 N GLUCOSE (test code = GLU) 83 mg/dl 70.0-110.0 N BLOOD UREA NITROGEN (test co de = BUN) 18 mg/dl 7.0-18.0 N CREATININE (test code = CREAT) 1.15 mg/dL 0.60-1.30 N GFR NON BLACK (test code = GFRNONBLACK) 83 mL/min 110-120 L GFR BLACK (test code = GFRBLACK) 100 mL/min 133-145 L CALCIUM (test code = CA) 9.3 mg/dl 8.0-10.5 N HEPATIC FUNCTION PANEL [id number] 23:28:00* Test Item Value Reference Range Interpretation Comme nts TOTAL PROTEIN (test code = PROT) 7.5 GM/DL 6.0-8.1 N ALBUMIN (test code = ALB) 3.9 gm/dL 3.2-4.7 N BILIRUBIN TOTAL (test code = BILT) 0.4 mg/dl 0.0-1.0 N BILIRUBIN DIRECT (test code = BILD) <0.1 mg/dl 0.0-0.3 N SGOT/AST (test code = AST) 43 Units/L 15.0-37.0 H SAMPLE 1-2+ HEMOLYSED, REDRAW IF DEEMED NECESSARY. SGPT/ALT (test code = ALT) 33 Units/L 12.0-78.0 N ALKALINE PHOSPHATASE TOTAL (test code = ALKP) 73 Units/L 50.0-136.0 N [id number] 23:28:00* Test Item Value Reference Range Interpretation Comme nts LIPASE (test code = LIP) 96 Units/L 65.0-230.0 N URINALYSIS [id number] 23:21:00* Test Item Value Reference Range Interpretation Comme nts UA COLOR (test code = COLU) YELLOW UA APPEARANCE (test code = APPU) CLEAR UA GLUCOSE DIPSTICK (test code = DGLUU) NORMAL mg/dl NORMAL UA BILIRUBIN DIPSTICK (test code = BILU) NEGATIVE mg/dL NEGATIVE UA KETONE DIPSTICK (test code = KETU) NEGATIVE mg/dl NEGATIVE UA SPECIFIC GRAVITY (test code = SGU) 1.010 1.000-1.030 UA BLOOD DIPSTICK (test code = ANAY) NEGATIVE Hector/micL NEGATIVE UA PH DIPSTICK (test code = DAVID) 7.0 5.0-9.0 UA PROTEIN DIPSTICK (test code = PROU) NEGATIVE mg/dl NEGATIVE UA UROBILINIOGEN DIPSTICK (test code = URO) NORMAL mg/dl NORMAL UA NITRITE DIPSTICK (test code = FLAVIA) NEGATIVE NEGATIVE UA LEUKOCYTE ESTERASE DIPSTICK (test code = LEUU) NEGATIVE Don/micL NEGATIVE UA WBC (test code = WBCU) 0-3 WBC/HPF NONE UA RBC (test code = RBCU) 0-2 RBC/HPF 0-3 UA EPITHELIAL CELLS (test code = EPIU) 0-3 EPI/HPF 0-3 UA BACTERIA (test code = BACU) FEW NONE UA MUCUS (test code = MUCU) 1+ Specimen comments: Clean CatchBASIC METABOLIC [id number] 23:20:00* Test Item Value Reference Range Interpretation Comme nts SODIUM (test code = NA) 138 mmol/l 134.0-147.0 N POTASSIUM (test code = K) 4.7 mmol/L 3.6-5.2 N CHLORIDE (test code = CL) 101 mmol/l 98.0-107.0 N CARBON DIOXIDE (test code = CO2) 31.6 mmol/l 21.0-33.0 N ANION GAP (test code = GAP) 10.1 0-20 N GLUCOSE (test code = GLU) mg/dl 70.0-110.0 BLOOD UREA NITROGEN (test co de = BUN) mg/dl 7.0-18.0 CREATININE (test code = CREAT) mg/dL 0.60-1.30 GFR NON BLACK (test code = GFRNONBLACK) mL/min 110-120 GFR BLACK (test code = GFRBLACK) mL/min 133-145 CALCIUM (test code = CA) mg/dl 8.0-10.5 HEPATIC FUNCTION PANEL [id number] 23:20:00* Test Item Value Reference Range Interpretation Comme nts TOTAL PROTEIN (test code = PROT) gm/dL 6.4-8.2 ALBUMIN (test code = ALB) gm/dl 3.2-4.7 BILIRUBIN TOTAL (test code = BILT) mg/dl 0.0-1.0 BILIRUBIN DIRECT (test code = BILD) mg/dl 0.0-0.3 SGOT/AST (test code = AST) Units/L 15.0-37.0 SGPT/ALT (test code = ALT) Units/L 12.0-78.0 ALKALINE PHOSPHATASE TOTAL ( test code = ALKP) Units/L 50.0-136.0 [id number] 23:20:00* Test Item Value Reference Range Interpretation Comme nts LIPASE (test code = LIP) Units/L 65.0-230.0 CBC W/AUTO [id number] 23:15:00* Test Item Value Reference Range Interpretation Comme nts WHITE BLOOD CELL (test code = WBC) 9.3 K/mm3 4.5-11.0 N RED BLOOD CELL (test code = RBC) 5.49 M/mm3 4.40-5.90 N HEMOGLOBIN (test code = HGB) 14.8 gm/dL 13.0-17.0 N HEMATOCRIT (test code = HCT) 43.7 % 36.0-48.0 N MEAN CELL VOLUME (test code = MCV) 79.6 UM3 80.0-94.0 L MEAN CELL HGB (test code = MCH) 27.0 UUG 25.5-32.5 N MEAN CELL HGB CONCETRATION (test code = MCHC) 33.9 gm/dL 29.0-35.5 N RED CELL DISTRIBUTION WIDTH (test code = RDW) 12.4 % 11.5-15.0 N RED CELL DISTRIBUTION WIDTH SD (test code = RDW-SD) 35.3 fL 34.8-50.2 N PLATELET COUNT (test code = PLT) 271 K/mm3 150-400 N MEAN PLATELET VOLUME (test c ode = MPV) 11.4 fl 7.4-10.4 H NEUTROPHIL % (test code = NT%) 59.6 % 49.0-76.0 N IMMATURE GRANULOCYTE % (test code = IG%) 0.1 % 0.0-0.4 N LYMPHOCYTE % (test code = LY%) 28.2 % 23.0-38.0 N MONOCYTE % (test code = MO%) 9.2 % 1.0-10.0 N EOSINOPHIL % (test code = EO%) 2.0 % 1.0-5.0 N BASOPHIL % (test code = BA%) 0.9 % 0.0-1.0 N NEUTROPHIL # (test code = NT#) 5.5 K/mm3 2.4-6.3 N IMMATURE GRANULOCYTE # (test code = IG#) 0.01 x10 3/uL 0.00-0.07 N LYMPHOCYTE # (test code = LY#) 2.6 K/mm3 1.2-4.0 N MONOCYTE # (test code = MO#) 0.9 K/mm3 0.0-0.6 H EOSINOPHIL # (test code = EO#) 0.2 K/MM3 0.0-0.7 N BASOPHIL # (test code = BA#) 0.1 K/mm3 0.0-0.2 N URINALYSIS [id number] 23:13:00* Test Item Value Reference Range Interpretation Comme nts UA COLOR (test code = COLU) YELLOW UA APPEARANCE (test code = APPU) CLEAR UA GLUCOSE DIPSTICK (test code = DGLUU) NORMAL mg/dl NORMAL UA BILIRUBIN DIPSTICK (test code = BILU) NEGATIVE mg/dL NEGATIVE UA KETONE DIPSTICK (test code = KETU) NEGATIVE mg/dl NEGATIVE UA SPECIFIC GRAVITY (test code = SGU) 1.010 1.000-1.030 UA BLOOD DIPSTICK (test code = ANAY) NEGATIVE Hector/micL NEGATIVE UA PH DIPSTICK (test code = DAVID) 7.0 5.0-9.0 UA PROTEIN DIPSTICK (test code = PROU) NEGATIVE mg/dl NEGATIVE UA UROBILINIOGEN DIPSTICK (test code = URO) NORMAL mg/dl NORMAL UA NITRITE DIPSTICK (test code = FLAVIA) NEGATIVE NEGATIVE UA LEUKOCYTE ESTERASE DIPSTICK (test code = LEUU) NEGATIVE Don/micL NEGATIVE UA WBC (test code = WBCU) WBC/HPF NONE UA RBC (test code = RBCU) RBC/HPF 0-3 UA EPITHELIAL CELLS (test code = EPIU) EPI/HPF 0-3 UA BACTERIA (test code = BACU) NONE Specimen comments: Clean CatchCOMPREHENSIVE METABOLIC [id number] 14:20:00* Test Item Value Reference Range Interpretation Comme nts SODIUM (test code = NA) 136 mEq/L 134-147 N POTASSIUM (test code = K) 3.9 mEq/L 3.4-5.0 N CHLORIDE (test code = CL) 103 mEq/L 100-108 N CARBON DIOXIDE (test code = CO2) 29 mEq/L 21-33 N ANION GAP (test code = GAP) 8 0-20 N GLUCOSE (test code = GLU) 108 mg/dL 70-110 N BLOOD UREA NITROGEN (test code = BUN) 16 mg/dL 7-18 N GLOMERULAR FILTRATION RATE (test code = GFR) 92.6 110-120 L Units of measure = ml/min/1.73 m2 CREATININE (test code = CREAT) 1.0 mg/dL 0.6-1.3 N TOTAL PROTEIN (test code = PROT) 8.2 g/dL 6.4-8.2 N ALBUMIN (test code = ALB) 4.30 g/dL 3.4-5.0 N CALCIUM (test code = CA) 9.0 mg/dL 8.0-10.5 N BILIRUBIN TOTAL (test code = BILT) 0.80 mg/dL 0.0-1.0 N SGOT/AST (test code = AST) 82 IUnit/L 15-37 H SGPT/ALT (test code = ALT) 42 IUnit/L 15-65 N ALKALINE PHOSPHATASE TOTAL (test code = ALKP) 89 IUnit/L 20-125 N [id number] 14:20:00* Test Item Value Reference Range Interpretation Comme nts LIPASE (test code = LIP) 89 IUnit/L 73-393 N COMPREHENSIVE METABOLIC [id number] 14:18:00* Test Item Value Reference Range Interpretation Comme nts SODIUM (test code = NA) 136 mEq/L 134-147 N POTASSIUM (test code = K) 3.9 mEq/L 3.4-5.0 N CHLORIDE (test code = CL) 103 mEq/L 100-108 N CARBON DIOXIDE (test code = CO2) 29 mEq/L 21-33 N ANION GAP (test code = GAP) 8 0-20 N GLUCOSE (test code = GLU) 108 mg/dL 70-110 N BLOOD UREA NITROGEN (test code = BUN) 16 mg/dL 7-18 N GLOMERULAR FILTRATION RATE (test code = GFR) 92.6 110-120 L Units of measure = ml/min/1.73 m2 CREATININE (test code = CREAT) 1.0 mg/dL 0.6-1.3 N TOTAL PROTEIN (test code = PROT) g/dL 6.4-8.2 ALBUMIN (test code = ALB) 4.30 g/dL 3.4-5.0 N CALCIUM (test code = CA) 9.0 mg/dL 8.0-10.5 N BILIRUBIN TOTAL (test code = BILT) mg/dL 0.0-1.0 SGOT/AST (test code = AST) 82 IUnit/L 15-37 H SGPT/ALT (test code = ALT) 42 IUnit/L 15-65 N ALKALINE PHOSPHATASE TOTAL (test code = ALKP) IUnit/L 20-125 [id number] 14:18:00* Test Item Value Reference Range Interpretation Comme nts LIPASE (test code = LIP) 89 IUnit/L 73-393 N CBC W/AUTO [id number] 14:06:00* Test Item Value Reference Range Interpretation Comme nts WHITE BLOOD CELL (test code = WBC) 12.09 x10 3/uL 4.5-11.0 H RED BLOOD CELL (test code = RBC) 6.29 x10 6/uL 4.00-5.60 H HEMOGLOBIN (test code = HGB) 16.9 g/dL 12.5-16.9 N HEMATOCRIT (test code = HCT) 52.2 % 37.5-50.7 H MEAN CELL VOLUME (test code = MCV) 83.0 fL 81.0-99.0 N MEAN CELL HGB (test code = MCH) 26.9 pg 27.0-33.0 L MEAN CELL HGB CONCETRATION (test code = MCHC) 32.4 g/dL 33.0-37.0 L RED CELL DISTRIBUTION WIDTH CV (test code = RDW) 12.8 % 11.5-14.5 N RED CELL DISTRIBUTION WIDTH SD (test code = RDW-SD) 39.4 fL 37.0-54.0 N PLATELET COUNT (test code = PLT) 257 x10 3/uL 150-400 N MEAN PLATELET VOLUME (test code = MPV) 10.7 fL 7.0-9.0 H NEUTROPHIL % (test code = NT%) 89.3 % 56.0-77.0 H IMMATURE GRANULOCYTE % (test code = IG%) 0.3 % 0.0-2.0 N LYMPHOCYTE % (test code = LY%) 4.2 % 14.0-32.0 L MONOCYTE % (test code = MO%) 5.3 % 4.8-9.0 N EOSINOPHIL % (test code = EO%) 0.7 % 0.3-3.7 N BASOPHIL % (test code = BA%) 0.2 % 0.0-2.0 N NUCLEATED RBC % (test code = NRBC%) 0.0 % 0-0 N NEUTROPHIL # (test code = NT#) 10.79 x10 3/uL 2.0-7.6 H IMMATURE GRANULOCYTE # (test code = IG#) 0.04 x10 3/uL 0.00-0.03 H LYMPHOCYTE # (test code = LY#) 0.51 x10 3/uL 1.0-3.8 L MONOCYTE # (test code = MO#) 0.64 x10 3/uL 0.1-0.8 N EOSINOPHIL # (test code = EO#) 0.09 x10 3/uL 0.0-0.2 N BASOPHIL # (test code = BA#) 0.02 x10 3/uL 0.0-0.2 N NUCLEATED RBC # (test code = NRBC#) 0.00 x10 3/uL 0.0-0.1 N MANUAL DIFF REQUIRED (test code = MDIFF) NO - XR ABD ACUTE [id number] 12:00:00 [facility] : 1995 Sex: M FAX: Shmuel Rodriguez [phone] Graham: REMA St: [place] Name: ANATOLY MCNEAL [facility] : 1995 Age/S: 23/M [address] [place] [address] Blvd Unit #: [id number] Loc: [place] [address] Phys: Shmuel Rodriguez Acct: [id number] Dis Date: Status: UNK PHONE #: [phone] Exam Date: 05/20/2018 1152 FAX#: [phone] Reason: vomiting, cough chest discomfort EXAMS: CPT CODE: [id number] XR ABD ACUTE W/CHEST 88034 PROCEDURE: ABDOMINAL SERIES WITH SINGLE VIEW CHEST INDICATION: vomiting, cough chest discomfort COMPARISON: CXR April 2014, CT abdomen October 2014 FINDINGS: ABDOMEN: Air-fluid levels within normal caliber small and large bowel. No free intraperitoneal air. No soft tissue masses or pathologic calcifications. Radiographic evidence for splenomegaly. Skeleton is intact. Lower pelvis not included in the [id number]. CHEST: The lungs are clear. The pleura, cardiomediastinal silhouette and bony thorax are normal. IMPRESSION: 1. Air-fluid levels within normal caliber small and large bowel suggesting an enteritis. No definite obstruction. 2. Possible splenomegaly. 3. Negative chest. SL: [id number] at 1200 Reported and signed by: Senthil Venegas M.D. CC: Shmuel HOLLY Technologist: RT David(Timothy) Trnscrd Date/Time/By: 05/20/2018 (1200) : By: Nkechi Orig Print D/T: S: 05/20/2018 (4384) PAGE 1 Signed Report- XR ABD ACUTE [id number] 12:00:00FAX: Shmuel Rodriguez [phone] Graham: St: REG Name: ANATOLY MCNEAL [facility] : 1995 Age/S: 23/M [address] [place] [address] Unit #: [id number] Loc: [place] [address] Phys: Shmuel Rodriguez Acct: [id number] Dis Date: Status: REG ER PHONE #: [phone] Exam Date: 05/20/2018 1152 FAX #: [phone] Reason: vomiting, cough chest discomfort EXAMS: CPT CODE: [id number] XR ABD ACUTE W/CHEST 04936 PROCEDURE: ABDOMINAL SERIES WITH SINGLE VIEW CHEST INDICATION: vomiting, cough chest discomfort COMPARISON: CXR April 2014, CT abdomen October 2014 FINDINGS: ABDOMEN: Air-fluid levels within normal caliber small and large bowel. No free intraperitoneal air. No soft tissue masses or pathologic calcifications. Radiographic evidence for splenomegaly. Skeleton is intact. Lower pelvis not included in the [id number]. CHEST: The lungs are clear. The pleura, cardiomediastinal silhouette and bony thorax are normal. IMPRESSION: 1. Air-fluid levels within normal caliber small and large bowel suggesting an enteritis. No definite obstruction. 2. Possible splenomegaly. 3. Negative chest. SL: [id number] at 1200 Reported and signed by: Senthil Venegas M.D. CC: Shmuel HOLLY Technologist: RT David(Timothy) Trnscrd Date/Time/By: 05/20/2018 (1200) : By: Nkechi Orig Print D/T: S: 05/20/2018 (7008) PAGE 1 Signed Report- CT ABD PELVIS W/[id number] 01:47:00 [facility] AN[facility] [facility] : 1995 Sex: M Name: ANATOLY MCNEAL [facility] : 1995 Age/S: 19 / M [address] Unit #: [id number] Loc: [place] [address] Phys: Brian Albrecht III, MD Acct: [id number] Dis Date: Status: UNK PHONE #: [phone] Exam Date: 10/28/2014 0140 FAX #: Reason: Abdominal pain EXAMS: CPT: [id number] CT ABD PELVIS W/CONT 67284 AFTER HOURS SERVICE AT: 1:[address] Scan of the Abdomen and Pelvis With Contrast Location Code M12 History: Abdominal pain Technique: Axial and reconstructed coronal scans were performed on a helical scanner post IV contrast. Delayed scans were also obtained. Findings: Gallbladder is contracted. Liver, pancreas and spleen are within normal limits. Adrenal glandsare unremarkable. There is no hydronephrosis or pyelonephritis in the kidneys. There is no retroperitoneal adenopathy or aortic aneurysm. Appendix is normal. Small bowel loops are unremarkable. There is a contracted colon. Cecum is unremarkable. No obstruction or free air is identified. Bladder iswithin normal limits. Impression: No acute findings in the abdomen and pelvis. at 0147 Reported and signed by: Stacy Vyas M.D. CC: Technologist:KACIE Rogers)(CT); Barber CTDI: DLP: 360.43 Trnscb Date/Time: 10/28/2014 (014) [email or web address] Orig Print D/T: S: 10/28/2014 (0150) PAGE 1 Signed Report- XR CHEST 2 V 2014-04-21 22:48:00 [facility] [place] AN[facility]OL[place] : 1995 Sex: M FAX: Josemanuel Dobson MD [phone] [place]: St: UNK Name: ANATOLY MCNEAL [facility] : 1995 Age/S: 19/M [address] [facility] [facility] Unit #: [id number] Loc: [place], [place]: [place] [address] Acct: [id number] Dis Date: Status: UNK PHONE #: [phone] Exam Date: 04/21/20142152 FAX #: [phone] Reason: cough fever EXAMS: CPT CODE: [id number] XR CHEST 2 V 87661 REASON FOR EXAM: Cough and fever, flulike symptoms COMPARISON: December 30, 2013. Chest, 2 views, frontal and lateral projection The lungs are well-inflated and clear. Heart size is normal. No effusion or pneumothorax can be seen. Osseous structures appear to be intact. IMPRESSION: No acute cardiopulmonary disease. at 7151 Reported and signed by: Joey Hart M.D. CC: Josemanuel Dobson MD Technologist: DAVE BEST Trnscrd Date/Time/By: 04/21/2014 (2690) : By: Robinson PAGE 1 Signed Report FAX: Josemanuel Dobson MD [phone] [place]: St: UNK ------- Name: ANATOLY MCNEAL [facility] : 1995 Age/S: 19/M [address] [facility] Unit #: [id number] Loc: [place], [place]: [place] [address] Acct: [id number] Dis Date: Status: UNK PHONE #: [phone] Exam Date: 04/21/2014 215 FAX #: [phone] Reason: cough fever EXAMS: CPT CODE: [id number] XR CHEST 2 V 64472 <Continued> Orig Print D/T: S: 04/2014 (9366) PAGE 2 Signed Report- CT ABD PELVIS W/[id number] 08:10:00 [facility] : 1995 Sex: M Name: ANATOLY MCNEAL [facility] : 1995 Age/S: 18 / M [address] [place] [address] Unit #: [id number] Loc: [place] [address] Phys: Ernesto Colunga MD Acct: [id number] Dis Date:Status: UNK PHONE #: [phone]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 without nausea or vomitingTime of Re-Eval 1936Re-Eval Status ImprovedRe-Eval Neurologic Exam Alert, Pt is back to baseline, Oriented X3, Gait normal ED CourseMedication(s) OrderedMedication(s) Ordered:Central Nervous System Agents Sig/Temitope Start time Last Medication Dose Route Stop Time Status Admin Hydrocodone Bitart/ 1 TAB X1ED STA 08/15 1845 DC 08/15 Acetaminophen PO 08/15 Gastrointestinal Drugs Sig/Temitope Start time Last Medication Dose Route Stop Time Status Admin Ondansetron HCl 4 MG X1ED STA 08/15 1846 DC 08/15 SL 08/15 Patient Discharge Departure Vital Signs/ConditionVital SignsFirst Documented: Result Date Time Pulse Ox 97 [...] signs available at the time of this entry have been reviewed. Condition Improved Clinical ImpressionClinical ImpressionPrimary Impression: Head contusionSecondary Impressions: Fall, Loss of consciousness, Vomiting Disposition DecisionDischarge )( Discharged to Home Yes )( Time 1938 )( Date 08/15/20 Discharge/Care PlanCounseled Regarding Diagnosis, Lab results, Imaging studies, Prescriptions(Auto) PrescriptionsCurrent Visit ScriptsNAPROXEN (NAPROSYN) 500 MG PO BID PRN PRN PAIN NAPROXEN (NAPROSYN) 500 MG PO BID PRN PRN PAIN #15 TABS ONDANSETRON (ZOFRAN) 4 MG PO Q6H PRN PRN NAUSEA/VOMITING ONDANSETRON (ZOFRAN) 4 MG PO Q6H PRN PRN NAUSEA/VOMITING #15 TABS Patient Instructions ED Concussion, ED Head Injury (Adult), ED Mechanical FallReferralsFAM. CLINIC: 2-3 Days at 213PT #:[id number] OF REPORTEDEmergency department [id number]:46:00G.[id number] ilable for patient wsokTWBNEUKQVIQUVP3537-37-56M81:35:17 [facility] 2020-08-15 18:46:00 [id number] [id number]/ pVcibyiumQz+fu1Dyc1VssgknIv0XoA9xW7695-75-26Z20:4 6:00 [facility])EMERGENCY PROVIDER REPORTREPORT#:[id number] REPORT STATUS: SignedDATE:08/15/20 TIME: 1845 PATIENT: ANATOLY MCNEAL UNIT #: [id number]#: [id number] ROOM/BED:AGE: 25 SEX: M PCP PHYS: No Primary or Family PhysicianSERVICE AUTHOR: Shmuel Rodriguez * ALL edits or amendments must be made on the electronic/computer document * Shmuel Rodriguez 08/15/20 1846:HPI-Head Prob/Injury Free Text HPI NotesFree Text HPI Notes25 M with history of anxiety presents to the ED with head pain and nausea. 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 EMS reports neurointact, alert with normal vitals in route.THe patient denies any other complaints or medical history, etoh or drug use. GeneralConfirmed Patient YesInitial Greet Date/Time 08/15/201838 PresentationChief Complaint Blunt head traumaHx Obtained From Patient)( Onset Occurred Sudden Risk-Head Prob/Injury Risk StratificationCanadian Head CT Rule 2 or more episodes vomit)( [place] Coma Score: Copyright Sir Rodo Sellers Copyright Sir Rodo Sellers Eye opening: (4) Spontaneous Verbal response: (5) Oriented Best motor response: (6) Obeys commands GCS Score: 15)( Intracranial Bleed Risk factors reviewed Review of Systems ROS StatementsAll systems rev neg except as marked. Past Medical History - AdultStated Complaint FALL FROM STANDING, +LOCAllergiesCoded Allergies:Sulfa (Sulfonamide Antibiotics) (Intermediate, HIVES 07/31/20)Uncoded Allergies:No Known Contrast Allergies (10/12/08)No Known Drug Allergies (10/12/08)No Known Food Allergies (10/12/08)No Known Other Allergies (10/12/08) Calculated Suicide Risk (nurs) No riskAdditional Medical HistoryanxietyAlcohol Use Alcohol useDrug Use Denies recreational drugsSmoking status: Smoking status for patients 13 years old or older: Current every day smokerAdditional Social HistoryRight-handed Physical Exam Vital SignsVital SignsFirst Documented: Result Date Time Pulse Ox 97 [...] of Vital Signs Reviewed Free Text PE NotesFree Text PE NotesGeneral: Awake, Alert and Oriented, Cooperative, non-toxic, no distressHead: Tenderness and mild swelling to the posterior head, no step-offs, no signsof basilar skull fractureEyes: Atraumatic,, No periorbital swelling or redness, EOMI and painless, PERRLAENT: Atraumatic, MMM, uvula midline, airway patent, pharynx normal Neck: Atraumatic, supple, non tender, trachea midline, no swelling, no midline tendernessResp: Atraumatic, Nml breath sounds B, no wheezing, rales or rhonchi, no respiratory distress, No Crepitus, no tendernessCV: Nml HR, Nml Rhythm, No murmurs, rubs or clicks, Radial and pedal pulses present and 2+, Abd: Atraumatic, Soft, Non-tender, No guarding, No rebound, No distentionBack: Atraumatic, No midline tenderness, no stepoffsMSK LE: Atraumatic, Nontender, No swelling, ROM testing is nml and painlessMSK UE: Atraumatic, Nontender, No swelling, ROM testing is nml and painlessSkin: Nml color, warm, Dry, No swelling, No edemaNeuro: Oriented X3, Speech nml, moves all extremeties equally, normal gait, nml sensory function to distal ExtremetiesPsych: Affect Nml, Mood Nml Interpretation Diagnostics Lab Results InterpretationConsiderations Independ review imagingResultsRecent Impressions:CAT SCAN - CT C-SPINE W/O CONT 08/15 1901 Report Impression - Status: SIGNED Entered: 08/15/20201931 IMPRESSION:CT head: 1. No acute intracranial abnormality.2. Midline parieto-occipital scalp swelling. No calvarial fracture. CT cervical spine:No fractures or subluxations of the cervical spine. SL: APATIL-HImpression By: Sierra Rodriguez M.D.CAT SCAN - CT HEAD/BRAIN W/O CONT 08/15 1901 Report Impression - Status: SIGNED Entered: 08/15/20201931 IMPRESSION:CT head: 1. No acute intracranial abnormality.2. Midline parieto-occipital scalp swelling. No calvarial fracture. CT cervical spine:No fractures or subluxations of the cervical spine. SL: APATIL-HImpression By: Sierra Rodriguez M.D.RADIOLOGY - XR CHEST 1 V 08/16 1903 Report Impression - Status: SIGNED Entered: 08/15/20201912 IMPRESSION: No evidence for acute cardiopulmonary disease. SL: SG-HImpression By: Con Joshi M.D. Imaging StatementRadiographic studies reviewed and considered in the medical decision-making. Re-Evaluation MDM Re-Evaluation/Progress #1Text/Dict Notepain improved. no acute distress. NV intact without nausea or vomitingTime of Re-Eval 1936Re-Eval Status ImprovedRe-Eval Neurologic Exam Alert, Pt is back to baseline, Oriented X3, Gait normal ED CourseMedication(s) OrderedMedication(s) Ordered:Central Nervous System Agents Sig/Temitope Start time Last Medication Dose Route Stop Time Status Admin Hydrocodone Bitart/ 1 TAB X1ED STA 08/15 1845 DC 08/15 Acetaminophen PO 08/15 Gastrointestinal Drugs Sig/Temitope Start time Last Medication Dose Route Stop Time Status Admin Ondansetron HCl 4 MG X1ED STA 08/15 1845 DC 08/15 SL 08/15 Patient Discharge Departure Vital Signs/ConditionVital SignsFirst Documented: Result Date Time Pulse Ox 97 [...] signs available at the time of this entry have been reviewed. Condition Improved Clinical ImpressionClinical ImpressionPrimary Impression: Head contusionSecondary Impressions: Fall, Loss of consciousness, Vomiting Disposition DecisionDischarge )( Discharged to Home Yes )( Time 1938 )( Date 08/15/20 Discharge/Care PlanCounseled Regarding Diagnosis, Lab results, Imaging studies, Prescriptions(Auto) PrescriptionsCurrent Visit ScriptsNAPROXEN (NAPROSYN) 500 MG PO BID PRN PRN PAIN NAPROXEN (NAPROSYN) 500 MG PO BID PRN PRN PAIN #15 TABS ONDANSETRON (ZOFRAN) 4 MG PO Q6H PRN PRN NAUSEA/VOMITING ONDANSETRON (ZOFRAN) 4 MG PO Q6H PRN PRN NAUSEA/VOMITING #15 TABS Patient Instructions ED Concussion, ED Head Injury (Adult), ED Mechanical FallReferralsFAM. CLINIC: 2-3 Days Antonio Lara 08/19/20 0045:Patient Discharge Departure Supervising Physician Note MidLv Saw Pt AloneI have reviewed the PA/FIELD RESEARCH ASSOCIATE's note and plan of care. I was available for consultation as needed at all times during the patient's visit in the emergency department. I agree with the clinical impression, plan and disposition. at 2134 at 0046RPT #:[id number] OF REPORTEDEmergency department haukko0668-86-73N56:46:00G.[id number] ilable for patient kprfSODXUEUOOESJST3935-70-00O91:46:20 [facility] 2020-06-18 18:51:00 [id number] GOhXsloW+EoTSPLk3pIAjpewLzi6A TkvD+Gc78DSQp9bd4hqIm5g33PQ1ecvPRw5903-58-49T72:5 1:00 [facility] ([facility] PROVIDER REPORTREPORT#:[id number] REPORT STATUS: SignedDATE:06/18/20 TIME: 1850 PATIENT: ANATOLY MCNEAL UNIT #: [id number]#: [id number] ROOM/BED:AGE: 25 SEX: M PCP PHYS: No Primary or Family PhysicianSERVICE AUTHOR: Antonio Lara MD * ALL edits or amendments must be made on the electronic/computer document * HPI-Chest Pain Under 40 Free Text HPI NotesFree Text HPI [id number]-yxyz-gee male with past medical history as below presenting for evaluation due to chest pain and shortness of breath. Patient states he has had constant chest pain for 3 days. He describes as sharp pressure, mild to moderate severity, located in the left chest, and associated with left arm pain and occasional shortness of breath. Patient denies any fevers, chills, body aches, headache, sore throat, coughing, abdominal pain, nausea, or vomiting. GeneralConfirmed Patient YesInitial Greet Date/Time 06/18/201824 PresentationChief Complaint Chest pain, Shortness of breath Risk-Chest Pain Under 40 Risk Stratification)( Coronary Artery Disease Risk factors reviewed, Smoking)( HEART for MACE )( HEART for MACE Response Value History Low index of suspicion 0 ECG Interpretation Normal ECG 0 Age Age under 45 0 Risk Factors for CAD 1-2 CAD risk factors 1 Troponin < or = to NL troponin 0 Total 1 HEART Score for MACE 0-3 (low risk 0.9%-1.7%) Review of Systems Free Text ROS NotesFree Text ROS NotesReview of systems:-Constitutional: No fever, chills, fatigue-EENT: No runny nose, sore throat-Cardiovascular: Positive chest pain, no palpitations, no syncope-Respiratory: Positive shortness of breath, no cough, no wheezing-GI: No abdominal pain, nausea, vomiting, diarrhea-: No pain or burning with urination, no blood in the urine-Musculoskeletal: No joint pain, muscle pain, back pain-Skin: No rash, abrasion-Neurologic: No change in LOC, confusion, numbness or tingling-Psychiatric: No suicidal or homicidal ideations Past Medical History - AdultStated Complaint CHEST PAIN SHORTNESS OF BREATHAllergiesCoded Allergies:Sulfa (Sulfonamide Antibiotics) (Intermediate, HIVES 06/18/20) Home MedicationsReported MedicationsNo Known Home Medications Calculated Suicide Risk (nurs) No riskPt reports no significant: Past surgical history, Family historyAdditional Medical HistoryanxietyAlcohol Use Alcohol useDrug Use Denies recreational drugsSmoking status: Smoking status for patients 13 years old or older: Current every day smokerAdditional Social HistoryRight-handed Physical Exam Vital SignsVital SignsFirst Documented: Result Date Time Pulse Ox 97 [...] 2041 Resp 16 06/18 2041 Temp 36.6 06/180 Review of Vital Signs Reviewed, Vital signs abnormal Free Text PE NotesFree Text PE NotesGen: Well appearing, well hydrated, cooperativeHead: Normocephalic, atraumaticEyes: EOMI, normal conjunctivaENT: MMM, airway patentNeck: supple, no LADLungs: CTAB no R/R/WHeart: Slight tachycardia, regular rhythm, normal pulsesAbd: S/NT/ND, normal BS, no rebound or guardingExt: FROM BUE/LE, no deformityNeuro: A O x 3, CN II-XII grossly intact. Strength and sensation grossly intactPsych: Normal mood and affect. Interpretation Diagnostics Lab Results InterpretationResultsLaboratory Tests 06/18/201948:[Embedded Image Not Available]Laboratory Tests: 06/18 1948 Chemistry Sodium (134 - [...] % (Auto) (14.0 - 32.0 %) 19.6 [place] % (Auto) (4.8 - 9.0 %) 8.3 Eos % (Auto) (0.3 - 3.7 %) 2.8 Baso % (Auto) (0.0 - 2.0 %) 0.9 Neut # (Auto) (2.0 - 7.6 x10 3/uL) 6.32 Lymph # (Auto) (1.0 - 3.8 x10 3/uL) 1.82 [place] # (Auto) (0.1 - 0.8 x10 3/uL) 0.77 Eos # (Auto) (0.0 - 0.2 x10 3/uL) 0.26 H Baso # (Auto) (0.0 - 0.2 x10 3/uL) 0.08 Abs Immat Gran (auto) (0.00 - 0.03 x10 3/uL) 0.03 Add Manual Diff NO Immature Gran % (0.0 - 2.0 %) 0.3 Nucleated RBC % (0 - 0 %) 0.0 Nucleated RBCs # (Man) (0.0 - 0.1 x10 3/uL) 0.00 Recent Impressions:RADIOLOGY - XR CHEST 1 V 06/18 1855 Report Impression - Status: SIGNED Entered: 06/18/20201929 IMPRESSION: 1. No acute cardiopulmonary process.Impression By: [email or web address] - Sergio Rose D.O. Lab Imaging StatementLaboratory radiographic studies reviewed and considered in the medical decision-making. ECG #1 InterpretationText/Dict NoteEKG done at 1830 on May 2020Interpreted by me, ED physicianNormal sinus rhythm 100 bpm, no acute ischemic changes, no STEMI, normal intervals, normal axis Re-Evaluation MDM Free Text MDM NotesFree Text MDM NotesNAD, slight tachycardia, afebrile., Imaging, and EKG are nonactionable. Results, history, physical are not consistent with cardiac cause of pain. Patient will be discharged home with instruction to take OTC meds and follow-up with PCP. ED CourseMedication(s) OrderedMedication(s) Ordered:Electrolytic, Caloric, And Sherice Sig/Temitope Start time Last Medication Dose Route Stop Time Status Admin Sodium Chloride 0 ASDIR PRN 06/18 184 AC IV 06/19 174 Patient Discharge Departure Vital Signs/ConditionVital SignsFirst Documented: Result Date Time Pulse Ox 97 06/18 183 B/P 137/66 06/18 183 B/P Mean 89 06/18 183 O2 Delivery Room air 06/18 1829 Temp 36.6 06/18 183 Pulse 107 06/18 1830 Resp 16 06/18 183 Last Documented: Result Date Time Pulse Ox 98 06/18 2041 B/P 127/77 06/18 2041 B/P Mean 93 06/18 2041 O2 Delivery Room air 06/18 2041 Pulse 80 06/18 2041 Resp 06/18 Temp 36.6 06/18 183 All vital signs available at the time of this entry have been reviewed. Condition Stable Clinical ImpressionClinical ImpressionPrimary Impression: Non-cardiac chest pain Disposition DecisionDischarge )( Discharged to Home Yes )( Time 2045 )( Date 06/18/20 Discharge/Care PlanCounseled Regarding Diagnosis, Lab results, Imaging studies, Need for follow-up,When to return to ED(Auto) PrescriptionsCurrent Visit ScriptsNo Known Home Medications Patient Instructions ED Chest Pain, NoncardiacReferrals PRIMARY CARE: 1 Week at 2047RPT #:[id number] OF REPORTEDEmergency department jtkwow7069-20-17E29:51:00G.[id number] ilable for patient vcvuPCPQKBUQNLFPSQ8402-93-26L90:48:06 [facility] 2019-09-06 23:19:00 [id number] OzkEyktYMAshG0UvSRrPHCaOYjeri yqhwz2gtmQZF7rvJD+s5TjLCRZEZmjf+Gz0903-83-23G93:1 9:00 [facility]EM[facility] PROVIDER REPORTREPORT#:[id number] REPORT STATUS: SignedDATE:09/06/19 TIME: 2318 PATIENT: ANATOLY MCNEAL UNIT #: [id number]#: [id number] ROOM/BED:AGE: 24 SEX: M PCP PHYS: No Primary or Family PhysicianSERVICE AUTHOR: Ernesto Colunga MD * ALL edits or amendments must be made on the electronic/computer document * HPI-General Illness Free Text HPI NotesFree Text HPI Notes 24-year-old male smoker, history of bipolar disorderPresents with 4 days of sore throat, dyspnea, generalized malaise and fatigue.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 GeneralConfirmed Patient YesPatient Type Existing patientInitial Greet Date/Time 09/06/19 8444 COVID-19 RiskCDC COVID RiskDenies Age 65 or older, Denies Signif co-morbidity, Denies Exp to person + for COVID, Denies Exp to PUI, Denies Travel from affected area, Reports Lower resp symptoms, Denies Fever PresentationChief Complaint Breathing problem, Sore throatHx Obtained From Patient Review of Systems ROS StatementsAll systems rev neg except as marked. Free Text ROS NotesFree Text ROS NotesConstitutional: - No fever, no chills- No weakness- malaise , fatigue Eyes: - No redness, no discharge- No vision changes ENT: - Positive sore throat, - no earache- No nasal congestion, no nasal drainage Respiratory: - No cough,- positive feeling of dyspnea- No wheezing, - no pain on respirations Cardiology: - No chest pain, no palpitations- no syncope GI: - No abdominal pain- No nausea, no vomiting, - No diarrhea Urologic: - No dysuria- No hematuria- No flank pain Musculoskeletal: - No back pain, no neck pain Skin: - No rashes, no lesions- No ulcers, no redness, no itching Endocrine:- No hyperglycemia- No persistent thirst- No persistent hunger- No frequent urination- No excess heat or cold Neurologic: - No localized weakness- No numbness, no tingling- No dizziness, no vertigo Psychiatric- No anxiety or depression- No suicidal or homicidal ideation Past Medical History - AdultStated Complaint FATIGUE, SHAKES, DECREASED APPETITEAllergiesCoded Allergies:Sulfa (Sulfonamide Antibiotics) (Intermediate, HIVES 09/06/19) Home MedicationsReported MedicationsNo Known Home Medications Alcohol Use Alcohol useDrug Use Denies recreational drugsSmoking status for patients 13 years old or older: Current every day smokerAdditional Social HistoryRight-handed Physical Exam Vital SignsVital SignsFirst Documented: Result Date Time Pulse Ox 97 09/05 224 B/P 139/89 09/05 2240 B/P Mean 105 09/050 O2 Delivery Room air 09/06 2239 Temp 36.9 09/05 224 Pulse 104 09/05 224 Resp 18 09/050 Last Documented: Result Date Time Pulse Ox 98 09/06 0118 B/P 128/76 09/06 0118 B/P Mean 93 09/06 0118 O2 Delivery Room air 09/06 011 Pulse 98 09/06 0118 Resp 16 09/06 0118 Temp 36.9 09/05 2240 Review of Vital Signs Reviewed, Vital signs normal Free Text PE NotesFree Text PE Notes GENERAL- Awake, alert- Well developed- Cooperative HEAD- Atraumatic, normocephalic NECK- Supple, FROM- No masses- Normal carotid pulses- Normal thyroid- No lymphadenopathy- No midlne spinal tenderness EYES- EOMI, conjunctiva normal- PERRL ENT: - Airway patent- Moist mucous membranes- bilateral pharyngeal and tonsillar erythema - Normal bilateral TM- normal ear canals - no hoarseness RESP - Breath sounds normal- Breath sounds equal bilaterally- No respiratory distress- No wheezing, no rales, no rhonchi CARDS- Regular rate- Regular rhythm- Normal heart sounds- No murmurs, gallops or rubs ABDOMEN- Soft, non-tender, no guarding,- No rebound, no distention LOWER EXTREMITIES- Non-tender- No swelling- No edema - Normal and equal peripheral pulses SKIN- Warm, dry, intact NEUROLOGIC - Oriented x3- Normal speech- Normal gait- No localized neurologic deficits PSYCHIATRIC- Normal mood, normal affect - No suicidal ideation - No homicidal ideation Interpretation Diagnostics Lab Results InterpretationConsiderations Independ review imaging, Reviewed prior recordsResultsLaboratory Tests 09/06/19 2353:[Embedded Image Not Available]Laboratory Tests: 09/05 09/05 2353 2316 Chemistry Sodium (134 - 147 mEq/L) [...] % (Auto) (14.0 - 32.0 %) 20.6 [place] % (Auto) (4.8 - 9.0 %) 6.3 Eos % (Auto) (0.3 - 3.7 %) 1.2 Baso % (Auto) (0.0 - 2.0 %) 0.9 Neut # (Auto) (2.0 - 7.6 x10 3/uL) 6.26 Lymph # (Auto) (1.0 - 3.8 x10 3/uL) 1.82 [place] # (Auto) (0.1 - 0.8 x10 3/uL) 0.56 Eos # (Auto) (0.0 - 0.2 x10 3/uL) 0.11 Baso # (Auto) (0.0 - 0.2 x10 3/uL) 0.08 Abs Immat Gran (auto) (0.00 - 0.03 x10 3/uL) 0.01 Add Manual Diff NO Immature Gran % (0.0 - 2.0 %) 0.1 Nucleated RBC % (0 - 0 %) 0.0 Nucleated RBCs # (Man) (0.0 - 0.1 x10 3/uL) 0.00 Serology COVID-19 PCR (Negative) Negative Influenza Type A (PCR) (Negative) Negative Influenza Type B (PCR) (Negative) Negative Microbiology: Date/Time Procedure - Status Source Growth 09/05 2352 Group A Streptococcus Screen (DIANE) - COMP THROAT 09/05 2352 Streptococcus Culture - COMP THROAT Recent Impressions:RADIOLOGY - XR CHEST 2 V 09/05 233 Report Impression - Status: SIGNED Entered: 09/06/20192340 IMPRESSION:1. No radiographic evidence of acute cardiopulmonary disease. SL: 131Impression By: Flor - Kanu Pinto M.D. Lab Imaging StatementLaboratory radiographic studies reviewed and considered in the medical decision-making. Re-Evaluation MDM Re-Evaluation/Progress #1Re-Eval Status Improved ED CourseMedication(s) OrderedMedication(s) Ordered:Central Nervous System Agents Sig/Temitope Start time Last Medication Dose Route Stop Time Status Admin Acetaminophen/ 2 TAB X1ED STA 09/05 2314 DC 09/06 Codeine Phosphate PO 09/06 2315 0016 Ibuprofen 600 MG X1ED STA 09/05 2312 DC 09/06 PO 09/05 2313 0017 Electrolytic, Caloric, And Sherice Sig/Temitope Start time Last Medication Dose Route Stop Time Status Admin Sodium Chloride 0 ASDIR PRN 09/05 2314 AC IV 09/06 2209 Patient Discharge Departure Vital Signs/ConditionVital SignsFirst Documented: Result Date Time Pulse Ox 97 09/06 2239 B/P 139/89 09/06 2239 B/P Mean 105 09/06 2239 O2 Delivery Room air 09/06 2239 Temp 36.9 09/06 2239 Pulse 104 09/06 2239 Resp 18 09/06 2239 Last Documented: Result Date Time Pulse Ox 98 09/06 117 B/P 128/76 09/06 117 B/P Mean 93 09/06 117 O2 Delivery Room air 09/06 011 Pulse 98 09/06 0118 Resp 16 09/06 117 Temp 36.9 09/06 2239 All vital signs available at the time of this entry have been reviewed. Condition Improved, Stable Clinical ImpressionClinical ImpressionPrimary Impression: Viral respiratory illnessSecondary Impressions: Acute viral pharyngitisTime of Impression 0046 Disposition DecisionDischarge )( Discharged to Home Yes )( Time 004 )( Date 09/07/19 COVID-19 Discharge PlanCDC Criteria Met for Testing YesTest Performed Yes, result pending CDC Recom for Isol Retest https://www.cdc.gov/coronavirus/2019-ncov/infecti on-control/control-recommendations.html Criteria Not Met for TestingThe patient did not meet criteria for acute COVID19 testing today in the emergency department. The patient has received COVID19 precautions and home quarantine information. Advised to follow CDC recommendations. Discharge/Care PlanCounseled Regarding Diagnosis, Lab results, Imaging studies, Prescriptions, Needfor follow-up, When to return to [facility] Drug Database Reviewed YesPrescriptionsTylenol No. 4 every 6 hours p.o. as needed body aches or fever Ibuprofen 800 mg every 8 hours p.o. as needed fever Zofran 4 mg sublingual as needed every 4 hours as needed for nausea (Auto) PrescriptionsCurrent Visit ScriptsNo Known Home Medications Prescriptions Reviewed Risks, Benefits, Alternative treatmentReferralsNo Primary or Family Physician (PCP/Family) Discharge NoteI have spoken with the patient and/or caregivers. I have explained the patient'scondition, diagnoses and treatment plan based on the information available to meat this time. I have answered the patient's and/or caregiver's questions and addressed any concerns. The patient and/or caregivers have as good an understanding of the patient's diagnosis, condition and treatment plan as can beexpected at this point. The vital signs have been stable. The patient's condition is stable and appropriate for discharge from the emergency department. The patient will pursue further outpatient evaluation with the primary care physician or other designated or consulting physician as outlined in the discharge instructions. The patient and/or caregivers are agreeable to this planof care and follow-up instructions have been explained in detail. The patient and/or caregivers have received these instructions in written format and have expressed an understanding of the discharge instructions. The patient and/or caregivers are aware that any significant change in condition or worsening of symptoms should prompt an immediate return to this or the closest emergency department or a call to 911. Free Text Depart NotesFree Text Depart Noteson follow up of results patient tested negative for COVID 19 via PCR at 0844RPT #:[id number] OF REPORTEDEmersaint mary's regional medical center department [id number]:19:00G.[id number] ilable for patient hgbcWVBZGRIAUINKVN6193-58-28P58:44:25 [facility] 2019-05-25 22:20:00 [id number] [id number] w9JQGqRZr/MGNiUDKzLvngQ1y1bp/VeFiG8024-82-17D64:2 0:00 [facility] CenterEM[facility]ENC[facility] PROVIDER REPORTREPORT#:[id number] REPORT STATUS: SignedDATE:05/25/19 TIME: 2219 PATIENT: ANATOLY MCNEAL UNIT #: [id number]#: [id number] ROOM/BED:AGE: 24 SEX: M PCP PHYS: No Primary or Family PhysicianSERVICE AUTHOR: Dariusz Junior DO * ALL edits or amendments must be made on the electronic/computer document * HPI-Abd Pain M Under 40 GeneralConfirmed Patient YesInitial Greet Date/Time 05/25/19 2154PCPNO PCP PresentationChief Complaint Abdominal painHx Obtained From PatientSudden in Onset? NoOnset Occurred Chronic (6 months)Symptom Duration Since onsetProgression since Onset Gradually worsening (over the past 4 days)Context of Onset EtOH useLocation DiffuseSeverity: Onset ModerateSeverity: Current SevereAssociated withReports: Fever, Nausea, Vomiting. Associated Other Pt denies other symptomsExacerbated by NothingRelieved by Nothing ContextRelated HistoryReports: Alcohol abuse (2 years ago). Free Text HPI NotesFree Text HPI Notes24 y/o male with no PMHx presents to the ED c/o severe LUQ sided abd pain x 4 days. Denies aggravating or relieving factors. Associated sx of dizziness, lightheadedness, generalized weakness, N/V and intermittent subjective fever. Henotes he has approx. 4-5 episodes of emesis a day for the past 4 days. Last normal BM last night. He states he has had abd pain for 6 months, but reports it gradually worsened attime of onset s/p EtOH use. No previous evaluation for chronic abd pain in 6 months. He also reports a Hx of alcohol abuse for 2 years, but quit daily EtOH approx. 6-7 months ago. Reports occasional EtoH now. Denies URI sx, hematochezia, or melena. Denies illicit drug use. Portions of this section were scribed by Olivia Matias on 05/26/19 at 0408 Risk-Abd Pain M Under 40)( Torsion Risk factors reviewed Portions of this section were scribed by Olivia Matias on 05/25/19 at 2221 Review of Systems ROS StatementsAll systems rev neg except as marked. Focused Review of SystemsConstitutionalReports: Fever (subjective). Denies: Chills, Lethargy. RespiratoryDenies: Cough, non-productive, Cough, productive, Shortness of breath. CardiovascularDenies: Chest pain, Syncope. GIReports: Abdominal pain, Nausea, Vomiting. Denies: Constipation, Diarrhea, Hematochezia, Melena. MaleDenies: Flank pain, Testicular pain. MusculoskeletalDenies: Back pain, Extremity pain. Additional Review of SystemsEars/Nose/ThroatDenies: Nasal congestion, Sore throat. HematologicDenies: Bleeding, Bruising. SkinDenies: Rash, Swelling. NeurologicReports: Dizziness, Generalized weakness, Lightheaded. Denies: Focal weakness. Portions of this section were scribed by Olivia Matias on 05/25/19 at 2311 Past Medical History - AdultStated Complaint UMBILICAL ABD PAIN N/V X 1 WEEKAllergiesCoded Allergies:Sulfa (Sulfonamide Antibiotics) (Intermediate, HIVES 05/25/19) Home MedicationsReported MedicationsNo Known Home Medications Review of Nursing Notes Rev avail, and agreePt reports no significant: Past medical history, Past surgical historyAlcohol Use Alcohol useDrug Use Denies recreational drugsSmoking status for patients 13 years old or older: Current every day smokerAdditional Social HistoryRight-handed Portions of this section were scribed by Olivia Matias on 05/25/19 at 2311 Physical Exam Vital SignsVital SignsFirst Documented: Result Date Time Pulse Ox 97 05/25 2144 B/P 118/75 05/25 2144 B/P Mean 89 05/25 2143 O2 Delivery Room air 05/25 2143 Temp 36.8 05/25 2143 Pulse 104 05/25 2143 Resp 18 05/25 2143 Last Documented: Result Date Time Pulse Ox 97 05/25 2144 B/P 118/75 05/25 2144 B/P Mean 89 05/25 2143 O2 Delivery Room air 05/25 2143 Temp 36.8 05/25 2143 Pulse 104 05/25 2143 Resp 18 05/25 2143 Review of Vital Signs Reviewed Focused PEGeneral/Const General/Const Awake, Alert, CooperativeMS Head Head Atraumatic, NormocephalicEyes Eyes EOMI, Conjunctiva NLEars/Nose/Throat Ears/Nose/Throat Airway patent, Mucous membranes moistResp/Chest Respiratory/Chest Breath sounds NL, Breath sounds = bilat, No respiratory distress, No rales, No rhonchi, No wheezingCardiovascular Cardiovascular Heart rate NL, Regular rhythm, Heart sounds NLAbdomen/GI Abdomen/GI Soft, No distention Tenderness/Guarding/Rebound Tender LUQ, Tender LLQ. MS Back Back Full range of motion, Painless range of motion, Non-tender, No CVA tendernessSkin Skin Color NL, No rash, Warm, DryNeurologic Neurologic Oriented X3, Speech NL Portions of this section were scribed by Olivia Matias on 05/26/19 at 0348 Interpretation Diagnostics Lab Results InterpretationResultsLaboratory Tests 05/25/192247:[Embedded Image Not Available]Laboratory Tests: 05/25 2247 Chemistry Sodium (134.0 - [...] % (Auto) (23.0 - 38.0 %) 28.2 [place] % (Auto) (1.0 - 10.0 %) 9.2 Eos % (Auto) (1.0 - 5.0 %) 2.0 Baso % (Auto) (0.0 - 1.0 %) 0.9 Neut # (Auto) (2.4 - 6.3 K/mm3) 5.5 Lymph # (Auto) (1.2 - 4.0 K/mm3) 2.6 [place] # (Auto) (0.0 - 0.6 K/mm3) 0.9 H Eos # (Auto) (0.0 - 0.7 K/MM3) 0.2 Baso # (Auto) (0.0 - 0.2 K/mm3) 0.1 Immature Gran % (0.0 - 0.4 %) 0.1 Immature Gran # (0.00 - 0.07 x10 3/uL) 0.01 Urines Urine Color YELLOW Urine Appearance CLEAR Urine pH (5.0 - 9.0) 7.0 Ur Specific [place] (1.000 - 1.030) 1.010 Urine Protein (NEGATIVE mg/dl) NEGATIVE Urine Glucose (UA) (NORMAL mg/dl) NORMAL Urine Ketones (NEGATIVE mg/dl) NEGATIVE Urine Blood (NEGATIVE Hector/micL) NEGATIVE Urine Nitrite (NEGATIVE) NEGATIVE Urine Bilirubin (NEGATIVE mg/dL) NEGATIVE Urine Urobilinogen (NORMAL mg/dl) NORMAL Ur Leukocyte Esterase (NEGATIVE Don/micL) NEGATIVE Urine RBC (0 - 3 RBC/HPF) 0-2 Urine WBC (NONE WBC/HPF) 0-3 Ur Epithelial Cells (0 - 3 EPI/HPF) 0-3 Urine Bacteria (NONE) FEW Urine Mucus 1+ Lab Imaging StatementLaboratory radiographic studies reviewed and considered in the medical decision-making. Point of Care TestingUrinalysis Interpretation UA reviewed Pulse Oximetry Pulse Ox % 97 On: Room air Interpretation Interpreted by me, Pulse oximetry normal Time 2144 Lab StudiesCBC Interpretation CBC NLBMP/CMP Interpretation BMP/CMP NL RadiographyCT Abdomen/Pelvis Study type IV contrast Text/Dict Notenormal CT scan. Report given by chemical research technician at 0348. Interpretation/Wet Read by Interpret - Radiologist Reviewed by ED physician Portions of this section were scribed by Olivia Matias on 05/26/19 at 0408 Re-Evaluation MDM )( Re-Evaluation/Progress #1Text/Dict NotePatient was reassessed and is feeling better. Discussed lab and CT results and diagnosis with pt and family. There is no indication for admission. Plan to D/C home and f/u w/ PCP and or GI. Advised pt to return to the ED for new, persistent or worsening sxs. Pt agrees with plan. All questions were answered. Pt discharge to the care of his girlfriend.Time of Re-Eval 0400)( Re-Eval Status ImprovedEval Following Treatment Pt. feels betterPain Re-Evaluation Pain improved ED CourseMedication(s) OrderedMedication(s) Ordered:Cardiovascular Drugs Sig/Temitope Start time Last Medication Dose Route Stop Time Status Admin Lidocaine HCl 10 ML X1ED STA 05/25 2153 DC 05/25 PO 05/25 2154 2249 Diagnostic Agents Sig/Temitope Start time Last Medication Dose Route Stop Time Status Admin Iopamidol 0 .STK-MED ONE 05/25 2331 DC 05/26 .ROUTE 0000 Electrolytic, Caloric, And Sherice Sig/Temitope Start time Last Medication Dose Route Stop Time Status Admin Sodium Chloride 1,000 ML X1ED 05/250 AC / IV 06/23 215 2250 Gastrointestinal Drugs Sig/Temitope Start time Last Medication Dose Route Stop Time Status Admin Famotidine 20 MG X1ED ONE 05/25 2199 DC 05/25 IV 05/25 2200 2249 Al Hydrox/Mg Hydrox/ 30 ML X1ED STA 05/25 2153 DC 05/25 Simethicone PO 05/25 215 2249 Differential DiagnosisDifferential Diagnosis Acute abdominal pain, Appendicitis, Bowel obstruction, Constipation, Esophagitis, Gastritis, Inflam bowel disease, Pancreatitis Portions of this section were scribed by Olivia Matias on 05/26/19 at 0403 Patient Discharge Departure Vital Signs/ConditionVital SignsFirst Documented: Result Date Time Pulse Ox 97 [...] signs available at the time of this entry have been reviewed. Condition Stable Clinical ImpressionClinical ImpressionPrimary Impression: Abdominal pain Disposition DecisionDischarge )( Discharged to Home Yes )( Time 0408 )( Date 05/26/19 Discharge/Care PlanCounseled Regarding Diagnosis, Lab results, Imaging studies, Prescriptions, Needfor follow-up, When to return to EDPrescriptionsPepcid, Bentyl and ZofranPrescriptions Reviewed Risks, Benefits Discharge NoteI have spoken with the patient and/or caregivers. I have explained the patient'scondition, diagnoses and treatment plan based on the information available to meat this time. I have answered the patient's and/or caregiver's questions and addressed any concerns. The patient and/or caregivers have as good an understanding of the patient's diagnosis, condition and treatment plan as can beexpected at this point. The vital signs have been stable. The patient's condition is stable and appropriate for discharge from the emergency department. The patient will pursue further outpatient evaluation with the primary care physician or other designated or consulting physician as outlined in the discharge instructions. The patient and/or caregivers are agreeable to this planof care and follow-up instructions have been explained in detail. The patient and/or caregivers have received these instructions in written format and have expressed an understanding of the discharge instructions. The patient and/or caregivers are aware that any significant change in condition or worsening of symptoms should prompt an immediate return to this or the closest emergency department or a call to 911. Supervising Physician Note Scribe StatementOlivia Matias, 05/25/192220, scribing for and in the presence of Dr. Junior.Signed By: Olivia Matias, 05/25/192220 Provider Scribed StatementI personally performed the services described in this documentation and reviewedthe documentation that was dictated to the scribe(s) in my presence, and it accurately records my words and actions. Dariusz Junior, 05/26/19 Portions of this section were scribed by Olivia Matias on 05/26/19 at 0408 at 0416RPT #:[id number] OF REPORTEDEmeklickitat valley health department xxmynj3533-73-47M98:20:00E.[id number] ilable for patient zftdULMJSRYSNXCJKE0944-99-80Z47:16:32 [facility] 11:28:00 [id number] [id number] MSaqwpOfFGcYgPWwH0XSBHbUc1p6R56/92179-75-13A91:28 :00 [facility] ([facility] PROVIDER REPORTREPORT#:[id number] REPORT STATUS: SignedDATE:05/20/18 TIME: 1128 PATIENT: ANATOLY MCNEAL UNIT #: [id number]#: [id number] ROOM/BED:AGE: 23 SEX: M PCP PHYS: No Primary or Family PhysicianSERVICE AUTHOR: Shmuel Rodriguez * ALL edits or amendments must be made on the electronic/computer document * HPI-Nausea/Vomit/Diarrhea GeneralConfirmed Patient YesDate/Time Seen by Provider 05/20/18 1055 PresentationChief Complaint Vomiting, DiarrheaHx Obtained From PatientOnset Occurred YesterdaySymptom Duration Since onsetProgression since Onset Constant Free Text HPI NotesFree Text HPI Notes23 y/o M presents to the ED w/ c/o vomiting and diarrhea that began yesterday. Pt reports watery diarrhea and he is unable to eat any solid food. He admits to malaise, cough, chest pain, abd pain, and nausea. He denies fever and sore throat. No flu vacc. Portions of this section were scribed by Sue Puckett on 05/20/18 at 1424 Review of Systems ROS StatementsAll systems rev neg except as marked. Focused Review of SystemsConstitutionalReports: Malaise. Denies: Fever. Ears/Nose/ThroatDenies: Sore throat. GIReports: Abdominal pain, Diarrhea, Nausea, Vomiting. Additional Review of SystemsRespiratoryReports: Cough, non-productive. CardiovascularReports: Chest pain. Portions of this section were scribed by Sue Puckett on 05/20/18 at 1128 Past Medical History - AdultStated Complaint N/V/DAllergiesCoded Allergies:No Known Allergies (12/04/13) Home MedicationsReported MedicationsNo Known Home Medications Discontinued Reported MedicationsACETAMINOPHEN/CODEINE (TYLENOL WITH CODEINE #3 300/30 MG) 1 TAB PO Q6H PRN PRN SEVERE PAIN ESOMEPRAZOLE MAG DR (NexIUM) 20 MG PO DAILY Pt reports no significant: Past medical history, Past surgical historySmoking status for patients 13 years old or older: Current every day smokerAdditional Social HistoryRight-handed Portions of this section were scribed by Sue Puckett on 05/20/18 at 1424 Physical Exam Vital SignsVital SignsFirst Documented: Result Date Time Pulse Ox 97 [...] 1108 Review of Vital Signs Reviewed Focused PEGeneral/Const General/Const Awake, Alert, CooperativeEyes Eyes EOMI, Conjunctiva NLEars/Nose/Throat Ears/Nose/Throat Airway patent Text/Dict NotesDry mucous membranes, tonsils swollen and erythematousResp/Chest Respiratory/Chest Breath sounds NL, No respiratory distress, No rhonchi, No wheezing, No retractionsCardiovascular Cardiovascular Heart rate NL, Regular rhythm, Heart sounds NLAbdomen/GI Abdomen/GI Soft, No guarding, No rebound, No distention Text/Dict NotesMild diffuse abd tendernessMS Back Back Inspection NL, No CVA tendernessSkin Skin Warm, Dry, IntactNeurologic Neurologic Oriented X3, Speech NL Additional PEMS Head Head Atraumatic, NormocephalicMS Neck Neck Supple, No meningismus, Full range of motion, Non-tenderMS Lower Extrem Lower Ext/Pelvis/MS No swelling, Non-tenderPsychiatric Psychiatric Affect NL, Mood NL Portions of this section were scribed by Sue Puckett on 05/20/18 at 1424 Interpretation Diagnostics Lab Results InterpretationResultsLaboratory Tests 05/20/18 1326:[Embedded Image Not Available]Laboratory Tests: 05/206 Chemistry Sodium (134 - 147 [...] (Auto) (14.0 - 32.0 %) 4.2 L [place] % (Auto) (4.8 - 9.0 %) 5.3 Eos % (Auto) (0.3 - 3.7 %) 0.7 Baso % (Auto) (0.0 - 2.0 %) 0.2 Neut # (Auto) (2.0 - 7.6 x10 3/uL) 10.79 H Lymph # (Auto) (1.0 - 3.8 x10 3/uL) 0.51 L [place] # (Auto) (0.1 - 0.8 x10 3/uL) 0.64 Eos # (Auto) (0.0 - 0.2 x10 3/uL) 0.09 Baso # (Auto) (0.0 - 0.2 x10 3/uL) 0.02 Abs Immat Gran (auto) (0.00 - 0.03 x10 3/uL) 0.04 H Add Manual Diff NO Immature Gran % (0.0 - 2.0 %) 0.3 Nucleated RBC % (0 - 0 %) 0.0 Nucleated RBCs # (Man) (0.0 - 0.1 x10 3/uL) 0.00 Microbiology: Date/Time Procedure - Status Source Growth 05/20 1326 Influenza Virus Type B Antigen - COMP NASOPHARG 05/20 1326 Influenza Virus Type A Antigen - COMP NASOPHARG 05/20 1059 Group A Streptococcus Screen (DIANE) - RES THROAT 05/20 1059 Streptococcus Culture - RES THROAT Recent Impressions:RADIOLOGY - XR ABD ACUTE W/CHEST 05/20 1152 Report Impression - Status: SIGNED Entered: 05/20/2018 1203 IMPRESSION: 1. Air-fluid levels within normal caliber small and large bowelsuggesting an enteritis. No definite obstruction.2. Possible splenomegaly.3. Negative chest. SL: [id number] Impression By: Nkechi Venegas M.D. Lab Imaging StatementLaboratory radiographic studies reviewed and considered in the medical decision-making. Point of Care TestingPulse Oximetry Pulse Ox % 97 On: Room air Interpretation Interpreted by me Time 1108 Free Text I D NotesFree Text I D NotesRADIOLOGY - XR ABD ACUTE W/CHEST 05/20 1152 Report Impression - Status: SIGNED Entered: 05/20/2018 1203 IMPRESSION: 1. Air-fluid levels within normal caliber small and large bowelsuggesting an enteritis. No definite obstruction.2. Possible splenomegaly.3. Negative chest. Interpreted by RadiologyReviewed by ED PA Portions of this section were scribed by Sue Puckett on 05/20/18 at 1424 Re-Evaluation MDM Re-Evaluation/Progress #1Text/Dict NoteDiscussed the results/diagnosis with pt and plan for d/c home. Discussed the need for f/u w/ PCP and the proper precautions for returning to the ED. Pt agrees with plan. viral enteritis likleyhis HR has improved pt has tolerated po went outside er with steady gaitTime of Re-Eval 1423 Portions of this section were scribed by Sue Puckett on 05/20/18 at 1424 Patient Discharge Departure Vital Signs/ConditionVital SignsFirst Documented: Result Date Time Pulse Ox 97 [...] signs available at the time of this entry have been reviewed. Condition Stable Clinical ImpressionClinical ImpressionPrimary Impression: Viral syndrome Disposition DecisionDischarge )( Discharged to Home Yes )( Time 1424 )( Date 05/20/18 Discharge/Care PlanCounseled Regarding Diagnosis, Lab results, Imaging studies, Prescriptions, Needfor follow-up, When to return to EDPrescriptionsZofrkraig and Motrin Supervising Physician Note Scribe StatementSue Puckett, 05/20/18 1128, scribing for and in the presence of [ELAYNE Rosales].Signed By: Sue Puckett, 05/20/18 1128 Provider Scribed StatementI personally performed the services described in this documentation and reviewedthe documentation that was dictated to the scribe(s) in my presence, and it accurately records my words and actions. Shmuel Rodriguez, 05/20/18 Portions of this section were scribed by Sue Puckett on 05/20/18 at 1424 at 1851RPT #:[id number] OF REPORTEDEmergency department akgqsa2215-62-52T14:28:00G.[id number] ilable for patient ksvjSOISXGZSPKNZII9075-66-88S69:51:42 [facility] 2018-05-20 11:28:00 [id number] drEo3+MO9jOrpzbMWRRNXR3zMX8jR r1kaRx3MeVJpzdwhZIZ6tu55JNxja2bQM0205-76-61H23:28 :00 [facility] ([facility])EMERGENCY PROVIDER REPORTREPORT#:[id number] REPORT STATUS: SignedDATE:05/20/18 TIME: 1128 PATIENT: ANATOLY MCNEAL UNIT #: [id number]#: [id number] ROOM/BED:AGE: 23 SEX: M PCP PHYS: No Primary or Family PhysicianSERVICE AUTHOR: Shmuel Rodriguez * ALL edits or amendments must be made on the electronic/computer document * Shmuel Rodriguez 05/20/18 1128:HPI-Nausea/Vomit/Diarrhea GeneralConfirmed Patient Yes PresentationChief Complaint Vomiting, DiarrheaHx Obtained From PatientOnset Occurred YesterdaySymptom Duration Since onsetProgression since Onset Constant Free Text HPI NotesFree Text HPI Notes23 y/o M presents to the ED w/ c/o vomiting and diarrhea that began yesterday. Pt reports watery diarrhea and he is unable to eat any solid food. He admits to malaise, cough, chest pain, abd pain, and nausea. He denies fever and sore throat. No flu vacc. Portions of this section were scribed by Sue Puckett on 05/20/18 at 1424 Review of Systems ROS StatementsAll systems rev neg except as marked. Focused Review of SystemsConstitutionalReports: Malaise. Denies: Fever. Ears/Nose/ThroatDenies: Sore throat. GIReports: Abdominal pain, Diarrhea, Nausea, Vomiting. Additional Review of SystemsRespiratoryReports: Cough, non-productive. CardiovascularReports: Chest pain. Portions of this section were scribed by Sue Puckett on 05/20/18 at 1128 Past Medical History - AdultStated Complaint N/V/DAllergiesCoded Allergies:No Known Allergies (12/04/13) Home MedicationsReported MedicationsNo Known Home Medications Discontinued Reported MedicationsACETAMINOPHEN/CODEINE (TYLENOL WITH CODEINE #3 300/30 MG) 1 TAB PO Q6H PRN PRN SEVERE PAIN ESOMEPRAZOLE MAG DR (NexIUM) 20 MG PO DAILY Pt reports no significant: Past medical history, Past surgical historySmoking status for patients 13 years old or older: Current every day smokerAdditional Social HistoryRight-handed Portions of this section were scribed by Sue Puckett on 05/20/18 at 1424 Physical Exam Vital SignsVital SignsFirst Documented: Result Date Time Pulse Ox 97 [...] 1108 Review of Vital Signs Reviewed Focused PEGeneral/Const General/Const Awake, Alert, CooperativeEyes Eyes EOMI, Conjunctiva NLEars/Nose/Throat Ears/Nose/Throat Airway patent Text/Dict NotesDry mucous membranes, tonsils swollen and erythematousResp/Chest Respiratory/Chest Breath sounds NL, No respiratory distress, No rhonchi, No wheezing, No retractionsCardiovascular Cardiovascular Heart rate NL, Regular rhythm, Heart sounds NLAbdomen/GI Abdomen/GI Soft, No guarding, No rebound, No distention Text/Dict NotesMild diffuse abd tendernessMS Back Back Inspection NL, No CVA tendernessSkin Skin Warm, Dry, IntactNeurologic Neurologic Oriented X3, Speech NL Additional PEMS Head Head Atraumatic, NormocephalicMS Neck Neck Supple, No meningismus, Full range of motion, Non-tenderMS Lower Extrem Lower Ext/Pelvis/MS No swelling, Non-tenderPsychiatric Psychiatric Affect NL, Mood NL Portions of this section were scribed by Sue Puckett on 05/20/18 at 1424 Interpretation Diagnostics Lab Results InterpretationResultsLaboratory Tests 05/20/18 1326:[Embedded Image Not Available]Laboratory Tests: 05/20 1326 Chemistry Sodium (134 - [...] (Auto) (14.0 - 32.0 %) 4.2 [place] % (Auto) (4.8 - 9.0 %) 5.3 Eos % (Auto) (0.3 - 3.7 %) 0.7 Baso % (Auto) (0.0 - 2.0 %) 0.2 Neut # (Auto) (2.0 - 7.6 x10 3/uL) 10.79 H Lymph # (Auto) (1.0 - 3.8 x10 3/uL) 0.51 [place] # (Auto) (0.1 - 0.8 x10 3/uL) 0.64 Eos # (Auto) (0.0 - 0.2 x10 3/uL) 0.09 Baso # (Auto) (0.0 - 0.2 x10 3/uL) 0.02 Abs Immat Gran (auto) (0.00 - 0.03 x10 3/uL) 0.04 H Add Manual Diff NO Immature Gran % (0.0 - 2.0 %) 0.3 Nucleated RBC % (0 - 0 %) 0.0 Nucleated RBCs # (Man) (0.0 - 0.1 x10 3/uL) 0.00 Microbiology: Date/Time Procedure - Status Source Growth 05/20 1326 Influenza Virus Type B Antigen - COMP NASOPHARG 05/20 1326 Influenza Virus Type A Antigen - COMP NASOPHARG 05/20 1059 Group A Streptococcus Screen (DIANE) - RES THROAT 05/20 1059 Streptococcus Culture - RES THROAT Recent Impressions:RADIOLOGY - XR ABD ACUTE W/CHEST 05/20 1152 Report Impression - Status: SIGNED Entered: 05/20/2018 1203 IMPRESSION: 1. Air-fluid levels within normal caliber small and large bowelsuggesting an enteritis. No definite obstruction.2. Possible splenomegaly.3. Negative chest. SL: [id number] Impression By: Nkechi Venegas M.D. Lab Imaging StatementLaboratory radiographic studies reviewed and considered in the medical decision-making. Point of Care TestingPulse Oximetry Pulse Ox % 97 On: Room air Interpretation Interpreted by me Time 1108 Free Text I D NotesFree Text I D NotesRADIOLOGY - XR ABD ACUTE W/CHEST 05/20 1152 Report Impression - Status: SIGNED Entered: 05/20/2018 1203 IMPRESSION: 1. Air-fluid levels within normal caliber small and large bowelsuggesting an enteritis. No definite obstruction.2. Possible splenomegaly.3. Negative chest. Interpreted by RadiologyReviewed by ED PA Portions of this section were scribed by Sue Puckett on 05/20/18 at 1424 Re-Evaluation MDM Re-Evaluation/Progress #1Text/Dict NoteDiscussed the results/diagnosis with pt and plan for d/c home. Discussed the need for f/u w/ PCP and the proper precautions for returning to the ED. Pt agrees with plan. viral enteritis likleyhis HR has improved pt has tolerated po went outside er with steady gaitTime of Re-Eval 1423 Portions of this section were scribed by Sue Puckett on 05/20/18 at 1424 Patient Discharge Departure Vital Signs/ConditionVital SignsFirst Documented: Result Date Time Pulse Ox 97 [...] signs available at the time of this entry have been reviewed. Condition Stable Clinical ImpressionClinical ImpressionPrimary Impression: Viral syndrome Disposition DecisionDischarge )( Discharged to Home Yes )( Time 1424 )( Date 05/20/18 Discharge/Care PlanCounseled Regarding Diagnosis, Lab results, Imaging studies, Prescriptions, Needfor follow-up, When to return to EDPrescriptionsZoGalileo Supervising Physician Note Scribe StatementSue Puckett, 05/20/18 1128, scribing for and in the presence of [ELAYNE Rosales].Signed By: Sue Puckett, 05/20/18 1128 Provider Scribed StatementI personally performed the services described in this documentation and reviewedthe documentation that was dictated to the scribe(s) in my presence, and it accurately records my words and actions. Shmuel Rodriguez, 05/20/18 Portions of this section were scribed by Sue Puckett on 05/20/18 at 1424 Chai Cates 05/21/18 2247:HPI-Nausea/Vomit/Diarrhea GeneralDate/Time Seen by Provider 05/20/18 1055 Physical Exam Vital SignsVital Signs Interpretation Diagnostics Lab Results InterpretationResults Patient Discharge Departure Vital Signs/ConditionVital Signs Supervising Physician Note MidLv Saw Pt AloneI have reviewed the PA/FIELD RESEARCH ASSOCIATE's note and plan of care. I was available for consultation as needed at all times during the patient's visit in the emergency department. I agree with the clinical impression, plan and disposition. at 1851 at 2247RPT #:[id number] OF REPORTEDEmergency department [id number] ilable for patient [id number] HCACL
[2023-09-24 10:28] LABS: Absolute Basophils 0.1 K/uL (0-0.5); Absolute Eosinophils 0.1 K/uL (0-0.5); Absolute Lymphocytes (CBC) 1.5 K/uL (0.7-4.9); Absolute Monocytes 0.5 K/uL (0.1-1.3); Absolute Neutrophil 4.5 K/uL (1.8-8.0); Basophils % 0.9 % (0-1.3); Eosinophils % 1.7 % (0-4.4); Hematocrit 44.2 % (39.6-49.0); Hemoglobin 14.6 g/dL (13.6-17.9); Lymphocytes % 22.8 % (15.3-44.8); MCH 26.6 pg (27.0-35.0); MCHC 33.1 g/dL (32.0-36.0); MCV 80.3 fL (80-100); Monocytes % 7.1 % (3.3-12.3); Neutrophils % 67.5 % (41.7-73.7); Platelets 283 thou/uL (152-406); Red Cell Distribution Width 13.3 % (12.1-15.2)
[2023-09-24 10:42] LABS: Anion Gap 4.8 mEq/L (5.0-15.0); Potassium 3.8 mEq/L (3.5-5.1)
[2023-09-24 10:54] LABS: SARS-CoV-2 Antigen CONTROL BLUE LINE VIS/BG OK; SARS-CoV-2 Antigen Rapid Res Negative (Negative)
--- NOTE | 2023-09-24 11:26 | RAD REPORT ---
[facility] DES[facility] 10:30 am CLINICAL HISTORY: CHEST PAIN COMPARISON: Chest Single View dated 11/18/2016; Chest Pa And Lat (2 Views) dated 08/25/2015 TECHNIQUE: Portable AP view of the chest. FINDINGS: The lungs are clear. No pneumothorax or effusion. The cardiomediastinal contours are unre markable. IMPRESSION: No acute cardiopulmonary process.
--- NOTE | 2023-09-24 12:16 | EDPHYS ---
Physician Documentation [facility] Name: Romulo Gusman Age: 28 yrs Sex: Male : 1995 Arrival Date: 09/24/2023 Time: 08:39 Bed 16 Private MD: ED Physician Kris Thomas HPI: 09/23 09:14 This 28 yrs old Male presents to ER via Ambulatory with complaints of Coughing up Blood.ms3 09:14 28-year-old male with past medical history of ADD/ADHD, bipolar, hypertension presents ms3 to the emergency department for cough, fatigue, generalized weakness, myalgias that began yesterday. Patient states at work today he was coughing in the bathroom and noticed blood streaking his phlegm. Patient endorses headache. Patient denies fevers, chills. Patient denies pain at this time. Patient denies any alleviating or inciting factors.. Historical: - Allergies: 09:01 Sulfa (Sulfonamide Antibiotics); iw - Home Meds: 09:01 None [Active]; iw - PMHx: 09:01 ADD/ADHD; Bipolar disorder; Hypertensive disorder; iw - PSHx: 09:01 None; iw - Immunization history:: Adult Immunizations. - Infectious Disease History:: Denies. - Social history:: Smoking status: Reported history of juuling and/or vaping. ROS: 09:14 Neck: Negative for injury, pain, and swelling, Cardiovascular: Negative for chest pain, ms3 and palpitations. Abdomen/GI: Negative for abdominal pain, nausea, vomiting, diarrhea, and constipation, Skin: Negative for injury, rash, and discoloration, 09:14 Constitutional: Positive for body aches, malaise, 09:14 Respiratory: Positive for cough, hemoptysis, Exam: 09:14 Constitutional: This is a well developed, well nourished patient who is awake, alert, ms3 and in no acute distress. Head/Face: Normocephalic, atraumatic. Chest/axilla: Normal chest wall appearance and motion. Nontender with no deformity. Cardiovascular: Regular rate and rhythm with a normal S1 and S2. No gallops, murmurs, or rubs. Normal PMI, no JVD. No pulse deficits. Respiratory: Lungs have equal breath sounds bilaterally, clear to auscultation and percussion. No rales, rhonchi or wheezes noted. No increased work of breathing, no retractions or nasal flaring. Abdomen/GI: Soft, non-tender, with normal bowel sounds. No distension or tympany. No guarding or rebound. No evidence of tenderness throughout. Skin: Warm, dry with normal turgor. Normal color with no rashes, no lesions, and no evidence of cellulitis. MS/ Extremity: Pulses equal, no cyanosis. Neurovascular intact. Full, normal range of motion. Vital Signs: 08:57 BP 144 / 94; Pulse 95; Resp 16; Temp 97.4; Pulse Ox 99% on R/A; iw 10:09 BP 128 / 92; Pulse 72; Resp 18; Temp 97.9(O); nj1 11:01 BP 129 / 90; Pulse 73; Resp 18; Pulse Ox 98% ; nj1 12:11 BP 130 / 89; Pulse 68; Resp 18; Pulse Ox 98% on R/A; nj1 MDM: 09:14 Patient medically screened. ms3 12:15 Differential Diagnosis: Bronchitis Influenza Upper Respiratory Infection Pneumonia ms3 Other Pulmonary embolism. Data reviewed: vital signs, nurses notes, lab test result(s), radiologic studies, and as a result, I will discharge patient. Independent interpretation of the following test(s) in the Emergency Department X-Ray: My interpretation is Chest x-ray images reviewed by me do not reveal pneumonia. Care significantly affected by the following chronic conditions: Hypertension. Counseling: I had a detailed discussion with the patient and/or guardian regarding the historical points, exam findings, and any diagnostic results supporting the discharge/admit diagnosis, lab results, radiology results, the need for outpatient follow up, to return to the emergency department if symptoms worsen or persist or if there are any questions or concerns that arise at home. Special discussion: I discussed with the patient/guardian in detail that at this point there is no indication for admission to the hospital. It is understood, however, that if the symptoms persist or worsen the patient needs to return immediately for re-evaluation. ED course: Discussed labs and imaging with patient. Patient to follow-up with Dr. May in 2 to 3 days. Patient understands agrees with plan. All questions were answered. Return precautions discussed include worsening symptoms, or any other concerns. On reevaluation patient is alert and oriented x 4, no apparent distress, nontoxic-appearing, speaking full sentences. 09/23 09:11 Order name: SARS RAPID; Complete Time: ms3 09/23 09:11 Order name: Flu; Complete Time: ms3 09/23 09:16 Order name: CBC with Diff; Complete Time: ms3 09/23 09:16 Order name: BMP; Complete Time: ms3 09/23 09:16 Order name: D-Dimer; Complete Time: ms3 09/23 09:11 Order name: Chest Pa And Lat (2 Views) XRAY; Complete Time: ms3 Administered Medications: No medications were administered Disposition Summary: 09/24/23 12:15 Discharge Ordered Notes: Location: Home ms3 Condition: Stable ms3 Diagnosis - Hemoptysis ms3 - Cough ms3 Followup: ms3 - With: Sina May DO - When: 2 - 3 days - Reason: Recheck today's complaints Discharge Instructions: - Cough, Adult ms3 - Discharge Summary Sheet nj1 Forms: - Medication Reconciliation Form ms3 - Antibiotic Education ms3 - Prescription Opioid Use ms3 - Patient Portal Instructions ms3 - Leadership Thank You Letter ms3 - Work release form nj1 Prescriptions: - benzonatate 200 mg Oral capsule - take 1 capsule ORAL route 3 times per day as needed; 20 capsule; Refills: 0, ms3 Product Selection Permitted Signatures: Dispatcher [employer] Tonja Campos RN RN iw Sims, Marcus, DO DO ms3 Corrections: (The following items were deleted from the chart) 09: 09:17 CBC+H.LAB.BRZ ordered. EDMS EDMS 09: 09:17 BASIC METABOLIC PANEL+C.LAB.BRZ ordered. EDMS EDMS 09:17 09:17 D-DIMER+COAG.LAB.BRZ ordered. EDMS EDMS
--- NOTE | 2023-09-24 12:16 | ER ---
Nurse's Notes [facility] Name: Romulo Gusman Age: 28 yrs Sex: Male : 1995 Arrival Date: 09/24/2023 Time: 08:39 Bed 16 Private MD: Diagnosis: Hemoptysis;Cough Presentation: 09/23 08:57 Chief complaint: Patient states: yesterday I wasn't feeling good at work, this morning iw i started coughing at work, my boss saw blood in my sputum and he sent me to be seen in ER , has been feeling tired and having headaches that come and go, started yesterday . he was working around formaldehyde yesterday. Coronavirus screen: Client presents with at least one sign or symptom that may indicate coronavirus-19. Ebola Screen: Patient negative for fever greater than or equal to 101.5 degrees Fahrenheit, and additional compatible Ebola Virus Disease symptoms Patient denies exposure to infectious person. Patient denies travel to an Ebola-affected area in the 21 days before illness onset. No symptoms or risks identified at this time. Initial Sepsis Screen: Does the patient meet any 2 criteria? No. Patient's initial sepsis screen is negative. Does the patient have a suspected source of infection? No. Patient's initial sepsis screen is negative. Risk Assessment: Do you want to hurt yourself or someone else? Patient reports no desire to harm self or others. Onset of symptoms was September 23, 2023. 08:57 Method Of Arrival: Ambulatory iw 09:00 Acuity: LAURI 4 iw 09:00 Acuity: LAURI 3 iw Historical: - Allergies: 09:01 Sulfa (Sulfonamide Antibiotics); iw - Home Meds: 09:01 None [Active]; iw - PMHx: 09:01 ADD/ADHD; Bipolar disorder; Hypertensive disorder; iw - PSHx: 09:01 None; iw - Immunization history:: Adult Immunizations. - Infectious Disease History:: Denies. - Social history:: Smoking status: Reported history of juuling and/or vaping. Screenin:58 [facility] ED Fall Risk Assessment (Adult) History of falling in the last 3 months, nj1 including since admission No falls in past 3 months (0 pts) Confusion or Disorientation No (0 pts) Intoxicated or Sedated No (0 pts) Impaired Gait No (0 pts) Mobility Assist Device Used No (0 pt) Altered Elimination No (0 pt) Score/Fall Risk Level 0 - 2 = Low Risk Oriented to surroundings, Maintained a safe environment, Hourly rounding (assess needs \T\ fall precautionary measures) done. Abuse screen: Denies threats or abuse. Denies injuries from another. Nutritional screening: No deficits noted. Tuberculosis screening: No symptoms or risk factors identified. Assessment: 09:58 General: Appears in no apparent distress. comfortable, Behavior is calm, cooperative, nj1 appropriate for age. Pain: Denies pain. Neuro: Level of Consciousness is awake, alert, obeys commands, Oriented to person, place, time, situation. Cardiovascular: Patient's skin is warm and dry. Respiratory: Reports cough that is dry, Airway is patent Respiratory effort is even. 11:01 Reassessment: Patient appears in no apparent distress at this time. Patient and/or nj1 family updated on plan of care and expected duration. Pain level reassessed. Patient is alert, oriented x 3, equal unlabored respirations, skin warm/dry/pink. 12:08 Reassessment: Patient appears in no apparent distress at this time. Patient and/or nj1 family updated on plan of care and expected duration. Pain level reassessed. Patient is alert, oriented x 3, equal unlabored respirations, skin warm/dry/pink. 12:54 Reassessment: Patient appears in no apparent distress at this time. Patient is alert, nj1 oriented x 3, equal unlabored respirations, skin warm/dry/pink. Vital Signs: 08:57 BP 144 / 94; Pulse 95; Resp 16; Temp 97.4; Pulse Ox 99% on R/A; iw 10:09 BP 128 / 92; Pulse 72; Resp 18; Temp 97.9(O); nj1 11:01 BP 129 / 90; Pulse 73; Resp 18; Pulse Ox 98% ; nj1 12:11 BP 130 / 89; Pulse 68; Resp 18; Pulse Ox 98% on R/A; nj1 ED Course: 08:41 Patient arrived in ED. mr 09:00 Triage completed. iw 09:01 Arm band placed on. iw 09:02 Kris Thomas DO is Attending Physician. ms3 09:38 Toshia Hope, RN is Primary Nurse. nj1 09:59 Patient has correct armband on for positive identification. Bed in low position. Call nj1 light in reach. Provided Education on: call light, fall precautions. 10:00 Inserted saline lock: 20 gauge in left antecubital area, using aseptic technique. Blood nj1 collected. 10:32 Chest Pa And Lat (2 Views) XRAY In Process Unspecified. EDMS 12:15 Sina May DO is Referral Physician. ms3 12:54 No provider procedures requiring assistance completed. IV discontinued, intact, nj1 bleeding controlled, Pressure dressing applied. Administered Medications: No medications were administered Medication: 12:54 VIS not applicable for this client. nj1 Outcome: 12:15 Discharge ordered by MD. ms3 12:54 Discharged to home ambulatory, nj1 12:54 Condition: stable 12:54 Discharge instructions given to patient, Instructed on discharge instructions, follow up and referral plans. medication usage, Demonstrated understanding of instructions, follow-up care, medications, Prescriptions given X 1, 12:55 Patient left the ED. nj1 Signatures: Dispatcher [employer] EDNM Rosa Saleh, Rik Reg mr Tonja Lee, RN RN iw Kris Thomas DO DO ms3 Toshia Hope, RN RN nj1 Corrections: (The following items were deleted from the chart) 09:01 08:57 Chief complaint: Patient states: yesterday I wasn't feeling good at work, this iw morning i started coughing at work, my boss saw blood in my sputum and he sent me to be seen in ER , has been feeling tired and having headaches that come and go, started yesterday iw
[2023-09-24 13:17] VITALS: BP 130/89; TEMP 97.9; O2SAT 98
== END 2023-09-24 12:55 | disposition home or self-care (01) ==
LOC: ER 08:39
DX: R04.2 Hemoptysis (principal); R05.9 Cough, unspecified; Z11.52 Encounter for screening for COVID-19
CPT/HCPCS: 36415; 71046; 80048; 85025; 85379; 87804; 87811; 99284

== ENCOUNTER 2023-12-12 15:42 | Emergency (ER) | payer SELFPAY ==
--- OUTSIDE RECORDS SUMMARY | 2023-12-12 15:46 | XMS REPORT | Continuity of Care Document ---
Author Name Unknown Address [address] [facility] [address] [place] [address] [facility] thconnect Address [address] [facility]. [address] [place] [address] Care Team Providers Care Machine Helper Name Role Phone PCP, NO Primary Care Physician Unavailab AJ Briggs Attending Clinician Unavailable MALI CROWE Attending Clinician Unavailab JACKIE Hernandez Attending Clinician Unavailab JOCELYN Fu Attending Clinician Unavail able SARAH WU Attending Clinician UnavailAJ Sprague Attending Clinician David Slade CODING DIRECTOR, Pricilla Morris Attending Clinician PRICILLA SLADE Attending [...] active problems No known active problems Disease [facility] Allergies, Adverse Reactions, Alerts Allergy Name Allergy Type Status Severity Reaction(s) Onset Date Inactive Date Treating Clinician Comments Source Sulfonam behzad Allergy to substanc e Active Unknown 06-09 00:00: 00 ENRIQUE [facility] Sulfa (Sulfona mide Antibiot ics) DA Active [place] 12-24 00:00: 00 [facility] Sulfa (Sulfona mide Antibiot ics) DA Active [place] HIVES, ANGIOEDEMA 12-24 00:00: 00 [facility] Sulfa (Sulfona mide Antibiot ics) DA Active [place] 06-18 00:00: 00 [facility] Sulfa (Sulfona mide Antibiot ics) DA Active MO HIVES 06-18 00:00: 00 [facility] Sulfa (Sulfona mide Antibiot ics) DA Active MO 09-05 00:00: 00 [facility] Sulfa (Sulfona mide Antibiot ics) DA Active MO HIVES 09-05 00:00: 00 [facility] Sulfa (Sulfona mide Antibiot ics) DA Active MO 00:00: 00 [facility] Sulfa (Sulfona mide Antibiot ics) DA Active MO HIVES 2 00:00: 00 [facility] No Known Allergie s DA Active U 8- 00:00: 00 [facility] No Known Allergie s DA Active U 12-04 00:00: 00 [facility] No Known Contrast Allergie s DA Active U 12-05 00:00: 00 [facility] No Known Drug Allergie s DA Active U 12-05 00:00: 00 [facility] No Known Food Allergie s DA Active U 12-05 00:00: 00 [facility] No Known Other Allergie s DA Active U 12-05 00:00: 00 [facility] NO KNOWN ALLERGIE S Drug Class Active [facility] Social History Social Habit Start Date Stop Date Quantity Comments Source Exposure to SARS-CoV-2 (event) Not sure [facility] Sex Assigned At 1995 00:00:00 1995 00:00:[address] [facility] Smoking Status Start Date Stop Date Source Unknown if ever smoked [facility] Medications Ordered Medication Name Filled Medication Name Start Date Stop Date Current Medication? Ordering Clinician Indication Dosage Frequency Signature (SIG) Comments Components Source Amoxicillin /Clavulanat e Potassium (Augmentin 875 Mg) 1 Each TABLET 06-09 14:58: 00 No 875mg Twice A Day [facility] Naproxen (Naprosyn) 500 Mg TAB 06-09 14:58: 00 No 500mg Twice A Day as needed for Pain [facility] Ondansetron Hcl (Zofran) 4 Mg TAB 06-09 14:58: 00 No 4mg Every 8 Hours as needed for Nausea [facility] Amoxicillin /Clavulanat e Potassium (Augmentin 875 Mg) 1 Each TABLET 06-09 14:56: 00 06-09 14:58 :00 No 875mg Twice A Day [facility] Naproxen (Naprosyn) 500 Mg TAB 06-09 14:56: 00 06-09 14:58 :00 No 500mg Twice A Day as needed for Pain [facility] Ondansetron Hcl (Zofran) 4 Mg TAB 06-09 14:56: 00 06-09 14:58 :00 No 4mg Every 8 Hours as needed for Nausea / Vomiting [facility] ibuprofen (IBU) tablet 800 mg 2020-04 06:15: 00 02-04 05:23 :00 No 800mg 800 mg, Oral, ONCE, 1 dose, On 02/04/21 at 0115, [facility] acetaminoph en (TYLENOL) tablet 650 mg 2020-04 06:15: 00 02-04 05:23 :00 No 650mg 650 mg, Oral, ONCE, 1 dose, On 02/04/21 at 0115, [facility] albuterol 90 mcg/actuati on inhaler 2020-04 00:00: 00 Yes [id number] 2{puff} Inhale 2 Puffs every 4 (four) hours as needed for Wheezing or Shortness of Breath. [facility] levoFLOXaci n 750 mg tablet 2020-04 00:00: 00 02-12 04:59 :00 No [id number] 750mg Take 1 tablet by mouth daily for 7 days. [facility] predniSONE 20 mg tablet 2020-04 00:00: 00 02-10 04:59 :00 No [id number] 20mg Take 1 tablet by mouth 2 (two) times daily for 5 days. [facility] TYLENOL FOR CHILDREN ORAL 05-06 13:05: 22 Yes None Entered [facility] Vital Signs Vital Name Observation Time Observation Value Comments S ource Body Temperature 2023-06-09 15:31:00 98.3 [degF] [facility] Heart Rate 2023-06-09 15:31:00 67 /min [facility] Respiratory rate 2023-06-09 15:31:00 18 /min [facility] BP Systolic 2023-06-09 15:31:00 113 mm[Hg] [facility] BP Diastolic 2023-06-09 15:31:00 77 mm[Hg] [facility] Height 2023-06-09 13:55:00 167.556608 cm [facility] Weight 2023-06-09 13:55:00 86.122853 kg [facility] BMI (Body Mass Index) 2023-06-09 13:55:00 30.7 kg/m2 [facility] Systolic blood pressure 2021-02-04 07:45:00 131 mm[Hg] [facility] Diastolic blood pressure 2021-02-04 07:45:00 74 mm[Hg] [facility] Heart rate 2021-02-04 07:45:00 114 /min [facility] Respiratory rate 2021-02-04 07:45:00 20 /min [facility] Oxygen saturation in Arterial blood by Pulse oximetry 2021-02-04 07:45:00 98 /min [facility] Body temperature 2021-02-04 04:20:00 38.33 Lisa [facility] Body height 2021-02-04 04:20:00 170.2 cm [facility] Body weight 2021-02-04 04:20:00 91.944 kg [facility] BMI 2021-02-04 04:20:00 31.75 kg/m2 [facility] Procedures Procedure Date / Time Performed Performing Clinician Source URINALYSIS 2021-02-04 06:27:00 Pricilla Slade [facility] EBV-MONONUCLEOSIS SCREEN 2021-02-04 06:27:00 Radha Slade [facility] RAPID STREP SCREEN FOR GROUP A 2021-02-04 06:27:00 Pricilla Slade [facility] URINE DRUG (IMMUNOASSAY) - COMPREHENSIVE DRUG SCREEN W/O REFLEX 2021-02-04 06:27:00 Pricilla Slade [facility] ADC,CLC OR LCC ONLY - INFLUENZA A & B DIRECT ANTIGEN 2021-02-04 05:24:00 Pricilla Slade [facility] XR CHEST 1 VW 2021-02-04 05:23:00 [facility]-19 (ID NOW RAPID TESTING) 2021-02-04 04:57:00 Pricilla Slade [facility] NOTICE OF PRIVACY PRACTICES 2021-02-04 04:01:40 Doctor Unassigned, [place] [facility] CONSENT/REFUSAL FOR DIAGNOSIS AND TREATMENT 2021-02-04 03:58:40 Doctor Unassigned, [place] [facility] Encounters Start Date/Time End Date/Time Encounter Type Admission Type Attending [facility] Facility Care Department Encounter ID Source 2020-08-15 18:15:00 Inpatient HCACL ROBIN [id number] [facility] 2020-06-18 18:18:00 Inpatient HCACL ROBIN [id number] [facility] 2019-09-06 22:14:00 Inpatient HCACL ROBIN [id number] [facility] 2019-05-25 21:43:00 Inpatient HCAMN DARIO [id number] [facility] 2023-06-25 11:58:05 2023-06-25 11:58:05 Outpatient SFA SFA [id number] Tim Patel 2023-06-09 13:54:00 2023-06-09 15:31:[address] [facility] [id number] [facility] 2023-06-09 13:54:00 2023-06-09 15:31:00 Emergency ER AJ PARR [facility] [id number] ENRIQUE Jimenez [facility] 2023-06-03 16:13:54 2023-06-03 16:13:54 Outpatient SFA [facility] [id number] Tim Patel 2021-11-14 09:15:00 2021-11-14 11:12:00 Emergency E MALI CROWE [facility]SE MED [id number] [facility] 2021-10-05 22:09:00 2021-10-06 02:40:00 Emergency E JACKIE GALVAN MHBL MHBL [id number] [facility] 2021-10-04 23:17:00 2021-10-05 00:01:00 Emergency E JOCELYN EATON MHSE MHSE [id number] [facility] 2021-09-25 21:46:00 2021-09-25 22:39:00 Emergency E SARAH WU MHSE MHSE [id number] [facility] 2021-08-18 18:36:00 2021-08-18 19:57:00 Emergency E CIARA AJ MHSE MHSE [id number] [facility] 2021-02-03 23:27:00 2021-02-04 03:04:00 Emergency Pricilla Slade G [facility] [id number] [facility] 2021-02-03 23:27:00 2021-02-03 23:27:00 Emergency X PRICILLA SLADE [facility] ERT [id number] [facility] 2020-12-24 21:50:00 2020-12-25 02:16:00 Emergency EM Nawaf Her [facility] ROBIN [id number] [facility] 2020-12-19 21:51:00 2020-12-20 04:15:00 Emergency E PRABHU [place] BL [id number] [facility] 2020-08-16 22:18:00 2020-08-17 02:24:00 Emergency E [facility]ERNADETTE [facility]SON [id number] 2020-06-18 18:18:00 2020-06-18 21:35:00 Emergency EM Antonio Lara [facility] [id number] [facility] 2019-04-10 21:45:00 2019-04-10 21:45:00 Emergency E [facility] Results Test Description Test Time Test Comments Results Result Co mments Source [facility]2020-12-25 00:56:00* Test Item Value Reference Range Interpretation Comme nts AG STREP GROUP A (THROAT) (test code = STREPA) Negative Negative Negative for Str ep A nucleic acid INFLUENZA A [id number] 00:56:00* Test Item Value Reference Range Interpretation Comme nts INFLUENZA A (test code = FLUAPCR) Negative Negative INFLUENZA B (test code = FLUBPCR) Negative Negative Coronavirus 2019 nCoV [id number] 00:41:00* Test Item Value Reference Range Interpretation Comme nts Coronavirus 2019 nCoV Bedside (test code = [id number]) NEGATIVE Negative Negative results should be treated as presumptive and, ifinconsistent with clinical signs and symptoms or necessaryfor patient management, should be tested with an alternativemolecular assay. Negative results do not preclude [id number]-[id number] and should not be used as the [...] Str ep A nucleic acid INFLUENZA A [id number] 00:33:00* Test Item Value Reference Range Interpretation Comme nts INFLUENZA A (test code = FLUAPCR) Negative INFLUENZA B (test code = FLUBPCR) Negative - CT HEAD/BRAIN W/O [id number] 19:29:00 [facility] 1995 Sex: M Name: ANATOLY MCNEAL [facility] [place] : 1995 Age/S: 25 / M [address] Unit #: [id number] Loc: [place] [address] Phys: Shmuel Rodriguez Acct: [id number] Dis Date: Status: REG ER PHONE #: [phone] Exam Date: 08/15/20201901 FAX #: [phone] Reason: fall, occipital head strike, LOC, vomiting EXAMS: CPT CODE: [id number] CT HEAD/BRAIN W/O CONT 51827 Clinical Indication: Fall, occipital head strike, loss [...] 1 Signed Report (CONTINUED) Name: ANATOLY MCNEAL [facility] : 1995 Age/S: 25 / M [address] [place] [address] Unit #: [id number] Loc: [place] [address] Phys: Shmuel Rodriguez Acct: [id number] Dis Date: Status: REG ER PHONE #: [phone] Exam Date: 08/15/20201901 FAX #: [phone] Reason: fall, occipital head strike, LOC, vomiting EXAMS: CPT CODE: [id number] CT HEAD/BRAIN W/O CONT 65328 <Continued> and spinous processes are unremarkable. The [...] Noemi(R)(CT) CTDI: DLP: Trnscb Date/Time: 08/15/2020 (1928) [email or web address] Orig Print D/T: S: 08/15/2020 (1931) PAGE 2 Signed Report- CT C-SPINE W/O [id number] 19:29:00 [facility] 1995 Sex: M Name: ANATOLY MCNEAL [facility] : 1995 Age/S: 25 / M [address] [place] [address] Blvd Unit #: [id number] Loc: [place] [address] Phys: Shmuel Rodriguez Acct: [id number] Dis Date: Status: REG ER PHONE #: [phone] Exam Date: 08/15/20201901 FAX #: [phone] Reason: fall, occipital head strike, LOC, vomiting EXAMS: CPT CODE: [id number] CT C-SPINE W/O CONT 52795 Clinical Goldie cation: Fall, occipital head strike, loss of point [...] CT Radiation Dose DLP 569.9 mGy-cm-CT head CTRadiation Dose DLP 1964 mGy-cm-CT cervical spine FINDINGS: BRAIN PARENCHYMA: There are normal urbina-white interfaces, sulci and gyri. There are no focal mass lesions on this noncontrast head CT. Thereis no mass effect, midline shift or edema. [...] 1 Signed Report (CONTINUED) Name: ANATOLY MCNEAL [facility] : 1995 Age/S: 25 / M [address] [place] [address] Blvd Unit #: [id number] Loc: [place] [address] Phys: Shmuel Rodriguez Acct: [id number] Dis Date: Status: REG ER PHONE #: [phone] Exam Date: 08/15/20201901 FAX #: [phone] Reason: fall, occipital head strike, LOC, vomiting EXAMS: CPT CODE: [id number] CT C-SPINE W/O CONT 42266 <Continued> and spinous processes are unremarkable. The [...] concern. IMPRESSION: CT head: 1. No acute intr acranial abnormality. 2. Midline parieto-occipital scalp swelling. No calvarial fracture. CT cervical spine: No fractures or subluxations of the cervical spine. SL: APATIL-H at 192 Reported and signed by: Wanda Rodriguez M.D. CC: Antonio Lara MD; Shmuel HOLLY Technologist:Yasmin Matias, RT(R)(CT) CTDI: DLP: TrnscbDate/Time: 08/15/2020 (1928) [email or web address] Orig Print D/T: S: 08/15/2020 (1931) PAGE 2 Signed Report- XR CHEST 1 [id number] 19:10:00 [facility] 1995 Sex: M FAX: Antonio Lara MD [phone] [place]: St: REG FAX: Shmuel Rodriguez [phone] ---- Name: ANATOLY MCNEAL [facility] : 1995 Age/S: 25/M [address] [place] [address] Unit #: [id number] Loc: [place] [address] Phys: Shmuel Rodriguez Acct: [id number] Dis Date: Status: REG ER PHONE #: Exam Date: 08/15/2020 1904 FAX #: [phone] Reason: trauma EXAMS: CPT CODE: [id number] CHEST 1 V 12127 Portable single view AP chest INDICATION: Fall. Injury. Comparison: 06/10/2020 chest x-ray FINDINGS: The cardiomediastinal silhouette is normal in size. Lungs are clear. Costophrenic angles are sharp. No suspicious osseous abnormality is seen. IMPRESSION: No evidence for acute car diopulmonary disease. SL: SG-H t 1909 Reported and signed by: Jose C Joshi M.D. CC: Antonio Lara MD; Shmuel HOLLY Technologist: Suma Lynch, RT(R); Judith Savage RT(R) Trnscrd Date/Time/By: 08/15/2020 (1909) : By: [email or web address] Orig Print D/T: S: 08/15/2020 (1912) PAGE 1 Signed ReportBASIC METABOLIC PANEL 2020-06-18 20:21:00* Test Item Value Reference Range Interpretation [...] code = CA) 9.8 mg/dL 8.0-10.5 N [id number] 20:21:00* Test Item Value Reference Range Interpretation Comme nts TROPONIN-I (test code = TROPI) < 0.006 ng/mL 0.000-0.045 N Negative: <= 0.0 45 Positive: >= 0.046 Correlation with serial results, other cardiac markers andclinical findings is necessary to determine the clinicalsignificance of this result. Results using different methodologies should not be comparedto one another as quantitative results may vary by method. BASIC METABOLIC [id number] 20:20:00* Test Item Value Reference Range Interpretation [...] CALCIUM (test code = CA) mg/dL 8.0-10.5 [id number] 20:20:00* Test Item Value Reference Range Interpretation Comme nts TROPONIN-I (test code = TROPI) < 0.006 ng/mL 0.000-0.045 N Negative: <= 0. 045 Positive: >= 0.046 Correlation with serial results, other cardiac markers andclinical findings is necessary to determine the clinicalsignificance of this result. Results using different methodologies should not be comparedto one another as quantitative results may vary by method. [id number] 20:16:00* Test Item Value Reference Range Interpretation Comme nts D-DIMER (test code = DDIMER) 364 ng/mlFEU See_Comment N THROMBOSIS AND/O R PULMONARY EMBOLISM AND THE CLINICAL CUT- OFF VALUE FOR EXCLUSION (500 ng/mL FEU) OF THESE CONDITIONSIS VALIDATED BY THE ASSESSMENT CLINICIAN OF THE METHOD. A NEGATIVE D-DIMER RESULT [...] interpret this result as normal/abnormal. CBC W/AUTO [id number] 20:06:00* Test Item Value Reference Range Interpretation [...] c ode = MDIFF) NO CBC W/AUTO [id number] 20:02:00* Test Item Value Reference Range Interpretation [...] ode = MDIFF) - XR CHEST 1 [id number] 19:27:00 [facility] 1995 Sex: M FAX: Antonio Lara MD [phone] [place]: St: DEP Name: ANATOLY MCNEAL [facility] : 1995Age/S: 25/M [address] [place] [address] Unit #: [id number] Loc: [place] [address] Phys: Antonio Lara MD Acct: [id number] Dis Date: Status: DEP ER PHONE #: [phone] Exam Date: 06/18/20201855 FAX #: [phone] Reason: chest pain, SOB EXAMS: CPT CODE: [id number] XR CHEST 1 V 49218 SINGLE VIEW RADIOGRAPH CHEST INDICATION: Chest pain [...] Report- XR CHEST 1 V 2020-06-18 19:27:00 [facility] 1995 Sex: M FAX: Antonio Lara MD [phone] [place]: St: REG Name: ANATOLY MCNEAL [facility] : 1995Age/S: 25/M [address] [place] [address] Unit #: [id number] Loc: [place] [address] Phys: Antonio Lara MD Acct: [id number] Dis Date: Status: REG ER PHONE #: [phone] Exam Date: 06/18/2020 1856 FAX #: [phone] Reason: chest pain, SOB EXAMS: CPT CODE: [id number] XR CHEST 1 V 18993 SINGLEVIEW RADIOGRAPH CHEST INDICATION: Chest pain and dyspnea. [...] D.O. CC: Antonio Lara MD Technologist: RT Bijan(R) Trnscrd Date/Time/By: 06/18/2020 (1926) : By: [email or web address] Orig Print D/T: S: 06/18/2020 ( 1929) PAGE 1 Signed ReportNovel Coronavirus [id number] 14:02:00* Test Item Value Reference Range Interpretation Comme nts Novel Coronavirus 2019 Inhouse (test code = EFNYB92DV) Negative Negative Positive resul ts are indicative of the presence nfADHZ-QnN-5 RNA, clinical correlation with patient historyand other [...] for the identification of SARS-CoV-2 RNA usingthe [employer] M2000 System under the FDA Emergency UseAuthorization. The testing is performed by personneltrained in the procedures for the [employer] M2000 moleculardiagnostic SARS-CoV-2 assay in vitro. Testing Criteria: Fever Cough OtherOther: GENERALIZED WEAKNESSCOMMENTS: ORDER PUT IN FOR DR JOSE MIGUEL Reddy [id number] 00:31:00* Test Item Value Reference Range Interpretation Comme nts INFLUENZA A (test code = FLUAPCR) Negative Negative INFLUENZA B (test code = FLUBPCR) Negative Negative COMMENTS: SwabBASIC METABOLIC [id number] 00:19:00* Test Item Value Reference Range Interpretation [...] CA) 9.3 mg/dL 8.0-10.5 N HEPATIC FUNCTION [id number] 00:19:00* Test Item Value Reference Range Interpretation [...] ALKP) 74 IUnit/L 20-125 N BASIC METABOLIC [id number] 00:13:00* Test Item Value Reference Range Interpretation [...] CA) 9.3 mg/dL 8.0-10.5 N HEPATIC FUNCTION [id number] 00:13:00* Test Item Value Reference Range Interpretation [...] code = ALKP) IUnit/L 20-125 CBC W/AUTO [id number] 00:05:00* Test Item Value Reference Range Interpretation [...] = MDIFF) NO - XR CHEST 2 [id number] 23:38:00 [facility] : 1995 Sex: M FAX: Ernesto Swanson MD [phone] [place]: St: DEP Name: ANATOLY MCNEAL [facility] Jani Pruitt : 1995 Age/S: 24/M [address] [place] [address] Blvd Unit #: [id number] Loc: [place] [address] Phys: Ernesto Colunga MD Acct: [id number] Dis Date: Status: DEP ER PHONE #: [phone] Exam Date: FAX #: [phone] Reason: Chest Pain EXAMS: CPT CODE: [id number] XR CHEST 2 V 67853 Chest, 2 views dated 09/06/2019. HISTORY: Chest pain. Comparison is made to a prior study dated 05/20/2018. Theheart is normal in size. The cardiac mediastinal shadow appears within normal limits. The lungs appear clear. The palmar vasculature is normal in caliber. No acute pleural space abnormalities are detected. IMPRESSION: 1. No radiographic evidence of acute cardiopulmonary disease. SL: 131 at 2393 Reported and signed by: Kanu Pinto M.D. CC: Ernesto Colunga MD Technologist: RT Jeremie(Timothy) Trnscrd Date/Time/By: 09/06/2019 (3184) : By: SharonM Orig Print D/T: S: 09/06/2019 (5047) PAGE 1 Signed Report- XR CHEST 2 [id number] 23:38:00FAX: Ernesto Swanson MD [phone] [place]: St: REG Name: ANATOLY MCNEAL [facility] : 1995 Age/S: 24/M [address] [place] [address] Unit #: [id number] Loc: [place] [address] Phys: Ernesto Colunga MD Acct: [id number] Dis Date: Status: REG ER PHONE #: [phone] Exam Date: 09/06/2019 233 FAX #: [phone] Reason: Chest Pain EXAMS: CPT CODE: [id number] XR CHEST 2 V 47423 Chest, 2 views dated 09/06/2019. HISTORY: Chest pain. Comparison is made to a prior study dated 05/20/2018. The heart is normal in size. The cardiac mediastinal shadow appears within normal limits. The lungs appearclear. The palmar vasculature is normal in caliber. No acute pleural space abnormalities are detected. IMPRESSION: 1. No radiographic evidence of acute cardiopulmonary disease. SL: 131 at 2338 Reported and signed by: Kanu Pinto M.D. CC: Ernesto Colunga MD Technologist: KACIE Chao) Trnscrd Date/Time/By: 09/06/2019 (8694) : By: [email or web address] Orig Print D/T: S: 09/06/2019 (6221) PAGE 1 Signed Report- CT ABD PELVIS [id number] 00:20:00FAX: Dariusz Junior DO [phone] [place]: St: REG Name: ANATOLY MCNEAL [facility] : 1995 Age/S: 24/M [address] [facility] [address] Unit: [id number] Loc: E.[facility] [place], [place]: [place] [id number] Acct: [id number] Dis Date: Status: REG ER PHONE #: [phone] Exam Date: 05/25/2019 0005 FAX #: [phone] Reason: abdominal pain EXAMS: CPT CODE: [id number] CT ABD PELVIS W/CONT 98655 EXAM: CT ABDOMEN AND PELVIS WITH IV [...] to the patient size; and/or use of iterativereconstruction technique. COMPARISON: Previous CT abdomen and pelvis with contrast performed 10/28/2014 FINDINGS: Statements: Exam quality is acceptable. Lower thorax: Unremarkable. Hepatobiliary: Theliver is normal without focal lesion. The gallbladder is normal. No biliary dilation. Pancreas: Normal. Spleen: Normal. Adrenals: Normal. Genitourinary: No solid renal mass, significant cortical thinn ing, obvious renal stone or hydronephrosis. Ureters are unremarkable. Urinary bladder is unremarkable. The visualized reproductive organs are unremarkable. Gastrointestinal: No bowel wall thickening,bowel obstruction or perienteric inflammation. The appendix is normal. Vascular: No aortic aneurysmor dissection. IVC is unremarkable. Portal vein is patent. PAGE 1 Signed Report (CONTINUED) FAX: Dariusz Junior DO [phone] [place]: St: REG Name: ANATOLY MCNEAL [facility] : 1995 Age/S: 24/M [address] [address] Unit: [id number] Loc: E[facility] [place], [place] Phys: Ulises Junioruel [address] Acct: [id number] Dis Date: Status: REG ER PHONE #: [phone] Exam Date: 05/25/2019 0005 FAX #: Reason: abdominal pain EXAMS: CPT CODE: [id number] CT ABD PELVIS W/CONT 12413 <Continued> Lymphatics: No enlarged lymph nodes by CT size criteria. Bones/Soft Tissues: No acute osseous findings. No ventral hernias. Peritoneum/Other: No free intraperitoneal air. No free intraperitoneal fluid. IMPRESSION: Unremarkable CT of the abdomen and pelvis. at 0020 Reported and signed by: Ale Escamilla M.D. CC: Dariusz Junior DO Technologist: CORA Downey Dt/Tm: 05/26/2019 (0020) [id number] Orig Print D/T: S: 05/26/2019 (0820 PAGE 2 Signed Report- CT ABD PELVIS [id number] 00:20:00 [facility] : 1995 Sex: M FAX: Dariusz Junior DO [phone] [place]: IVON St: DEP Name: ANATOLY MCNEAL [facility] : 1995 Age/S:24/M [address] Unit: [id number] Loc: [place], [place] Phys: Dariusz Junior [id number] Acct: [id number] Dis Date: Status: DEP ER PHONE #: [phone] Exam Date: 05/25/2019 0005 FAX #: [phone] Reason: abdominal pain EXAMS: CPT CODE: [id number] CT ABD PELVIS W/CONT 46436 EXAM: CT ABDOMEN AND PELVIS WITH IV [...] hydronephrosis. Ureters are unremarkable. Urinary bladder is unremarkab le. The visualized reproductive organs are unremarkable. Gastrointestinal: No bowel wall thickening, bowel obstruction or perienteric inflammation. The appendix is normal. Vascular: No aortic aneurysm or dissection. IVC is unremarkable. Portal vein is patent. PAGE 1 Signed Report (CONTINUED) FAX: Dariusz Vyas DO [phone] [place]: St: [facility] Name: ANATOLY MCNEAL [facility] : 1995 Age/S: 24/M [address] [facility] Unit: [id number] Loc: [place], [place]: [place] [address] Acct: [id number] Dis Date: Status: DEP ER PHONE #: [phone] Exam Date: 05/25/2019 0005 FAX #: [phone] Reason: abdominal pain EXAMS: CPT CODE: [id number] CT ABD PELVIS W/CONT 41391 <Continued> Lymphatics: No enlarged lymph nodes by CT size criteria. Bones/Soft Tissues: No acute osseousfindings. No ventral hernias. Peritoneum/Other: No free intraperitoneal air. No free intraperitoneal fluid. IMPRESSION: Unremarkable CT of the abdomen and pelvis. at 0020 Reported and signed by: Ale Escamilla M.D. CC: Dariusz Junior DO Technologist: CORA Downey Dt/Tm: 05/26/2019 (0020) t.TYREE Orig Print D/T: S: 05/26/2019 (0820 PAGE 2 Signed ReportBASIC METABOLIC [id number] 23:28:00* Test Item Value Reference Range Interpretation [...] 9.3 mg/dl 8.0-10.5 N HEPATIC FUNCTION PANEL [id number] 23:28:00* Test Item Value Reference Range Interpretation [...] code = ALKP) 73 Units/L 50.0-136.0 N [id number] 23:28:00* Test Item Value Reference Range Interpretation Comme nts LIPASE (test code = LIP) 96 Units/L 65.0-230.0 N URINALYSIS [id number] 23:21:00* Test Item Value Reference Range Interpretation [...] MUCU) 1+ Specimen comments: Clean CatchBASIC METABOLIC [id number] 23:20:00* Test Item Value Reference Range Interpretation [...] = CA) mg/dl 8.0-10.5 HEPATIC FUNCTION PANEL [id number] 23:20:00* Test Item Value Reference Range Interpretation [...] ( test code = ALKP) Units/L 50.0-136.0 [id number] 23:20:00* Test Item Value Reference Range Interpretation Comme nts LIPASE (test code = LIP) Units/L 65.0-230.0 CBC W/AUTO [id number] 23:15:00* Test Item Value Reference Range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 Mean 88 /05 2343 O2 Delivery Room air 12/24 2343 Temp 37.2 /05 2343 Pulse 93 09/05 2343 Resp 18 12/24 2343 All vital signs available at the time of this entry have been reviewed. Condition Stable, Improved Clinical Impression Clinical Impression Primary Impression: URI (upper respiratory infection) Secondary Impressions: Pharyngitis Disposition Decision Discharge )( Discharged to Home Yes )( Time 0134 )( Date 12/25/20 Discharge/Care Plan Counseled Regarding Diagnosis, Lab results, Need for follow-up, When to return to ED (Auto) Prescriptions Current Visit Scripts LIDOCAINE (LIDOCAINE 2% VISCOUS) 15 ML SWISH SWAL Q3H PRN PRN throat pain LIDOCAINE (LIDOCAINE 2% VISCOUS) 15 ML SWISH SWAL Q3H PRN PRN throat pain # 150 ML Prescriptions Reviewed Risks, Benefits, Alternative treatment Patient Instructions ED URI, Viral, No Abx (Adult) Additional Instructions Please follow-up with your primary care physician in the next 1-2 days for repeat evaluation of any persistent symptoms Please continue alternate using acetaminophen/Tylenol and then ibuprofen/Motrin every 3 hours as needed for any ongoing fever. Return to the nearest ER or call 911 sooner for any: Changes in your behavior/increased weakness Shaking or seizure-like activity Nausea or vomiting keeping you rom eating or drinking New shortness of breath or difficulty breathing of any kind Dark or bloody vomiting or stools Any other concerns that you have Referrals PRIMARY CARE: 1-2 Days at 1705 RPT #:[id number] END OF REPORT [facility] 2020-08-15 18:46:00 [facility] ([facility]) EMERGENCY PROVIDER REPORT REPORT#:[id number] REPORT STATUS: Signed DATE:08/15/20 TIME: 1845 PATIENT: ANATOLY MCNEAL UNIT #: [id number] ROOM/BED: AGE: 25 SEX: M PCP PHYS: No Primary or Family Physician SERVICE AUTHOR: Shmuel Rodriguez * ALL edits or amendments must be made on the electronic/computer document * HPI-Head Prob/Injury Free Text HPI Notes Free Text HPI Notes 25 M with history of anxiety presents to the ED with head pain and nausea. 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 EMS reports neurointact, alert with normal vitals in route. THe patient denies any other complaints or medical history, etoh or drug use. General Confirmed Patient Yes Initial Greet Date/Time 08/15/201838 Presentation Chief Complaint Blunt head trauma Hx Obtained From Patient )( Onset Occurred Sudden Risk-Head Prob/Injury Risk Stratification Cisco Head CT Rule 2 or more episodes [...] Allergies Coded Allergies: Sulfa (Sulfonamide Antibiotics) (Intermediate, HIVES 07/31/20) Uncoded Allergies: No Known Contrast Allergies (10/12/08) No Known Drug Allergies (10/12/08) No Known Food Allergies (10/12/08) No Known Other Allergies (10/12/08) Calculated Suicide Risk (nurs) No risk Additional Medical History anxiety Alcohol Use Alcohol use Drug Use Denies recreational drugs Smoking status: Smoking status for patients 13 years old or older: Current every day smoker Additional Social History [...] non-toxic, no distress Head: Tenderness and mild swelling to the posterior head, no step-offs, no signs of basilar skull fracture Eyes: Atraumatic,, No periorbital swelling or redness, EOMI and painless, PERRLA ENT: Atraumatic, MMM, uvula midline, airway patent, pharynx normal Neck: Atraumatic, supple, non tender, trachea midline, no swelling, no midline tenderness Resp: Atraumatic, Nml breath sounds B, no wheezing, rales or rhonchi, no respiratory distress, No Crepitus, no tenderness CV: Nml HR, Nml Rhythm, No murmurs, rubs or clicks, Radial and pedal pulses present and 2+, Abd: Atraumatic, Soft, Non-tender, No guarding, No rebound, No distention Back: Atraumatic, No midline tenderness, no stepoffs MSK LE: Atraumatic, Nontender, No swelling, ROM testing is nml and painless MSK UE: Atraumatic, Nontender, No swelling, ROM testing is nml and painless Skin: Nml color, warm, Dry, No swelling, No edema Neuro: Oriented X3, Speech nml, moves all extremeties [...] subluxations of the cervical spine. SL: APATIL-H Impression By: Sierra Rodriguez M.D. CAT SCAN - CT HEAD/BRAIN W/O CONT 08/15 1901 Report Impression - Status: SIGNED Entered: 08/15/20201931 IMPRESSION: CT head: 1. No acute intracranial abnormality. 2. Midline parieto-occipital scalp swelling. No calvarial fracture. CT cervical spine: No fractures or subluxations of the cervical spine. SL: APATIL-H Impression By: Sierra Rodriguez M.D. RADIOLOGY - XR CHEST 1 V 08/16 1903 Report Impression - Status: SIGNED Entered: 08/15/20201912 IMPRESSION: No evidence for acute cardiopulmonary disease. SL: SG-H Impression By: Con Joshi M.D. Imaging Statement Radiographic studies reviewed and considered in the medical decision-making. Re-Evaluation MDM Re-Evaluation/Progress #1 Text/Dict Note pain improved. no acute distress. NV intact without nausea or vomiting Time of Re-Eval 1936 Re-Eval Status Improved Re-Eval Neurologic Exam Alert, Pt is back to [...] 08/15 SL 08/15 Patient Discharge Departure Vital Signs/Condition [...] entry have been reviewed. Condition Improved Clinical Impression Clinical Impression Primary Impression: Head contusion Secondary Impressions: Fall, Loss of consciousness, Vomiting Disposition Decision Discharge )( Discharged to Home Yes )( Time 193 )( Date 08/15/20 Discharge/Care Plan Counseled Regarding Diagnosis, Lab results, Imaging studies, Prescriptions (Auto) Prescriptions Current Visit Scripts NAPROXEN (NAPROSYN) 500 MG PO BID PRN PRN PAIN NAPROXEN (NAPROSYN) 500 MG PO BID PRN PRN PAIN #15 TABS ONDANSETRON (ZOFRAN) 4 MG PO Q6H PRN PRN NAUSEA/VOMITING ONDANSETRON (ZOFRAN) 4 MG PO Q6H PRN PRN NAUSEA/VOMITING #15 TABS Patient Instructions ED Concussion, ED Head Injury (Adult), ED Mechanical Fall Referrals FAM. CLINIC: 2-3 Days at 2134 RPT #:[id number] END OF REPORT [facility] 2020-08-15 18:46:00 [facility] ([facility]) EMERGENCY PROVIDER REPORT REPORT#:[id number] REPORT STATUS: Signed DATE:08/15/20 TIME: 1845 PATIENT: ANATOLY MCNEAL UNIT #: [id number] ROOM/BED: AGE: 25 SEX: M PCP PHYS: No Primary or Family Physician SERVICE AUTHOR: Shmuel Rodriguez * ALL edits or amendments must be made on the electronic/computer document * Shmuel Rodriguez 08/15/20 1846: HPI-Head Prob/Injury Free Text HPI Notes Free Text HPI Notes 25 M with history of anxiety presents to the ED with head pain and nausea. 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 EMS reports neurointact, alert with normal vitals in route. THe patient denies any other complaints or medical history, etoh or drug use. General Confirmed Patient Yes Initial Greet Date/Time 08/15/201838 Presentation Chief Complaint Blunt head trauma Hx Obtained From Patient )( Onset Occurred Sudden Risk-Head Prob/Injury Risk Stratification Cisco Head CT Rule 2 or more episodes vomit )( Delta Coma Score: Copyright Sir Rodo Verito Copyright Rodo Verito Eye opening: (4) Spontaneous Verbal response: (5) Oriented Best motor response: (6) Obeys commands GCS Score: 15 )( Intracranial Bleed Risk factors reviewed Review of Systems ROS Statements All systems rev neg except as marked. Past Medical History - Adult Stated Complaint FALL FROM STANDING, +LOC Allergies Coded Allergies: Sulfa (Sulfonamide Antibiotics) (Intermediate, HIVES 07/31/20) Uncoded Allergies: No Known Contrast Allergies (10/12/08) No Known Drug Allergies (10/12/08) No Known Food Allergies (10/12/08) No Known Other Allergies (10/12/08) Calculated Suicide Risk (nurs) No risk Additional Medical History anxiety Alcohol Use Alcohol use Drug Use Denies recreational drugs Smoking status: Smoking status for patients 13 years old or older: Current every day smoker Additional Social History [...] non-toxic, no distress Head: Tenderness and mild swelling to the posterior head, no step-offs, no signs of basilar skull fracture Eyes: Atraumatic,, No periorbital swelling or redness, EOMI and painless, PERRLA ENT: Atraumatic, MMM, uvula midline, airway patent, pharynx normal Neck: Atraumatic, supple, non tender, trachea midline, no swelling, no midline tenderness Resp: Atraumatic, Nml breath sounds B, no wheezing, rales or rhonchi, no respiratory distress, No Crepitus, no tenderness CV: Nml HR, Nml Rhythm, No murmurs, rubs or clicks, Radial and pedal pulses present and 2+, Abd: Atraumatic, Soft, Non-tender, No guarding, No rebound, No distention Back: Atraumatic, No midline tenderness, no stepoffs MSK LE: Atraumatic, Nontender, No swelling, ROM testing is nml and painless MSK UE: Atraumatic, Nontender, No swelling, ROM testing is nml and painless Skin: Nml color, warm, Dry, No swelling, No edema Neuro: Oriented X3, Speech nml, moves all extremeties [...] subluxations of the cervical spine. SL: APATIL-H Impression By: Sierra Rodriguez M.D. CAT SCAN - CT HEAD/BRAIN W/O CONT 08/15 1901 Report Impression - Status: SIGNED Entered: 08/15/20201931 IMPRESSION: CT head: 1. No acute intracranial abnormality. 2. Midline parieto-occipital scalp swelling. No calvarial fracture. CT cervical spine: No fractures or subluxations of the cervical spine. SL: APATIL-H Impression By: Sierra Rodriguez M.D. RADIOLOGY - XR CHEST 1 V 08/16 1903 Report Impression - Status: SIGNED Entered: 08/15/20201912 IMPRESSION: No evidence for acute cardiopulmonary disease. SL: YONY Impression By: Con - Jose C Joshi M.D. Imaging Statement Radiographic studies reviewed and considered in the medical decision-making. Re-Evaluation MDM Re-Evaluation/Progress #1 Text/Dict Note pain improved. no acute distress. NV intact without nausea or vomiting Time of Re-Eval 1936 Re-Eval Status Improved Re-Eval Neurologic Exam Alert, Pt is back to [...] 08/15 SL 08/15 Patient Discharge Departure Vital Signs/Condition [...] entry have been reviewed. Condition Improved Clinical Impression Clinical Impression Primary Impression: Head contusion Secondary Impressions: Fall, Loss of consciousness, Vomiting Disposition Decision Discharge )( Discharged to Home Yes )( Time 1938 )( Date 08/15/20 Discharge/Care Plan Counseled Regarding Diagnosis, Lab results, Imaging studies, Prescriptions (Auto) Prescriptions Current Visit Scripts NAPROXEN (NAPROSYN) 500 MG PO BID PRN PRN PAIN NAPROXEN (NAPROSYN) 500 MG PO BID PRN PRN PAIN #15 TABS ONDANSETRON (ZOFRAN) 4 MG PO Q6H PRN PRN NAUSEA/VOMITING ONDANSETRON (ZOFRAN) 4 MG PO Q6H PRN PRN NAUSEA/VOMITING #15 TABS Patient Instructions ED Concussion, ED Head Injury (Adult), ED Mechanical Fall Referrals FAM. CLINIC: 2-3 Days Antonio Lara 08/19/20 0045: Patient Discharge Departure Supervising Physician Note MidLv Saw Pt Alone I have reviewed the PA/CODING DIRECTOR's note and plan of care. I was available for consultation as needed at all times during the patient's visit in the emergency department. I agree with the clinical impression, plan and disposition. at 2134 at 0046 RPT #:[id number] END OF REPORT [facility] 2020-06-18 18:51:00 [facility] ([facility]) EMERGENCY PROVIDER REPORT REPORT#:[id number] REPORT STATUS: Signed DATE:06/18/20 TIME: 1850 PATIENT: ANATOLY MCNEAL UNIT #: [id number] ROOM/BED: AGE: 25 SEX: M PCP PHYS: No Primary or Family Physician SERVICE AUTHOR: Antonio aLra MD * ALL edits or amendments must be made on the electronic/computer document * HPI-Chest Pain Under 40 Free Text HPI Notes Free Text HPI Notes 25-year-old male with past medical history as below [...] Stratification )( Coronary Artery Disease Risk factors reviewed, Smoking )( HEART for MACE )( HEART [...] sore throat -Cardiovascular: Positive chest pain, no palpitations, no syncope -Respiratory: Positive shortness of breath, no cough, no wheezing -GI: No abdominal pain, nausea, vomiting, diarrhea -: No pain or burning with urination, no blood in the urine -Musculoskeletal: No joint pain, muscle pain, back pain -Skin: No rash, abrasion -Neurologic: No change in LOC, confusion, numbness or tingling -Psychiatric: No suicidal or homicidal ideations Past Medical History - Adult Stated Complaint CHEST PAIN SHORTNESS OF BREATH Allergies Coded Allergies: Sulfa (Sulfonamide Antibiotics) (Intermediate, HIVES 06/18/20) Home Medications Reported Medications No Known Home Medications Calculated Suicide Risk (nurs) No risk Pt reports no significant: Past surgical history, Family history Additional Medical History anxiety Alcohol Use Alcohol use Drug Use Denies recreational drugs Smoking status: Smoking status for patients 13 years old or older: Current every day smoker Additional Social History [...] Resp 16 06/18 2041 Temp 36.6 06/18 1829 Review of Vital Signs Reviewed, Vital signs abnormal Free Text PE Notes Free Text PE Notes Gen: Well appearing, well hydrated, cooperative Head: Normocephalic, atraumatic Eyes: EOMI, normal conjunctiva ENT: MMM, airway patent Neck: supple, no LAD Lungs: CTAB no R/R/W Heart: Slight tachycardia, regular rhythm, normal pulses Abd: S/NT/ND, normal BS, no rebound or guarding Ext: FROM BUE/LE, no deformity Neuro: A O x 3, CN II-XII grossly intact. Strength and sensation grossly intact Psych: [...] % (Auto) (14.0 - 32.0 %) 19.6 Carlisle % (Auto) (4.8 - 9.0 %) 8.3 Eos % (Auto) (0.3 - 3.7 %) 2.8 Baso % (Auto) (0.0 - 2.0 %) 0.9 Neut # (Auto) (2.0 - 7.6 x10 3/uL) 6.32 Lymph # (Auto) (1.0 - 3.8 x10 3/uL) 1.82 Carlisle # (Auto) (0.1 - 0.8 x10 3/uL) [...] (0.0 - 0.1 x10 3/uL) 0.00 Recent Impressions: RADIOLOGY - XR CHEST 1 V 06/18 1855 Report Impression - Status: SIGNED Entered: 06/18/20201929 IMPRESSION: 1. No acute cardiopulmonary process. Impression By: [email or web address] - Sergio Rose D.O. Lab Imaging Statement Laboratory radiographic studies reviewed and considered in the medical decision-making. ECG #1 Interpretation [...] entry have been reviewed. Condition Stable Clinical Impression Clinical Impression Primary Impression: Non-cardiac chest pain Disposition Decision Discharge )( Discharged to Home Yes )( Time 2045 )( Date 06/18/20 Discharge/Care Plan Counseled Regarding Diagnosis, Lab results, Imaging studies, Need for follow-up, When to return to ED (Auto) Prescriptions Current Visit Scripts No Known Home Medications Patient Instructions ED Chest Pain, Noncardiac Referrals PRIMARY CARE: 1 Week at 2047 RPT #:[id number] END OF REPORT [facility] 2019-09-06 23:19:00 [facility] ([facility]) EMERGENCY PROVIDER REPORT REPORT#:[id number] REPORT STATUS: Signed DATE:09/06/19 TIME: 2318 PATIENT: ANATOLY MCNEAL UNIT #: [id number] ROOM/BED: AGE: 24 SEX: M PCP PHYS: No Primary or Family Physician SERVICE AUTHOR: Ernesto Colunga MD * ALL edits or amendments must be made on the electronic/computer document * HPI-General Illness Free Text HPI Notes Free Text HPI Notes 24-year-old male smoker, history of bipolar disorder Presents with 4 days of sore throat, dyspnea, generalized malaise and fatigue. 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 He denies any cough. Denies any travel in the last 2 months. Denies any known [place] VID 19 contact. General Confirmed Patient Yes Patient Type Existing patient Initial Greet Date/Time 09/06/19 6972 COVID-19 Risk [facility] COVID Risk Denies Age 65 or older, Denies Signif co-morbidity, [...] - Adult Stated Complaint FATIGUE, SHAKES, DECREASED APPETITE Allergies Coded Allergies: Sulfa (Sulfonamide Antibiotics) (Intermediate, HIVES 09/06/19) Home Medications Reported Medications No Known Home Medications Alcohol Use Alcohol use Drug Use Denies recreational drugs Smoking status for patients 13 years old or older: Current every day smoker Additional Social History [...] 128/76 09/06 0118 B/P Mean 93 09/06 011 O2 Delivery Room air 09/06 117 Pulse 98 09/06 0118 Resp 16 09/06 117 Temp 36.9 09/05 2240 Review of Vital Signs Reviewed, Vital signs normal Free Text PE Notes Free Text PE [...] 09/06/192352: [Embedded Image Not Available] Laboratory Tests: 09/057 2316 Chemistry Sodium (134 - 147 mEq/L) [...] % (Auto) (14.0 - 32.0 %) 20.6 Carlisle % (Auto) (4.8 - 9.0 %) 6.3 Eos % (Auto) (0.3 - 3.7 %) 1.2 Baso % (Auto) (0.0 - 2.0 %) 0.9 Neut # (Auto) (2.0 - 7.6 x10 3/uL) 6.26 Lymph # (Auto) (1.0 - 3.8 x10 3/uL) 1.82 Carlisle # (Auto) (0.1 - 0.8 x10 3/uL) [...] RADIOLOGY - XR CHEST 2 V 09/05 2330 Report Impression - Status: SIGNED Entered: 09/06/2019 7010 IMPRESSION: 1. No radiographic evidence of acute cardiopulmonary disease. SL: 131 Impression By: Flor Pinto M.D. Lab Imaging Statement Laboratory radiographic studies reviewed and considered in the medical decision-making. Re-Evaluation MDM Re-Evaluation/Progress #1 Re-Eval Status Improved ED Course Medication(s) Ordered Medication(s) Ordered: Central Nervous System Agents Sig/Temitope Start time Last Medication Dose Route Stop Time Status Admin Acetaminophen/ 2 TAB X1ED STA 09/055 DC 09/06 Codeine Phosphate PO 09/06 2315 [...] 2240 Temp 36.9 09/05 2240 Pulse 104 09/05 [...] pending CDC Recom for Isol Retest https://www.cdc.gov/coronavirus/2019-ncov/infecti on-control/control- recommendations.html Criteria Not Met for Testing The patient did not meet criteria for acute COVID19 testing today in the emergency department. The patient has received COVID19 precautions and home quarantine information. Advised to follow CDC recommendations. Discharge/Care Plan Counseled Regarding Diagnosis, Lab results, Imaging studies, Prescriptions, Need for follow-up, When to return to ED Rx Drug Database Reviewed Yes Prescriptions Tylenol No. 4 every 6 hours p.o. as needed body aches or fever Ibuprofen 800 mg every 8 hours p.o. as needed fever Zofran 4 mg sublingual as needed every 4 hours as needed for nausea (Auto) Prescriptions Current Visit Scripts No Known Home Medications Prescriptions Reviewed Risks, Benefits, Alternative treatment Referrals No Primary or Family Physician (PCP/Family) Discharge Note I have spoken with the patient and/or caregivers. I have explained the patient's condition, diagnoses and treatment plan based on the [...] of care and follow-up instructions have been explained [...] for COVID 19 via PCR at 0844 [facility] #:[id number] END OF REPORT [facility] 2019-05-25 22:20:00 [facility] ([facility]) EMERGENCY PROVIDER REPORT REPORT#:[id number] REPORT STATUS: Signed DATE:05/25/19 TIME: 2219 PATIENT: ANATOLY MCNEAL UNIT #: [id number] ROOM/BED: AGE: 24 SEX: M PCP PHYS: No Primary or Family Physician SERVICE AUTHOR: Dariusz Junior DO * ALL edits or amendments must be made on the electronic/computer document * HPI-Abd Pain M Under 40 General Confirmed Patient Yes Initial Greet Date/Time 05/25/192153 PCP NO PCP Presentation Chief Complaint Abdominal pain Hx Obtained From Patient Sudden in Onset? No Onset Occurred Chronic (6 months) Symptom Duration Since onset Progression since Onset Gradually worsening (over the past 4 days) Context of Onset [...] Reports occasional EtoH now. Denies URI sx, hematochezia [...] Systems Constitutional Reports: Fever (subjective). Denies: Chills, Lethargy. Respiratory Denies: Cough, non-productive, Cough, productive, Shortness of breath. Cardiovascular Denies: Chest pain, Syncope. GI Reports: Abdominal pain, Nausea, Vomiting. Denies: Constipation, Diarrhea, Hematochezia, Melena. Male Denies: Flank pain, Testicular pain. Musculoskeletal Denies: Back pain, Extremity pain. Additional Review of Systems Ears/Nose/Throat Denies: Nasal congestion, Sore throat. Hematologic Denies: Bleeding, Bruising. Skin Denies: Rash, Swelling. Neurologic Reports: Dizziness, Generalized weakness, Lightheaded. Denies: Focal weakness. Portions of this section were scribed by Olivia Matias on 05/25/19 at 2311 Past Medical History - Adult Stated Complaint UMBILICAL ABD PAIN N/V X 1 WEEK Allergies Coded Allergies: Sulfa (Sulfonamide Antibiotics) (Intermediate, HIVES 05/25/19) Home Medications Reported Medications No Known Home Medications Review of Nursing Notes Rev avail, and agree Pt reports no significant: Past medical history, Past surgical history Alcohol Use Alcohol use Drug Use Denies recreational drugs Smoking status for patients 13 years old or older: Current every day smoker Additional Social History Right-handed Portions of this section were scribed by Olivia Matias on 05/25/19 at 2311 Physical Exam Vital Signs Vital Signs First Documented: Result Date Time Pulse Ox 97 05/25 2144 B/P 118/75 / 2144 B/P Mean 89 /2143 O2 Delivery Room air 05/25 2143 Temp 36.8 05/25 2143 Pulse 104 05/25 2143 Resp 18 05/25 2143 Last Documented: Result Date Time Pulse Ox 97 05/25 2144 B/P 118/75 05/25 214 B/P Mean 89 05/25 2143 O2 Delivery Room air 05/25 2143 Temp 36.8 05/25 2143 Pulse 104 05/25 2143 Resp 18 05/25 2143 Review of Vital Signs Reviewed Focused PE General/Const General/Const Awake, Alert, Cooperative MS Head Head Atraumatic, Normocephalic Eyes Eyes EOMI, Conjunctiva NL Ears/Nose/Throat Ears/Nose/Throat Airway patent, Mucous membranes moist Resp/Chest Respiratory/Chest Breath sounds NL, Breath sounds = bilat, No respiratory distress, No rales, No rhonchi, No wheezing Cardiovascular Cardiovascular Heart rate NL, Regular rhythm, Heart sounds NL Abdomen/GI Abdomen/GI Soft, No distention Tenderness/Guarding/Rebound Tender LUQ, Tender LLQ. MS Back Back Full range of motion, Painless range of motion, Non-tender, No CVA tenderness Skin Skin Color [...] % (Auto) (23.0 - 38.0 %) 28.2 [place] % (Auto) (1.0 - 10.0 %) 9.2 Eos % (Auto) (1.0 - 5.0 %) 2.0 Baso % (Auto) (0.0 - 1.0 %) 0.9 Neut # (Auto) (2.4 - 6.3 K/mm3) 5.5 Lymph # (Auto) (1.2 - 4.0 K/mm3) 2.6 [place] # (Auto) (0.0 - 0.6 K/mm3) 0.9 H Eos # (Auto) (0.0 - 0.7 K/MM3) 0.2 Baso # (Auto) (0.0 - 0.2 K/mm3) 0.1 Immature Gran % (0.0 - 0.4 %) 0.1 Immature Gran # (0.00 - 0.07 x10 3/uL) 0.01 Urines Urine Color YELLOW Urine Appearance CLEAR Urine pH (5.0 - 9.0) 7.0 Ur Specific [place] (1.000 - 1.030) 1.010 Urine Protein (NEGATIVE [...] Imaging Statement Laboratory radiographic studies reviewed and considered in the medical decision-making. Point of Care Testing Urinalysis Interpretation UA reviewed Pulse Oximetry Pulse Ox % 97 On: Room air Interpretation Interpreted by me, Pulse oximetry normal Time 2144 Lab Studies CBC Interpretation CBC NL BMP/CMP Interpretation BMP/CMP NL Radiography CT Abdomen/Pelvis Study type IV contrast Text/Dict Note normal CT scan. Report given by residential tech at 0348. Interpretation/Wet Read by Interpret - Radiologist Reviewed by ED physician Portions of this section were scribed by Olivia Matias on 05/26/19 at 0408 Re-Evaluation MDM )( Re-Evaluation/Progress #1 Text/Dict Note Patient was reassessed and is feeling better. Discussed [...] ONE 05/25 2199 DC 05/25 IV 05/25 220 2249 Al Hydrox/Mg Hydrox/ 30 ML X1ED STA 05/25 2153 DC 05/25 Simethicone PO 05/25 2155 2249 Differential Diagnosis Differential Diagnosis Acute abdominal pain, Appendicitis, Bowel obstruction, [...] Pulse Ox 97 05/25 2143 B/P 118/75 02/04 2144 B/P Mean 89 05/25 2143 O2 Delivery Room air 05/25 2143 Temp 36.8 05/25 2143 Pulse 104 05/25 2143 Resp 18 05/25 2143 All vital signs available at the time of this entry have been reviewed. Condition Stable Clinical Impression Clinical Impression Primary Impression: Abdominal pain Disposition Decision Discharge )( Discharged to Home Yes )( Time 040 )( Date 05/26/19 Discharge/Care Plan Counseled Regarding Diagnosis, Lab results, Imaging studies, Prescriptions, Need for follow-up, When to return to ED Prescriptions Pepcid, Bentyl and Zofran Prescriptions Reviewed Risks, Benefits Discharge Note I have spoken with the patient and/or caregivers. I have explained the patient's condition, diagnoses and treatment plan based on the [...] of care and follow-up instructions have been explained [...] presence of Dr. Junior. Signed By: Olivia Matisa, 05/25/192220 Provider Scribed Statement I personally performed the services described in this documentation and reviewed the documentation that was dictated to the scribe(s) in my presence, and it accurately records my words and actions. Dariusz Junior, 05/26/19 Portions of this section were scribed by Olivia Matias on 05/26/19 at 0408 at 0416 RPT #:[id number] END OF REPORT [facility] 2018-05-20 11:28:00 [facility] ([facility] OR A [facility]AMP[facility] OF [facility] EMERGENCY PROVIDER REPORT REPORT#:[id number] REPORT STATUS: Signed DATE:05/20/18 TIME: 1127 PATIENT: ANATOLY MCNEAL UNIT #: [id number] ROOM/BED: AGE: 23 SEX: M PCP PHYS: No Primary or Family Physician SERVICE AUTHOR: Shmuel Rodriguez * ALL edits or amendments must be made on the electronic/computer document * HPI-Nausea/Vomit/Diarrhea General Confirmed Patient Yes [...] throat. GI Reports: Abdominal pain, Diarrhea, Nausea, Vomiting. Additional Review of Systems Respiratory Reports: Cough, non-productive. Cardiovascular Reports: Chest pain. Portions of this section were scribed by Sue Puckett on 05/20/18 at 1128 Past Medical History - Adult Stated Complaint N/V/D Allergies Coded Allergies: No Known Allergies (12/04/13) Home Medications Reported Medications No Known Home Medications Discontinued Reported Medications ACETAMINOPHEN/CODEINE (TYLENOL WITH CODEINE #3 300/30 MG) 1 TAB PO Q6H PRN PRN SEVERE PAIN ESOMEPRAZOLE MAG DR (NexIUM) 20 MG PO DAILY Pt reports no significant: Past medical history, Past surgical history Smoking status for patients 13 years old or older: Current every day smoker Additional Social History [...] Notes Dry mucous membranes, tonsils swollen and erythematous Resp/Chest Respiratory/Chest Breath sounds NL, No respiratory distress, No rhonchi, No wheezing, No retractions Cardiovascular Cardiovascular Heart rate NL, Regular rhythm, Heart sounds NL Abdomen/GI Abdomen/GI Soft, No guarding, No rebound, No distention Text/Dict Notes Mild diffuse abd tenderness MS Back Back Inspection NL, No CVA tenderness Skin Skin Warm, Dry, Intact Neurologic Neurologic Oriented X3, Speech NL Additional PE MS Head Head Atraumatic, Normocephalic MS Neck Neck Supple, No meningismus, Full range of motion, Non-tender MS Lower Extrem Lower Ext/Pelvis/MS No [...] (Auto) (14.0 - 32.0 %) 4.2 L [place] % (Auto) (4.8 - 9.0 %) 5.3 Eos % (Auto) (0.3 - 3.7 %) 0.7 Baso % (Auto) (0.0 - 2.0 %) 0.2 Neut # (Auto) (2.0 - 7.6 x10 3/uL) 10.79 H Lymph # (Auto) (1.0 - 3.8 x10 3/uL) 0.51 L [place] # (Auto) (0.1 - 0.8 x10 3/uL) [...] 2. Possible splenomegaly. 3. Negative chest. SL: [id number] Impression By: Nkechi Venegas M.D. Lab Imaging Statement Laboratory radiographic studies reviewed and considered in the [...] obstruction. 2. Possible splenomegaly. 3. Negative chest. Interpreted [...] ED. Pt agrees with plan. viral enteritis likley his HR has improved pt has tolerated [...] entry have been reviewed. Condition Stable Clinical Impression Clinical Impression Primary Impression: Viral syndrome Disposition Decision Discharge )( Discharged to Home Yes )( Time 1424 )( Date 05/20/18 Discharge/Care Plan Counseled Regarding Diagnosis, Lab results, Imaging studies, Prescriptions, Need for follow-up, When to return to ED Prescriptions Herman Supervising Physician Note Scribe Statement Sue Puckett, 05/20/18 1128, scribing for and in the presence of [ELAYNE Rosales]. Signed By: Sue Puckett, 05/20/18 1128 Provider Scribed Statement I personally performed the services described in this documentation and reviewed the documentation that was dictated to the scribe(s) in my presence, and it accurately records my words and actions. Shmuel Rodriguez, 05/20/18 Portions of this section were scribed by Sue Puckett on 05/20/18 at 1424 at 1851 RPT #[id number] END OF REPORT [facility] 2018-05-20 11:28:00 [facility] EMERGENCY PROVIDER REPORT REPORT#:[id number] REPORT STATUS: Signed DATE:05/20/18 TIME: 1128 PATIENT: ANATOLY MCNEAL UNIT #: [id number] ROOM/BED: AGE: 23 SEX: M PCP PHYS: No Primary or Family Physician SERVICE AUTHOR: Shmuel Rodriguez * ALL edits or amendments must be made on the electronic/computer document * Shmuel Rodriguez 05/20/18 1128: HPI-Nausea/Vomit/Diarrhea [...] throat. GI Reports: Abdominal pain, Diarrhea, Nausea, Vomiting. Additional Review of Systems Respiratory Reports: Cough, non-productive. Cardiovascular Reports: Chest pain. Portions of this section were scribed by Sue Puckett on 05/20/18 at 1128 Past Medical History - Adult Stated Complaint N/V/D Allergies Coded Allergies: No Known Allergies (12/04/13) Home Medications Reported Medications No Known Home Medications Discontinued Reported Medications ACETAMINOPHEN/CODEINE (TYLENOL WITH CODEINE #3 300/30 MG) 1 TAB PO Q6H PRN PRN SEVERE PAIN ESOMEPRAZOLE MAG DR (NexIUM) 20 MG PO DAILY Pt reports no significant: Past medical history, Past surgical history Smoking status for patients 13 years old or older: Current every day smoker Additional Social History [...] Result Date Time Pulse Ox 97 05/20 1107 B/P 132/82 05/20 1107 B/P Mean 98 05/20 110 O2 Delivery Room air 05/20 1107 Temp 36.9 05/20 1107 Pulse 111 05/20 1107 Resp 16 05/20 110 Review of Vital Signs Reviewed Focused PE General/Const General/Const Awake, Alert, Cooperative Eyes Eyes EOMI, Conjunctiva NL Ears/Nose/Throat Ears/Nose/Throat Airway patent Text/Dict Notes Dry mucous membranes, tonsils swollen and erythematous Resp/Chest Respiratory/Chest Breath sounds NL, No respiratory distress, No rhonchi, No wheezing, No retractions Cardiovascular Cardiovascular Heart rate NL, Regular rhythm, Heart sounds NL Abdomen/GI Abdomen/GI Soft, No guarding, No rebound, No distention Text/Dict Notes Mild diffuse abd tenderness MS Back Back Inspection NL, No CVA tenderness Skin Skin Warm, Dry, Intact Neurologic Neurologic Oriented X3, Speech NL Additional PE MS Head Head Atraumatic, Normocephalic MS Neck Neck Supple, No meningismus, Full range of motion, Non-tender MS Lower Extrem Lower Ext/Pelvis/MS No [...] (Auto) (14.0 - 32.0 %) 4.2 L [place] % (Auto) (4.8 - 9.0 %) 5.3 Eos % (Auto) (0.3 - 3.7 %) 0.7 Baso % (Auto) (0.0 - 2.0 %) 0.2 Neut # (Auto) (2.0 - 7.6 x10 3/uL) 10.79 H Lymph # (Auto) (1.0 - 3.8 x10 3/uL) 0.51 L [place] # (Auto) (0.1 - 0.8 x10 3/uL) [...] 2. Possible splenomegaly. 3. Negative chest. SL: [id number] Impression By: Nkechi Venegas M.D. Lab Imaging Statement Laboratory radiographic studies reviewed and considered in the [...] obstruction. 2. Possible splenomegaly. 3. Negative chest. Interpreted [...] entry have been reviewed. Condition Stable Clinical Impression Clinical Impression Primary Impression: Viral syndrome Disposition Decision Discharge )( Discharged to Home Yes )( Time 1424 )( Date 05/20/18 Discharge/Care Plan Counseled Regarding Diagnosis, Lab results, Imaging studies, Prescriptions, Need for follow-up, When to return to ED Prescriptions Herman Supervising Physician Note Scribe Statement Sue Puckett, 05/20/18 1128, scribing for and in the presence of [ELAYNE Rosales]. Signed By: Sue Puckett, 05/20/18 1128 Provider Scribed Statement I personally performed the services described in this documentation and reviewed the documentation that was dictated to the scribe(s) in my presence, and it accurately records my words and actions. Shmuel Rodriguez, 05/20/18 Portions of this section were scribed by Sue Puckett on 05/20/18 at 1424 Chai Cates 05/21/187: HPI-Nausea/Vomit/Diarrhea General Date/Time Seen by Provider 05/20/18 1055 Physical Exam Vital Signs Vital Signs Interpretation Diagnostics Lab Results Interpretation Results Patient Discharge Departure Vital Signs/Condition Vital Signs Supervising Physician Note MidLv Saw Pt Alone I have reviewed the PA/CODING DIRECTOR's note and plan of care. I was available for consultation as needed at all times during the patient's visit in the emergency department. I agree with the clinical impression, plan and disposition. at 1851 at 2247 RPT #:[id number] END OF REPORT [facility]
[2023-12-12] MEDS ORDERED: FLUORESCEIN SODIUM 1 MG/WRAP ONE (16:31)
[2023-12-12] MEDS ORDERED: TETRACAINE HCL 0.5% 4ML OPTH ONE (16:31)
--- NOTE | 2023-12-12 16:47 | ER ---
Nurse's Notes [facility] Name: Romulo Gusman Age: 28 yrs Sex: Male : 1995 Arrival Date: 12/12/2023 Time: 15:42 Bed 11 Private MD: Diagnosis: Injury of conjunctiva and corneal abrasion without foreign body, left eye Presentation: 12/11 15:50 Chief complaint: Patient states: he was at work and thinks he got a wood chip in his kc6 eye about 1130. reports left eye pain and redness. Coronavirus screen: At this time, the client does not indicate any symptoms associated with coronavirus-19. Ebola Screen: No symptoms or risks identified at this time. Mechanism of Injury: wood chip. The patient denies any loss of vision. Initial Sepsis Screen: Does the patient meet any 2 criteria? No. Patient's initial sepsis screen is negative. Does the patient have a suspected source of infection? No. Patient's initial sepsis screen is negative. Risk Assessment: Do you want to hurt yourself or someone else? Patient reports no desire to harm self or others. Onset of symptoms was December 12, 2023. 15:50 Method Of Arrival: Ambulatory kc6 15:50 Acuity: LAURI 4 kc6 Historical: - Allergies: 15:51 Sulfa (Sulfonamide Antibiotics); kc6 - PMHx: 15:51 ADD/ADHD; Bipolar disorder; Hypertensive disorder; kc6 - PSHx: 15:51 None; kc6 - Immunization history:: Adult Immunizations not up to date. - Infectious Disease History:: Denies. - Social history:: Smoking status: Reported history of juuling and/or vaping. Screenin:00 [facility] ED Fall Risk Assessment (Adult) History of falling in the last 3 months, kc6 including since admission No falls in past 3 months (0 pts) Confusion or Disorientation No (0 pts) Intoxicated or Sedated No (0 pts) Impaired Gait No (0 pts) Mobility Assist Device Used No (0 pt) Altered Elimination No (0 pt) Score/Fall Risk Level 0 - 2 = Low Risk. Abuse screen: Denies threats or abuse. Denies injuries from another. Nutritional screening: No deficits noted. Tuberculosis screening: No symptoms or risk factors identified. Assessment: 16:00 General: Appears in no apparent distress. uncomfortable, well groomed, well developed, kc6 Behavior is calm, cooperative, appropriate for age. Pain: Complains of pain in left eye. Neuro: Level of Consciousness is awake, alert, obeys commands, Oriented to person, place, time, situation, Appropriate for age Reports blurred vision. Cardiovascular: Capillary refill < 3 seconds. Respiratory: Airway is patent Trachea midline Respiratory effort is even, unlabored, Respiratory pattern is regular, symmetrical. GI: No signs and/or symptoms were reported involving the gastrointestinal system. : No signs and/or symptoms were reported regarding the genitourinary system. EENT: Eyes are tearing on iris of left eye Sclera/Cornea are reddened in outer aspect of conjuctiva of left eye, iris of left eye and inner aspect of conjunctiva of left eye. Derm: No signs and/or symptoms reported regarding the dermatologic system. Skin is intact, is healthy with good turgor, Skin is pink, warm \T\ dry. Musculoskeletal: No signs and/or symptoms reported regarding the musculoskeletal system. Circulation, motion, and sensation intact. Capillary refill < 3 seconds, Range of motion: intact in all extremities. Vital Signs: 16:01 BP 125 / 87; Pulse 97; Resp 16 S; Temp 98.1(O); Pulse Ox 99% on R/A; Weight 81.65 kg kc6 (R); Height 5 ft. 6 in. (R); Pain 6/10; 16:01 Body Mass Index 29.05 (81.65 kg, 167.64 cm) kc6 16:01 Pain Scale: Adult kc6 ED Course: 15:43 Patient arrived in ED. mr 15:44 Josep Junior MD is Attending Physician. rn 15:51 Triage completed. kc6 15:51 Arm band placed on. kc6 16:00 Patient has correct armband on for positive identification. Bed in low position. Call kc6 light in reach. Side rails up X 1. Pulse ox on. NIBP on. Door closed. Noise minimized. Lights dimmed. Pillow given. 16:46 Jluis Alexander MD is Referral Physician. rn 16:59 Sarah Merchant, JONATHAN is Primary Nurse. kc6 17:05 No provider procedures requiring assistance completed. Patient did not have IV access kc6 during this emergency room visit. Administered Medications: 16:57 Drug: Tetracaine Ophthalmic Drops 0.5 % 1 drops Ophthalmic once Route: Ophthalmic; kc6 Site: both eyes; 16:59 Follow up: Response: No adverse reaction kc6 Medication: 17:05 VIS not applicable for this client. kc6 Outcome: 16:47 Discharge ordered by . rn 17:05 Discharged to home ambulatory, kc6 17:05 Condition: good 17:05 Discharge instructions given to patient, Instructed on discharge instructions, follow up and referral plans. medication usage, Demonstrated understanding of instructions, follow-up care, medications, Prescriptions given X 1, 17:05 Patient left the ED. kc6 Signatures: Rosa Saleh, Reg Reg mr Josep Junior MD MD rn Campbell, Kaitlyn, RN RN kc6 Corrections: (The following items were deleted from the chart) 16:59 16:00 Neuro: Level of Consciousness is awake, alert, obeys commands, Oriented to kc6 person, place, time, situation, Appropriate for age kc6
--- NOTE | 2023-12-12 16:47 | EDPHYS ---
Physician Documentation [facility] Name: Romulo Gusman Age: 28 yrs Sex: Male : 1995 Arrival Date: 12/12/2023 Time: 15:42 Bed 11 Private MD: ED Physician Josep Junior HPI: 12/11 16:46 This 28 yrs old Male presents to ER via Ambulatory with complaints of Eye Injury. rn 16:46 The patient is experiencing blurred vision, burning, foreign body sensation, pain, rn redness, tearing, The patient sustained Particulate debris while cutting wood with a saw at work., to the left eye, Patient states that he did not feel a high-impact object hit his eye but had notable irritation that began while cutting wood with a saw at work that has since worsened. Onset: The symptoms/episode began/occurred today. Aggravated by light, opening eye, Alleviated by covering eye, lying down. Associated signs and symptoms: Pertinent positives: headache, Pertinent negatives: dizziness, ear ache, fever, runny nose. Patient does not utilize any form of vision correction. Severity of symptoms: At their worst the symptoms were moderate in the emergency department the symptoms are unchanged Pain is currently a 6 / 10. Historical: - Allergies: 15:51 Sulfa (Sulfonamide Antibiotics); kc6 - PMHx: 15:51 ADD/ADHD; Bipolar disorder; Hypertensive disorder; kc6 - PSHx: 15:51 None; kc6 - Immunization history:: Adult Immunizations not up to date. - Infectious Disease History:: Denies. - Social history:: Smoking status: Reported history of juuling and/or vaping. ROS: 16:50 Constitutional: Negative for fever, chills, and weight loss, ENT: Negative for injury, rn pain, and discharge, Cardiovascular: Negative for chest pain, palpitations, and edema, Respiratory: Negative for shortness of breath, cough, wheezing, and pleuritic chest pain, Abdomen/GI: Negative for abdominal pain, nausea, vomiting, diarrhea, and constipation, 16:50 Eyes: Positive for blurry vision, foreign body sensation, pain, photophobia, redness, tearing, of the iris of left eye, Negative for discharge, itching, matting, swelling, 16:50 Neuro: Positive for headache, Negative for dizziness, syncope, weakness, 16:50 All other systems are negative, Exam: 16:52 Visual Acuity: rn 16:52 Constitutional: This is a well developed, well nourished patient who is awake, alert, and in no acute distress. Head/Face: Normocephalic, atraumatic. Cardiovascular: Regular rate and rhythm with a normal S1 and S2. Respiratory: Lungs have equal breath sounds bilaterally, clear to auscultation. No rales, rhonchi or wheezes noted. No increased work of breathing, no retractions or nasal flaring. Abdomen/GI: Soft, non-tender, with normal bowel sounds. No distension or tympany. No guarding or rebound. No evidence of tenderness throughout. 16:52 Eyes: Periorbital structures: appear normal, Pupils: no acute changes, normal size, Extraocular movements: intact throughout, Conjunctiva: injected, in the left eye, tearing noted, in left eye, Corneas: abrasion, that is small, on the left, at 12 o'clock, a fluorescein strip employed to appreciate the findings, Sclera: no appreciated abnormality, Anterior chamber: normal, Lids and lashes: appear normal, bilaterally, Nystagmus: is not appreciated, Vital Signs: 16:01 BP 125 / 87; Pulse 97; Resp 16 S; Temp 98.1(O); Pulse Ox 99% on R/A; Weight 81.65 kg kc6 (R); Height 5 ft. 6 in. (R); Pain 6/10; 16:01 Body Mass Index 29.05 (81.65 kg, 167.64 cm) [place] 16:01 Pain Scale: Adult kc6 MDM: 15:44 Patient medically screened. rn 17:23 Differential diagnosis: Corneal abrasion of Foreign body in. Data reviewed: vital rn signs, nurses notes, and as a result, I will discharge patient. Counseling: I had a detailed discussion with the patient and/or guardian regarding the historical points, exam findings, and any diagnostic results supporting the discharge/admit diagnosis, the need for outpatient follow up, to return to the emergency department if symptoms worsen or persist or if there are any questions or concerns that arise at home. Special discussion: I discussed with the patient/guardian in detail that at this point there is no indication for admission to the hospital. It is understood, however, that if the symptoms persist or worsen the patient needs to return immediately for re-evaluation. Based on the history and exam findings, there is no indication for further emergent testing or inpatient evaluation. I discussed with the patient/guardian the need to see the opthamologist for further evaluation of the symptoms. 12/11 15:54 Order name: Fluoresene Opth strip; Complete Time: 16:29 rn 12/11 15:55 Order name: Eye Tray; Complete Time: 16:29 rn Administered Medications: 16:57 Drug: Tetracaine Ophthalmic Drops 0.5 % 1 drops Ophthalmic once Route: Ophthalmic; kc6 Site: both eyes; 16:59 Follow up: Response: No adverse reaction kc6 Disposition Summary: 12/12/23 16:47 Discharge Ordered Notes: Location: Home rn Problem: new rn Symptoms: have improved rn Condition: Stable rn Diagnosis - Injury of conjunctiva and corneal abrasion without foreign body, left eye rn Followup: rn - With: Jluis Alexander MD - When: As needed - Reason: Recheck today's complaints, Re-evaluation by your physician Discharge Instructions: - Discharge Summary Sheet rn - Corneal Abrasion rn Forms: - Medication Reconciliation Form rn - Antibiotic internal medicine doctor - Prescription Opioid Use rn - Patient Portal Instructions rn - Leadership Thank You Letter rn Prescriptions: - Vigamox 0.5 % Ophthalmic Drops - instill 1 drop OPHTHALMIC route every 8 hours for 7 days; 5 milliliter; rn Refills: 0, Product Selection Permitted Signatures: Josep Junior MD MD rn Campbell, Kaitlyn, RN RN kc6
[2023-12-12 17:09] VITALS: BP 125/87; TEMP 98.1; O2SAT 99
== END 2023-12-12 17:05 | disposition home or self-care (01) ==
LOC: ER 15:42
DX: S05.02XA Injury of conjunctiva and corneal abrasion without foreign body, left eye, initial encounter (principal)
CPT/HCPCS: 99283

== ENCOUNTER 2024-04-13 12:10 | Emergency (ER) | payer SELFPAY ==
--- OUTSIDE RECORDS SUMMARY | 2024-04-13 12:14 | XMS REPORT | Continuity of Care Document ---
Author Name Unknown Address [address] [facility] [address] [place] [address] [facility] thconnect Address [address] [facility] [address] [place] [address] Care Team Providers Care Livestock Caretaker Name Role Phone PCPNO, NO Primary Care Physician Unavailab SARAH Lamb Attending Clinician Unavailable SARAH SHIPLEY Attending Clinician Unavailable Sarah Shipley DO Attending Clinician + [phone] AJ PARR Attending Clinician Unavailable MALI CROWE Attending Clinician Unavailab JACKIE Hernandez Attending Clinician Unavailab JOCELYN Fu Attending Clinician Unavail able SARAH WU Attending Clinician UnavailAJ Sprague Attending Clinician UnaPricilla Myers NP Attending Clinician [phone] PRICILLA SLADE Attending Clinician Unavailable Nawaf Her Attending Clinician Unavailable PRABHU MI Attending Clinician Unavailable EBRNADETTE TOMLINSON Attending Clinician Unavailable Antonio Lara Attending Clinician Unavailable Physician, No Primary or Family Admitting Clinic yanet Unavailable SARAH SHIPLEY Admitting Clinician Unavailable Payers Payer Name Policy Type Policy Number Effective Date Expirati on Date Source Problems Condition Name Condition Details Condition Category Status Onset Date Resolution Date Last Treatment Date Treating Clinician Comments Source Acute cough Acute cough Disease Active 12-26 00:00: 00 [facility] Fever in adult Fever in adult Disease Active 12-26 00:00: 00 [facility] Sore throat Sore throat Disease Active 12-26 00:00: 00 [facility] Body aches Body aches Disease Active 12-26 00:00: 00 [facility] No known active problems No known active problems Disease [facility] Allergies, Adverse Reactions, Alerts Allergy Name Allergy Type Status Severity Reaction(s) Onset Date Inactive Date Treating Clinician Comments Source SULFA (SULFONA MIDE ANTIBIOT ICS) Drug Class Active High Hives 12-26 00:00: 00 [facility] Sulfa (Sulfona mide Antibiot ics) Propensi ty to adverse reaction s Active Hives 12-26 00:00: 00 [facility] Sulfonam behzad Allergy to substanc e Active Unknown 2-19 00:00: 00 ENRIQUE Kellyasafsaw [facility] Sulfa (Sulfona mide Antibiot ics) DA Active [place] 9 00:00: 00 [facility] Sulfa (Sulfona mide Antibiot ics) DA Active [place] HIVES, ANGIOEDEMA 9 00:00: 00 [facility] Sulfa (Sulfona mide Antibiot ics) DA Active MO 06-18 00:00: 00 [facility] Sulfa (Sulfona mide Antibiot ics) DA Active MO HIVES 06-18 00:00: 00 [facility] Sulfa (Sulfona mide Antibiot ics) DA Active [place] 0 18 00:00: 00 [facility] Sulfa (Sulfona mide Antibiot ics) DA Active MO HIVES 0 18 00:00: 00 [facility] Sulfa (Sulfona mide Antibiot ics) DA Active MO 0 204 00:00: 00 [facility] Sulfa (Sulfona mide Antibiot ics) DA Active MO HIVES 0 204 00:00: 00 [facility] No Known Allergie s DA Active U 12-04 00:00: 00 [facility] No Known Allergie s DA Active U 12-04 00:00: 00 [facility] No Known Contrast Allergie s DA Active U 12-05 00:00: 00 [facility] No Known Drug Allergie s DA Active U 817 00:00: 00 [facility] No Known Food Allergie s DA Active U 12-05 00:00: 00 [facility] No Known Other Allergie s DA Active U 8 00:00: 00 [facility] NO KNOWN ALLERGIE S Drug Class Active [facility] Social History Social Habit Start Date Stop Date Quantity Comments Source Sexual orientation U [facility] Exposure to SARS-CoV-2 (event) Not sure [facility] Sex Assigned At 1995 00:00:00 1995 00:00:00 Male [facility] Smoking Status Start Date Stop Date Source Tobacco smoking consumption unknown [facility] Medications Ordered Medication Name Filled Medication Name Start Date Stop Date Current Medication? Ordering Clinician Indication Dosage Frequency Signature (SIG) Comments Components Source ketorolac (TORADOL) injection 30 mg 12-27 03:00: 00 12-27 02:31 :00 No 30mg 30 mg, Intramuscu lar, ONCE, 1 dose, On 12/27/23 at 2200, Routine [facility] Amoxicillin /Clavulanat e Potassium (Augmentin 875 Mg) 1 Each TABLET 06-09 14:58: 00 No 875mg Twice A Day [facility] Naproxen (Naprosyn) 500 Mg TAB 06-09 14:58: 00 No 500mg Twice A Day as needed for Pain [facility] Ondansetron Hcl (Zofran) 4 Mg TAB 06-09 14:58: 00 No 4mg Every 8 Hours as needed for Nausea [facility] Amoxicillin /Clavulanat e Potassium (Augmentin 875 Mg) 1 Each TABLET 06-09 14:56: 00 06-09 14:58 :00 No 875mg Twice A Day [facility] Naproxen (Naprosyn) 500 Mg TAB 06-09 14:56: 00 06-09 14:58 :00 No 500mg Twice A Day as needed for Pain [facility] Ondansetron Hcl (Zofran) 4 Mg TAB - 14:56: 00 06-09 14:58 :00 No 4mg Every 8 Hours as needed for Nausea / Vomiting [facility] ibuprofen (IBU) tablet 800 mg 2020-04 [...] mcg/actuati on inhaler 2020-04 00:00: 00 Yes [id number] 2{puff} Inhale 2 Puffs every 4 (four) hours as needed for Wheezing or Shortness of Breath. [facility] levoFLOXaci n 750 mg tablet 2020-04 00:00: 00 02-12 04:59 :00 No [id number] 750mg Take 1 tablet by mouth daily for 7 days. [facility] predniSONE 20 mg tablet 2020-04 00:00: 00 02-10 04:59 :00 No [id number] 20mg Take 1 tablet by mouth 2 (two) times daily for 5 days. [facility] TYLENOL FOR CHILDREN ORAL 05-06 13:05: 22 Yes None Entered [facility] Vital Signs Vital Name Observation Time Observation Value Comments S ource Systolic blood pressure 2023-12-28 04:00:00 122 mm[Hg] [facility] Diastolic blood pressure 2023-12-28 04:00:00 84 mm[Hg] [facility] Heart rate 2023-12-28 04:00:00 94 /min [facility] Body temperature 2023-12-28 04:00:00 36.72 Lisa [facility] Oxygen saturation in Arterial blood by Pulse oximetry 2023-12-28 04:00:00 96 /min [facility] Respiratory rate 2023-12-28 02:00:00 20 /min [facility] Body height 2023-12-28 02:00:00 167.6 cm [facility] Body weight 2023-12-28 02:00:00 83.915 kg [facility] BMI 2023-12-28 02:00:00 29.86 kg/m2 [facility] Body Temperature 2023-06-09 15:31:00 98.3 [degF] [facility] Heart Rate 2023-06-09 15:31:00 67 /min [facility] Respiratory rate 2023-06-09 15:31:00 18 /min [facility] BP Systolic 2023-06-09 15:31:00 113 mm[Hg] [facility] BP Diastolic 2023-06-09 15:31:00 77 mm[Hg] [facility] Height 2023-06-09 13:55:00 167.624330 cm [facility] Weight 2023-06-09 13:55:[address] [facility] BMI (Body Mass Index) 2023-06-09 13:55:00 30.7 kg/m2 [facility] Systolic blood pressure 2021-02-04 07:45:00 131 mm[Hg] [facility] Diastolic blood pressure 2021-02-04 07:45:00 74 mm[Hg] [facility] Heart rate 2021-02-04 07:45:00 114 /min [facility] Respiratory rate 2021-02-04 07:45:00 20 /min [facility] Oxygen saturation in Arterial blood by Pulse oximetry 2021-02-04 07:45:00 98 /min [facility] Body temperature 2021-02-04 04:20:00 38.33 Lisa [facility] Body height 2021-02-04 04:20:00 170.2 cm [facility] Body weight 2021-02-04 04:20:00 91.944 kg [facility] BMI 2021-02-04 04:20:00 31.75 kg/m2 [facility] Procedures Procedure Date / Time Performed Performing Clinician Source XR CHEST 2 VW 2023-12-28 02:41:23 Sarah Shipley [facility] RAPID STREP SCREEN FOR GROUP A 2023-12-28 02:32:00 Sarah Shipley [facility] INFLUENZA A/B RSV COVID NAAT 2023-12-28 02:32:00 Sarah Shipley [facility] URINALYSIS 2021-02-04 06:27:00 Pricilla Slade [facility] EBV-MONONUCLEOSIS SCREEN 2021-02-04 06:27:00 Radha Slade [facility] RAPID STREP SCREEN FOR GROUP A 2021-02-04 06:27:00 Pricilla Slade [facility] URINE DRUG (IMMUNOASSAY) - COMPREHENSIVE DRUG SCREEN W/O REFLEX 2021-02-04 06:27:00 Pricilla Slade [facility] ADC,CLC OR LCC ONLY - INFLUENZA A & B DIRECT ANTIGEN 2021-02-04 05:24:00 Pricilla Slade [facility] XR CHEST 1 VW 2021-02-04 05:23:00 Pricilla Slade [facility] COVID-19 (ID NOW RAPID TESTING) 2021-02-04 04:57:00 Pricilla Slade [facility] NOTICE OF PRIVACY PRACTICES 2021-02-04 04:01:40 Doctor Unassigned, [place] [facility] CONSENT/REFUSAL FOR DIAGNOSIS AND TREATMENT 2021-02-04 03:58:40 Doctor Unassigned, [place] [facility] Encounters Start Date/Time End Date/Time Encounter Type Admission Type Attending [facility] Care Facility Care Department Encounter ID Source 2020-08-15 18:15:00 Inpatient HCACL ROBIN [id number] [facility] 2020-06-18 18:18:00 Inpatient HCACL ROBIN [id number] [facility] 2019-09-06 22:14:00 Inpatient HCACL ROBIN [id number] [facility] 2019-05-25 21:43:00 Inpatient HCAMN DARIO [id number] [facility] 2023-12-27 21:04:00 2023-12-27 23:31:00 Emergency X SARAH SHIPLEY [facility] ERT [id number] [facility] 2023-12-27 21:04:00 2023-12-27 23:31:00 Emergency Goldie Shipleyew [facility] [id number] [facility] 2023-06-25 11:58:05 2023-06-25 11:58:05 Outpatient [facility] [id number] Tim Patel 2023-06-09 13:54:00 2023-06-09 15:31:00 Departed Emergency Room [facility] [id number] [facility] 2023-06-09 13:54:00 2023-06-09 15:31:00 Emergency ER PARRAJ [facility] [id number] [facility] 2023-06-03 16:13:54 2023-06-03 16:13:54 Outpatient [facility] [id number] Tim Patel 2021-11-14 09:15:00 2021-11-14 11:12:00 Emergency E MALI CROWE SE MED [id number] [facility] 2021-10-05 22:09:00 2021-10-06 02:40:00 Emergency E JACKIE GALVAN BL BL [id number] BL 2021-10-04 23:17:00 2021-10-05 00:01:00 Emergency E JOCELYN EATON SE SE 7507 [facility] 2021-09-25 21:46:00 2021-09-25 22:39:00 Emergency E SARAH WU SE SE 7506 [facility] 2021-08-18 18:36:00 2021-08-18 19:57:00 Emergency E AJ URBINA MHSE MHSE [id number] [facility] 2021-02-03 23:27:00 2021-02-04 03:04:00 Emergency Pricilla Slade [facility] [id number] [facility] 2021-02-03 23:27:00 2021-02-03 23:27:00 Emergency X PRICILLA SLADE [facility] ERT [id number] [facility] 2020-12-24 21:50:00 2020-12-25 02:16:00 Emergency EM Collins Hermund HCACL ROBIN [id number] 22 [facility] 2020-12-19 21:51:00 2020-12-20 04:15:00 Emergency E PRABHU MI BL MHBL [id number] [facility] 2020-08-16 22:18:00 2020-08-17 02:24:00 Emergency E LIN TOMLINSONGeorge BL MHBL [id number] [facility] 2020-06-18 18:18:00 2020-06-18 21:35:00 Emergency EM Marco Antonio HCACL ROBIN [id number] 67 [facility] 2019-04-10 21:45:00 2019-04-10 21:45:00 Emergency E MHBL BL [id number] BL Results Test Description Test Time Test Comments Results Resul t Comments Source XR CHEST 2 VW 2023-12-28 03:16:01 XR CHEST 2 VW HISTORY: ?PNA COMPARISON: None FINDINGS: There is no infiltrate or pleural effusion. ?Thecardiomedias tinal silhouette is within normal limits. ?There is n[facility]neumothorax. [facility]2020-12-25 00:56:00* Test Item Value Reference Range Interpretation Comme nts AG STREP GROUP A (THROAT) (test code = STREPA) Negative Negative Negative for Str ep A nucleic acid INFLUENZA A [id number] 00:56:00* Test Item Value Reference Range Interpretation Comme nts INFLUENZA A (test code = FLUAPCR) Negative Negative INFLUENZA B (test code = FLUBPCR) Negative Negative Coronavirus 2019 nCoV [id number] 00:41:00* Test Item Value Reference Range Interpretation Comme nts Coronavirus 2019 nCoV Bedside (test code = [id number]) NEGATIVE Negative Negative results should be treated as presumptive and, ifinconsistent with clinical signs and symptoms or necessaryfor patient management, should be tested with an alternativemolecular assay. Negative results do not preclude [id number] and should not be used as the [...] Str ep A nucleic acid INFLUENZA A [id number] 00:33:00* Test Item Value Reference Range Interpretation Comme nts INFLUENZA A (test code = FLUAPCR) Negative INFLUENZA B (test code = FLUBPCR) Negative - CT HEAD/BRAIN W/O [id number] 19:29:00 [facility] 1995 Sex: M Name: ANATOLY MCNEAL [facility] : 1995 Age/S: 25 / M [address] [place] [address] Unit #: [id number] Loc: [place] [address] Phys: Shmuel Rodriguez Acct: [id number] Dis Date:Status: REG ER PHONE #: [phone] Exam Date: 08/15/2020 190 FAX #: [phone] Reason: fall, occipital head strike, LOC, vomiting EXAMS: CPT CODE: [id number] CT HEAD/BRAIN W/O CONT 64244 Clinical Indication: Fall, occipital head strike, loss of point isthmus, vomiting; Comparison: None TECHNIQUE: CT images were obtained from the foramen magnum to the vertex and cervical spine without the useof intravenous contrast on a multidetector CT. Coronal [...] 1 Signed Report (CONTINUED) Name: ANATOLY MCNEAL [facility] : 1995 Age/S: 25 / M [address] [place] [address] Unit #: [id number] Loc: [place] [address] Phys: Shmuel Rodriguez Acct: [id number] Dis Date: Status: REG ER PHONE #: [phone] Exam Date: 08/15/2020 1902 FAX #: [phone] Reason: fall, occipital head strike, LOC, vomiting EXAMS: CPT CODE: [id number] CT HEAD/BRAIN W/O CONT 67974 <Continued> and spinous processes are unremarkable. The facet joint, spinolaminar and spinous process alignment are normal. DISK SPACES AND SOFT TISSUES: The prevertebral soft tissues are normal. C2-C3 to C7-T1 disc spacelevels show no definite disc protrusions on CT. [...] subluxations of the cervical spine. SL: APATIL-H ElectronicallySigned by James Rodriguez on 08/15/2020 at 1929 Reported and signed by: Wanda Rodriguez M.D. CC: Antonio Lara MD; Shmuel HOLLY Technologist:RT Noemi(R)(CT) CTDI: DLP: Trnscb Date/Time: 08/15/2020 (1928) t.SDR.VB9 Orig Print D/T: S: 08/15/2020 (1931) PAGE 2 Signed Report- CT C-SPINE W/O [id number] 19:29:00 [facility] : 1995 Sex: M Name: ANATOLY MCNEAL [facility] [place] : 1995 Age/S: 25 / M [address] [place] [address] Unit #: [id number] Loc: [place] [address] Phys: Shmuel Rodriguez ELAYNE Acct: [id number] Dis Date: Status: REG ER PHONE #: [phone] Exam Date: 08/15/20201901 FAX #: [phone] Reason: fall, occipital head strike, LOC, vomiting EXAMS: CPT CODE: [id number] CT C-SPINE W/O CONT 22949 Clinical Goldie cation: Fall, occipital head strike, [...] 1 Signed Report (CONTINUED) Name: ANATOLY MCNEAL [facility] Jani Maddox : 1995 Age/S: 25 / M [address] [place] [address] Unit #: [id number] Loc: [place] [address] Phys: Shmuel Rodriguez Acct: [id number] Dis Date: Status: REG ER PHONE #: [phone] Exam Date: 08/15/2020 190 FAX #: [phone] Reason: fall, occipital head strike, LOC, vomiting EXAMS: CPT CODE: [id number] CT C-SPINE W/O CONT 52636 <Continued> and spinous processes are unremarkable. The [...] MD; Shmuel HOLLY Technologist:RT Noemi(R)(CT) CTDI: DLP: TrnscbDate/Time: 08/15/2020 (1928) [email or web address] Orig Print D/T: S: 08/15/2020 (1931) PAGE 2 Signed Report- XR CHEST 1 [id number] 19:10:00 [facility] : 1995 Sex: M FAX: Antonio Lara MD [phone] [place]: St: [facility] FAX: Shmuel Rodriguez [phone] ---- Name: ANATOLY MCNEAL [facility] : 1995 Age/S: 25/M [address] [place] [address] Unit #: [id number] Loc: [place] [address] Phys: Shmuel Rodriguez Acct: [id number] Dis Date: Status: REG ER PHONE #: [phone] Exam Date: 08/15/20201903 FAX #: [phone] Reason: trauma EXAMS: CPT CODE: [id number] CHEST 1 V 46105 Portable single view AP chest INDICATION: Fall. Injury. Comparison: 06/10/2020 chest x-ray FINDINGS: The cardiomediastinal silhouette is normal in size. Lungs are clear. Costophrenic angles are sharp. No suspicious osseous abnormality is seen. IMPRESSION: No evidence for acute car diopulmonary disease. SL: SG-H Electronically Signed by James Joshi on 1at 1910 Reported and signed by: Jose C [...] code = CA) 9.8 mg/dL 8.0-10.5 N [id number] 20:21:00* Test Item Value Reference Range Interpretation Comme nts TROPONIN-I (test code = TROPI) < 0.006 ng/mL 0.000-0.045 N Negative: <= 0.0 45 Positive: >= 0.046 Correlation with serial results, other cardiac markers andclinical findings is necessary to determine the clinicalsignificance of this result. Results using different methodologies should not be comparedto one another as quantitative results may vary by method. BASIC METABOLIC [id number] 20:20:00* Test Item Value Reference Range Interpretation [...] CALCIUM (test code = CA) mg/dL 8.0-10.5 [id number] 20:20:00* Test Item Value Reference Range Interpretation Comme nts TROPONIN-I (test code = TROPI) < 0.006 ng/mL 0.000-0.045 N Negative: <= 0. 045 Positive: >= 0.046 Correlation with serial results, other cardiac markers andclinical findings is necessary to determine the clinicalsignificance of this result. Results using different methodologies should not be comparedto one another as quantitative results may vary by method. [id number] 20:16:00* Test Item Value Reference Range Interpretation Comme nts D-DIMER (test code = DDIMER) 364 ng/mlFEU See_Comment N THROMBOSIS AND/O R PULMONARY EMBOLISM AND THE CLINICAL CUT- OFF VALUE FOR EXCLUSION (500 ng/mL FEU) OF THESE CONDITIONSIS VALIDATED BY THE LITHOGRAPH DESIGNER OF THE METHOD. A NEGATIVE D-DIMER RESULT [...] interpret this result as normal/abnormal. CBC W/AUTO [id number] 20:06:00* Test Item Value Reference Range Interpretation [...] c ode = MDIFF) NO CBC W/AUTO [id number] 20:02:00* Test Item Value Reference Range Interpretation [...] ode = MDIFF) - XR CHEST 1 [id number] 19:27:00 [facility]Y [facility] : 1995 Sex: M FAX: Antonio Lara MD [phone] [place]: REMA St: DEP Name: ANATOLY MCNEAL [facility] Jani Maddox : 1995Age/S: 25/M [address] [place] [address] Unit #: [id number] Loc: [place] [address] Phys: Antonio Lara MD Acct: [id number] Dis Date: Status: DEP ER PHONE #: [phone] Exam Date: 06/18/2020 1856 FAX #: [phone] Reason: chest pain, SOB EXAMS: CPT CODE: [id number] XR CHEST 1 V 44292 SINGLE VIEW RADIOGRAPH CHEST INDICATION: Chest pain [...] [facility] [place] [place]: ANATOLY MCNEAL : 1995 Sex: M FAX: Antonio Lara MD [phone] [place]: St: REG Name: ANATOLY MCNEAL [facility] : 1995Age/S: 25/M [address] [place] [address] Blvd Unit #: [id number] Loc: [place] [address] Phys: Antonio Lara MD Acct: [id number] Dis Date: Status: REG ER PHONE #: [phone] Exam Date: 06/18/2020 1856 FAX #: [phone] Reason: chest pain, SOB EXAMS: CPT CODE: [id number] XR CHEST 1 V 36644 SINGLEVIEW RADIOGRAPH CHEST INDICATION: Chest pain and [...] D.O. CC: Antonio Lara MD Technologist: RT Bijan(Timothy) Trnscrd Date/Time/By: 06/18/2020 (1926) : By: [email or web address] Orig Print D/T: S: 06/18/2020 ( 1929) PAGE 1 Signed ReportNovel Coronavirus [id number] 14:02:00* Test Item Value Reference Range Interpretation Comme nts Novel Coronavirus 2019 Inhouse (test code = [id number]) Negative Negative Positive resul ts are indicative of the presence ftHJTJ-DeM-0 RNA, clinical correlation with patient historyand other [...] for the identification of SARS-CoV-2 RNA usingthe Hitlab M2000 System under the FDA Emergency UseAuthorization. The testing is performed by personneltrained in the procedures for the Hitlab M2000 moleculardiagnostic SARS-CoV-2 assay in vitro. Testing Criteria: Fever Cough OtherOther: GENERALIZED WEAKNESSCOMMENTS: ORDER PUT IN FOR DR JOSE MIGUEL Reddy [id number] 00:31:00* Test Item Value Reference Range Interpretation Comme nts INFLUENZA A (test code = FLUAPCR) Negative Negative INFLUENZA B (test code = FLUBPCR) Negative Negative COMMENTS: SwabBASIC METABOLIC [id number] 00:19:00* Test Item Value Reference Range Interpretation [...] CA) 9.3 mg/dL 8.0-10.5 N HEPATIC FUNCTION [id number] 00:19:00* Test Item Value Reference Range Interpretation [...] ALKP) 74 IUnit/L 20-125 N BASIC METABOLIC [id number] 00:13:00* Test Item Value Reference Range Interpretation [...] CA) 9.3 mg/dL 8.0-10.5 N HEPATIC FUNCTION [id number] 00:13:00* Test Item Value Reference Range Interpretation [...] code = ALKP) IUnit/L 20-125 CBC W/AUTO [id number] 00:05:00* Test Item Value Reference Range Interpretation [...] MANUAL DIFF REQUIRED (test c ode = IFF) NO - XR CHEST 2 [id number] 23:38:00 [facility] FREDIS, ANATOLY LAMAS : 1995 Sex: M FAX: Ernesto Swanson MD [phone] [place]: St: DEP Name: ANATOLY MCNEAL [facility] : 1995 Age/S: 24/M [address] [place] [address] Unit #: [id number] Loc: [place] [address] Phys: Ernesto Colunga MD Acct: [id number] Dis Date: Status: DEP ER PHONE #: [phone] Exam Date: FAX #: [phone] Reason: Chest Pain EXAMS: CPT CODE: [id number] XR CHEST 2 V 15121 Chest, 2 views dated 09/06/2019. HISTORY: Chest [...] MD Technologist: RT Jeremie(Timothy) Trncatalina Date/Time/By: 09/06/2019 (8448) : By: [email or web address] Orig Print D/T: S: 09/06/2019 (2412) PAGE 1 Signed Report- XR CHEST 2 [id number] 23:38:00FAX: Ernesto Swanson MD [phone] [place]: St: REG Name: ANATOLY MCNEAL [facility] : 1995 Age/S: 24/M [address] [place] [address] Blvd Unit #: [id number] Loc: [place] [address] Phys: Ernesto Colunga MD Acct: [id number] Dis Date: Status: REG ER PHONE #: [phone] Exam Date: 09/06/20192330 FAX #: [phone] Reason: Chest Pain EXAMS: CPT CODE: [id number] XR CHEST 2 V 87457 Chest, 2 views dated 09/06/2019. HISTORY: Chest [...] CC: Ernesto Colunga MD Technologist: RT Jeremie(R) Trnscrd Date/Time/By: 09/06/2019 (8385) : By: Flor Orig Print D/T: S: 09/06/2019 (1581) PAGE 1 Signed Report- CT ABD PELVIS [id number] 00:20:00 [facility] [place] : 1995 Sex: M FAX: Dariusz Junior DO [phone] [place]: St: [facility] Name: ANATOLY MCNEAL [place] [facility] : 1995 Age/S:24/M [address] [facility] Unit: [id number] Loc: [place], [place]: [place] [address] Acct: [id number] Dis Date: Status: [facility] ER PHONE #: [phone] Exam Date: 05/25/2019 0005 FAX #: [phone] Reason: abdominal pain EXAMS: CPT CODE: [id number] CT ABD PELVIS W/CONT 40025 EXAM: CT ABDOMEN AND PELVIS WITH IV CONTRAST DICTATION LOCATION: [facility] HISTORY: Male, 24 years of age with [...] Signed Report (CONTINUED) FAX: Dariusz Junior DO [phone] [place]: St: [facility] Name: ANATOLY MCNEAL [facility] : 1995 Age/S: 24/M [address] [facility] Unit: [id number] Loc: [place], [place] Phys: [place] [id number] Acct: [id number] Dis Date: Status: [facility] ER PHONE #: [phone] Exam Date: 05/25/2019 0005 FAX#: [phone] Reason: abdominal pain EXAMS: CPT CODE: [id number] CT ABD PELVIS W/CONT 88464 <Continued> Lymphatics: No enlarged lymph nodes by CT size criteria. Bones/Soft Tissues: No acute osseous findings. No ventral hernias. Peritoneum/Other: No free intraperitoneal air. No free intraperitoneal fluid. IMPRESSION: Unremarkable CT of the abdomen and pelvis. at 0020 Reported and signed by: Ale Escamilla M.D. CC: Dariusz Junior DO Technologist: CORA Downey Dt/Tm: 05/26/2019 (19) Hunter Orig Print D/T: S: 05/26/2019 (0320 PAGE 2 Signed Report- CT ABD PELVIS W/[id number] 00:20:00FAX: Dariusz Junior DO [phone] [place]: St: REG Name: ANATOLY MCNEAL [facility] : 1995 Age/S: 24/M [address] [facility] Unit: [id number] Loc: [address] Phys: Dariusz Junior [id number] Acct: [id number] Dis Date: Status: REG ER PHONE #: [phone] Exam Date: 05/25/2019 0005 FAX #: [phone] Reason: abdominal pain EXAMS: CPT CODE: [id number] CT ABD PELVIS W/CONT 89585 EXAM: CT ABDOMEN AND PELVIS WITH IV CONTRAST DICTATION LOCATION: 8 HISTORY: Male, 24 years of age with [...] Signed Report (CONTINUED) FAX: Dariusz Junior DO [phone] [place]: St: REG Name: ANATOLY MCNEAL [facility] : 1995 Age/S: 24/M [address] [facility] Unit: [id number] Loc: [address] [place]: [place] [address] Acct: [id number] Dis Date: Status: REG ER PHONE #: [phone] Exam Date: 05/25/2019 0005 FAX #: Reason: abdominal pain EXAMS: CPT CODE: [id number] CT ABD PELVIS W/CONT 68839 <Continued> Lymphatics: No enlarged lymph nodes by CT size criteria. Bones/Soft Tissues: No acute osseous findings. No ventral hernias. Peritoneum/Other: No free intraperitoneal air. No free intraperitoneal fluid. IMPRESSION: Unremarkable CT of the abdomen and pelvis. at 0020 Reported and signed by: Ale Escamilla M.D. CC: Dariusz Junior DO Technologist: CORA WELLINGTON Trnscrd Dt/Tm: 05/26/2019 (0020) LuisaW Orig Print D/T: S: 05/26/2019 (0820 PAGE 2 Signed ReportBASIC METABOLIC [id number] 23:28:00* Test Item Value Reference Range Interpretation [...] 9.3 mg/dl 8.0-10.5 N HEPATIC FUNCTION PANEL [id number] 23:28:00* Test Item Value Reference Range Interpretation [...] code = ALKP) 73 Units/L 50.0-136.0 N [id number] 23:28:00* Test Item Value Reference Range Interpretation Comme nts LIPASE (test code = LIP) 96 Units/L 65.0-230.0 N URINALYSIS [id number] 23:21:00* Test Item Value Reference Range Interpretation [...] MUCU) 1+ Specimen comments: Clean CatchBASIC METABOLIC [id number] 23:20:00* Test Item Value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
[2024-04-13 12:48] LABS: SARS-CoV-2 Antigen CONTROL BLUE LINE VIS/BG OK; SARS-CoV-2 Antigen Rapid Res Negative (Negative)
--- NOTE | 2024-04-13 12:56 | EDPHYS ---
Physician Documentation [facility] Name: Romulo Gusman Age: 29 yrs Sex: Male : 1995 Arrival Date: 04/13/2024 Time: 12:10 Bed IW1 Private MD: ED Physician Kai Ac HPI: 04/13 12:55 This 29 yrs old Male presents to ER via Ambulatory with complaints of Flu ec2 Symptoms, Sore Throat. 12:55 Patient arrives today for evaluation of cough and cold symptoms ongoing for 2 days. ec2 Patient reports cough and congestion as well as sore throat. Subjective fevers and chills, no vomiting, no diarrhea, no issues with p.o. intake. However less appetite recently.. Historical: - Allergies: 12:26 Sulfa (Sulfonamide Antibiotics); hb - PMHx: 12:26 ADD/ADHD; Bipolar disorder; Hypertensive disorder; hb - Immunization history:: Adult Immunizations up to date. - Infectious Disease History:: Denies. - Social history:: Smoking status: Reported history of juuling and/or vaping. ROS: 12:55 Constitutional: as per hpi ec2 Exam: 12:55 Constitutional: GEN: NAD Head: atraumatic Eyes: EOMI Ears: External ears are normal. ec2 Mouth: Posterior pharyngeal erythema without exudates appreciated, no stridor, no significant swelling, no exudates appreciated. CV: regular rate LUNGS: no respiratory distress ABD: non-distended SKIN: no evidence of rashes MSK: no evidence of trauma Vital Signs: 12:25 BP 135 / 87; Pulse 102; Resp 16; Temp 98.3(TE); Pulse Ox 100% on R/A; Weight 90.72 kg; hb Height 5 ft. 6 in. ; Pain 6/10; 12:25 Body Mass Index 32.28 (90.72 kg, 167.64 cm) hb 12:25 Pain Scale: Adult hb MDM: 12:17 Medical Screening Exam initiated ec2 12:55 Data reviewed: vital signs, nurses notes. ED course: Patient arrives today for ec2 evaluation of cough and cold symptoms. Suspect viral process. COVID and flu testing negative. Additionally considered strep pharyngitis which was negative. Will discharge home. Return precautions given will treat the patient's sore throat.. 04/13 12:16 Order name: Influenza Screen (a \T\ B); Complete Time: 12:54 ec2 04/13 12:16 Order name: SARS RAPID; Complete Time: 12:54 ec2 04/13 12:16 Order name: Strep ec2 04/13 12:50 Order name: Throat Culture EDMS Administered Medications: 14:07 Drug: Ketorolac IM 30 mg IM once Route: IM; Site: left deltoid; jl7 14:30 Follow up: Response: No adverse reaction jl7 14:07 Drug: Dexamethasone IM 10 mg IM once Route: IM; Site: right deltoid; jl7 14:30 Follow up: Response: No adverse reaction jl7 14:17 Drug: Ondansetron PO 4 mg PO once Route: PO; jl7 14:45 Follow up: Response: No adverse reaction; Nausea is decreased jl7 Disposition Summary: 04/13/24 12:56 Discharge Ordered Notes: Location: Home ec2 Condition: Stable ec2 Diagnosis - Viral infection, unspecified ec2 Followup: ec2 - With: Private Physician - When: - Reason: Re-evaluation by your physician Discharge Instructions: - Discharge Summary Sheet ec2 - Viral Illness, Adult ec2 Forms: - Medication Reconciliation Form ec2 - Antibiotic Education ec2 - Prescription Opioid Use ec2 - Patient Portal Instructions ec2 - Leadership Thank You Letter ec2 Prescriptions: - Tessalon Perles 100 mg Oral Capsule - take 1 capsule ORAL route every 8 hours As needed; 15 capsule; Refills: 0, ec2 Product Selection Permitted - Prednisone 20 mg Oral Tablet - take 2 tablets ORAL route once daily for 5 days; 10 tablet; Refills: 0, Product ec2 Selection Permitted Signatures: Dispatcher [employer] EDMS Radha Degroot RN Huseyin Medina RN RN jl7 Kai Ac MD MD ec2 Corrections: (The following items were deleted from the chart) 12:17 12:17 Influenza Screen (A \T\ B)+BA.LAB.BRZ ordered. EDMS EDMS 12:17 12:17 SARS-COV-2 Antigen Rapid+I.LAB.BRZ ordered. EDMS EDMS 12:17 12:17 Group A Streptococcus Rapid Sc+BA.LAB.BRZ ordered. EDMS EDMS
--- NOTE | 2024-04-13 12:56 | ER ---
Nurse's Notes [facility] Name: Romulo Gusman Age: 29 yrs Sex: Male : 1995 Arrival Date: 04/13/2024 Time: 12:10 Bed IW1 Private MD: Diagnosis: Viral infection, unspecified Presentation: 04/13 12:25 Chief complaint: Headache, sinus congestion, sore throat, body aches, and chills x 2-3 hb days. Coronavirus screen: Client presents with at least one sign or symptom that may indicate coronavirus-19. Provider contacted for isolation considerations. Ebola Screen: No symptoms or risks identified at this time. Initial Sepsis Screen: Does the patient meet any 2 criteria? No. Patient's initial sepsis screen is negative. Does the patient have a suspected source of infection? No. Patient's initial sepsis screen is negative. Risk Assessment: Do you want to hurt yourself or someone else? Patient reports no desire to harm self or others. Onset of symptoms was April 10, 2024. 12:25 Method Of Arrival: Ambulatory hb 12:25 Acuity: LAURI 4 hb Historical: - Allergies: 12:26 Sulfa (Sulfonamide Antibiotics); hb - PMHx: 12:26 ADD/ADHD; Bipolar disorder; Hypertensive disorder; hb - Immunization history:: Adult Immunizations up to date. - Infectious Disease History:: Denies. - Social history:: Smoking status: Reported history of juuling and/or vaping. Vital Signs: 12:25 BP 135 / 87; Pulse 102; Resp 16; Temp 98.3(TE); Pulse Ox 100% on R/A; Weight 90.72 kg; hb Height 5 ft. 6 in. ; Pain 6/10; 12:25 Body Mass Index 32.28 (90.72 kg, 167.64 cm) hb 12:25 Pain Scale: Adult hb ED Course: 12:12 Patient arrived in ED. mr 12:15 Kai Ac MD is Attending Physician. ec2 12:25 Strep Sent. hb 12:25 SARS RAPID Sent. hb 12:25 Influenza Screen (a \T\ B) Sent. hb 12:26 Triage completed. hb 12:27 Arm band placed on. hb 14:07 Huseyin Guillermo RN is Primary Nurse. jl7 Administered Medications: 14:07 Drug: Ketorolac IM 30 mg IM once Route: IM; Site: left deltoid; 7 14:30 Follow up: Response: No adverse reaction 7 14:07 Drug: Dexamethasone IM 10 mg IM once Route: IM; Site: right deltoid; 7 14:30 Follow up: Response: No adverse reaction 7 14:17 Drug: Ondansetron PO 4 mg PO once Route: PO; 7 14:45 Follow up: Response: No adverse reaction; Nausea is decreased jl7 Outcome: 12:56 Discharge ordered by . tamar 14:40 Discharged to home ambulatory, jl7 14:40 Condition: stable 14:40 Discharge instructions given to patient, Instructed on discharge instructions, follow up and referral plans. medication usage, Demonstrated understanding of instructions, follow-up care, medications, Prescriptions given X 2, 14:40 Patient left the ED. jl7 Signatures: Rosa Saleh, Reg Reg mr Radha Degroot RN RN Huseyin Guillermo RN RN jl7 Kai Ac MD MD ec2
[2024-04-13] MEDS ORDERED: KETOROLAC 30 MG/ML INJ ONE (13:59)
[2024-04-13] MEDS ORDERED: dexAMETHasone 10 MG/ML VIAL ONE (13:59)
[2024-04-13] MEDS ORDERED: ONDANSETRON 4 MG (ODT) TAB ONE (14:09)
[2024-04-13 14:48] VITALS: BP 135/87; TEMP 98.3; O2SAT 100
== END 2024-04-13 14:40 | disposition home or self-care (01) ==
LOC: ER 12:10
DX: B34.9 Viral infection, unspecified (principal); I10 Essential (primary) hypertension; Z11.52 Encounter for screening for COVID-19; Z87.891 Personal history of nicotine dependence; Z88.2 Allergy status to sulfonamides
CPT/HCPCS: 36415; 87070; 87081; 87804; 87811; 96372; 99284; J1100; Q0162

== ENCOUNTER 2024-04-16 14:08 | Emergency (ER) | payer SELFPAY ==
--- OUTSIDE RECORDS SUMMARY | 2024-04-16 14:13 | XMS REPORT | Continuity of Care Document ---
Author Name Unknown Address [address] [facility] [address] [place] [address] [facility] thconnect Address [address] [facility] [address] [facility] [address] [place] [address] Care Team Providers Care Primary Operator Name Role Phone PCPNO, NO Primary Care Physician Unavailab SARAH Lamb Attending Clinician Unavailable SARAH SHIPLEY Attending Clinician Unavailable Sarah Shipley DO Attending Clinician + [phone] AJ PARR Attending Clinician Unavailable MALI CROWE Attending Clinician Unavailab JACKIE Hernandez Attending Clinician Unavailab JOCELYN Fu Attending Clinician Unavail able SARAH WU Attending Clinician UnavailAJ Sprague Attending Clinician UnaPricilla Myers NP Attending Clinician [phone] PRICILLA SLADE Attending Clinician Unavailable Nawaf Her [...] Acute cough Disease Active 12-26 00:00: 00 [facility] Fever in adult Fever in adult Disease Active 12-26 00:00: 00 [facility] Sore throat Sore throat Disease Active 12-26 00:00: 00 [facility] Body aches Body aches Disease Active 12-26 00:00: 00 [facility] No known active problems No known active problems Disease [facility] Allergies, Adverse Reactions, Alerts Allergy Name Allergy Type Status Severity Reaction(s) Onset Date Inactive Date Treating Clinician Comments Source SULFA (SULFONA MIDE ANTIBIOT ICS) Drug Class Active High Hives 12-26 00:00: 00 [facility] Sulfa (Sulfona mide Antibiot ics) Propensi ty to adverse reaction s Active Hives 12-26 00:00: 00 [facility] Sulfonam behzad Allergy to substanc e Active Unknown 2-19 00:00: 00 ENRIQUE Kellyasafsaw [facility] Sulfa (Sulfona mide Antibiot ics) DA Active MO 9 00:00: 00 [facility] Sulfa (Sulfona mide Antibiot ics) DA Active MO HIVES, ANGIOEDEMA 9 00:00: 00 [facility] Sulfa (Sulfona mide Antibiot ics) DA Active MO 06-18 00:00: 00 [facility] Sulfa (Sulfona mide Antibiot ics) DA Active MO HIVES 06-18 00:00: 00 [facility] Sulfa (Sulfona mide Antibiot ics) DA Active MO 0 18 00:00: 00 [facility] Sulfa (Sulfona mide Antibiot ics) DA Active MO HIVES 0 18 00:00: 00 [facility] Sulfa (Sulfona mide Antibiot ics) DA Active MO 0 204 00:00: 00 [facility] Sulfa (Sulfona mide Antibiot ics) DA Active MO HIVES 0 204 00:00: 00 [facility] No Known Allergie s DA Active U 12-04 00:00: 00 [facility] No Known Allergie s DA Active U 12-04 00:00: 00 [facility] No Known Contrast Allergie s DA Active U 12-05 00:00: 00 [facility] No Known Drug Allergie s DA Active U 817 00:00: 00 [facility] No Known Food Allergie s DA Active U 12-05 00:00: 00 [facility] No Known Other Allergie s DA Active U 8 00:00: 00 [facility] NO KNOWN ALLERGIE S Drug Class Active [facility] Social History Social Habit Start Date Stop Date Quantity Comments Source Sexual orientation U [facility] Exposure to SARS-CoV-2 (event) Not sure [facility] Sex Assigned At 1995 00:00:00 1995 00:00:00 Male [facility] Smoking Status Start Date Stop Date Source Tobacco smoking consumption unknown [facility] Medications Ordered Medication Name Filled Medication Name Start Date Stop Date Current Medication? Ordering Clinician Indication Dosage Frequency Signature (SIG) Comments Components Source ketorolac (TORADOL) injection 30 mg 12-27 03:00: 00 12-27 02:31 :00 No 30mg 30 mg, Intramuscu lar, ONCE, 1 dose, On 12/27/23 at 2200, Routine [facility] Amoxicillin /Clavulanat e Potassium (Augmentin 875 Mg) 1 Each TABLET 06-09 14:58: 00 No 875mg Twice A Day [facility] Naproxen (Naprosyn) 500 Mg TAB 06-09 14:58: 00 No 500mg Twice A Day as needed for Pain [facility] Ondansetron Hcl (Zofran) 4 Mg TAB 06-09 14:58: 00 No 4mg Every 8 Hours as needed for Nausea [facility] Amoxicillin /Clavulanat e Potassium (Augmentin 875 Mg) 1 Each TABLET 06-09 14:56: 00 06-09 14:58 :00 No 875mg Twice A Day [facility] Naproxen (Naprosyn) 500 Mg TAB 06-09 14:56: 00 06-09 14:58 :00 No 500mg Twice A Day as needed for Pain [facility] Ondansetron Hcl (Zofran) 4 Mg TAB - 14:56: 00 06-09 14:58 :00 No 4mg Every 8 Hours as needed for Nausea / Vomiting [facility] ibuprofen (IBU) tablet 800 mg 2020-04 06:15: 00 02-04 05:23 :00 No 800mg 800 mg, Oral, ONCE, 1 dose, On 02/04/21 at 0115, [facility] acetaminoph en (TYLENOL) tablet 650 mg 2020-04 06:15: 00 02-04 05:23 :00 No 650mg 650 mg, Oral, ONCE, 1 dose, On 02/04/21 at 0115, [facility] albuterol 90 mcg/actuati on inhaler 2020-04 00:00: 00 Yes [id number] 2{puff} Inhale 2 Puffs every 4 (four) hours as needed for Wheezing or Shortness of Breath. [facility] levoFLOXaci n 750 mg tablet 2020-04 00:00: 00 02-12 04:59 :00 No [id number] 750mg Take 1 tablet by mouth daily for 7 days. [facility] predniSONE 20 mg tablet 2020-04 00:00: 00 02-10 04:59 :00 No [id number] 20mg Take 1 tablet by mouth 2 (two) times daily for 5 days. [facility] TYLENOL FOR CHILDREN ORAL 05-06 13:05: 22 Yes None Entered [facility] Vital Signs Vital Name Observation Time Observation Value Comments S ource Systolic blood pressure 2023-12-28 04:00:00 122 mm[Hg] [facility] Diastolic blood pressure 2023-12-28 04:00:00 84 mm[Hg] [facility] Heart rate 2023-12-28 04:00:00 94 /min [facility] Body temperature 2023-12-28 04:00:00 36.72 Ilsa [facility] Oxygen saturation in Arterial blood by Pulse oximetry 2023-12-28 04:00:00 96 /min [facility] Respiratory rate 2023-12-28 02:00:00 20 /min [facility] Body height 2023-12-28 02:00:00 167.6 cm [facility] Body weight 2023-12-28 02:00:00 83.915 kg [facility] BMI 2023-12-28 02:00:00 29.86 kg/m2 [facility] Body Temperature 2023-06-09 15:31:00 98.3 [degF] [facility] Heart Rate 2023-06-09 15:31:00 67 /min [facility] Respiratory rate 2023-06-09 15:31:00 18 /min [facility] BP Systolic 2023-06-09 15:31:00 113 mm[Hg] [facility] BP Diastolic 2023-06-09 15:31:00 77 mm[Hg] [facility] Height 2023-06-09 13:55:[address] [facility] Weight 2023-06-09 13:55:[address] [facility] BMI (Body Mass Index) 2023-06-09 13:55:00 30.7 kg/m2 [facility] Systolic blood pressure 2021-02-04 07:45:00 131 mm[Hg] [facility] Diastolic blood pressure 2021-02-04 07:45:00 74 mm[Hg] [facility] Heart rate 2021-02-04 07:45:00 114 /min [facility] Respiratory rate 2021-02-04 07:45:00 20 /min [facility] Oxygen saturation in Arterial blood by Pulse oximetry 2021-02-04 07:45:00 98 /min [facility] Body temperature 2021-02-04 04:20:00 38.33 Lisa [facility] Body height 2021-02-04 04:20:00 170.2 cm [facility] Body weight 2021-02-04 04:20:00 91.944 kg [facility] BMI 2021-02-04 04:20:00 31.75 kg/m2 [facility] Procedures Procedure Date / Time Performed Performing Clinician Source XR CHEST 2 VW 2023-12-28 02:41:23 Sarah Shipley [facility] RAPID STREP SCREEN FOR GROUP A 2023-12-28 02:32:00 Sarah Shipley [facility] INFLUENZA A/B RSV COVID NAAT 2023-12-28 02:32:00 Sarah Shipley [facility] URINALYSIS 2021-02-04 06:27:00 Pricilla Slade [facility] EBV-MONONUCLEOSIS SCREEN 2021-02-04 06:27:00 Radha Slade [facility] RAPID STREP SCREEN FOR GROUP A 2021-02-04 06:27:00 Pricilla Slade [facility] URINE DRUG (IMMUNOASSAY) - COMPREHENSIVE DRUG SCREEN W/O REFLEX 2021-02-04 06:27:00 Pricilla Slade [facility] ADC,CLC OR LCC ONLY - INFLUENZA A & B DIRECT ANTIGEN 2021-02-04 05:24:00 Pricilla Slade [facility] XR CHEST 1 VW 2021-02-04 05:23:00 Pricilla Slade [facility] COVID-19 (ID NOW RAPID TESTING) 2021-02-04 04:57:00 Pricilla Slade [facility] NOTICE OF PRIVACY PRACTICES 2021-02-04 04:01:40 Doctor Unassigned, [place] [facility] CONSENT/REFUSAL FOR DIAGNOSIS AND TREATMENT 2021-02-04 03:58:40 Doctor Unassigned, [place] [facility] Encounters Start Date/Time End Date/Time Encounter Type Admission Type Attending [facility] Care Facility Care Department Encounter ID Source 2020-08-15 18:15:00 Inpatient HCACL ROBIN [id number] [facility] 2020-06-18 18:18:00 Inpatient HCACL ROBIN [id number] [facility] 2019-09-06 22:14:00 Inpatient HCACL ROBIN [id number] [facility] 2019-05-25 21:43:00 Inpatient HCAMN DARIO [id number] [facility] 2023-12-27 21:04:00 2023-12-27 23:31:00 Emergency X SARAH SHIPLEY [facility] ERT [id number] [facility] 2023-12-27 21:04:00 2023-12-27 23:31:00 Emergency Goldie Shipleyew [facility] [id number] [facility] 2023-06-25 11:58:05 2023-06-25 11:58:05 Outpatient [facility] [id number] Tim Patel 2023-06-09 13:54:00 2023-06-09 15:31:00 Departed Emergency Room [facility] [id number] [facility] 2023-06-09 13:54:00 2023-06-09 15:31:[address] [facility] [id number] [facility] 2023-06-03 16:13:54 2023-06-03 16:13:54 Outpatient [facility] [id number] Tim Patel 2021-11-14 09:15:00 2021-11-14 11:12:00 Emergency E MALI CROWE SE MED [id number] [facility] 2021-10-05 22:09:00 2021-10-06 02:40:00 Emergency E JACKIE GALVAN BL BL [id number] BL 2021-10-04 23:17:00 2021-10-05 00:01:00 Emergency E JOCELYN EATON SE SE 7507 [facility] 2021-09-25 21:46:00 2021-09-25 22:39:00 Emergency E SARAH WU SE SE 7506 [facility] 2021-08-18 18:36:00 2021-08-18 19:57:00 Emergency E AJ URBINA MHSE MHSE 7505 [facility] 2021-02-03 23:27:00 2021-02-04 03:04:00 Emergency Pricilla Slade [facility] [id number] [facility] 2021-02-03 23:27:00 2021-02-03 23:27:00 Emergency X PRICILLA SLADE [facility] ERT [id number] [facility] 2020-12-24 21:50:00 2020-12-25 02:16:00 Emergency EM Collins Hermund HCACL ROBIN [id number] [facility] 2020-12-19 21:51:00 2020-12-20 04:15:00 Emergency E PRABHU MI BL MHBL [id number] [facility] 2020-08-16 22:18:00 2020-08-17 02:24:00 Emergency E LIN TOMLINSONGeorge BL MHBL [id number] [facility] 2020-06-18 18:18:00 2020-06-18 21:35:00 Emergency EM Marco Antonio HCACL ROBIN [id number] 67 [facility] 2019-04-10 21:45:00 2019-04-10 21:45:00 Emergency E MHBL BL [id number] BL Results Test Description Test Time Test Comments Results Resul t Comments Source XR CHEST 2 VW 2023-12-28 03:16:01 XR CHEST 2 VW HISTORY: ?PNA COMPARISON: None FINDINGS: There is no infiltrate or pleural effusion. ?Thecardiomedias tinal silhouette is within normal limits. ?[facility]orax. [facility]2020-12-25 00:56:00* Test Item Value Reference Range Interpretation Comme nts AG STREP GROUP A (THROAT) (test code = STREPA) Negative Negative Negative for Str ep A nucleic acid INFLUENZA A [id number] 00:56:00* Test Item Value Reference Range Interpretation Comme nts INFLUENZA A (test code = FLUAPCR) Negative Negative INFLUENZA B (test code = FLUBPCR) Negative Negative Coronavirus 2019 nCoV [id number] 00:41:00* Test Item Value Reference Range Interpretation Comme nts Coronavirus 2019 nCoV Bedside (test code = [id number]) NEGATIVE Negative Negative results should be treated as presumptive and, ifinconsistent with clinical signs and symptoms or necessaryfor patient management, should be tested with an alternativemolecular assay. Negative results do not preclude NMOS-[id number]-[id number] and should not be used as the [...] Str ep A nucleic acid INFLUENZA A [id number] 00:33:00* Test Item Value Reference Range Interpretation Comme nts INFLUENZA A (test code = FLUAPCR) Negative INFLUENZA B (test code = FLUBPCR) Negative - CT HEAD/BRAIN W/O [id number] 19:29:00 [facility] 1995 Sex: M Name: ANATOLY MCNEAL [facility] : 1995 Age/S: 25 / M [address] [place] [address] Unit #: [id number] Loc: [place] [address] Phys: Shmuel Rodriguez Acct: [id number] Dis Date:Status: REG ER PHONE #: [phone] Exam Date: 08/15/2020 190 FAX #: [phone] Reason: fall, occipital head strike, LOC, vomiting EXAMS: CPT CODE: [id number] CT HEAD/BRAIN W/O CONT 64975 Clinical Indication: Fall, occipital head strike, loss [...] 1 Signed Report (CONTINUED) Name: ANATOLY MCNEAL [facility] : 1995 Age/S: 25 / M [address] [place] [address] Unit #: [id number] Loc: [place] [address] Phys: Shmuel Rodriguez Acct: [id number] Dis Date: Status: REG ER PHONE #: [phone] Exam Date: 08/15/2020 1902 FAX #: [phone] Reason: fall, occipital head strike, LOC, vomiting EXAMS: CPT CODE: [id number] CT HEAD/BRAIN W/O CONT 41161 <Continued> and spinous processes are unremarkable. The [...] PAGE 2 Signed Report- CT C-SPINE W/O [id number] 19:29:00 [facility]AL : 1995 Sex: M Name: ANATOLY MCNEAL [facility] [place] : 1995 Age/S: 25 / M [address] [place] [address] Unit #: [id number] Loc: [place] [address] Phys: Shmuel Rodriguez ELAYNE Acct: [id number] Dis Date: Status: REG ER PHONE #: [phone] Exam Date: 08/15/20201901 FAX #: [phone] Reason: fall, occipital head strike, LOC, vomiting EXAMS: CPT CODE: [id number] CT C-SPINE W/O CONT 25688 Clinical Goldie cation: Fall, occipital head strike, [...] 1 Signed Report (CONTINUED) Name: ANATOLY MCNEAL [facility] Jani Maddox : 1995 Age/S: 25 / M [address] [place] [address] Unit #: [id number] Loc: [place] [address] Phys: Shmuel Rodriguez Acct: [id number] Dis Date: Status: REG ER PHONE #: [phone] Exam Date: 08/15/2020 190 FAX #: [phone] Reason: fall, occipital head strike, LOC, vomiting EXAMS: CPT CODE: [id number] CT C-SPINE W/O CONT 46764 <Continued> and spinous processes are unremarkable. The [...] PAGE 2 Signed Report- XR CHEST 1 [id number] 19:10:00 [facility] : 1995 Sex: M FAX: Antonio Lara MD [phone] [place]: St: [facility] FAX: Shmuel Rodriguez [phone] ---- Name: ANATOLY MCNEAL [facility] : 1995 Age/S: 25/M [address] [place] [address] Unit #: [id number] Loc: [place] [address] Phys: Shmuel Rodriguez Acct: [id number] Dis Date: Status: REG ER PHONE #: Exam Date: 08/15/20201903 FAX #: [phone] Reason: trauma EXAMS: CPT CODE: [id number] CHEST 1 V 93164 Portable single view AP chest INDICATION: Fall. [...] code = CA) 9.8 mg/dL 8.0-10.5 N [id number] 20:21:00* Test Item Value Reference Range Interpretation Comme nts TROPONIN-I (test code = TROPI) < 0.006 ng/mL 0.000-0.045 N Negative: <= 0.0 45 Positive: >= 0.046 Correlation with serial results, other cardiac markers andclinical findings is necessary to determine the clinicalsignificance of this result. Results using different methodologies should not be comparedto one another as quantitative results may vary by method. BASIC METABOLIC [id number] 20:20:00* Test Item Value Reference Range Interpretation [...] CALCIUM (test code = CA) mg/dL 8.0-10.5 [id number] 20:20:00* Test Item Value Reference Range Interpretation Comme nts TROPONIN-I (test code = TROPI) < 0.006 ng/mL 0.000-0.045 N Negative: <= 0. 045 Positive: >= 0.046 Correlation with serial results, other cardiac markers andclinical findings is necessary to determine the clinicalsignificance of this result. Results using different methodologies should not be comparedto one another as quantitative results may vary by method. [id number] 20:16:00* Test Item Value Reference Range Interpretation Comme nts D-DIMER (test code = DDIMER) 364 ng/mlFEU See_Comment N THROMBOSIS AND/O R PULMONARY EMBOLISM AND THE CLINICAL CUT- OFF VALUE FOR EXCLUSION (500 ng/mL FEU) OF THESE CONDITIONSIS VALIDATED BY THE CHUMMER OF THE METHOD. A NEGATIVE D-DIMER RESULT [...] interpret this result as normal/abnormal. CBC W/AUTO [id number] 20:06:00* Test Item Value Reference Range Interpretation [...] c ode = MDIFF) NO CBC W/AUTO [id number] 20:02:00* Test Item Value Reference Range Interpretation [...] ode = MDIFF) - XR CHEST 1 [id number] 19:27:00 [facility]Y MCNEAL : 1995 Sex: M FAX: Antonio Lara MD [phone] [place]: [address] St: DEP Name: ANATOLY MCNEAL [facility] Jani Maddox : 1995Age/S: 25/M [address] [place] [address] Unit #: [id number] Loc: [place] [address] Phys: Antonio Lara MD Acct: [id number] Dis Date: Status: DEP ER PHONE #: [phone] Exam Date: 06/18/2020 1856 FAX #: [phone] Reason: chest pain, SOB EXAMS: CPT CODE: [id number] XR CHEST 1 V 55745 SINGLE VIEW RADIOGRAPH CHEST INDICATION: Chest pain [...] Report- XR CHEST 1 V 2020-06-18 19:27:00 [facility] WE[facility] ANATOLY MCNEAL : 1995 Sex: M FAX: Antonio Lara MD [phone] [place]: St: REG Name: ANATOLY MCNEAL [facility] : 1995Age/S: 25/M [address] [place] [address] Blvd Unit #: [id number] Loc: [place] [address] Phys: Antonio Lara MD Acct: [id number] Dis Date: Status: REG ER PHONE #: [phone] Exam Date: 06/18/2020 1856 FAX #: [phone] Reason: chest pain, SOB EXAMS: CPT CODE: [id number] XR CHEST 1 V 27887 SINGLEVIEW RADIOGRAPH CHEST INDICATION: Chest pain and [...] ( 1929) PAGE 1 Signed ReportNovel Coronavirus [id number] 14:02:00* Test Item Value Reference Range Interpretation Comme nts Novel Coronavirus 2019 Inhouse (test code = [id number]) Negative Negative Positive resul ts are indicative of the presence [id number] RNA, clinical correlation with patient historyand other [...] for the identification of SARS-CoV-2 RNA usingthe ReliOn M2000 System under the FDA Emergency UseAuthorization. The testing is performed by personneltrained in the procedures for the ReliOn M2000 moleculardiagnostic SARS-CoV-2 assay in vitro. Testing Criteria: Fever Cough OtherOther: GENERALIZED WEAKNESSCOMMENTS: ORDER PUT IN FOR DR JOSE MIGUEL Reddy [id number] 00:31:00* Test Item Value Reference Range Interpretation Comme nts INFLUENZA A (test code = FLUAPCR) Negative Negative INFLUENZA B (test code = FLUBPCR) Negative Negative COMMENTS: SwabBASIC METABOLIC [id number] 00:19:00* Test Item Value Reference Range Interpretation [...] CA) 9.3 mg/dL 8.0-10.5 N HEPATIC FUNCTION [id number] 00:19:00* Test Item Value Reference Range Interpretation [...] ALKP) 74 IUnit/L 20-125 N BASIC METABOLIC [id number] 00:13:00* Test Item Value Reference Range Interpretation [...] CA) 9.3 mg/dL 8.0-10.5 N HEPATIC FUNCTION [id number] 00:13:00* Test Item Value Reference Range Interpretation [...] code = ALKP) IUnit/L 20-125 CBC W/AUTO [id number] 00:05:00* Test Item Value Reference Range Interpretation [...] = IFF) NO - XR CHEST 2 [id number] 23:38:00 [facility] ANATOL[facility] LAMAS : 1995 Sex: M FAX: Ernesto Swanson MD [phone] [place]: St: DEP Name: ANATOLY MCNEAL [facility] : 1995 Age/S: 24/M [address] [place] [address] Unit #: [id number] Loc: [place] [address] Phys: Ernesto Colunga MD Acct: [id number] Dis Date: Status: DEP ER PHONE #: [phone] Exam Date: FAX #: [phone] Reason: Chest Pain EXAMS: CPT CODE: [id number] XR CHEST 2 V 67892 Chest, 2 views dated 09/06/2019. HISTORY: Chest [...] MD Technologist: RT Jeremie(Timothy) Trncatalina Date/Time/By: 09/06/2019 (0800) : By: NavaDMM Orig Print D/T: S: 09/06/2019 (2303) PAGE 1 Signed Report- XR CHEST 2 [id number] 23:38:00FAX: Ernesto Swanson MD [phone] [place]: St: REG Name: ANATOLY MCNEAL [facility] : 1995 Age/S: 24/M [address] [place] [address] Blvd Unit #: [id number] Loc: [place] [address] Phys: Ernesot Colunga MD Acct: [id number] Dis Date: Status: REG ER PHONE #: [phone] Exam Date: 09/06/20192330 FAX #: [phone] Reason: Chest Pain EXAMS: CPT CODE: [id number] XR CHEST 2 V 11225 Chest, 2 views dated 09/06/2019. HISTORY: Chest [...] MD Technologist: KACIE Chao) Trnscrd Date/Time/By: 09/06/2019 (2798) : By: SharonM Orig Print D/T: S: 09/06/2019 (6415) PAGE 1 Signed Report- CT ABD PELVIS W/[id number] 00:20:00FAX: Dariusz Junior DO [phone] [place]: St: REG Name: ANATOLY MCNEAL [facility] : 1995 Age/S: 24/M [address] [facility] Unit: [id number] Loc: [address] Phys: [place] [id number] Acct: [id number] Dis Date: Status: REG ER PHONE #: [phone] Exam Date: 05/25/2019 0005 FAX #: [phone] Reason: abdominal pain EXAMS: CPT CODE: [id number] CT ABD PELVIS W/CONT 10017 EXAM: CT ABDOMEN AND PELVIS WITH IV [...] Signed Report (CONTINUED) FAX: Dariusz Junior DO [phone] [place]: St: REG Name: ANATOLY MCNEAL [facility] : 1995 Age/S: 24/M [address] Unit: [id number] Loc: [address] Phys: [place] [id number] Acct: [id number] Dis Date: Status: REG ER PHONE #: [phone] Exam Date: 05/25/2019 0005 FAX #: [phone] Reason: abdominal pain EXAMS: CPT CODE: [id number] CT ABD PELVIS W/CONT 78826 <Continued> Lymphatics: No enlarged lymph nodes by CT size criteria. Bones/Soft Tissues: No acute osseous findings. No ventral hernias. Peritoneum/Other: No free intraperitoneal air. No free intraperitoneal fluid. IMPRESSION: Unremarkable CT of the abdomen and pelvis. at 0020 Reported and signed by: Ale Escamilla M.D. CC: Dariusz Junior DO Technologist: CORA WELLINGTON Trnscrd Dt/Tm: 05/26/2019 (0020) Hunter Orig Print D/T: S: 05/26/2019 (6520 PAGE 2 Signed Report- CT ABD PELVIS W/[id number] 00:20:00 [facility] : 1995 Sex: M FAX: Dariusz Junior DO [phone] [place]: St: DEP Name: ANATOLY MCNEAL [facility] : 1995 Age/S:24/M [address] [facility] Unit: [id number] Loc: [place], [place] Phys: Dariusz Junior [id number] Acct: [id number] Dis Date: Status: DEP ER PHONE #: [phone] Exam Date: 05/25/2019 0005 FAX #: [phone] Reason: abdominal pain EXAMS: CPT CODE: [id number] CT ABD PELVIS W/CONT 82581 EXAM: CT ABDOMEN AND PELVIS WITH IV [...] Signed Report (CONTINUED) FAX: Dariusz Junior DO [phone] [place]: St: [facility] Name: ANATOLY MCNEAL [facility] : 1995 Age/S: 24/M [address] [facility] Unit: [id number] Loc: [place], [place]: [place] [id number] Acct: [id number] Dis Date: Status: [facility] ER PHONE #: [phone] Exam Date: 05/25/2019 0005 FAX #: Reason: abdominal pain EXAMS: CPT CODE: [id number] CT ABD PELVIS W/CONT 41430 <Continued> Lymphatics: No enlarged lymph nodes by [...] 05/26/2019 (0820 PAGE 2 Signed ReportBASIC METABOLIC [id number] 23:28:00* Test Item Value Reference Range Interpretation [...] 9.3 mg/dl 8.0-10.5 N HEPATIC FUNCTION PANEL [id number] 23:28:00* Test Item Value Reference Range Interpretation [...] code = ALKP) 73 Units/L 50.0-136.0 N [id number] 23:28:00* Test Item Value Reference Range Interpretation Comme nts LIPASE (test code = LIP) 96 Units/L 65.0-230.0 N URINALYSIS [id number] 23:21:00* Test Item Value Reference Range Interpretation [...] MUCU) 1+ Specimen comments: Clean CatchBASIC METABOLIC [id number] 23:20:00* Test Item Value Reference Range Interpretation [...] = CA) mg/dl 8.0-10.5 HEPATIC FUNCTION PANEL [id number] 23:20:00* Test Item Value Reference Range Interpretation [...] ( test code = ALKP) Units/L 50.0-136.0 [id number] 23:20:00* Test Item Value Reference Range Interpretation Comme nts LIPASE (test code = LIP) Units/L 65.0-230.0 CBC W/AUTO [id number] 23:15:00* Test Item Value Reference Range Interpretation [...] = BA#) 0.1 K/mm3 0.0-0.2 N URINALYSIS [id number] 23:13:00* Test Item Value Reference Range Interpretation [...] BACU) NONE Specimen comments: Clean CatchCOMPREHENSIVE METABOLIC [id number] 14:20:00* Test Item Value Reference Range Interpretation [...] code = ALKP) 89 IUnit/L 20-125 N [id number] 14:20:00* Test Item Value Reference Range Interpretation Comme nts LIPASE (test code = LIP) 89 IUnit/L 73-393 N COMPREHENSIVE METABOLIC [id number] 14:18:00* Test Item Value Reference Range Interpretation [...] TOTAL (test code = ALKP) IUnit/L 20-125 [id number] 14:18:00* Test Item Value Reference Range Interpretation Comme nts LIPASE (test code = LIP) 89 IUnit/L 73-393 N CBC W/AUTO [id number] 14:06:00* Test Item Value Reference Range Interpretation [...] = MDIFF) NO - XR ABD ACUTE [id number] 12:00:00 [facility]: ANATOLY MCNEAL : 1995 Sex: M FAX: Shmuel Rodriguez [phone] [place]: St: [place] Name: ANATOLY MCNEAL [facility] [place] : 1995 Age/S: 23/M [address] [place] [address] Unit #: [id number] Loc: [place] [address] Phys: Shmuel Rodriguez Acct: [id number] Dis Date: Status: UNK PHONE #: [phone] Exam Date: 05/20/2018 1152 FAX #: [phone] Reason: vomiting, cough chest discomfort EXAMS: CPT CODE: [id number] XR ABD ACUTE W/CHEST 87813 PROCEDURE: ABDOMINAL SERIES WITH SINGLE VIEW CHEST INDICATION: vomiting, cough chest discomfort COMPARISON: CXR April 2014, CT abdomen October 2014 FINDINGS: ABDOMEN: Air-fluid levels within normal caliber small and large bowel. No free intraperitoneal air. No soft tissue masses or pathologic calcifications. Radiographic evidence for splenomegaly. Skeleton is intact. Lower pelvis not included in the xdyfz-mf-ragw. CHEST: The lungs are clear. The pleura, cardiomediastinal silhouette and bony thorax are normal. IMPRESSION: 1. Air-fluid levels within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
[2024-04-16] MEDS ORDERED: ONDANSETRON 4 MG/2 ML VIAL ONE ×2 (14:32→14:54)
[2024-04-16] MEDS ORDERED: NA CHLORIDE 0.9% 1,000 ML ONE (14:32)
[2024-04-16 14:57] LABS: Absolute Basophils 0.1 K/uL (0-0.5); Absolute Eosinophils 0.1 K/uL (0-0.5); Absolute Monocytes 0.9 K/uL (0.1-1.3); Absolute Neutrophil 5.8 K/uL (1.8-8.0); Basophils % 0.7 % (0-1.3); Eosinophils % 1.5 % (0-4.4); Hematocrit 44.5 % (39.6-49.0); Hemoglobin 15.1 g/dL (13.6-17.9); Lymphocytes % 22.3 % (15.3-44.8); MCH 26.9 pg (27.0-35.0); MCHC 33.9 g/dL (32.0-36.0); MCV 79.4 fL (80-100); MPV 8.3 fL (7.6-11.3); Monocytes % 9.7 % (3.3-12.3); Neutrophils % 65.8 % (41.7-73.7); Platelets 292 thou/uL (152-406); RBC Red Blood Cell Count 5.61 M/uL (4.33-5.43); Red Cell Distribution Width 13.2 % (12.1-15.2)
[2024-04-16 15:09] LABS: SARS-CoV-2 Antigen CONTROL BLUE LINE VIS/BG OK; SARS-CoV-2 Antigen Rapid Res Negative (Negative)
[2024-04-16 15:15] LABS: Monoscreen NEG (NEG)
[2024-04-16 15:17] LABS: ALT/SGPT 45 U/L (16-61); Albumin 3.4 g/dL (3.4-5.0); Alkaline Phosphatase 79 U/L (45-117); Anion Gap 7.7 mEq/L (5.0-15.0); BUN Blood Urea Nitrogen 12 mg/dL (7-18); Bicarbonate 27 mEq/L (21-32); Bilirubin Total 0.6 mg/dL (0.2-1.0); Globulin 3.4 g/dL (2.3-3.5); Glomerular Filtration Rate 106 ml/min (=/>90); Glucose Level 100 mg/dL (74-106); Protein, Total 6.8 g/dL (6.4-8.2); Sodium Level 138 mEq/L (136-145)
[2024-04-16 15:18] LABS: AST/SGOT 24 U/L (15-37); Bilirubin Direct < 0.2 mg/dL (0-0.2); Bilirubin Indirect, Calculated 0.4 mg/dL (0.2-0.8); Magnesium 2.2 mg/dL (1.6-2.4); Potassium 3.7 mEq/L (3.5-5.1); Troponin High Sensitivity < 3.0 pg/mL (<58.9)
--- NOTE | 2024-04-16 16:21 | RAD REPORT ---
EXAMINATION: ONE VIEW CHEST XR CLINICAL INDICATION: Male, 29 years old.,Chest pain;Cough TECHNIQUE: Frontal chest projection is submitted. Examination is limited by patient positioning and t echnique. COMPARISON: 09/24/2023 FINDINGS: The lungs are well inflated and clear. No pneumothorax or sizable effusion. The heart is normal in s ize. Mediastinal contours are unremarkable. IMPRESSION: No acute intrathoracic abnormalities.
--- NOTE | 2024-04-16 16:29 | EDPHYS ---
Physician Documentation [facility] Name: Romulo Gusman Age: 29 yrs Sex: Male : 1995 Arrival Date: 04/16/2024 Time: 14:08 Bed 7 Private MD: ED Physician Radhames Tripathi HPI: 04/16 14:25 This 29 yrs old Male presents to ER via Ambulatory with complaints of Flu Symptoms. cp 14:25 The patient or guardian reports cough, that is intermittent. Onset: The cp symptoms/episode began/occurred 4 day(s) ago. 14:25 Associated signs and symptoms: Pertinent positives: chest pain, fever, nausea, sore cp throat, Pertinent negatives: diarrhea, active vomiting. Severity of symptoms: in the emergency department the symptoms are unchanged despite home interventions. Historical: - Allergies: 14:21 Sulfa (Sulfonamide Antibiotics); db - PMHx: 14:21 ADD/ADHD; Bipolar disorder; Hypertensive disorder; db - Immunization history:: Adult Immunizations unknown. - Infectious Disease History:: Denies. - Social history:: Smoking status: Reported history of juuling and/or vaping. ROS: 14:30 Constitutional: Positive for body aches, chills, Negative for fever, cp 14:30 Eyes: Negative for injury, pain, redness, and discharge, cp 14:30 ENT: Positive for sore throat, 14:30 Cardiovascular: Positive for chest pain, with cough, Negative for edema, 14:30 Respiratory: Positive for cough, "sounds productive", 14:30 Abdomen/GI: Negative for diarrhea, constipation, active vomiting, 14:30 All other systems are negative, Exam: 14:33 ECG was reviewed by the Attending Physician. cp 14:35 Constitutional: The patient appears in no acute distress, alert, awake, cp non-diaphoretic, non-toxic, well developed, well nourished, uncomfortable, 14:35 Head/Face: Normocephalic, atraumatic. cp 14:35 Eyes: Periorbital structures: appear normal, Conjunctiva: normal, no exudate, no injection, Sclera: no appreciated abnormality, Lids and lashes: appear normal, bilaterally, 14:35 ENT: External ear(s): are unremarkable, Ear canal(s): are normal, clear, TM's: dullness, bilaterally, Nose: is normal, Mouth: Lips: moist, Oral mucosa: moist, Posterior pharynx: Airway: no evidence of obstruction, patent, Tonsils: with erythema, erythema, that is mild, exudate, is not appreciated, 14:35 Neck: ROM/movement: is normal, is supple, without pain, no range of motions limitations, no meningismus, 14:35 Chest/axilla: Inspection: normal, 14:35 Cardiovascular: Rate: tachycardic, Rhythm: regular, Edema: is not appreciated, JVD: is not appreciated, 14:35 Respiratory: the patient does not display signs of respiratory distress, Respirations: labored breathing, is not present, intercostal retractions, are absent, Breath sounds: decreased breath sounds, are not appreciated, stridor, is not appreciated, wheezing: is not appreciated, 14:35 Abdomen/GI: Inspection: abdomen appears normal, Palpation: abdomen is soft and non-tender, in all quadrants, 14:35 Neuro: Orientation: to person, place \\T\\ time. Mentation: is normal, Vital Signs: 14:19 BP 137 / 90; Pulse 110; Resp 18; Temp 96.8(O); Pulse Ox 96% ; db 15:12 BP 129 / 84; Pulse 106; Resp 18; Pulse Ox 98% on R/A; ld1 16:47 BP 125 / 87; Pulse 77; Resp 16; Pulse Ox 97% ; cm10 MDM: 14:18 Medical Screening Exam initiated 16:27 Data reviewed: vital signs, nurses notes, lab test result(s), EKG, radiologic studies, cp plain films. 16:27 Differential diagnosis: bronchitis, flu, URI, pneumonia. I considered the following discharge prescriptions or medication management in the emergency department Medications were administered in the Emergency Department. See MAR. Independent interpretation of the following test(s) in the Emergency Department EKG: See my EKG interpretation above. Counseling: I had a detailed discussion with the patient and/or guardian regarding the historical points, exam findings, and any diagnostic results supporting the discharge/admit diagnosis, lab results, radiology results, to return to the emergency department if symptoms worsen or persist or if there are any questions or concerns that arise at home. 04/16 14:25 Order name: Basic Metabolic Panel; Complete Time: 15:58 04/16 14:25 Order name: CBC with Diff; Complete Time: 15:58 04/16 15:58 Interpretation: Normal except: RBC 5.61; MCV 79.4; MCH 26.9. 04/16 14:25 Order name: LFT's; Complete Time: 15:58 04/16 14:25 Order name: Magnesium; Complete Time: 15:58 04/16 14:25 Order name: Troponin HS; Complete Time: 15:58 04/16 15:58 Interpretation: Reviewed. 04/16 14:25 Order name: RSV; Complete Time: 15:58 04/16 14:25 Order name: SARS RAPID; Complete Time: 15:58 04/16 14:25 Order name: Influenza Screen (a \\T\\ B); Complete Time: 15:58 04/16 14:25 Order name: Strep 04/16 14:25 Order name: [place] Screen Profile; Complete Time: 15:58 04/16 15:12 Order name: Throat Culture EDMO 04/16 14:25 Order name: XRAY Chest (1 view); Complete Time: 16:25 04/16 16:25 Interpretation: Report review. 04/16 14:25 Order name: Cardiac monitoring; Complete Time: 14:32 04/16 14:25 Order name: EKG - Nurse/Tech; Complete Time: 14:32 04/16 14:25 Order name: IV Saline Lock; Complete Time: 14:53 04/16 14:25 Order name: Labs collected and sent; Complete Time: 14:53 04/16 14:25 Order name: O2 Per Protocol; Complete Time: 14:32 04/16 14:25 Order name: O2 Sat Monitoring; Complete Time: 14:32 cp EC:33 Rate is 100 beats/min. Rhythm is regular. MO interval is normal. QRS interval is cp normal. QT interval is normal. T waves are Inverted in leads III, aVR. Interpreted by me. Reviewed by me. Administered Medications: 14:53 Drug: Ondansetron IVP 4 mg IVP once; over 2 minutes Route: IVP; Site: left antecubital; ld1 16:27 Follow up: Response: No adverse reaction ld1 14:53 Drug: NS 0.9% IV 1000 ml IV at 1000 ml once; to be given as a bolus over 60 minutes ld1 Route: IV; Rate: 1000 ml; Site: left antecubital; 16:27 Follow up: Response: No adverse reaction; IV Status: Completed infusion; IV Intake: ld1 1000ml Disposition Summary: 04/16/24 16:28 Discharge Ordered Notes: Location: Home cp Condition: Stable cp Diagnosis - Cough cp - Acute pharyngitis, unspecified cp Followup: cp - With: Private Physician - When: 2 - 3 days - Reason: Worsening of condition Discharge Instructions: - Discharge Summary Sheet cp - Pharyngitis cp - Sore Throat cp - Cough, Adult cp Forms: - Work release form cp - Medication Reconciliation Form cp - Antibiotic Education cp - Prescription Opioid Use cp - Patient Portal Instructions cp - Leadership Thank You Letter cp Prescriptions: - Bromfed DM 2-30-10 mg/5 mL Oral syrup - administer 10 milliliter ORAL route every 6-8 hours as needed for cold cp symptoms; 240 milliliter; Refills: 0, Product Selection Permitted - albuterol sulfate 1.25 mg/3 mL Inhalation Solution for Nebulization - nebulize 3 milliliter INHALATION route every 4 to 6 hours As needed as needed cp for shortness of breath or wheezing; 1 unit; Refills: 0, Product Selection Permitted - Ibuprofen 800 mg Oral Tablet - take 1 tablet ORAL route every 8 hours As needed take with food; 30 tablet; cp Refills: 0, Product Selection Permitted - Zithromax Z-Lucas 250 mg Oral Tablet - take 1 tablet ORAL route as directed for 5 days Day 1 - take two (2) tablets cp one time. Day 2, 3, 4 , 5 take one (1) tablet once daily.; 6 tablet; Refills: 0, Product Selection Permitted Addendum: 04/17/2024 21:24 Co-signature as Attending Physician, Radhames Tripathi MD I agree with the assessment and c gunderson plan of care. Signatures: Dispatcher [employer] Radhames Delgado MD MD cha Page, Corey, PA PA cp Latha Thomas, RN RN ld1 Jyoti Aceves RN RN db Corrections: (The following items were deleted from the chart) 04/16 14:25 14:25 BASIC METABOLIC PANEL+C.LAB.BRZ ordered. EDMS EDMS 14:25 14:25 CBC+H.LAB.BRZ ordered. EDMS EDMS 14:25 14:25 HEPATIC FUNCTION+C.LAB.BRZ ordered. EDMS EDMS 14: 14:25 MAGNESIUM+C.LAB.BRZ ordered. EDMS EDMS 14: 14:25 Troponin High Sensitivity+C.LAB.BRZ ordered. EDMS EDMS 14:25 14:25 Respiratory Syncytial Virus Ag+BA.LAB.BRZ ordered. EDMS EDMS 14:25 14:25 SARS-COV-2 Antigen Rapid+I.LAB.BRZ ordered. EDMS EDMS 14:25 14:25 Influenza Screen (A \\T\\ B)+BA.LAB.BRZ ordered. EDMS EDMS 14:25 14:25 Group A Streptococcus Rapid Sc+BA.LAB.BRZ ordered. EDMS EDMS 14: 14:25 MONO SCREEN PROFILE+I.LAB.BRZ ordered. EDMS EDMS 14: 14:25 Chest Single View+RAD.RAD.BRZ ordered. EDMS EDMS
--- NOTE | 2024-04-16 16:29 | ER ---
Nurse's Notes [facility] Name: Romulo Gusman Age: 29 yrs Sex: Male : 1995 Arrival Date: 04/16/2024 Time: 14:08 Bed 7 Private MD: Diagnosis: Cough;Acute pharyngitis, unspecified Presentation: 04/16 14:19 Chief complaint: Patient states: COUGH AND SORE THROAT X 4 DAYS WITH CONGESTION AND db CHEST PAINS. Coronavirus screen: Client denies travel out of the [place] in the last 14 days. At this time, the client does not indicate any symptoms associated with coronavirus-19. Ebola Screen: Patient negative for fever greater than or equal to 101.5 degrees Fahrenheit, and additional compatible Ebola Virus Disease symptoms Patient denies exposure to infectious person. Patient denies travel to an Ebola-affected area in the 21 days before illness onset. No symptoms or risks identified at this time. Initial Sepsis Screen: Does the patient meet any 2 criteria? No. Patient's initial sepsis screen is negative. Does the patient have a suspected source of infection? No. Patient's initial sepsis screen is negative. Risk Assessment: Do you want to hurt yourself or someone else? Patient reports no desire to harm self or others. Onset of symptoms was April 12, 2024. 14:19 Method Of Arrival: Ambulatory db 14:19 Acuity: LAURI 4 db Triage Assessment: 14:21 General: Appears in no apparent distress. comfortable, Behavior is calm, cooperative. db Pain: Complains of pain in chest. Neuro: Level of Consciousness is awake, alert, obeys commands, Oriented to person, place, time, situation. Cardiovascular: Reports CHEST PAIN WITH COUGH AND CONGESTION. Respiratory: Airway is patent Respiratory effort is even, unlabored, Respiratory pattern is regular, symmetrical. Historical: - Allergies: 14:21 Sulfa (Sulfonamide Antibiotics); db - PMHx: 14:21 ADD/ADHD; Bipolar disorder; Hypertensive disorder; db - Immunization history:: Adult Immunizations unknown. - Infectious Disease History:: Denies. - Social history:: Smoking status: Reported history of juuling and/or vaping. Screenin:12 [facility] ED Fall Risk Assessment (Adult) History of falling in the last 3 months, ld1 including since admission No falls in past 3 months (0 pts) Confusion or Disorientation No (0 pts) Intoxicated or Sedated No (0 pts) Impaired Gait No (0 pts) Mobility Assist Device Used No (0 pt) Altered Elimination No (0 pt) Score/Fall Risk Level 0 - 2 = Low Risk Oriented to surroundings, Maintained a safe environment, Educated pt \T\ family on fall prevention, incl call for assistance when getting out of bed, Assessed \T\ reinforced patient's understanding of fall precautions, Provided non-skid footwear, Hourly rounding (assess needs \T\ fall precautionary measures) done, Used ambulatory aids as needed (educated on \T\ assisted with), Used gait belt as appropriate. Abuse screen: Denies threats or abuse. Denies injuries from another. Nutritional screening: No deficits noted. Tuberculosis screening: No symptoms or risk factors identified. Assessment: 15:12 General: Appears in no apparent distress. comfortable, Behavior is calm, cooperative, ld1 appropriate for age. Pain: Denies pain. Neuro: Level of Consciousness is awake, alert, obeys commands, Oriented to person, place, time, situation, Appropriate for age. Cardiovascular: Capillary refill < 3 seconds Patient's skin is warm and dry. Respiratory: Airway is patent Respiratory effort is even, unlabored. GI: Abdomen is flat, non-distended. : No signs and/or symptoms were reported regarding the genitourinary system. EENT: No signs and/or symptoms were reported regarding the EENT system. Derm: No signs and/or symptoms reported regarding the dermatologic system. Musculoskeletal: No signs and/or symptoms reported regarding the musculoskeletal system. Vital Signs: 14:19 BP 137 / 90; Pulse 110; Resp 18; Temp 96.8(O); Pulse Ox 96% ; db 15:12 BP 129 / 84; Pulse 106; Resp 18; Pulse Ox 98% on R/A; ld1 16:47 BP 125 / 87; Pulse 77; Resp 16; Pulse Ox 97% ; cm10 ED Course: 14:11 Patient arrived in ED. im 14:13 Radhames Schwarz PA is PHCP. cp 14:13 Radhames Tripathi MD is Attending Physician. cp 14:21 Triage completed. db 14:22 Arm band placed on Patient placed in an exam room. db 14:53 Latha Thomas, RN is Primary Nurse. ld1 14:53 Strep Sent. ld1 14:53 Influenza Screen (a \T\ B) Sent. ld1 14:53 SARS RAPID Sent. ld1 14:53 RSV Sent. ld1 14:53 Inserted saline lock: 20 gauge in left antecubital area, using aseptic technique. Blood ld1 collected. Flushed with 10 mL NS. 14:59 XRAY Chest (1 view) In Process Unspecified. EDMS 15:12 Patient has correct armband on for positive identification. Placed in gown. Bed in low ld1 position. Call light in reach. Side rails up X2. nuclear monitoring technician on. Pulse ox on. NIBP on. Door closed. Noise minimized. Warm blanket given. 15:12 No provider procedures requiring assistance completed. ld1 16:47 Provided Education on: Follow-up instructions. cm10 16:47 IV discontinued, intact, bleeding controlled, No redness/swelling at site. Pressure cm10 dressing applied. Administered Medications: 14:53 Drug: Ondansetron IVP 4 mg IVP once; over 2 minutes Route: IVP; Site: left antecubital; ld1 16:27 Follow up: Response: No adverse reaction ld1 14:53 Drug: NS 0.9% IV 1000 ml IV at 1000 ml once; to be given as a bolus over 60 minutes ld1 Route: IV; Rate: 1000 ml; Site: left antecubital; 16:27 Follow up: Response: No adverse reaction; IV Status: Completed infusion; IV Intake: ld1 1000ml Medication: 16:47 VIS not applicable for this client. cm10 Intake: 16:27 IV: 1000ml; Total: 1000ml. ld1 Outcome: 16:28 Discharge ordered by . kristie 16:47 Discharged to home ambulatory, with family, cm10 16:47 Condition: good 16:47 Discharge instructions given to patient, Instructed on discharge instructions, follow up and referral plans. medication usage, Demonstrated understanding of instructions, follow-up care, medications, Prescriptions given X 4, 16:48 Patient left the ED. cm10 Signatures: Dispatcher [employer] EDMS Radhames Schwarz PA PA cp Sims, Lauren RN RN ld1 Jyoti Aceves RN RN db Mendoza, Itzel im Martinez, Clarissa RN RN cm10
[2024-04-16 17:08] VITALS: TEMP 96.8
[2024-04-16 17:11] VITALS: BP 125/87; O2SAT 97
--- NOTE | 2024-04-19 11:19 | EKG ---
Test Date: 2024-04-16 Test Time: 14:30:44 Tube Fitter: TMOY MEASUREMENT RESULTS: Intervals: Rate: 100 CT: 126 QRSD: 96 QT: 354 QTc: 456 [place]: P: 54 CT: 126 QRS: 90 T: 14 INTERPRETIVE STATEMENTS: Normal sinus rhythm Normal ECG Compared to ECG 11/25/2022 19:47:04 T-wave abnormality no longer present Electronically Signed On 04-19-24 11:14:02 CITY CLERK by Don Duncan
== END 2024-04-16 16:48 | disposition home or self-care (01) ==
LOC: ER 14:08
DX: R05.9 Cough, unspecified (principal); J02.9 Acute pharyngitis, unspecified; R07.9 Chest pain, unspecified; Z11.52 Encounter for screening for COVID-19
CPT/HCPCS: 36415; 71045; 80048; 80076; 83735; 84484; 85025; 86308; 87070; 87081; 87804; 87807; 87811; 93005; 96361; 96374; 99285; J2405; J7030

== ENCOUNTER 2024-06-29 20:10 | Emergency (ER) | payer SELFPAY ==
--- OUTSIDE RECORDS SUMMARY | 2024-06-29 20:14 | XMS REPORT | Continuity of Care Document ---
Author Name Unknown Address [address] [facility] [address] [place] [address] [facility] Address [address] [address] [place] [address] Care Team Providers Care Distribution Manager Name Role Phone PCP, PATIENT DOES NOT HAVE A Primary Care Physic yanet Unavailable KEVON HENDRICKSON Attending Clinician Unavailab michael Hendrickson BALLISTIC EXPERT, Kevon Attending Clinician [phone] SARAH SHIPLEY Attending Clinician Unavailable SARAH SHIPLEY Attending Clinician Unavailable Sarah Shipley DO Attending Clinician [phone] AJ PARR Attending Clinician Unavailable MALI CROWE Attending Clinician Unavailab JACKIE Hernandez Attending Clinician Unavailab JOECLYN Fu Attending Clinician Unavail able SARAH WU Attending Clinician UnavailAJ Sprague Attending Clinician Unasage Slade NP, Pricilla Morris Attending Clinician [phone] PRICILLA SLADE Attending Clinician Unavailable Nawaf Her Attending Clinician Unavailable PRABHU MI Attending Clinician Unavailable BERNADETTE TOMLINSON Attending Clinician Unavailable Antonio Lara Attending Clinician Unavailable Physician, No Primary or Family Admitting Clinic yanet Unavailable DAVID KABA Admitting Clinician Unavailable SARAH SHIPLEY Admitting Clinician Unavailable Payers Payer Name Policy Type Policy Number Effective Date Expirati on Date Source Problems Condition Name Condition Details Condition Category Status Onset Date Resolution Date Last Treatment Date Treating Clinician Comments Source Acute cough Acute cough Disease Active 12-26 00:00: 00 [facility] Acute cough Acute cough Disease Active 12-26 00:00: 00 [facility] Fever in adult Fever in adult Disease Active 12-26 00:00: 00 [facility] Sore throat Sore throat Disease Active 12-26 00:00: 00 [facility] Body aches Body aches Disease Active 12-26 00:00: 00 [facility] No known active problems No known active problems Disease [facility] Allergies, Adverse Reactions, Alerts Allergy Name Allergy Type Status Severity Reaction(s) Onset Date Inactive Date Treating Clinician Comments Source SULFA (SULFONA MIDE ANTIBIOT ICS) Drug Class Active High Hives 12-26 00:00: 00 [facility] Sulfa (Sulfona mide Antibiot ics) Propensi ty to adverse reaction s Active Hives 9- 00:00: 00 [facility] Sulfonam behzad Allergy to substanc e Active Unknown 2-19 00:00: 00 ENRIQUE Long [facility] Sulfa (Sulfona mide Antibiot ics) DA Active MO 905 00:00: 00 [facility] Sulfa (Sulfona mide Antibiot ics) DA Active MO HIVES, ANGIOEDEMA 12-24 00:00: 00 [facility] Sulfa (Sulfona mide Antibiot ics) DA Active MO 06-18 00:00: 00 [facility] Sulfa (Sulfona mide Antibiot ics) DA Active MO HIVES 06-18 00:00: 00 [facility] Sulfa (Sulfona mide Antibiot ics) DA Active MO 0 -18 00:00: 00 [facility] Sulfa (Sulfona mide Antibiot ics) DA Active MO HIVES 2019-0 5-18 00:00: 00 [facility] Sulfa (Sulfona mide Antibiot ics) DA Active MO 0 2-04 00:00: 00 [facility] Sulfa (Sulfona mide Antibiot ics) DA Active MO HIVES 0 2-04 00:00: 00 [facility] No Known Allergie s DA Active U -16 00:00: 00 [facility] No Known Allergie s DA Active U 12-04 00:00: 00 [facility] No Known Contrast Allergie s DA Active U 8-17 00:00: 00 [facility] No Known Drug Allergie s DA Active U 8- 00:00: 00 [facility] No Known Food Allergie s DA Active U 8 00:00: 00 [facility] No Known Other Allergie s DA Active U 12-05 00:00: 00 [facility] NO KNOWN ALLERGIE S Drug Class Active [facility] Social History Social Habit Start Date Stop Date Quantity Comments Source Sexual orientation U [facility] Exposure to SARS-CoV-2 (event) Not sure [facility] Sex Assigned At 1995 00:00:00 1995 00:00:00 Male [facility] Smoking Status Start Date Stop Date Source Unknown if ever smoked [facility] Medications Ordered Medication Name Filled Medication Name Start Date Stop Date Current Medication? Ordering Clinician Indication Dosage Frequency Signature (SIG) Comments Components Source sodium chloride (NS) injection 5 mL 06-23 00:07: 56 Yes 5mL 5 mL, Intravenou s, PRN, Starting on Fri06/22/24 at 1807, Until Discontinu ed, Routine, IV line flushing [facility] ketorolac (TORADOL) injection 30 mg 12-27 03:00: 00 12-27 02:31 :00 No 30mg 30 mg, Intramuscu lar, ONCE, 1 dose, On 12/27/23 at 2200, Routine [facility] Amoxicillin /Clavulanat e Potassium (Augmentin 875 Mg) 1 Each TABLET 06-09 14:58: 00 No 875mg Twice A Day ENRIQUE Hallman [facility] Naproxen (Naprosyn) 500 Mg TAB 06-09 14:58: 00 No 500mg Twice A Day as needed for Pain ENRIQUE Long [facility] Ondansetron Hcl (Zofran) 4 Mg TAB 06-09 14:58: 00 No 4mg Every 8 Hours as needed for Nausea [facility] Amoxicillin /Clavulanat e Potassium (Augmentin 875 Mg) 1 Each TABLET 06-09 14:56: 00 06-09 14:58 :00 No 875mg Twice A Day [facility] Naproxen (Naprosyn) 500 Mg TAB 06-09 14:56: 00 06-09 14:58 :00 No 500mg Twice A Day as needed for Pain [facility] Ondansetron Hcl (Zofran) 4 Mg TAB 06-09 14:56: 00 06-09 14:58 :00 No 4mg Every 8 Hours as needed for Nausea / Vomiting [facility] ibuprofen (IBU) tablet 800 mg 2020-04 06:15: 00 02-04 05:23 :00 No 800mg 800 mg, Oral, ONCE, 1 dose, On 02/04/21 at 0115, [facility] acetaminoph en (TYLENOL) tablet 650 mg 2020-04 06:15: 00 02-04 05:23 :00 No 650mg 650 mg, Oral, ONCE, 1 dose, On 02/04/21 at 0115, [facility] albuterol 90 mcg/actuati on inhaler 2020-04 00:00: 00 Yes [id number] 2{puff} Inhale 2 Puffs every 4 (four) hours as needed for Wheezing or Shortness of Breath. [facility] levoFLOXaci n 750 mg tablet 2020-04 00:00: 00 02-12 04:59 :00 No [id number] 750mg Take 1 tablet by mouth daily for 7 days. [facility] predniSONE 20 mg tablet 2020-04 00:00: 00 02-10 04:59 :00 No [id number] 20mg Take 1 tablet by mouth 2 (two) times daily for 5 days. [facility] TYLENOL FOR CHILDREN ORAL 05-06 13:05: 22 Yes None Entered [facility] Vital Signs Vital Name Observation Time Observation Value Comments S ource Body temperature 2024-06-22 23:44:00 37.17 [facility] Respiratory rate 2024-06-22 23:44:00 16 /min [facility] Body height 2024-06-22 23:44:00 167.6 cm [facility] Body weight 2024-06-22 23:44:00 90.719 kg [facility] BMI 2024-06-22 23:44:00 32.28 kg/m2 [facility] Oxygen saturation in Arterial blood by Pulse oximetry 2024-06-22 23:44:00 100 /min [facility] Systolic blood pressure 2024-06-22 23:44:00 134 mm[Hg] [facility] Diastolic blood pressure 2024-06-22 23:44:00 98 mm[Hg] [facility] Heart rate 2024-06-22 23:44:00 99 /min [facility] Body temperature 2023-12-28 04:00:00 36.72 Lisa [facility] Oxygen saturation in Arterial blood by Pulse oximetry 2023-12-28 04:00:00 96 /min [facility] Systolic blood pressure 2023-12-28 04:00:00 122 mm[Hg] [facility] Diastolic blood pressure 2023-12-28 04:00:00 84 mm[Hg] [facility] Heart rate 2023-12-28 04:00:00 94 /min [facility] Respiratory rate 2023-12-28 02:00:00 20 /min [facility] Body height 2023-12-28 02:00:00 167.6 cm [facility] Body weight 2023-12-28 02:00:00 83.915 kg [facility] BMI 2023-12-28 02:00:00 29.86 kg/m2 [facility] Body Temperature 2023-06-09 15:31:00 98.3 [degF] [facility] Heart Rate 2023-06-09 15:31:00 67 /min [facility] Respiratory rate 2023-06-09 15:31:00 18 /min [facility] BP Systolic 2023-06-09 15:31:00 113 mm[Hg] [facility] BP Diastolic 2023-06-09 15:31:00 77 mm[Hg] [facility] Height 2023-06-09 13:55:00 167.684317 cm [facility] Weight 2023-06-09 13:55:00 86.100287 kg [facility] BMI (Body Mass Index) 2023-06-09 13:55:00 30.7 kg/m2 [facility] Systolic blood pressure 2021-02-04 07:45:00 131 mm[Hg] [facility] Diastolic blood pressure 2021-02-04 07:45:00 74 mm[Hg] [facility] Heart rate 2021-02-04 07:45:00 114 /min [facility] Respiratory rate 2021-02-04 07:45:00 20 /min [facility] Oxygen saturation in Arterial blood by Pulse oximetry 2021-02-04 07:45:00 98 /min [facility] Body temperature 2021-02-04 04:20:00 38.33 Lisa [facility] Body height 2021-02-04 04:20:00 170.2 cm [facility] Body weight 2021-02-04 04:20:00 91.944 kg [facility] BMI 2021-02-04 04:20:00 31.75 kg/m2 [facility] Procedures Procedure Date / Time Performed Performing Clinician Source XR CHEST 2 VW 2023-12-28 02:41:23 Sarah Shipley [facility] RAPID STREP SCREEN FOR GROUP A 2023-12-28 02:32:00 Sarah Shipley [facility] INFLUENZA A/B RSV COVID NAAT 2023-12-28 02:32:00 Sarah Shipley [facility] URINALYSIS 2021-02-04 06:27:00 Pricilla Slade [facility] EBV-MONONUCLEOSIS SCREEN 2021-02-04 06:27:00 Radha Slade [facility] RAPID STREP SCREEN FOR GROUP A 2021-02-04 06:27:00 Pricilla Slade [facility] URINE DRUG (IMMUNOASSAY) - COMPREHENSIVE DRUG SCREEN W/O REFLEX 2021-02-04 06:27:00 Pricilla Slade [facility] ADC,CLC OR LCC ONLY - INFLUENZA A & B DIRECT ANTIGEN 2021-02-04 05:24:00 Pircilla Slade [facility] XR CHEST 1 VW 2021-02-04 05:23:00 [facility] (ID NOW RAPID TEST[facility]) 2021-02-04 04:57:00 Pricilla Slade [facility] NOTICE OF PRIVACY PRACTICES 2021-02-04 04:01:40 Doctor Unassigned, [place] [facility] CONSENT/REFUSAL FOR DIAGNOSIS AND TREATMENT 2021-02-04 03:58:40 Doctor Unassigned, [place] [facility] Encounters Start Date/Time End Date/Time Encounter Type Admission Type Attending [facility] Facility Care Department Encounter ID Source 2020-08-15 18:15:00 Inpatient HCACL ROBIN [id number] [facility] 2020-06-18 18:18:00 Inpatient HCACL ROBIN [id number] [facility] 2019-09-06 22:14:00 Inpatient HCACL ROBIN [id number] [facility] 2019-05-25 21:43:00 Inpatient HCAMN DARIO [id number] [facility] 2024-06-22 17:45:00 2024-06-22 20:07:00 Emergency X ADEKEVON MUÑIZ TNMB ERT [id number] [facility] 2024-06-22 17:45:00 2024-06-22 20:07:00 Emergency AderibiYadi houghbril [facility] AT ON LICENSE OF [facility] [id number] [facility] 2023-12-27 21:04:00 2023-12-27 23:31:00 Emergency X VIOLETTA, SARAH LAMB [facility] ERT [id number] [facility] 2023-12-27 21:04:00 2023-12-27 23:31:00 Emergency Sarah Shipley [facility] AT ON LICENSE OF [facility] [id number] [facility] 2023-06-25 11:58:05 2023-06-25 11:58:05 Outpatient [facility] [id number] Tim Patel 2023-06-09 13:54:00 2023-06-09 15:31:00 Emergency ER AJ PARR [facility] [id number] [facility] 2023-06-09 13:54:00 2023-06-09 15:31:00 Departed Emergency Room [facility] [id number] [facility] 2023-06-03 16:13:54 2023-06-03 16:13:54 Outpatient [facility] [id number] Tim Patel 2021-11-14 09:15:00 2021-11-14 11:12:00 Emergency E MALI CROWE SE MED [id number] [facility] 2021-10-05 22:09:00 2021-10-06 02:40:00 Emergency E JACKIE GALVAN BL BL [id number] BL 2021-10-04 23:17:00 2021-10-05 00:01:00 Emergency E JOCELYN EATON SE SE 7507 [facility] 2021-09-25 21:46:00 2021-09-25 22:39:00 Emergency E SARAH WU SE SE 7506 [facility] 2021-08-18 18:36:00 2021-08-18 19:57:00 Emergency E AJ URBINA SE MHSE 7505 [facility] 2021-02-03 23:27:00 2021-02-04 03:04:00 Emergency Pricilla Slade [facility] [id number] [facility] 2021-02-03 23:27:00 2021-02-03 23:27:00 Emergency X PRICILLA SLADE [facility] ERT [id number] [facility] 2020-12-24 21:50:00 2020-12-25 02:16:00 Emergency EM Elisabeth Herd HCACL ROBIN [id number] [facility] 2020-12-19 21:51:00 2020-12-20 04:15:00 Emergency E PRABHU MI BL BL [id number] [facility] 2020-08-16 22:18:00 2020-08-17 02:24:00 Emergency E SA DAVISTELLA BL MHBL [id number] [facility] 2020-06-18 18:18:00 2020-06-18 21:35:00 Emergency EM Marco Antonio HCACL ROBIN [id number] [facility] 2019-04-10 21:45:00 2019-04-10 21:45:00 Emergency E BL BL 7502 [facility] Results Test Description Test Time Test Comments Results Resul t Comments Source XR CHEST 2 VW 2023-12-28 03:16:01 XR CHEST 2 VW HISTORY: ?PNA COMPARISON: None FINDINGS: There is no infiltrate or pleural effusion. ?Thecardiomedias tinal silhouette is within normal limits. ?There is nopneumothorax. [facility]2020-12-25 00:56:00* Test Item Value Reference Range Interpretation Comme nts AG STREP GROUP A (THROAT) (test code = STREPA) Negative Negative Negative for Str ep A nucleic acid INFLUENZA A [id number] 00:56:00* Test Item Value Reference Range Interpretation Comme nts INFLUENZA A (test code = FLUAPCR) Negative Negative INFLUENZA B (test code = FLUBPCR) Negative Negative Coronavirus 2019 nCoV [id number] 00:41:00* Test Item Value Reference Range Interpretation Comme nts Coronavirus 2019 nCoV Bedside (test code = [id number]) NEGATIVE Negative Negative results should be treated as presumptive and, ifinconsistent with clinical signs and symptoms or necessaryfor patient management, should be tested with an alternativemolecular assay. Negative results do not preclude [id number]-[id number]-[id number] and should not be used as the [...] Str ep A nucleic acid INFLUENZA A [id number] 00:33:00* Test Item Value Reference Range Interpretation Comme nts INFLUENZA A (test code = FLUAPCR) Negative INFLUENZA B (test code = FLUBPCR) Negative - CT HEAD/BRAIN W/O [id number] 19:29:00 [facility] 1995 Sex: M Name: ANATOLY MCNEAL [facility] : 1995 Age/S: 25 / M [address] [place] [address] Bl Unit #: [id number] Loc: [facility] [place] [address] Phys: Shmuel Rodriguez Acct: [id number] Dis Date: Status: REG ER PHONE #: [phone] Exam Date: 08/15/2020 190 FAX #: [phone] Reason: fall, occipital head strike, LOC, vomiting EXAMS: CPT CODE: [id number] CT HEAD/BRAIN W/O CONT 57246 Clinical I ndication: Fall, occipital head strike, loss of point isthmus, vomiting; Comparison: None TECHNIQUE: CT images were obtained from the foramen magnum to the vertex and cervical spine without the use of intravenous contrast on a multidetector CT. Coronal and sagittal reconstructions were obtained. CTimaging performed at this location utilizes radiation dose optimization techniques which include one or more of the following: -Automated exposure control -Adjustment of the mA and/or kV according topatient size -Use of iterative reconstruction technique CT [...] [facility] : 1995 Age/S: 25 / M [address] [place] [address] Unit #: [id number]: [place] [address] Phys: Shmuel Rodriguez Acct: [id number] Dis Date: Status: REG ER PHONE #: [phone] Exam Date: 08/15/2020 1902 FAX #: [phone] Reason: fall, occipital head strike, LOC, vomiting EXAMS: CPT CODE: [id number] CT HEAD/BRAIN W/O CONT 99762 <Continued> and spinous processes are unremarkable. The [...] PAGE 2 Signed Report- CT C-SPINE W/O [id number] 19:29:00 [facility] 1995 Sex: M Name: ANATOLY MCNEAL [facility] : 1995 Age/S: 25 / M [address] [place] [address] Unit #: [id number] Loc: [place] [address] Phys: Shmuel Rodriguez ELAYNE Acct: [id number] Dis Date: Status: REG ER PHONE #: [phone] Exam Date: 08/15/20201901 FAX #: [phone] Reason: fall, occipital head strike, LOC, vomiting EXAMS: CPT CODE: [id number] CT C-SPINE W/O CONT 33007 Clinical Goldie cation: Fall, occipital head strike, [...] VENTRICLES: The lateral ventricles, third and fourth ventriclesappear unremarkable. The basilar cisterns are normal. ORBITS, [...] 1 Signed Report (CONTINUED) Name: ANATOLY MCNEAL : 1995 Age/S: 25 / M [address] [place] [address] Unit #: [id number]: Gigi [place] [address] Phys: Shmuel Rodriguez Acct: [id number] Dis Date: Status: REG ER PHONE #: [phone] Exam Date: 08/15/20201901 FAX #: [phone] Reason: fall, occipital head strike, LOC, vomiting EXAMS: CPT CODE: [id number] CT C-SPINE W/O CONT 29497 <Continued> and spinous processes are unremarkable. The facet joint, spinolaminar and spinous process alignment are normal. DISKSPACES AND SOFT TISSUES: The prevertebral soft tissues are normal. C2-C3 to C7-T1 disc space levelsshow no definite disc protrusions on CT. There is no central or foraminal stenosis. MRI is the goldstandard to assess for disk disease. VISUALIZED LUNG APICES: Unremarkable. CT myelogram or MRI of the cervical spine may be performed, if there is further concern. IMPRESSION: CT head: 1. No acute in tracranial abnormality. 2. Midline parieto-occipital scalp swelling. No calvarial fracture. CT cervical spine: No fractures or subluxations of the cervical spine. SL: AKHIL at 1929 Reported and signed by: Wanda Rodriguez M.D. CC: Antonio Lara MD; Shmuel HOLLY Technologist:RT Noemi(R)(CT) CTDI: DLP: TrnscbDate/Time: 08/15/2020 (1928) [email or web address] Orig Print D/T: S: 08/15/2020 (1931) PAGE 2 Signed Report- XR CHEST 1 [id number] 19:10:00 [facility] : 1995 Sex: M FAX: Antonio Lara MD [phone] [place]: St: [facility] FAX: Shmuel Rodriguez [phone] -- Name: ANATOLY MCNEAL [facility] : 1995 Age/S: 25/M [address] [place] [address] Unit #: [id number] Loc: [place] [address] Phys: Shmuel Rodriguez Acct: [id number] Dis Date: Status: REG ER PHONE #: [phone] Exam Date: 08/15/2020 190 FAX #: [phone] Reason: trauma EXAMS: CPT CODE: [id number] XR CHEST 1 V 45985 Portable single view AP chest INDICATION: Fall. [...] Technologist: Suma Lynch, RT(R); Judith Savage, RT(R) Trnscrd Date/Time/By: 08/15/2020 (1909) :By: [email or web address] Orig Print D/T: S: 08/15/2020 (1912) PAGE 1 Signed Report BASIC METABOLIC [id number] 20:21:00* Test Item Value Reference Range Interpretation [...] code = CA) 9.8 mg/dL 8.0-10.5 N [id number] 20:21:00* Test Item Value Reference Range Interpretation Comme nts TROPONIN-I (test code = TROPI) < 0.006 ng/mL 0.000-0.045 N Negative: <= 0.0 45 Positive: >= 0.046 Correlation with serial results, other cardiac markers andclinical findings is necessary to determine the clinicalsignificance of this result. Results using different methodologies should not be comparedto one another as quantitative results may vary by method. BASIC METABOLIC [id number] 20:20:00* Test Item Value Reference Range Interpretation [...] CALCIUM (test code = CA) mg/dL 8.0-10.5 [id number] 20:20:00* Test Item Value Reference Range Interpretation Comme nts TROPONIN-I (test code = TROPI) < 0.006 ng/mL 0.000-0.045 N Negative: <= 0.0 45 Positive: >= 0.046 Correlation with serial results, other cardiac markers andclinical findings is necessary to determine the clinicalsignificance of this result. Results using different methodologies should not be comparedto one another as quantitative results may vary by method. [id number] 20:16:00* Test Item Value Reference Range Interpretation Comme [facility] D-DIMER (test code = DDIMER) 364 ng/mlFEU See_Comment N THROMBOSIS AND/O R PULMONARY EMBOLISM AND THE CLINICAL CUT- OFF VALUE FOR EXCLUSION (500 ng/mL FEU) OF THESE CONDITIONSIS VALIDATED BY THE FIREWORKS DISPLAY SPECIALIST OF THE METHOD. A NEGATIVE D-DIMER RESULT [...] interpret this result as normal/abnormal. CBC W/AUTO [id number] 20:06:00* Test Item Value Reference Range Interpretation [...] c ode = MDIFF) NO CBC W/AUTO [id number] 20:02:00* Test Item Value Reference Range Interpretation [...] ode = MDIFF) - XR CHEST 1 [id number] 19:27:00 [facility] : 1995 Sex: M FAX: Antonio Lara MD [phone] [place]: REMA St: DEP Name: ANATOLY MCNEAL [facility] Jani Pruitt : 1995 Age/S: 25/M [address] [place] [address] Unit #: [id number] [place]: [place] [address] Phys: Antonio Lara MD Acct: [id number] Dis Date: Status: DEP ER PHONE #: [phone] Exam Date: 06/18/2020 1856 FAX #: [phone] Reason: chest pain, SOB EXAMS: CPT CODE: [id number] XR CHEST 1 V 98464 SINGLE VIEW RADIOGRAPH CHEST INDICATION: Chest pain and dyspnea. TECHNIQUE: A single view frontal radiographof the chest was obtained. COMPARISONS: Chest x-ray 09/06/2019 FINDINGS: There is no acute osseous fracture or dislocation. There is no subdiaphragmatic free gas. The cardiomediastinal size and contour are normal. There is no pneumothorax, pleural effusion or organized pneumonia. IMPRESSION: 1. No acute cardiopulmonary process. [id number] Reported and signed by: Sergio Rose D.O. CC: Antonio Lara MD Technologist: RT Carlene(R) Trnscrd Date/Time/By: 06/18/2020 (1926) : By: [email or web address] Orig Print D/T: S: 06/18/2020 (1929) PAGE 1 Signed Report- XR CHEST 1 V 2020-06-18 19:27:00 [facility] : 1995 Sex: M FAX: Antonio Lara MD [phone] [place]: St: REG Name: ANATOLY MCNEAL [facility] : 1995 Age/S: 25/M [address] [place] [address] Blvd Unit #: [id number] Loc: [place] [address] Phys: Antonio Lara MD Acct: [id number] Dis Date: Status: REG ER PHONE #: [phone] Exam Date: 06/18/2020 1856FAX #: [phone] Reason: chest pain, SOB EXAMS: CPT CODE: [id number] XR CHEST 1 V 18482 SINGLE VIEW RADIOGRAPH CHEST INDICATION: Chest pain and dyspnea. TECHNIQUE: A single view frontal radiographof the chest was obtained. COMPARISONS: Chest x-ray 09/06/2019 FINDINGS: There is no acute osseous fracture or dislocation. There is no subdiaphragmatic free gas. The cardiomediastinal size and contour are normal. There is no pneumothorax, pleural effusion or organized pneumonia. IMPRESSION: 1. No acute cardiopulmonary process. [id number] Reported and signed by: Sergio Rose D.O. CC: Antonio Lara MD Technologist: RT Carlene(R) Trnscrd Date/Time/By: 06/18/2020 (1926) : By: [email or web address] Orig Print D/T: S: 06/18/2020 (1929) PAGE 1 Signed ReportNovel Coronavirus 2019 2019-09-07 14:02:00* Test Item Value Reference Range Interpretation Comme nts Novel Coronavirus 2019 Inhouse (test code = [id number]) Negative Negative Positive resul ts are indicative of the presence uaAOYU-PaF-0 RNA, clinical correlation with patient historyand other [...] for the identification of SARS-CoV-2 RNA usingthe [employer] M2000 System under the FDA Emergency UseAuthorization. The testing is performed by personneltrained in the procedures for the [employer] M2000 moleculardiagnostic SARS-CoV-2 assay in vitro. Testing Criteria: Fever Cough OtherOther: GENERALIZED WEAKNESSCOMMENTS: ORDER PUT IN FOR DR JOSE MIGUEL Reddy [id number] 00:31:00* Test Item Value Reference Range Interpretation Comme nts INFLUENZA A (test code = FLUAPCR) Negative Negative INFLUENZA B (test code = FLUBPCR) Negative Negative COMMENTS: SwabBASIC METABOLIC [id number] 00:19:00* Test Item Value Reference Range Interpretation [...] CA) 9.3 mg/dL 8.0-10.5 N HEPATIC FUNCTION [id number] 00:19:00* Test Item Value Reference Range Interpretation [...] ALKP) 74 IUnit/L 20-125 N BASIC METABOLIC [id number] 00:13:00* Test Item Value Reference Range Interpretation [...] CA) 9.3 mg/dL 8.0-10.5 N HEPATIC FUNCTION [id number] 00:13:00* Test Item Value Reference Range Interpretation [...] code = ALKP) IUnit/L 20-125 CBC W/AUTO [id number] 00:05:00* Test Item Value Reference Range Interpretation [...] = IFF) NO - XR CHEST 2 [id number] 23:38:00 [facility] : 1995 Sex: M FAX: Ernesto Swanson MD [phone] [place]: REMA St: DEP Name: ANATOLY MCNEAL [facility] : 1995 Age/S: 24/M [address] [place] [address] Unit #: [id number] Loc: [place] [address] Phys: Ernesto Colunga MD Acct: [id number] Dis Date: Status: DEP ER PHONE #: [phone] Exam Date: 09/06/2019 2331 FAX #: [phone] Reason: Chest Pain EXAMS: CPT CODE: [id number] XR CHEST 2 V 75802 Chest, 2 views dated 09/06/2019. HISTORY: Chest pain. Comparison is made to a prior study dated 05/20/2018. The heart is normal in size. The cardiac mediastinal shadow appears within normal limits. The lungs appear clear. The palmar vasculature is normal in caliber. No acute pleural space abnormalities aredetected. IMPRESSION: 1. No radiographic evidence of acute cardiopulmonary disease. SL: 131 at 2338 Reported and signed by: Kanu Pinto M.D. CC: Ernesto Colunga MD Technologist: RT Jeremie(R) TrnscrdDate/Time/By: 09/06/2019 (3296) : By: NavaDMM Orig Print D/T: S: 09/06/2019 (4708) PAGE 1 Signed Report- XR CHEST 2 [id number] 23:38:00FAX: Ernesto Swanson MD [phone] [place]: St: REG Name: ANATOLY MCNEAL [facility] : 1995 Age/S: 24/M [address] [place] [address] Blvd Unit #: [id number] Loc: [place] [address] Phys: Ernesto Colunga MD Acct: [id number] Dis Date: Status: REG ER PHONE #: [phone] Exam Date: 09/06/20192330 FAX #: [phone] Reason: Chest Pain EXAMS: CPT CODE: [id number] XR CHEST 2 V 83032 Chest, 2 views dated 09/06/2019. HISTORY: Chest pain. Comparison is made to a prior study dated 05/20/2018. Theheart is normal in size. The cardiac mediastinal shadow appears within normal limits. The lungs appear clear. The palmar vasculature is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 Negative THROAT CULTURE EKG: If EKG completed, see Procedure Note. Orders and Treatments: Orders Placed This Encounter Procedures XR CHEST 2 VW RAPID STREP SCREEN FOR GROUP A Influenza A B RSV COVID NAAT Throat Culture Lab Only COVID Interpretation Orders Placed This Encounter Medications ketorolac (TORADOL) injection 30 mg First Provider Eval: ED Events Date/Time Event User Comments 12/27/232107 Medical Screening Begins SARAH SHIPLEY MD -- 12/27/232107 First Provider Evaluation SARAH SHIPLEY MD -- ED COURSE ED Course as of 12/27/23 2324 Sat Dec 27, 2023 2301 Resting comfortably in no acute distress. Updated on test results thus far. Says he started to feel better. Vitals have improved. [MT] ED Course User Index [MT] Sarah Shipley DO Diagnosis/Impression as of 12/27/23 2324 Body aches Sore throat Fever in adult Acute cough Procedures: Procedures MDM: Medical Decision Making Given his history and physical exam, differential diagnose includes but not limited to: Strep pharyngitis, coronavirus, influenza, pneumonia, and other viral syndrome. Overall well-appearing and febrile in the emergency department with physical exam as noted above. Chest x-ray is unremarkable. Rapid strep is negative. COVID and flu are also negative. He had symptomatic improvement throughout his stay. Suspect symptoms are viral in nature. Discussed supportive care measures patient is comfortable and agreeable with a plan for discharge and follow-up. Discussed strict return precautions and answered all questions. The patient is understanding of the plan and is safe for discharge. Problems Addressed: Acute cough: acute illness or injury Body aches: acute illness or injury Fever in adult: acute illness or injury Sore throat: acute illness or injury Amount and/or Complexity of Data Reviewed Labs: ordered. Radiology: ordered. Risk Prescription drug management. Flowsheet Documentation: Scoring Tools: No data recorded Disposition/Condition: ED Disposition ED Disposition Disch - Home Condition Stable Comment -- Discharge Medications: Patient's Medications START taking these medications No medications on file CONTINUE taking these medications which have NOT CHANGED ALBUTEROL 90 MCG/ACTUATION INHALER Inhale 2 Puffs every 4 (four) hours as needed for Wheezing or Shortness of Breath. TYLENOL FOR CHILDREN ORAL None Entered START taking Modified Medications as Prescribed No medications on file STOP taking these medications No medications on file Follow-up: Contact information for follow-up [facility] Access Center Call to establish care with primary care. [phone] [place] [address] [address] [facility] [phone] Electronically signed by: Nathanielibe's Attestation Florecita Villafana am scribing for, and in the presence of, Sarah Shipley DO, who performed the services described here-in. Florecita Lemus, December 27, 2023, 9:21 PM Physician's Attestation Sarah Shipley DO 12/27/232323 [facility] 2020-12-24 22:37:00 [facility] ([facility]) EMERGENCY PROVIDER REPORT REPORT#:[id number] REPORT STATUS: Signed DATE:12/24/20 TIME: 2236 PATIENT: ANATOLY MCNEAL UNIT #: [id number] ROOM/BED: AGE: 25 SEX: M PCP PHYS: [...] sore throat. He has been using Motrin [id number] with waxing waning improvement of his symptoms. [...] 12/24 2343 O2 Delivery Room air 12/24 2342 Temp 37.2 12/24 2342 Pulse 93 12/24 2343 Resp 18 12/24 2342 Last Documented: Result Date Time Pulse Ox 97 12/24 2343 B/P 122/72 12/24 2343 B/P Mean 88 12/24 2342 O2 Delivery [...] 97 On: Room air Interpretation Interpreted by ri, Pulse oximetry normal Time 2241 Re-Evaluation MDM [...] 4 MG X1ED STA 12/24 2240 DC / PO 12/24 2241 2325 Patient Discharge Departure Vital Signs/Condition Vital Signs First Documented: Result Date Time Pulse Ox 97 12/24 2343 B/P 122/72 12/24 2343 B/P Mean 88 /05 2343 O2 Delivery Room air 12/24 2343 Temp 37.2 / 2343 Pulse 93 / 2343 Resp 18 12/24 2343 Last Documented: Result Date Time Pulse Ox 97 12/24 2343 B/P 122/72 / 2343 B/P Mean 88 /05 2343 O2 Delivery Room air 12/24 2343 Temp 37.2 /05 2343 Pulse 93 / 2343 Resp 18 [...] PRIMARY CARE: 1-2 Days at 1705 RPT #:[id number] END OF REPORT [facility] 2020-08-15 18:46:00 [facility] ([facility]) EMERGENCY PROVIDER REPORT REPORT#:[id number] REPORT STATUS: Signed DATE:08/15/20 TIME: 1845 PATIENT: ANATOLY MCNEAL UNIT #: [id number] ROOM/BED: AGE: 25 SEX: M PCP PHYS: No Primary or Family Physician SERVICE AUTHOR: Shmuel Rodriguez * ALL edits or amendments must be made on the electronic/computer document * HPI-Head Prob/Injury Free Text HPI Notes Free Text HPI Notes 25 M with history of anxiety presents to the ED with head pain and nausea. 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 EMS reports neurointact, alert with normal vitals in route. THe patient denies any other complaints or medical history, etoh or drug use. General Confirmed Patient Yes Initial Greet Date/Time 08/15/20 606 Presentation Chief Complaint Blunt head trauma Hx Obtained From Patient )( Onset Occurred Sudden Risk-Head Prob/Injury Risk Stratification [place] Head CT Rule 2 or more episodes vomit )( Johanny Coma Score: Copyright [employer] Sellers Copyright [employer] [place] Eye opening: (4) Spontaneous Verbal response: (5) [...] FAM. CLINIC: 2-3 Days at 2134 RPT #:[id number] END OF REPORT [facility] 2020-08-15 18:46:00 [facility] ([facility]) EMERGENCY PROVIDER REPORT REPORT#:[id number] REPORT STATUS: Signed DATE:08/15/20 TIME: 1845 PATIENT: ANATOLY MCNEAL UNIT #: [id number] ROOM/BED: AGE: 25 SEX: M PCP PHYS: No Primary or Family Physician SERVICE AUTHOR: Shmuel Rodriguez * ALL edits or amendments must be made on the electronic/computer document * Shmuel Rodriguez 08/15/201845: HPI-Head Prob/Injury Free Text HPI Notes Free Text HPI Notes 25 M with history of anxiety presents to the ED with head pain and nausea. 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 I was available for consultation as needed at all times during the patient's visit in the emergency department. I agree with the clinical impression, plan and disposition. at 2134 at 0046 RPT #:[id number] END OF REPORT [facility] 2020-06-18 18:51:00 [facility] ([facility]) EMERGENCY PROVIDER REPORT REPORT#:[id number] REPORT STATUS: Signed DATE:06/18/20 TIME: 1850 PATIENT: ANATOLY MCNEAL UNIT #: [id number] ROOM/BED: AGE: 25 SEX: M PCP PHYS: No Primary or Family Physician SERVICE AUTHOR: Antonio Lara MD * ALL [...] % (Auto) (14.0 - 32.0 %) 19.6 Edgar % (Auto) (4.8 - 9.0 %) 8.3 Eos % (Auto) (0.3 - 3.7 %) 2.8 Baso % (Auto) (0.0 - 2.0 %) 0.9 Neut # (Auto) (2.0 - 7.6 x10 3/uL) 6.32 Lymph # (Auto) (1.0 - 3.8 x10 3/uL) 1.82 Edgar # (Auto) (0.1 - 0.8 x10 3/uL) [...] RADIOLOGY - XR CHEST 1 V 06/18 185 Report Impression - Status: SIGNED Entered: 06/18/2020 193 IMPRESSION: 1. No acute cardiopulmonary process. Impression [...] Ox 97 06/18 1829 B/P 137/66 06/18 183 B/P Mean 89 06/18 1829 O2 Delivery Room air 06/18 1829 Temp 36.6 06/18 1829 Pulse 107 06/18 183 Resp 16 06/18 183 Last Documented: Result [...] PRIMARY CARE: 1 Week at 2047 RPT #:[id number] END OF REPORT [facility] 2019-09-06 23:19:00 [facility] ([facility]) EMERGENCY PROVIDER REPORT REPORT#:[id number] REPORT STATUS: Signed DATE:09/06/19 TIME: 2318 PATIENT: ANATOLY MCNEAL UNIT #: [id number] ROOM/BED: AGE: 24 SEX: M PCP PHYS: [...] Patient Type Existing patient Initial Greet Date/Time 09/06/192253 COVID-19 Risk [facility] COVID Risk Denies Age 65 [...] Delivery Room air 09/06 2239 Temp 36.9 05/18 2240 Pulse 104 09/06 2239 Resp 18 09/06 2239 Last Documented: Result Date Time Pulse Ox 98 09/06 117 B/P 128/76 09/06 117 B/P Mean 93 09/06 117 O2 Delivery Room air 09/06 117 Pulse 98 09/06 117 Resp 16 09/06 117 Temp 36.9 09/06 2239 Review of Vital Signs Reviewed, Vital signs [...] imaging, Reviewed prior records Results Laboratory Tests 09/06/19 2353: [Embedded Image Not Available] Laboratory Tests: 09/05 09/05 2353 2316 Chemistry Sodium [...] % (Auto) (14.0 - 32.0 %) 20.6 Edgar % (Auto) (4.8 - 9.0 %) 6.3 Eos % (Auto) (0.3 - 3.7 %) 1.2 Baso % (Auto) (0.0 - 2.0 %) 0.9 Neut # (Auto) (2.0 - 7.6 x10 3/uL) 6.26 Lymph # (Auto) (1.0 - 3.8 x10 3/uL) 1.82 Edgar # (Auto) (0.1 - 0.8 x10 3/uL) [...] 2330 Report Impression - Status: SIGNED Entered: 09/06/20192340 IMPRESSION: 1. No radiographic evidence of acute cardiopulmonary disease. SL: 131 Impression By: Flor - [...] 105 09/05 2240 O2 Delivery Room air 09/06 2239 Temp 36.9 09/05 2240 Pulse 104 09/05 2240 Resp 18 09/05 2240 Last Documented: Result Date Time Pulse Ox 98 09/06 0118 B/P 128/76 09/06 0118 B/P Mean 93 09/06 011 O2 Delivery Room air 09/06 011 Pulse 98 09/06 0118 Resp 16 09/06 011 Temp 36.9 09/05 2240 All vital signs [...] result pending CDC Recom for Isol Retest https://www.cdc.gov/coronaviru s/2019-ncov/infection-control/ control- recommendations.html Criteria Not Met for Testing The [...] COVID 19 via PCR at 0844 RPT #:[id number] END OF REPORT [facility] 2019-05-25 22:20:00 [facility] ([facility]) EMERGENCY PROVIDER REPORT REPORT#:[id number] REPORT STATUS: Signed DATE:05/25/19 TIME: 2219 PATIENT: ANATOLY MCNEAL UNIT #: [id number] ROOM/BED: AGE: 24 SEX: M PCP PHYS: [...] % (Auto) (23.0 - 38.0 %) 28.2 Edgar % (Auto) (1.0 - 10.0 %) 9.2 Eos % (Auto) (1.0 - 5.0 %) 2.0 Baso % (Auto) (0.0 - 1.0 %) 0.9 Neut # (Auto) (2.4 - 6.3 K/mm3) 5.5 Lymph # (Auto) (1.2 - 4.0 K/mm3) 2.6 Edgar # (Auto) (0.0 - 0.6 K/mm3) 0.9 H Eos # (Auto) (0.0 - 0.7 K/MM3) 0.2 Baso # (Auto) (0.0 - 0.2 K/mm3) 0.1 Immature Gran % (0.0 - 0.4 %) 0.1 Immature Gran # (0.00 - 0.07 x10 3/uL) 0.01 Urines Urine Color YELLOW Urine Appearance CLEAR Urine pH (5.0 - 9.0) 7.0 Ur Specific [place] (1.000 - 1.030) 1.010 Urine Protein (NEGATIVE [...] Note normal CT scan. Report given by medical technicians at 0348. Interpretation/Wet Read by Interpret - [...] STA 05/25 2153 DC 05/25 PO 05/25 Diagnostic Agents Sig/Temitope Start time [...] 05/25 2199 DC 05/25 IV 05/25 2200 224 Al Hydrox/Mg Hydrox/ 30 ML X1ED STA 05/25 2153 DC 05/25 Simethicone PO 05/25 2154 224 Differential Diagnosis Differential Diagnosis Acute abdominal pain, Appendicitis, Bowel obstruction, Constipation, Esophagitis, Gastritis, Inflam bowel disease, Pancreatitis Portions of this section were scribed by Olivia Matias on 05/26/19 at 0403 Patient Discharge Departure Vital Signs/Condition Vital Signs First Documented: Result Date Time Pulse Ox 97 05/25 2143 B/P 118/75 /4 B/P Mean 89 /2143 O2 Delivery Room [...] )( Time 0408 )( Date 05/26/19 Discharge/Care Plan Counseled Regarding [...] on 05/26/19 at 0408 at 0416 RPT #:[id number] END OF REPORT [facility] 11:28:00 [facility] ([facility] OR A [facility] EMERGENCY PROVIDER REPORT REPORT#:[id number] REPORT STATUS: Signed DATE:05/20/18 TIME: 1128 PATIENT: ANATOLY MCNEAL UNIT #: [id number] ROOM/BED: AGE: 23 SEX: M PCP PHYS: [...] (Auto) (14.0 - 32.0 %) 4.2 L Edgar % (Auto) (4.8 - 9.0 %) 5.3 Eos % (Auto) (0.3 - 3.7 %) 0.7 Baso % (Auto) (0.0 - 2.0 %) 0.2 Neut # (Auto) (2.0 - 7.6 x10 3/uL) 10.79 H Lymph # (Auto) (1.0 - 3.8 x10 3/uL) 0.51 L Edgar # (Auto) (0.1 - 0.8 x10 3/uL) [...] 2. Possible splenomegaly. 3. Negative chest. SL: [id number] Impression By: Nkechi Venegas M.D. Lab Imaging Statement Laboratory radiographic studies reviewed and considered in the medical decision-making. Point of Care Testing Pulse Oximetry Pulse Ox % 97 On: Room air Interpretation Interpreted by ri Time 1108 Free Text I D Notes [...] on 05/20/18 at 1424 at 1851 RPT #:[id number] END OF REPORT [facility] 2018-05-20 11:28:00 [facility] ([facility]) EMERGENCY PROVIDER REPORT REPORT#:[id number] REPORT STATUS: Signed DATE:05/20/18 TIME: 1127 PATIENT: ANATOLY MCNEAL UNIT #: [id number] ROOM/BED: AGE: 23 SEX: M PCP PHYS: [...] scribed by Sue Puckett on 05/20/18 at 3430 Past Medical History - Adult Stated Complaint [...] (Auto) (14.0 - 32.0 %) 4.2 L Edgar % (Auto) (4.8 - 9.0 %) 5.3 Eos % (Auto) (0.3 - 3.7 %) 0.7 Baso % (Auto) (0.0 - 2.0 %) 0.2 Neut # (Auto) (2.0 - 7.6 x10 3/uL) 10.79 H Lymph # (Auto) (1.0 - 3.8 x10 3/uL) 0.51 L Edgar # (Auto) (0.1 - 0.8 x10 3/uL) [...] 2. Possible splenomegaly. 3. Negative chest. SL: [id number] Impression By: Nkechi Venegas M.D. Lab Imaging [...] Saw Pt Alone I have reviewed the PA/BALLISTIC EXPERT's note and plan of care. I was available for consultation as needed at all times during the patient's visit in the emergency department. I agree with the clinical impression, plan and disposition. at 8687 at 0555 RPT #:[id number] END OF REPORT [facility]
[2024-06-29] MEDS ORDERED: ACETAMINOPHEN 500 MG TAB ONE (20:38)
[2024-06-29 21:23] LABS: Influenza A Ag Negative; Influenza B Ag Negative; SARS-CoV-2 Antigen Rapid Res Negative (Negative)
[2024-06-29] MEDS ORDERED: ONDANSETRON 4 MG (ODT) TAB ONE (21:31)
[2024-06-29] MEDS ORDERED: IBUPROFEN 400 MG TAB ONE (21:31)
[2024-06-29] MEDS ORDERED: GUAIFENESIN/DM 5 ML UCUP ONE ×2 (21:39)
--- NOTE | 2024-06-29 21:41 | EDPHYS ---
Physician Documentation [facility] Name: Romulo Gusman Age: 29 yrs Sex: Male : 1995 Arrival Date: 06/29/2024 Time: 20:10 Bed DX3 Private MD: ED Physician Ernesto Colunga HPI: 06/29 20:40 This 29 yrs old Male presents to ER via Ambulatory with complaints of Flu sp4 Symptoms. 06/30 21:09 Patient presents for moderate fever, generalized pain, headache, congestion, cough. sp4 Patient's is positive for influenza B. Historical: - Allergies: 06/29 20:38 Sulfa (Sulfonamide Antibiotics); me1 - PMHx: 20:38 ADD/ADHD; Bipolar disorder; Hypertensive disorder; me1 - PSHx: 20:38 None; me1 - Immunization history:: Adult Immunizations. - Infectious Disease History:: Denies. - Social history:: Smoking status: Reported history of juuling and/or vaping. - Family history:: not pertinent. ROS: 06/30 21:09 Constitutional: Positive fever, positive generalized pain, positive generalized sp4 weakness, positive headache, positive cough. 21:14 All other systems are negative, sp4 Exam: 21:14 Constitutional: This is a well developed, well nourished patient who is awake, alert, sp4 and in no acute distress. Head/Face: Normocephalic, atraumatic. Eyes: Pupils equal round and reactive to light, extra-ocular motions intact. Lids and lashes normal. Conjunctiva and sclera are not injected. Cornea within normal limits. Periorbital areas with no swelling, redness, or edema. ENT: Nares patent. No nasal discharge, no septal abnormalities noted. Tympanic membranes are normal and external auditory canals are clear. Oropharynx with no redness, swelling, or masses, exudates, or evidence of obstruction, uvula midline. Mucous membranes moist. Neck: Trachea midline, no thyromegaly or masses palpated, and no cervical lymphadenopathy. Supple, full range of motion without nuchal rigidity, or vertebral point tenderness. Chest/axilla: Normal chest wall appearance and motion. Nontender with no deformity. No lesions are appreciated. Cardiovascular: Regular rate and rhythm with a normal S1 and S2. No gallops, murmurs, or rubs. Normal PMI, no JVD. No pulse deficits. Respiratory: Lungs have equal breath sounds bilaterally, clear to auscultation and percussion. No rales, rhonchi or wheezes noted. No increased work of breathing, no retractions or nasal flaring. Abdomen/GI: Soft, with normal bowel sounds. No distension or tympany. No guarding or rebound. No evidence of tenderness throughout. Back: No spinal tenderness. No costovertebral tenderness. Skin: Warm, dry with normal turgor. Normal color with no rashes, no lesions, and no evidence of cellulitis. MS/ Extremity: Pulses equal, no cyanosis. Neurovascular intact. Full, normal range of motion. Neuro: Awake and alert, GCS 15, oriented to person, place, time, and situation. Cranial nerves II-XII grossly intact. Motor strength 5/5 in all extremities. Sensory grossly intact. Psych: Awake, alert, with orientation to person, place and time. Behavior, mood, and affect are within normal limits Vital Signs: 06/29 20:36 BP 138 / 50; Pulse 125; Resp 19; Temp 100.5; Pulse Ox 99% ; Weight 90.72 kg; Height 5 me1 ft. 6 in. ; Pain 8/10; 21:44 BP 135 / 53; Pulse 98; Resp 18; Temp 99.1; Pulse Ox 99% ; me1 20:36 Body Mass Index 32.28 (90.72 kg, 167.64 cm) me1 20:36 Pain Scale: Adult me1 [place] Coma Score: 06/30 21:14 Eye Response: spontaneous(4). Motor Response: obeys commands(6). Verbal Response: sp4 oriented(5). Total: 15. MDM: 06/29 20:45 Medical Screening Exam initiated sp4 06/30 21:14 Differential diagnosis: viral Infection, bacterial infection, URI, bronchitis, sp4 pneumonia. Data reviewed: vital signs, nurses notes, lab test result(s). Consideration of Admission/Observation Escalation of care including admission/observation considered. ED course: Patient was prescribed symptomatic medicine including as well Tamiflu secondary to the fact that his is positive for influenza B. 06/29 20:42 Order name: COVID-19 Ag + Flu A+B Ag; Complete Time: 21:39 kb Administered Medications: 06/29 20:45 Drug: Acetaminophen PO 1000 mg PO once Route: PO; me1 21:42 Follow up: Response: No adverse reaction me1 21:42 Drug: Ibuprofen PO 800 mg PO once Route: PO; me1 21:42 Follow up: Response: No adverse reaction me1 21:42 Drug: Ondansetron PO 8 mg PO once Route: PO; me1 21:42 Follow up: Response: No adverse reaction; Nausea is decreased me1 21:42 Drug: Dextromethorphan-Guaifenesin PO Liquid 10 mg-100 mg/5 mL 20 ml PO once Route: PO; me1 21:42 Follow up: Response: No adverse reaction me1 Disposition Summary: 06/29/24 21:40 Discharge Ordered Notes: Location: Home sp4 Problem: new sp4 Symptoms: have improved sp4 Condition: Stable sp4 Diagnosis - Acute viral syndrome, history of exposure to influenza B sp4 Followup: sp4 - With: Private Physician - When: 7 - 10 days - Reason: Recheck today's complaints Discharge Instructions: - Discharge Summary Sheet sp4 - Influenza, Adult, Nvyy-ob-Msph sp4 Forms: - Work release form sp4 - Patient Portal Instructions sp4 Prescriptions: - dextromethorphan-guaifenesin 20-400 mg Oral tablet - take 1 tablet ORAL route every 6 hours PRN cough; 60 tablet; Refills: 0, sp4 Product Selection Permitted - Ibuprofen 800 mg Oral Tablet - take 1 tablet ORAL route every 8 hours As needed take with food; 30 tablet; sp4 Refills: 0, Product Selection Permitted - Tamiflu 75 mg Oral capsule - take 1 tablet ORAL route every 12 hours for 5 days; 10 tablet; Refills: 0, sp4 Product Selection Permitted - ondansetron 8 mg Oral Tablet,disintegrating - take 1 tablet ORAL route every 8 hours PRN nausea; 30 tablet; Refills: 0, sp4 Product Selection Permitted Signatures: Dispatcher AustenHoErnesto Silva MD MD sp4 Kiarra Thomas RN RN me1
--- NOTE | 2024-06-29 21:41 | ER ---
Nurse's Notes [facility] Name: Romulo Gusman Age: 29 yrs Sex: Male : 1995 Arrival Date: 06/29/2024 Time: 20:10 Bed DX3 Private MD: Diagnosis: Acute viral syndrome, history of exposure to influenza B Presentation: 06/29 20:36 Chief complaint: Patient states: c/o cough, congestion, aches, chills, fever, nausera, me1 REID that started today. Coronavirus screen: At this time, the client does not indicate any symptoms associated with coronavirus-19. Ebola Screen: No symptoms or risks identified at this time. Initial Sepsis Screen: Does the patient meet any 2 criteria? HR > 90 bpm. No. Patient's initial sepsis screen is negative. Does the patient have a suspected source of infection? No. Patient's initial sepsis screen is negative. Risk Assessment: Do you want to hurt yourself or someone else? Patient reports no desire to harm self or others. Onset of symptoms was June 29, 2024 at 04:00. 20:36 Method Of Arrival: Ambulatory [facility] [place] 20:36 Acuity: LAURI 4 me1 Triage Assessment: 20:39 General: Appears uncomfortable, ill, well developed, well nourished, Behavior is calm, me1 cooperative, appropriate for age. Pain: Complains of pain in head Pain does not radiate. Pain currently is 8 out of 10 on a pain scale. Quality of pain is described as aching, Pain began gradually, Is continuous. EENT: No signs and/or symptoms were reported regarding the EENT system. Neuro: Level of Consciousness is awake, alert, obeys commands, Oriented to person, place, time, situation, Appropriate for age. Cardiovascular: Patient's skin is warm and dry. Respiratory: Reports cough that is dry, Airway is patent Respiratory effort is even, unlabored, Respiratory pattern is regular, symmetrical. GI: Reports nausea. : No signs and/or symptoms were reported regarding the genitourinary system. Derm: Skin is intact, is healthy with good turgor, Skin is pink, warm \T\ dry. Musculoskeletal: No signs and/or symptoms reported regarding the musculoskeletal system. Historical: - Allergies: 20:38 Sulfa (Sulfonamide Antibiotics); me1 - PMHx: 20:38 ADD/ADHD; Bipolar disorder; Hypertensive disorder; me1 - PSHx: 20:38 None; me1 - Immunization history:: Adult Immunizations. - Infectious Disease History:: Denies. - Social history:: Smoking status: Reported history of juuling and/or vaping. - Family history:: not pertinent. Screenin:43 [facility] ED Fall Risk Assessment (Adult) History of falling in the last 3 months, me1 including since admission No falls in past 3 months (0 pts) Confusion or Disorientation No (0 pts) Intoxicated or Sedated No (0 pts) Impaired Gait No (0 pts) Mobility Assist Device Used No (0 pt) Altered Elimination No (0 pt) Score/Fall Risk Level 0 - 2 = Low Risk Maintained a safe environment, Provided non-skid footwear, Hourly rounding (assess needs \T\ fall precautionary measures) done. Abuse screen: Denies threats or abuse. Nutritional screening: No deficits noted. Tuberculosis screening: No symptoms or risk factors identified. Assessment: 21:43 General: See triage assessment. me1 Vital Signs: 20:36 BP 138 / 50; Pulse 125; Resp 19; Temp 100.5; Pulse Ox 99% ; Weight 90.72 kg; Height 5 me1 ft. 6 in. ; Pain 8/10; 21:44 BP 135 / 53; Pulse 98; Resp 18; Temp 99.1; Pulse Ox 99% ; me1 20:36 Body Mass Index 32.28 (90.72 kg, 167.64 cm) me1 20:36 Pain Scale: Adult dc1 [place] Coma Score: 03/12 21:14 Eye Response: spontaneous(4). Motor Response: obeys commands(6). Verbal Response: sp4 oriented(5). Total: 15. ED Course: 03 20:11 Patient arrived in ED. im 20:38 Triage completed. me1 20:38 Arm band placed on Patient placed in waiting room. me1 20:40 Ernesto Colunga MD is Attending Physician. sp4 20:44 Kiarra Thomas RN is Primary Nurse. me1 21:43 Patient has correct armband on for positive identification. Provided Education on: POC. me1 Verbalized understanding.. 21:43 No provider procedures requiring assistance completed. Patient did not have IV access me1 during this emergency room visit. Administered Medications: 20:45 Drug: Acetaminophen PO 1000 mg PO once Route: PO; me1 21:42 Follow up: Response: No adverse reaction me1 21:42 Drug: Ibuprofen PO 800 mg PO once Route: PO; me1 21:42 Follow up: Response: No adverse reaction me1 21:42 Drug: Ondansetron PO 8 mg PO once Route: PO; me1 21:42 Follow up: Response: No adverse reaction; Nausea is decreased me1 21:42 Drug: Dextromethorphan-Guaifenesin PO Liquid 10 mg-100 mg/5 mL 20 ml PO once Route: PO; me1 21:42 Follow up: Response: No adverse reaction me1 Medication: 21:43 VIS not applicable for this client. me1 Outcome: 21:40 Discharge ordered by . henrietta 21:49 Discharged to home ambulatory, me1 21:49 Condition: stable 21:49 Discharge instructions given to patient, Instructed on discharge instructions, follow up and referral plans. medication usage, Demonstrated understanding of instructions, follow-up care, medications, Prescriptions given X 4, 21:49 Patient left the ED. me1 Signatures: Ernesto Colunga MD MD sp4 Whitney Miles Michelle RN RN me1
[2024-06-29 22:14] VITALS: O2SAT 99
[2024-06-29 22:15] VITALS: BP 135/53; TEMP 99.1
== END 2024-06-29 21:49 | disposition home or self-care (01) ==
LOC: ER 20:10
DX: B34.9 Viral infection, unspecified (principal); Z20.828 Contact with and (suspected) exposure to other viral communicable diseases
CPT/HCPCS: 36415; 87428; 99283; Q0162

== ENCOUNTER 2024-12-12 18:34 | Emergency (ER) | payer SELFPAY ==
--- OUTSIDE RECORDS SUMMARY | 2024-12-12 18:40 | XMS REPORT | Continuity of Care Document ---
Author Name Unknown Address [address] [facility] [address] [place] [address] [facility] [place] Address [address] [facility] [address] [place] [address] Care Team Providers Care Assistant Associate Full Professor Name Role Phone PCPNO, NO Primary Care Physician Unavailab KEVON Hamlin Attending Clinician Unavailab Kevon Hamlin NP Attending Clinician [phone] SARAH SHIPLEY Attending Clinician Unavailable SARAH SHIPLEY Attending Clinician Unavailable Sarah Shipley DO Attending Clinician [phone] AJ PARR Attending Clinician Unavailable MALI CROWE Attending Clinician Unavailab JACKIE Hernandez Attending Clinician Unavailab JOCELYN Fu Attending Clinician Unavail able SARAH WU Attending Clinician UnavailAJ Sprague Attending Clinician UnaPricilla Myers NP Attending Clinician [phone] PRICILLA SLADE Attending Clinician Unavailable Nawaf Her [...] Acute cough Disease Active 12-26 00:00: 00 [facility] Acute cough Acute cough Disease Active 12-26 00:00: 00 [facility] Fever in adult Fever in adult Disease Active 12-26 00:00: 00 [facility] Sore throat Sore throat Disease Active 12-26 00:00: 00 [facility] Body aches Body aches Disease Active 12-26 00:00: 00 [facility] No known active problems No known active problems Disease [facility] Allergies, Adverse Reactions, Alerts Allergy Name Allergy Type Status Severity Reaction(s) Onset Date Inactive Date Treating Clinician Comments Source SULFA (SULFONA MIDE ANTIBIOT ICS) Drug Class Active High Hives 12-26 00:00: 00 [facility] Sulfa (Sulfona mide Antibiot ics) Propensi ty to adverse reaction s Active Hives 12-26 00:00: 00 [facility] Sulfonam behzad Allergy to substanc e Active Unknown -19 00:00: 00 ENRIQUE Kellysaw [facility] Sulfa (Sulfona mide Antibiot ics) DA Active MO 12-24 00:00: 00 [facility] Sulfa (Sulfona mide Antibiot ics) DA Active MO HIVES, ANGIOEDEMA 12-24 00:00: 00 [facility] Sulfa (Sulfona mide Antibiot ics) DA Active MO 06-18 00:00: 00 [facility] Sulfa (Sulfona mide Antibiot ics) DA Active MO HIVES 06-18 00:00: 00 [facility] Sulfa (Sulfona mide Antibiot ics) DA Active MO 0 -18 00:00: 00 [facility] Sulfa (Sulfona mide Antibiot ics) DA Active MO HIVES 0 -18 00:00: 00 [facility] Sulfa (Sulfona mide Antibiot ics) DA Active MO 0 2-04 00:00: 00 [facility] Sulfa (Sulfona mide Antibiot ics) DA Active MO HIVES 0 2-04 00:00: 00 [facility] No Known Allergie s DA Active U 8-16 00:00: 00 [facility] No Known Allergie s DA Active U 8-16 00:00: 00 [facility] No Known Contrast Allergie s DA Active U 8-17 00:00: 00 [facility] No Known Drug Allergie s DA Active U 8- 00:00: 00 [facility] No Known Food Allergie s DA Active U 8- 00:00: 00 [facility] No Known Other Allergie s DA Active U 0 8-17 00:00: 00 [facility] NO KNOWN ALLERGIE S Drug Class Active [facility] Social History Social Habit Start Date Stop Date Quantity Comments Source Sexual orientation [facility] Exposure to SARS-CoV-2 (event) Not sure [facility] Sex Assigned At 1995 00:00:00 1995 00:00:00 [facility] Start Date Stop Date Source Tobacco smoking consumption unknown [facility] Medications Ordered Medication Name Filled Medication Name Start Date Stop Date Current Medication? Ordering Clinician Indication Dosage Frequency Signature (SIG) Comments Components Source sodium chloride (NS) injection 5 mL 3 00:07: 56 Yes 5mL 5 mL, Intravenou s, PRN, Starting on Fri06/22/24 at 1807, Until Discontinu ed, Routine, IV line flushing [facility] ketorolac (TORADOL) injection 30 mg 12-27 03:00: 00 12-27 02:31 :00 No 30mg 30 mg, Intramuscu lar, ONCE, 1 dose, On 12/27/23 at 2200, Routine [facility] Amoxicillin /Clavulanat e Potassium (Augmentin 875 Mg) 1 Each TABLET 06-09 14:58: 00 No 875mg Twice A Day ENRIQUE Hallman [facility] Naproxen (Naprosyn) 500 Mg TAB 06-09 14:58: 00 No 500mg Twice A Day as needed for Pain ENRIQUE Hallman [facility] Ondansetron Hcl (Zofran) 4 Mg TAB 06-09 14:58: 00 No 4mg Every 8 Hours as needed for Nausea ENRIQUE Hallman [facility] Amoxicillin /Clavulanat e Potassium (Augmentin 875 Mg) 1 Each TABLET 06-09 14:56: 00 06-09 14:58 :00 No 875mg Twice A Day [facility] Naproxen (Naprosyn) 500 Mg TAB - 14:56: 00 06-09 14:58 :00 No 500mg Twice A Day as needed for Pain ENRIQUE Long Viji [facility] Ondansetron Hcl (Zofran) 4 Mg TAB 06-09 14:56: 00 06-09 14:58 :00 No 4mg Every 8 Hours as needed for Nausea / Vomiting ENRIQUE Kellyjayjay [facility] ibuprofen (IBU) tablet 800 mg 2020-04 06:15: 00 02-04 05:23 :00 No 800mg 800 mg, Oral, ONCE, 1 dose, On 02/04/21 at 0115, [facility] acetaminoph en (TYLENOL) tablet 650 mg 2020-04 06:15: 00 02-04 05:23 :00 No 650mg 650 mg, Oral, ONCE, 1 dose, On 02/04/21 at 0115, [facility] albuterol 90 mcg/actuati on inhaler 2020-04 00:00: 00 Yes [id number] 2{puff} Inhale 2 Puffs every 4 (four) hours as needed for Wheezing or Shortness of Breath. [facility] levoFLOXaci n 750 mg tablet 2020-04 00:00: 00 02-12 04:59 :00 No [id number] 750mg Take 1 tablet by mouth daily for 7 days. [facility] predniSONE 20 mg tablet 2020-04 00:00: 00 02-10 04:59 :00 No [id number] 20mg Take 1 tablet by mouth 2 (two) times daily for 5 days. [facility] TYLENOL FOR CHILDREN ORAL 05-06 13:05: 22 Yes None Entered [facility] Vital Signs Vital Name Observation Time Observation Value Comments S ource Body temperature 2024-06-22 23:44:00 37.17 Lisa [facility] Respiratory rate 2024-06-22 23:44:00 16 /min [facility] Body height 2024-06-22 23:44:00 167.6 cm [facility] Body weight 2024-06-22 23:44:00 90.719 kg [facility] BMI 2024-06-22 23:44:00 32.28 kg/m2 [facility] Oxygen saturation in Arterial blood by Pulse oximetry 2024-06-22 23:44:00 100 /min [facility] Systolic blood pressure 2024-06-22 23:44:00 134 mm[Hg] [facility] Diastolic blood pressure 2024-06-22 23:44:00 98 mm[Hg] [facility] Heart rate 2024-06-22 23:44:00 99 /min [facility] Systolic blood pressure 2023-12-28 04:00:00 122 mm[Hg] [facility] hospital Diastolic blood pressure 2023-12-28 04:00:00 84 mm[Hg] [facility] hospital Heart rate 2023-12-28 04:00:00 94 /min [facility] Body temperature 2023-12-28 04:00:00 36.72 Lisa [facility] Oxygen saturation in Arterial blood by Pulse oximetry 2023-12-28 04:00:00 96 /min [facility] acute hospital Respiratory rate 2023-12-28 02:00:00 20 /min [facility] Body height 2023-12-28 02:00:00 167.6 cm [facility] Body weight 2023-12-28 02:00:00 83.915 kg [facility] BMI 2023-12-28 02:00:00 29.86 kg/m2 [facility] Body Temperature 2023-06-09 15:31:00 98.3 [degF] [facility] Heart Rate 2023-06-09 15:31:00 67 /min [facility] Respiratory rate 2023-06-09 15:31:00 18 /min [facility] BP Systolic 2023-06-09 15:31:00 113 mm[Hg] [facility] BP Diastolic 2023-06-09 15:31:00 77 mm[Hg] [facility] Height 2023-06-09 13:55:00 167.126231 cm [facility] Weight 2023-06-09 13:55:[address] [facility] BMI (Body Mass Index) 2023-06-09 13:55:00 30.7 kg/m2 [facility] Systolic blood pressure 2021-02-04 07:45:00 131 mm[Hg] [facility] acute hospital Diastolic blood pressure 2021-02-04 07:45:00 74 mm[Hg] [facility] acute hospital Heart rate 2021-02-04 07:45:00 114 /min [facility] Respiratory rate 2021-02-04 07:45:00 20 /min [facility] Oxygen saturation in Arterial blood by Pulse oximetry 2021-02-04 07:45:00 98 /min [facility] Body temperature 2021-02-04 04:20:00 38.33 Lisa [facility] Body height 2021-02-04 04:20:00 170.2 cm [facility] Body weight 2021-02-04 04:20:00 91.944 kg [facility] BMI 2021-02-04 04:20:00 31.75 kg/m2 [facility] Procedures Procedure Date / Time Performed Performing Clinician Source XR CHEST 2 VW 2023-12-28 02:41:23 Sarah Shipley [facility] RAPID STREP SCREEN FOR GROUP A 2023-12-28 02:32:00 Sarah Shipley [facility] INFLUENZA A/B RSV COVID NAAT 2023-12-28 02:32:00 Linda Sarah [facility] URINALYSIS 2021-02-04 06:27:00 Pricilla Slade [facility] EBV-MONONUCLEOSIS SCREEN 2021-02-04 06:27:00 Radha Slade [facility] RAPID STREP SCREEN FOR GROUP A 2021-02-04 06:27:00 Pricilla Slade [facility] URINE DRUG (IMMUNOASSAY) - COMPREHENSIVE DRUG SCREEN W/O REFLEX 2021-02-04 06:27:00 Pricilla Slade [facility] ADC,CLC OR LCC ONLY - INFLUENZA A & B DIRECT ANTIGEN 2021-02-04 05:24:00 Pricilla Slade [facility] XR CHEST 1 VW 2021-02-04 05:23:00 [facility] (ID NOW RAPID TESTING) 2021-02-04 04:57:00 Pricilla Slade [facility] NOTICE OF PRIVACY PRACTICES 2021-02-04 04:01:40 Doctor Unassigned, [place] [facility] CONSENT/REFUSAL FOR DIAGNOSIS AND TREATMENT 2021-02-04 03:58:40 Doctor Unassigned, [place] [facility] Encounters Start Date/Time End Date/Time Encounter Type Admission Type Attending [facility] Care Department Encounter ID Source 2020-08-15 18:15:00 Inpatient HCACL ROBIN [id number] [facility] 2020-06-18 18:18:00 Inpatient HCACL ROBIN [id number] [facility] 2019-09-06 22:14:00 Inpatient HCACL ROBIN [id number] [facility] 2019-05-25 21:43:00 Inpatient HCAMN DARIO [id number] [facility] 2024-06-22 17:45:00 2024-06-22 20:07:00 Emergency X ADEKEVON MUÑIZ [facility] ERT [id number] [facility] 2024-06-22 17:45:00 2024-06-22 20:07:00 Emergency AderiKevon reed [facility] AT [facility] [id number] [facility] 2023-12-27 21:04:00 2023-12-27 23:31:00 Emergency X DEENA SHIPLEYMAN SHIPLEY SARAH [facility] ERT [id number] [facility] 2023-12-27 21:04:00 2023-12-27 23:31:00 Emergency Sarah Shipley [facility] AT [facility] [id number] [facility] 2023-06-25 11:58:05 2023-06-25 11:58:05 Outpatient [facility] [id number] Tim Patel 2023-06-09 13:54:00 2023-06-09 15:31:00 Emergency ER AJ PARR [facility] [id number] [facility] 2023-06-09 13:54:00 2023-06-09 15:31:00 Departed Emergency Room [facility] [id number] [facility] 2023-06-03 16:13:54 2023-06-03 16:13:54 Outpatient [facility] [id number] Tim Patel 2021-11-14 09:15:00 2021-11-14 11:12:00 Emergency E MALI CROWE SE MED 7[facility] 2021-10-05 22:09:00 2021-10-06 02:40:00 Emergency E JACKIE GALVAN BL MHBL [id number] [facility] 2021-10-04 23:17:00 2021-10-05 00:01:00 Emergency E JOCELYN EATON SE SE 7507 [facility] 2021-09-25 21:46:00 2021-09-25 22:39:00 Emergency E SARAH WU SE MHSE 7[facility] 2021-08-18 18:36:00 2021-08-18 19:57:00 Emergency E AJ URBINA MHSE MHSE [facility] [facility] 2021-02-03 23:27:00 2021-02-04 03:04:00 Emergency Pricilla Slade [facility] [id number] [facility] 2021-02-03 23:27:00 2021-02-03 23:27:00 Emergency X PRICILLA SLADE [facility] ERT [id number] [facility] 2020-12-24 21:50:00 2020-12-25 02:16:00 Emergency EM Collins Hermund HCACL ROBIN [id number] [facility] 2020-12-19 21:51:00 2020-12-20 04:15:00 Emergency E PRABHU MI BL MHBL [id number] 2020-08-16 22:18:00 2020-08-17 02:24:00 Emergency E LIN TOMLINSONGeorge BL MHBL [id number] 2020-06-18 18:18:00 2020-06-18 21:35:00 Emergency EM Antonio Lara HCACL ROBIN [id number] [facility] 2019-04-10 21:45:00 2019-04-10 21:45:00 Emergency E MHBL MHBL [id number] BL Results Test Description Test Time Test Comments Results Resul t Comments Source XR CHEST 2 VW 2023-12-28 03:16:01 XR CHEST 2 VW HISTORY: ?PNA COMPARISON: None FINDINGS: There is no infiltrate or pleural effusion. ?Thecardiomedias tinal silhouette is within normal limits. ?There is nopneumothorax. [facility]2020-12-25 00:56:00* Test Item Value Reference Range Interpretation Comme nts AG STREP GROUP A (THROAT) (test code = STREPA) Negative Negative Negative for Str ep A nucleic acid INFLUENZA A [id number] 00:56:00* Test Item Value Reference Range Interpretation Comme nts INFLUENZA A (test code = FLUAPCR) Negative Negative INFLUENZA B (test code = FLUBPCR) Negative Negative Coronavirus 2019 nCoV [id number] 00:41:00* Test Item Value Reference Range Interpretation Comme nts Coronavirus 2019 nCoV Bedside (test code = [id number]) NEGATIVE Negative Negative results should be treated as presumptive and, ifinconsistent with clinical signs and symptoms or necessaryfor patient management, should be tested with an alternativemolecular assay. Negative results do not preclude [id number] and should not be used as the [...] Str ep A nucleic acid INFLUENZA A [id number] 00:33:00* Test Item Value Reference Range Interpretation Comme nts INFLUENZA A (test code = FLUAPCR) Negative INFLUENZA B (test code = FLUBPCR) Negative - CT HEAD/BRAIN W/O [id number] 19:29:00 [facility] 1995 Sex: M Name: ANATOLY MCNEAL [facility] : 1995 Age/S: 25 / M [address] [place] [address] Unit #: [id number] Loc: [place] [address] Phys: Shmuel Rodriguez Acct: [id number] Dis Date: Status: REG ER PHONE #: [phone] Exam Date: 08/15/2020 190 FAX #: [phone] Reason: fall, occipital head strike, LOC, vomiting EXAMS: CPT CODE: [id number] CT HEAD/BRAIN W/O CONT 08090 Clinical Indication: Fall, occipital head strike, loss [...] Hospital : 1995 Age/S: 25 / M [address] [place], [place] [address] Unit #: [id number] Loc: [facility] [place] [address] Phys: Shmuel Rodriguez Acct: [id number] Dis Date: Status: REG ER PHONE#: [phone] Exam Date: 08/15/2020 1902 FAX #: [phone] Reason: fall, occipital head strike,LOC, vomiting EXAMS: CPT CODE: [id number] CT HEAD/BRAIN W/O CONT 16078 <Continued> and spinous processes are unremarkable. The [...] Midline parieto-occipital scalp swelling. No calvarial fracture. CTcervical spine: No fractures or subluxations of the cervical spine. SL: APATIL-H ElectronicallySigned by James Rodriguez on 08/15/2020 at 1929 Reported and signed by: Wanda Rodriguez M.D. CC: Antonio Lara MD; Shmuel HOLLY Technologist:RT Noemi(R)(CT) CTDI: DLP: Trnscb Date/Time: 08/15/2020 (1928) [email or web address] Orig Print D/T: S: 08/15/2020 (1931) PAGE 2 Signed Report- CT C-SPINE W/O [id number] 19:29:00 [facility] : 1995 Sex: M Name: ANATOLY MCNEAL [facility] : 1995 Age/S: 25 / M [address] [place] [address] Unit #: [id number] [place] [address] Phys: Shmuel Rodriguez ELAYNE Acct: [id number] Dis Date: Status: REG ER PHONE #: [phone] Exam Date: 08/15/20201901 FAX #: [phone] Reason: fall, occipital head strike, LOC, vomiting EXAMS: CPT CODE: [id number] CT C-SPINE W/O CONT 47470 Clinical Goldie cation: Fall, occipital head strike, [...] underlying calvarial fracture. If there is further concernfor intracranial pathology or acute stroke, MRI of [...] 1 Signed Report (CONTINUED) Name: [facility]AL [facility] : 1995 Age/S: 25 / M [address] [place] [address] Unit #: [id number] Loc: [place] [address] Phys: Shmuel Rodriguez Acct: [id number] Dis Date: Status: REG ER PHONE #: [phone] Exam Date: 08/15/2020 190 FAX #: [phone] Reason: fall, occipital head strike, LOC, vomiting EXAMS: CPT CODE: [id number] CT C-SPINE W/O CONT 66918 <Continued> and spinous processes are unremarkable. The [...] concern. IMPRESSION: CT head: 1. No acute int racranial abnormality. 2. Midline parieto-occipital scalp swelling. No calvarial fracture. CT cervical spine: No fractures or subluxations of the cervical spine. SL: MADHUH at 1929 Reported and signed by: Wanda Rodriguez M.D. CC: Antonio Lara MD; Shmuel HOLLY Technologist:RT Noemi(R)(CT) CTDI: DLP: Trnscb Date/Time: 08/15/2020 (1928) [email or web address] Orig Print D/T: S: 08/15/2020 (1931) PAGE 2 Signed Report- XR CHEST 1 [id number] 19:10:00 [facility] : 1995 Sex: M FAX: Antonio Lara MD [phone] [place]: St: REG FAX: Shmuel Rodriguez [phone] --- Name: ANATOLY MCNEAL [facility] [place] : 1995 Age/S: 25/M [address] [place] [address] Unit #: [id number] Loc: [place] [address] Phys: Shmuel Rodriguez Acct: [id number] Dis Date: Status: REG ER PHONE #: [phone] Exam Date: 08/15/2020 1904 FAX #: [phone] Reason: trauma EXAMS: CPT CODE: [id number] XR CHEST 1 V 23867 Portable single view AP chest INDICATION: Fall. Injury. Comparison: 06/10/2020hest x-ray FINDINGS: The cardiomediastinal silhouette is normal in size. Lungs are clear. Costophrenic angles are sharp. No suspicious osseous abnormality is seen. IMPRESSION: No evidence for acute cardiopulmonary disease. SL: YNOY at 1910 Reported and signed by: Jose C Joshi M.D. CC: Antonio Lara MD; Shmuel Rodriguez PATechnologist: Suma Lynch RT(R); Judith Savage RT(R) Trnscrd Date/Time/By: 08/15/2020 (1909) : By: [email or web address] Orig Print D/T: S: 08/15/2020 (1912) PAGE 1 Signed Report BASIC METABOLIC [id number] 20:21:00* Test Item Value Reference Range Interpretation [...] code = CA) 9.8 mg/dL 8.0-10.5 N [id number] 20:21:00* Test Item Value Reference Range Interpretation Comme nts TROPONIN-I (test code = TROPI) < 0.006 ng/mL 0.000-0.045 N Negative: <= 0.0 45 Positive: >= 0.046 Correlation with serial results, other cardiac markers andclinical findings is necessary to determine the clinicalsignificance of this result. Results using different methodologies should not be comparedto one another as quantitative results may vary by method. BASIC METABOLIC [id number] 20:20:00* Test Item Value Reference Range Interpretation [...] CALCIUM (test code = CA) mg/dL 8.0-10.5 [id number] 20:20:00* Test Item Value Reference Range Interpretation Comme nts TROPONIN-I (test code = TROPI) < 0.006 ng/mL 0.000-0.045 N Negative: <= 0.0 45 Positive: >= 0.046 Correlation with serial results, other cardiac markers andclinical findings is necessary to determine the clinicalsignificance of this result. Results using different methodologies should not be comparedto one another as quantitative results may vary by method. [id number] 20:16:00* Test Item Value Reference Range Interpretation Comme [facility] D-DIMER (test code = DDIMER) 364 ng/mlFEU See_Comment N THROMBOSIS AND/O R PULMONARY EMBOLISM AND THE CLINICAL CUT- OFF VALUE FOR EXCLUSION (500 ng/mL FEU) OF THESE CONDITIONSIS VALIDATED BY THE LIGHT BULB ASSEMBLER OF THE METHOD. A NEGATIVE D-DIMER RESULT [...] interpret this result as normal/abnormal. CBC W/AUTO [id number] 20:06:00* Test Item Value Reference Range Interpretation [...] c ode = MDIFF) NO CBC W/AUTO [id number] 20:02:00* Test Item Value Reference Range Interpretation [...] ode = MDIFF) - XR CHEST 1 [id number] 19:27:00 [facility] : 1995 Sex: M FAX: Antonio Lara MD [phone] [place]: REMA St: DEP Name: ANATOLY MCNEAL [facility] Jani Pruitt : 1995 Age/S: 25/M [address] [place] [address] Unit #: [id number] Loc: [place] [address] Phys: Antonio Lara MD Acct: [id number] Dis Date: Status: DEP ER PHONE #: [phone] Exam Date: 06/18/2020 1856 FAX #: [phone] Reason: chest pain, SOB EXAMS: CPT CODE: [id number] XR CHEST 1 V 81673 [place] RADIOGRAPH CHEST INDICATION: Chest pain and dyspnea. TECHNIQUE: A single view frontal radiograph of the chest was obtained. COMPARISONS: Chest x-ray 09/06/2019 FINDINGS: There is no acute osseousfracture or dislocation. There is no subdiaphragmatic free gas. The cardiomediastinal size and contour are normal. There is no pneumothorax, pleural effusion or organized pneumonia. IMPRESSION: 1. Noacute cardiopulmonary process. at 192 Reported and signed by: Sergio Rose D.O. CC: Antonio Lara MD Technologist: RT Bijan(R) Trnscrd Date/Time/By: 06/18/2020 (1926) : By: [email or web address] Orig Print D/T: S: 06/18/2020 ( 1929) PAGE 1 Signed Report- XR CHEST 1 [id number] 19:27:00 [facility] JANI PRUITTName: ANATOLY MCNEAL : 1995 Sex: M FAX: Antonio Lara MD [phone] [place]: St: REG Name: ANATOLY MCNEAL [facility] : 1995Age/S: 25/M [address] [place] [address] Blvd Unit #: [id number] Loc: [place] [address] Phys: Antonio Lara MD Acct: [id number] Dis Date: Status: REG ER PHONE #: [phone] Exam Date: 06/18/2020 185 FAX #: [phone] Reason: chest pain, SOB EXAMS: CPT CODE: [id number] XR CHEST 1 V 71149 [place] RADIOGRAPH CHEST INDICATION: Chest pain and [...] Novel Coronavirus 2019 Inhouse (test code = [id number]) Negative Negative Positive resul ts are indicative of the presence fnIXWL-NeI-3 RNA, clinical correlation with patient historyand other [...] for the identification of SARS-CoV-2 RNA usingthe [employer] M2000 System under the FDA Emergency UseAuthorization. The testing is performed by personneltrained in the procedures for the [employer] M2000 moleculardiagnostic SARS-CoV-2 assay in vitro. Testing Criteria: Fever Cough OtherOther: GENERALIZED WEAKNESSCOMMENTS: ORDER PUT IN FOR DR JOSE MIUGEL Reddy [id number] 00:31:00* Test Item Value Reference Range Interpretation Comme nts INFLUENZA A (test code = FLUAPCR) Negative Negative INFLUENZA B (test code = FLUBPCR) Negative Negative COMMENTS: SwabBASIC METABOLIC [id number] 00:19:00* Test Item Value Reference Range Interpretation [...] CA) 9.3 mg/dL 8.0-10.5 N HEPATIC FUNCTION [id number] 00:19:00* Test Item Value Reference Range Interpretation [...] ALKP) 74 IUnit/L 20-125 N BASIC METABOLIC [id number] 00:13:00* Test Item Value Reference Range Interpretation [...] CA) 9.3 mg/dL 8.0-10.5 N HEPATIC FUNCTION [id number] 00:13:00* Test Item Value Reference Range Interpretation [...] code = ALKP) IUnit/L 20-125 CBC W/AUTO [id number] 00:05:00* Test Item Value Reference Range Interpretation [...] = IFF) NO - XR CHEST 2 [id number] 23:38:00 [facility] : 1995 Sex: M FAX: Ernesto Swanson MD [phone] [place]: St: DEP Name: ANATOLY MCNEAL [facility] : 1995 Age/S: 24/M [address] [place] [address] Blvd Unit #: [id number] Loc: [place] [address] Phys: Ernesto Colunga MD Acct: [id number] Dis Date: Status: DEP ER PHONE #: [phone] Exam Date: 09/06/2019 2331 FAX #: [phone] Reason: Chest Pain EXAMS: CPT CODE: [id number] XR CHEST 2 V 22612 Chest, 2 views dated 09/06/2019. HISTORY: Chest [...] MD Technologist: RT Jeremie(Timothy) Trnscrd Date/Time/By: 09/06/2019 (7735) : By: Flor Orig Print D/T: S: 09/06/2019 (1405) PAGE 1 Signed Report- XR CHEST 2 [id number] 23:38:00FAX: Ernesto Swanson MD [phone] [place]: St: REG Name: ANATOLY MCNEAL [facility] : 1995 Age/S: 24/M [address] [place] [address] Unit #: [id number] Loc: [place] [address] Phys: Ernesto Colunga MD Acct: [id number] Dis Date: Status: REG ER PHONE #: [phone] Exam Date: 09/06/20192330 FAX #: [phone] Reason: Chest Pain EXAMS: CPT CODE: [id number] XR CHEST 2 V 21272 Chest, 2 views dated 09/06/2019. HISTORY: Chest pain. Comparison is made to a prior study dated 05/20/2018. The heart is normal in size. The cardiac mediastinal shadow appears within normal limits. The lungs appearclear. The palmar vasculature is normal in caliber. No acute pleural space abnormalities are detected. IMPRESSION: 1. No radiographic evidence of acute cardiopulmonary disease. SL: 131 at 1237 Reported and signed by: Kanu Pinto M.D. CC: Ernesto Colunga MD Technologist: RT Jeremie(Timothy) Trntristianrd Date/Time/By: 09/06/2019 (4371) : By: NavaDMM Orig Print D/T: S: 09/06/2019 (4980) PAGE 1 Signed Report- CT ABD PELVIS W/[id number] 00:20:00FAX: Dariusz Junior DO [phone] [place]: St: REG Name: ANATOLY MCNEAL [facility] : 1995 Age/S: 24/M [address] [facility] Unit: [id number] Loc: [address] [place]: [place] [address] Acct: [id number] Dis Date: Status: REG ER PHONE #: [phone] Exam Date: 05/25/2019 0005 FAX #: [phone] Reason: abdominal pain EXAMS: CPT CODE: [id number] CT ABD PELVIS W/CONT 53175 EXAM: CT ABDOMEN AND PELVIS WITH IV CONTRAST DICTATION LOCATION: [facility] HISTORY: Male, 24 years of age [...] Genitourinary: No solid renal mass, significant cortical thin anil, obvious renal stone or hydronephrosis. Ureters are unremarkable. Urinary bladder is unremarkable. The visualized reproductive organs are unremarkable. Gastrointestinal: No bowel wall thickening, bowel obstruction or perienteric inflammation. The appendix is normal. Vascular: No aortic aneurysm or dissection. IVC is unremarkable. Portal vein is patent. PAGE 1 Signed Report (CONTINUED) FAX: Dariusz Junior DO [phone] [place]: St: REG Name: ANATOLY MCNEAL [facility] : 1995 Age/S: 24/M [address]: [id number] Loc: [address] Phys: [place] [address] Acct: [id number] Dis Date: Status: REG ER PHONE #: [phone] Exam Date: 05/25/2019 0005 FAX #: Reason: abdominal pain EXAMS: CPT CODE: [id number] CT ABD PELVIS W/CONT 27126 <Continued> Lymphatics: No enlarged lymph nodes by CT size criteria. Bones/Soft Tissues: No acute osseous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 % (Auto) (4.8 - 9.0 %) 8.3 Eos % (Auto) (0.3 - 3.7 %) 2.8 Baso % (Auto) (0.0 - 2.0 %) 0.9 Neut # (Auto) (2.0 - 7.6 x10 3/uL) 6.32 Lymph # (Auto) (1.0 - 3.8 x10 3/uL) 1.82 Cannon # (Auto) (0.1 - 0.8 x10 3/uL) [...] 2041 Resp 06/18 Temp 36.6 06/18 1829 All vital signs available at the time [...] PRIMARY CARE: 1 Week at 2047 RPT #:[id number] END OF REPORT [facility] 2019-09-06 23:19:00 [facility] ([facility]) EMERGENCY PROVIDER REPORT REPORT#:[id number] REPORT STATUS: Signed DATE:09/06/19 TIME: 2318 PATIENT: ANATOLY MCNEAL UNIT #: [id number] ROOM/BED: AGE: 24 SEX: M PCP PHYS: [...] patient Initial Greet Date/Time 09/06/192253 COVID-19 Risk [facility] COVID Risk Denies Age 65 [...] 09/06/193: [Embedded Image Not Available] Laboratory Tests: 09/05 [...] % (Auto) (14.0 - 32.0 %) 20.6 Cannon % (Auto) (4.8 - 9.0 %) 6.3 Eos % (Auto) (0.3 - 3.7 %) 1.2 Baso % (Auto) (0.0 - 2.0 %) 0.9 Neut # (Auto) (2.0 - 7.6 x10 3/uL) 6.26 Lymph # (Auto) (1.0 - 3.8 x10 3/uL) 1.82 Cannon # (Auto) (0.1 - 0.8 x10 3/uL) [...] Temp 36.9 09/05 224 Pulse 104 09/05 2240 Resp 18 09/050 Last Documented: Result Date [...] for COVID 19 via PCR at 0844 [facility] #:[id number] END OF REPORT [facility] 2019-05-25 22:20:00 [facility] ([facility]) EMERGENCY PROVIDER REPORT REPORT#:[id number] REPORT STATUS: Signed DATE:05/25/19 TIME: 2219 PATIENT: ANATOLY MCNEAL UNIT #: [id number] ROOM/BED: AGE: 24 SEX: M PCP PHYS: [...] Pulse Ox 97 05/25 2143 B/P 118/75 /2143 B/P Mean 89 05/25 2143 O2 Delivery Room air 05/25 2143 Temp 36.8 05/25 2143 Pulse 104 05/25 2143 Resp 18 05/25 2143 Last Documented: Result Date Time Pulse Ox 97 05/25 2143 B/P 118/75 05/25 2143 B/P Mean 89 05/25 2143 O2 Delivery Room air 05/25 2143 Temp 36.8 05/25 2143 Pulse 104 05/25 2143 Resp 05/25 Review of Vital Signs Reviewed Focused PE [...] % (Auto) (23.0 - 38.0 %) 28.2 Cannon % (Auto) (1.0 - 10.0 %) 9.2 Eos % (Auto) (1.0 - 5.0 %) 2.0 Baso % (Auto) (0.0 - 1.0 %) 0.9 Neut # (Auto) (2.4 - 6.3 K/mm3) 5.5 Lymph # (Auto) (1.2 - 4.0 K/mm3) 2.6 Cannon # (Auto) (0.0 - 0.6 K/mm3) 0.9 H Eos # (Auto) (0.0 - 0.7 K/MM3) 0.2 Baso # (Auto) (0.0 - 0.2 K/mm3) 0.1 Immature Gran % (0.0 - 0.4 %) 0.1 Immature Gran # (0.00 - 0.07 x10 3/uL) 0.01 Urines Urine Color YELLOW Urine Appearance CLEAR Urine pH (5.0 - 9.0) 7.0 Ur Specific [place] (1.000 - 1.030) 1.010 Urine Protein (NEGATIVE [...] Note normal CT scan. Report given by animal laboratory technician at 0348. Interpretation/Wet Read by Interpret [...] 05/25 2153 DC 05/25 PO 05/25 2154 224 Diagnostic Agents Sig/Temitope Start time Last Medication Dose Route Stop Time Status Admin Iopamidol 0 .STK-MED ONE 05/25 2330 DC 05/26 .ROUTE 0000 Electrolytic, Caloric, And [...] Pulse Ox 97 05/25 2143 B/P 118/75 / 2144 B/P Mean 89 /4 O2 Delivery Room air 05/25 2143 Temp 36.8 05/25 2143 Pulse 104 /2143 Resp 18 05/25 2143 Last Documented: Result Date Time Pulse Ox 97 05/25 2143 B/P 118/75 05/25 214 B/P Mean 89 [...] Supervising Physician Note Scribe Statement Olivia Matias, 02/04/20 2221, scribing for and in the presence of [...] on 05/26/19 at 0408 at 0416 RPT #:[id number] END OF REPORT [facility] 2018-05-20 11:28:00 [facility] ([facility]) OR A [facility] EMERGENCY PROVIDER REPORT REPORT#:[id number] REPORT STATUS: Signed DATE:05/20/18 TIME: 1128 PATIENT: ANATOLY MCNEAL UNIT #: [id number] ROOM/BED: AGE: 23 SEX: M PCP PHYS: [...] (Auto) (14.0 - 32.0 %) 4.2 L Cannon % (Auto) (4.8 - 9.0 %) 5.3 Eos % (Auto) (0.3 - 3.7 %) 0.7 Baso % (Auto) (0.0 - 2.0 %) 0.2 Neut # (Auto) (2.0 - 7.6 x10 3/uL) 10.79 H Lymph # (Auto) (1.0 - 3.8 x10 3/uL) 0.51 L Cannon # (Auto) (0.1 - 0.8 x10 3/uL) [...] 2. Possible splenomegaly. 3. Negative chest. : [id number] Impression By: Nkechi Venegas M.D. Lab Imaging Statement Laboratory radiographic studies reviewed and considered in the medical decision-making. Point of Care Testing Pulse Oximetry Pulse Ox % 97 On: Room air Interpretation Interpreted by wa Time 1108 Free Text I D Notes [...] on 05/20/18 at 1424 at 1851 RPT #:[id number] END OF REPORT [facility] 2018-05-20 11:28:00 [facility] ([facility]) EMERGENCY PROVIDER REPORT REPORT#:[id number] REPORT STATUS: Signed DATE:05/20/18 TIME: 1127 PATIENT: ANATOLY MCNEAL UNIT #: [id number] ROOM/BED: AGE: 23 SEX: M PCP PHYS: [...] scribed by Sue Puckett on 05/20/18 at 8623 Past Medical History - Adult Stated Complaint [...] (Auto) (14.0 - 32.0 %) 4.2 L Cannon % (Auto) (4.8 - 9.0 %) 5.3 Eos % (Auto) (0.3 - 3.7 %) 0.7 Baso % (Auto) (0.0 - 2.0 %) 0.2 Neut # (Auto) (2.0 - 7.6 x10 3/uL) 10.79 H Lymph # (Auto) (1.0 - 3.8 x10 3/uL) 0.51 L Cannon # (Auto) (0.1 - 0.8 x10 3/uL) [...] 2. Possible splenomegaly. 3. Negative chest. SL: [id number] Impression By: Nkechi Venegas M.D. Lab Imaging [...] Saw Pt Alone I have reviewed the PA/VOLUNTEER SERVICES SPECIALIST's note and plan of care. I was available for consultation as needed at all times during the patient's visit in the emergency department. I agree with the clinical impression, plan and disposition. at 8532 at 5688 RPT #:[id number] END OF REPORT [facility]
--- NOTE | 2024-12-12 19:16 | RAD REPORT ---
Procedure: Chest Single View HISTORY: Cough COMPARISON: 2023 FINDINGS: The lungs appear clear of acute infiltrate. No significant pleural effusion noted. The heart is normal size. IMPRESSION: No acute abnormality is displayed.
[2024-12-12 19:28] LABS: Influenza A Ag Negative; Influenza B Ag Negative; SARS-CoV-2 Antigen Rapid Res Negative (Negative)
--- NOTE | 2024-12-12 19:46 | EDPHYS ---
Physician Documentation [facility] Name: Romulo Gusman Age: 29 yrs Sex: Male : 1995 Arrival Date: 12/12/2024 Time: 18:34 Bed 15 Private MD: ED Physician Josep Junior HPI: 12/12 20:27 This 29 yrs old Male presents to ER via Ambulatory with complaints of General Weakness, kb Cough, Flu Symptoms. 20:27 Pt is a 29 year old male who presents for cough, congestion, chills, bodyaches and kb fatigue that started last night. Denies known fever. Denies n/v/d. Historical: - Allergies: 18:53 Sulfa (Sulfonamide Antibiotics); ph - PMHx: 18:53 ADD/ADHD; Bipolar disorder; Hypertensive disorder; ph - Immunization history:: Adult Immunizations unknown. - Infectious Disease History:: Denies. - Social history:: Smoking status: Reported history of juuling and/or vaping. ROS: 20:27 Constitutional: As per HPI kb Exam: 20:27 Constitutional: This is a well developed, well nourished patient who is awake, alert, kb and in no acute distress. Head/Face: Normocephalic, atraumatic. ENT: Moist Mucous membranes Cardiovascular: Regular rate Respiratory: Respirations even and unlabored. No increased work of breathing. Talking in full sentences Abdomen/GI: Soft, non-tender. No distention Skin: Warm, dry with normal turgor. Normal color. MS/ Extremity: Pulses equal, no cyanosis. Neurovascular intact. Full, normal range of motion. Neuro: Awake and alert, GCS 15, oriented to person, place, time, and situation. Vital Signs: 18:54 BP 124 / 75; Pulse 89; Resp 18; Temp 98.3; Weight 90.72 kg; Height 5 ft. 6 in. ; ph 18:54 Body Mass Index 32.28 (90.72 kg, 167.64 cm) ph MDM: 18:39 Medical Screening Exam initiated kb 20:27 Differential diagnosis: flu, covid, strep, uri. Data reviewed: vital signs, nurses kb notes. I considered the following discharge prescriptions or medication management in the emergency department I discussed and recommended Over The Counter medications, Antibiotics: At this time antibiotics are not recommended. Counseling: I had a detailed discussion with the patient and/or guardian regarding the historical points, exam findings, and any diagnostic results supporting the discharge/admit diagnosis, lab results, radiology results, the need for outpatient follow up, a family practitioner, to return to the emergency department if symptoms worsen or persist or if there are any questions or concerns that arise at home. 12/12 18:39 Order name: COVID-19 Ag + Flu A+B Ag; Complete Time: 19:31 kb 12/12 18:39 Order name: Group A Streptococcus Rapid; Complete Time: 19:31 kb 12/12 19:31 Order name: Throat Culture EDMS 12/12 18:54 Order name: Chest Single View XRAY; Complete Time: 19:20 kb Administered Medications: No medications were administered Disposition Summary: 12/12/24 19:46 Discharge Ordered Notes: Location: Home kb Condition: Stable kb Diagnosis - Acute upper respiratory infection, unspecified kb Followup: kb - With: Emergency Department - When: As needed - Reason: Worsening of condition Followup: kb - With: Private Physician - When: 2 - 3 days - Reason: Recheck today's complaints, Continuance of care, Re-evaluation by your physician Discharge Instructions: - Discharge Summary Sheet kb - Upper Respiratory Infection, Adult, [id number] kb - Viral Respiratory Infection, Ftge-Yi-Oyfx kb Forms: - Medication Reconciliation Form kb - Antibiotic Education kb - Prescription Opioid Use kb - Patient Portal Instructions kb - Leadership Thank You Letter kb Addendum: 12/14/2024 07:04 Co-signature as Attending Physician, Josep Junior MD I reviewed the patient's care r n provided by the Advanced Practice Provider and agree with the diagnosis and treatment plan. Signatures: Dispatcher [employer] EDMiri Borges, REFINING ENGINEER-C REFINING ENGINEER-Ckb Josep Junior MD MD rn Callie Bernstein RN RN ph Corrections: (The following items were deleted from the chart) 12/12 18:40 18:39 COVID-19 Ag + Flu A+B Ag+I.LAB.BRZ ordered. EDMS EDMS 18:40 18:39 Group A Streptococcus Rapid Sc+I.LAB.BRZ ordered. EDMS EDMS
--- NOTE | 2024-12-12 19:46 | ER ---
Nurse's Notes [facility] Name: Romulo Gusman Age: 29 yrs Sex: Male : 1995 Arrival Date: 12/12/2024 Time: 18:34 Bed 15 Private MD: Diagnosis: Acute upper respiratory infection, unspecified Presentation: 12/12 18:52 Chief complaint: Patient states: Woke up w/ body aches, cough, congestion, chills. ph Coronavirus screen: At this time, the client does not indicate any symptoms associated with coronavirus-19. Ebola Screen: No symptoms or risks identified at this time. 18:52 Method Of Arrival: Ambulatory ph 18:54 Initial Sepsis Screen: Does the patient meet any 2 criteria? No. Patient's initial ph sepsis screen is negative. Does the patient have a suspected source of infection? No. Patient's initial sepsis screen is negative. Risk Assessment: Do you want to hurt yourself or someone else? Patient reports no desire to harm self or others. Onset of symptoms was December 12, 2024. 18:54 Acuity: LAURI 4 ph Historical: - Allergies: 18:53 Sulfa (Sulfonamide Antibiotics); ph - PMHx: 18:53 ADD/ADHD; Bipolar disorder; Hypertensive disorder; ph - Immunization history:: Adult Immunizations unknown. - Infectious Disease History:: Denies. - Social history:: Smoking status: Reported history of juuling and/or vaping. Screenin:45 [facility] ED Fall Risk Assessment (Adult) History of falling in the last 3 months, jb4 including since admission No falls in past 3 months (0 pts) Confusion or Disorientation No (0 pts) Intoxicated or Sedated No (0 pts) Impaired Gait No (0 pts) Mobility Assist Device Used No (0 pt) Altered Elimination No (0 pt) Score/Fall Risk Level 0 - 2 = Low Risk Oriented to surroundings, Maintained a safe environment. Abuse screen: Denies threats or abuse. Nutritional screening: No deficits noted. Tuberculosis screening: No symptoms or risk factors identified. Assessment: 19:45 General: Appears in no apparent distress. comfortable, Behavior is calm, cooperative, jb4 appropriate for age. Pain: Denies pain. Neuro: Level of Consciousness is awake, alert, obeys commands, Oriented to person, place, time, situation. Cardiovascular: Patient's skin is warm and dry. Respiratory: Airway is patent Respiratory effort is even, unlabored, Respiratory pattern is regular, symmetrical. Derm: Skin is intact, Skin is pink, warm \T\ dry. Musculoskeletal: Circulation, motion, and sensation intact. Range of motion: intact in all extremities. Vital Signs: 18:54 BP 124 / 75; Pulse 89; Resp 18; Temp 98.3; Weight 90.72 kg; Height 5 ft. 6 in. ; ph 18:54 Body Mass Index 32.28 (90.72 kg, 167.64 cm) ph ED Course: 18:37 Patient arrived in ED. ts1 18:39 Miri Lagos FNP-C [facility] kb 18:39 Josep Junior MD is Attending Physician. kb 18:55 Triage completed. ph 18:55 Arm band placed on Patient placed in waiting room, Patient notified of wait time. ph 18:56 Group A Streptococcus Rapid Sent. ph 18:56 COVID-19 Ag + Flu A+B Ag Sent. ph 19:12 Chest Single View XRAY In Process Unspecified. EDMS 19:45 Patient has correct armband on for positive identification. Bed in low position. Call jb4 light in reach. Side rails up X 1. Provided Education on: plan of care. 19:45 No provider procedures requiring assistance completed. Patient did not have IV access jb4 during this emergency room visit. Administered Medications: No medications were administered Medication: 19:45 VIS not applicable for this client. jb4 Outcome: 19:45 Discharged to home ambulatory, jb4 19:45 Condition: stable 19:45 Discharge instructions given to patient, Instructed on discharge instructions, follow up and referral plans. Demonstrated understanding of instructions, follow-up care, 19:46 Discharge ordered by MD. kb 20:01 Patient left the ED. jb4 Signatures: Dispatcher [employer] EDMS Miri Lagos FNP-C FNP-Callie Montes RN RN Noah Junior RN RN jb4 Harriett Trinh PAS PAS ts1
[2024-12-12 20:16] VITALS: BP 124/75; TEMP 98.3
== END 2024-12-12 20:01 | disposition home or self-care (01) ==
LOC: ER 18:34
DX: J06.9 Acute upper respiratory infection, unspecified (principal); Z11.52 Encounter for screening for COVID-19
CPT/HCPCS: 36415; 71045; 87070; 87428; 99283

== ENCOUNTER 2024-12-15 20:26 | Emergency (ER) | payer SELFPAY ==
--- NOTE | 2024-12-15 22:08 | RAD REPORT ---
Procedure: Chest Single View HISTORY: Cough COMPARISON: December 12, 2024 FINDINGS: The lungs appear clear of acute infiltrate. No significant pleural effusion noted. The heart is normal size. IMPRESSION: No acute abnormality is displayed.
[2024-12-15 22:41] LABS: Absolute Lymphocytes (CBC) 1.3 K/uL (0.7-4.9); Hematocrit 45.5 % (39.6-49.0); Hemoglobin 15.7 g/dL (13.6-17.9); MCH 26.4 pg (27.0-35.0); MCHC 34.6 g/dL (32.0-36.0); MCV 76.4 fL (80-100); MPV 8.6 fL (7.6-11.3); Nucleated RBC Absolute Count 0.0 (0-0); Nucleated Red Blood Cells % 0.0 % (0-0); RBC Red Blood Cell Count 5.95 M/uL (4.33-5.43); White Blood Count 9.70 thou/uL (4.3-10.9)
[2024-12-15] MEDS ORDERED: NA CHLORIDE 0.9% 1,000 ML ONE (22:48)
[2024-12-15 22:56] LABS: Influenza A Ag Negative; Influenza B Ag Negative; SARS-CoV-2 Antigen Rapid Res Negative (Negative)
[2024-12-15 22:56] LABS: ALT/SGPT 26 U/L (16-61); Albumin 3.5 g/dL (3.4-5.0); Albumin/Globulin Ratio 0.9 (1.1-1.8); Alkaline Phosphatase 90 U/L (45-117); Anion Gap 9.3 mEq/L (5.0-15.0); BUN Blood Urea Nitrogen 7 mg/dL (7-18); Globulin 3.9 g/dL (2.3-3.5); Glucose Level 121 mg/dL (74-106)
[2024-12-15 23:01] LABS: AST/SGOT 18 U/L (15-37); Bilirubin Indirect, Calculated 0.0 mg/dL (0.2-0.8); Potassium 3.3 mEq/L (3.5-5.1)
[2024-12-15 23:09] LABS: METHAMPHETAM NEGATIVE (NEGATIVE); THC Cannibis NEGATIVE (NEGATIVE)
--- NOTE | 2024-12-16 00:31 | EDPHYS ---
Physician Documentation [facility] Name: Romulo Gusman Age: 29 yrs Sex: Male : 1995 Arrival Date: 12/15/2024 Time: 20:26 Bed 26 Private MD: ED Physician Michael Keys HPI: 12/16 01:26 This 29 yrs old Male presents to ER via Ambulatory with complaints of Weakness, kb HYPERSOMNIA. 01:27 Patient is a 29-year-old male who presents for cough, congestion, chills, body aches, kb malaise and fatigue that started 5 days ago. Patient was seen by me 4 days ago, tested negative for strep, flu and COVID. Patient states he has been taking Sudafed for the symptoms and sleeping a lot. States he took 2 Sudafed this morning and whenever he woke up this evening he had apparently taken 3 or 4 more but he is not sure what time so he was concerned that he took too many.. Historical: - Allergies: 12/15 21:31 Sulfa (Sulfonamide Antibiotics); kd3 - PMHx: 21:31 ADD/ADHD; Bipolar disorder; Hypertensive disorder; kd3 - Immunization history:: Adult Immunizations up to date. - Infectious Disease History:: Denies. - Social history:: Smoking status: Reported history of juuling and/or vaping. ROS: 12/16 00:54 Constitutional: As per HPI kb Exam: 12/15 23:51 Constitutional: This is a well developed, well nourished patient who is awake, alert, kb and in no acute distress. Head/Face: Normocephalic, atraumatic. ENT: Moist Mucous membranes Cardiovascular: Regular rate Respiratory: Respirations even and unlabored. No increased work of breathing. Talking in full sentences Abdomen/GI: Soft, non-tender. No distention Skin: Warm, dry with normal turgor. Normal color. MS/ Extremity: Pulses equal, no cyanosis. Neurovascular intact. Full, normal range of motion. Neuro: Awake and alert, GCS 15, oriented to person, place, time, and situation. ECG was reviewed by the Attending Physician. Vital Signs: 21:29 BP 128 / 90; Pulse 113; Resp 19; Temp 98.2(O); Pulse Ox 98% on R/A; Weight 90.72 kg; kd3 Height 5 ft. 6 in. ; 23:48 BP 130 / 93; Pulse 95; Resp 20; Pulse Ox 99% on R/A; kj2 21:29 Body Mass Index 32.28 (90.72 kg, 167.64 cm) kd3 MDM: 21:00 Medical Screening Exam initiated kb 12/16 01:25 Data reviewed: vital signs, nurses notes. kb 01:27 Differential Diagnosis: Bronchitis Influenza Upper Respiratory Infection Viral kb Syndrome. I considered the following discharge prescriptions or medication management in the emergency department I discussed and recommended Over The Counter medications, Antibiotics: At this time antibiotics are not recommended. Independent interpretation of the following test(s) in the Emergency Department X-Ray: My interpretation is no pneumonia on CXR. Counseling: I had a detailed discussion with the patient and/or guardian regarding the historical points, exam findings, and any diagnostic results supporting the discharge/admit diagnosis, lab results, radiology results, the need for outpatient follow up, a family practitioner, to return to the emergency department if symptoms worsen or persist or if there are any questions or concerns that arise at home. 12/15 21:01 Order name: Acetaminophen; Complete Time: 23:08 kb 12/15 21:01 Order name: Basic Metabolic Panel; Complete Time: 23:08 kb 12/15 21:01 Order name: CBC with Diff; Complete Time: 22:48 kb 12/15 21:01 Order name: ETOH Level; Complete Time: 23:08 kb 12/15 21:01 Order name: Hepatic Function; Complete Time: 23:08 kb 12/15 21:01 Order name: Salicylate; Complete Time: 23:08 kb 12/15 21:01 Order name: Urine Drug Screen; Complete Time: 23:16 kb 12/15 21:01 Order name: COVID-19 Ag + Flu A+B Ag; Complete Time: 23:08 kb 12/15 23:08 Order name: [place] Screen Profile; Complete Time: 23:29 kb 12/15 21:01 Order name: Chest Single View XRAY; Complete Time: 22:09 kb 12/15 22:48 Order name: EKG; Complete Time: 22:49 kb 12/15 21:01 Order name: IV Saline Lock; Complete Time: 22:21 kb 12/15 21:01 Order name: Labs collected and sent; Complete Time: 22:21 kb 12/15 21:01 Order name: Misc. Order: call poison control for recommendation; Complete Time: 22:43 kb 12/15 22:48 Order name: EKG - Nurse/Tech; Complete Time: 23:48 kb EC/27 23:51 Rate is 94 beats/min. Rhythm is regular. QRS [place] is Normal. MT interval is normal at kb 136 msec. QRS interval is normal at 88 msec. QT interval is normal at 445 msec. Administered Medications: 22:54 Drug: NS 0.9% IV 1000 ml IV at 1000 ml once; to be given as a bolus over 60 minutes kj2 Route: IV; Rate: 1000 ml; Site: right antecubital; 12/16 00:25 Follow up: IV Status: Completed infusion; IV Intake: 1000ml kj2 Disposition: 07:36 I reviewed the patient's care provided by the Advanced Practice Provider and agree with tw7 the diagnosis and treatment plan. Disposition Summary: 12/16/24 00:30 Discharge Ordered Notes: Location: Home kb Condition: Stable kb Diagnosis - Other malaise and fatigue kb Followup: kb - With: Emergency Department - When: As needed - Reason: Worsening of condition Followup: kb - With: Private Physician - When: 2 - 3 days - Reason: Recheck today's complaints, Continuance of care, Re-evaluation by your physician Discharge Instructions: - Discharge Summary Sheet kb - Fatigue kb - Viral Illness, Adult kb Forms: - Medication Reconciliation Form kb - Antibiotic Education kb - Prescription Opioid Use kb - Patient Portal Instructions kb - Leadership Thank You Letter kb Signatures: Dispatcher [employer] EDKY Miri Lagos, INPATIENT PHARMACIST-C INPATIENT PHARMACIST-Brandy Ackerman, RN RN kd3 Leslye Gutierrez RN RN kj2 Michael Keys MD MD tw7 Corrections: (The following items were deleted from the chart) 12/15 21:02 21:02 ACETAMINOPHEN+C.LAB.BRZ ordered. EDMS EDMS 21:02 21:02 BASIC METABOLIC PANEL+C.LAB.BRZ ordered. EDKY EDMS 21: 21:02 CBC+H.LAB.BRZ ordered. EDKY EDMS 21:02 21:02 ETHANOL+C.LAB.BRZ ordered. EDKY EDMS 21: 21:02 HEPATIC FUNCTION+C.LAB.BRZ ordered. EDKY EDMS 21: 21:02 SALICYLATE+C.LAB.BRZ ordered. EDMS EDMS 21: 21:02 URINE DRUG SCREEN+UC.LAB.BRZ ordered. EDMS EDMS 21: 21:02 COVID-19 Ag + Flu A+B Ag+I.LAB.BRZ ordered. EDMS EDMS 21: 21:02 Chest Single View+RAD.RAD.BRZ ordered. EDMS EDMS
--- NOTE | 2024-12-16 00:31 | ER ---
[facility]'s [facility] Name: Romulo Gusman Age: 29 yrs Sex: Male : 1995 Arrival Date: 12/15/2024 Time: 20:26 Bed 26 Private MD: Diagnosis: Other malaise and fatigue Presentation: 12/15 21:29 Chief complaint: Patient states: I have been sick for that past 4 days and i have had kd3 really bad head fog. I took like 5 Sudafed but i don't know a time period because i have been out of it and just taking them when i wake up from sleeping. I am also taking Mucinex. I was swabbed when i came here 4 days ago and everything was negative. Coronavirus screen: Vaccine status:. Ebola Screen: No symptoms or risks identified at this time. 21:29 Method Of Arrival: Ambulatory kd3 21:31 Initial Sepsis Screen: Does the patient meet any 2 criteria? No. Patient's initial kd3 sepsis screen is negative. Does the patient have a suspected source of infection? No. Patient's initial sepsis screen is negative. Risk Assessment: Do you want to hurt yourself or someone else?. Onset of symptoms was December 15, 2024. 21:31 Acuity: LAURI 4 kd3 Triage Assessment: 21:31 General: Appears in no apparent distress. Behavior is calm, cooperative. Pain: Denies kd3 pain. Historical: - Allergies: 21:31 Sulfa (Sulfonamide Antibiotics); kd3 - PMHx: 21:31 ADD/ADHD; Bipolar disorder; Hypertensive disorder; kd3 - Immunization history:: Adult Immunizations up to date. - Infectious Disease History:: Denies. - Social history:: Smoking status: Reported history of juuling and/or vaping. Screenin:45 [facility] ED Fall Risk Assessment (Adult) History of falling in the last 3 months, kj2 including since admission No falls in past 3 months (0 pts) Confusion or Disorientation No (0 pts) Intoxicated or Sedated No (0 pts) Impaired Gait No (0 pts) Mobility Assist Device Used No (0 pt) Altered Elimination No (0 pt) Score/Fall Risk Level 0 - 2 = Low Risk Maintained a safe environment, Hourly rounding (assess needs \T\ fall precautionary measures) done. Abuse screen: Denies threats or abuse. Denies injuries from another. Nutritional screening: No deficits noted. Tuberculosis screening: No symptoms or risk factors identified. Assessment: 21:45 General: Appears in no apparent distress. Behavior is drowsy. Neuro: Level of kj2 Consciousness is awake, alert, obeys commands, Oriented to person, place, time, situation. Cardiovascular: Patient's skin is warm and dry. Respiratory: Airway is patent Respiratory effort is even, unlabored. GI: No signs and/or symptoms were reported involving the gastrointestinal system. : No signs and/or symptoms were reported regarding the genitourinary system. 22:25 Reassessment: Poison Control Called: case # [id number], spoke to Chau at [place] [id number] poison control. . Recommendations are as follows: check acetaminophen and LFT, EKX. give supportive and symptomatic treatment via IV fluids. Use benzos for agitation if needed. Give sodium bicarb if QRS is greater than 120ms, repeat EKG in 20 minutes, if QRS narrows , start a drip. 23:48 Reassessment: Patient appears in no apparent distress at this time. Patient and/or kj2 family updated on plan of care and expected duration. Pain level reassessed. Patient is alert, oriented x 3, equal unlabored respirations, skin warm/dry/pink. Vital Signs: 21:29 BP 128 / 90; Pulse 113; Resp 19; Temp 98.2(O); Pulse Ox 98% on R/A; Weight 90.72 kg; kd3 Height 5 ft. 6 in. ; 23:48 BP 130 / 93; Pulse 95; Resp 20; Pulse Ox 99% on R/A; kj2 21:29 Body Mass Index 32.28 (90.72 kg, 167.64 cm) kd3 ED Course: 20:27 Patient arrived in ED. jj6 20:37 Miri Lagos FNP-C [facility]. kb 20:37 Michael Keys MD is Attending Physician. kb 21:31 Triage completed. kd3 21:31 Arm band placed on right wrist. kd3 21:45 Patient has correct armband on for positive identification. Bed in low position. Call kj2 light in reach. Provided Education on: call light. 21:50 Leslye Gutierrez, JONATHAN is Primary Nurse. kj2 21:51 Chest Single View XRAY In Process Unspecified. EDMS 22:21 COVID-19 Ag + Flu A+B Ag Sent. kj2 22:53 Inserted saline lock: 20 gauge in right antecubital area, using aseptic technique. kj2 Blood collected. Flushed with 10 mL NS. 12/16 00:21 Report given to Radha Chairez RN. kj2 02:14 No provider procedures requiring assistance completed. IV discontinued, intact, vc1 bleeding controlled, No redness/swelling at site. Pressure dressing applied. Administered Medications: 12/15 22:54 Drug: NS 0.9% IV 1000 ml IV at 1000 ml once; to be given as a bolus over 60 minutes kj2 Route: IV; Rate: 1000 ml; Site: right antecubital; 12/16 00:25 Follow up: IV Status: Completed infusion; IV Intake: 1000ml kj2 Medication: 12/15 22:24 VIS not applicable for this client. kj2 Intake: 12/16 00:25 IV: 1000ml; Total: 1000ml. kj2 Outcome: 00:30 Discharge ordered by . joe 02:15 Discharged to home ambulatory, vc1 02:15 Condition: stable 02:15 Discharge instructions given to patient, Instructed on discharge instructions, follow up and referral plans. Demonstrated understanding of instructions, follow-up care, 02:15 Patient left the ED. vc1 Signatures: Dispatcher [employer] EDTN Miri Lagos, GALLEY STRIPPER-C GALLEY STRIPPER-CkSandra Kuhn jj6 Brandy Hines RN RN kd3 Radha Gao RN RN vc1 Leslye Gutierrez, RN RN kj2 Corrections: (The following items were deleted from the chart) 12/15 22:53 22:53 NS 0.9% IV 1000 ml IV at 1000 ml in left antecubital kj2 kj2
[2024-12-16 14:46] VITALS: TEMP 98.2
[2024-12-16 14:47] VITALS: BP 130/93; O2SAT 99
== END 2024-12-16 02:15 | disposition home or self-care (01) ==
LOC: ER 20:26
DX: R53.1 Weakness (principal); R53.81 Other malaise; R53.83 Other fatigue; Z11.52 Encounter for screening for COVID-19
CPT/HCPCS: 36415; 71045; 80048; 80076; 80143; 80179; 80307; 82077; 85025; 86308; 87428; 93005; 96360; 96361; 99284; J7030